=== PATIENT | male | born 1945 | race Caucasian/White ===

== ENCOUNTER 2020-06-25 17:58 | Emergency (ER) | payer MEDICARE, MEDICAID, SELFPAY ==
[2020-06-25 18:41] VITALS: BP 140/80; PULSE 78; RESP 18; TEMP 37.6; O2SAT 95; BMI 27.8
== END 2020-06-25 21:06 | disposition left against medical advice (07) ==
PROVIDERS: Emergency Provider Internal Medicine
DX: R51.9 Headache, unspecified (principal)
CPT/HCPCS: 99281; 99282

== ENCOUNTER → 2020-07-10 08:45 | Outpatient (BNVA) | payer MEDICARE, MEDICAID, SELFPAY | PROVIDERS: Visit Provider Nurse Practitioner | DX: Z76.89 Persons encountering health services in other specified circumstances (principal) | CPT/HCPCS: Q3014 ==

== ENCOUNTER 2020-08-19 13:55 | Emergency (ER) | payer MEDICARE, MEDICAID, SELFPAY ==
[2020-08-19 14:02] VITALS: BP 144/84; PULSE 84; RESP 18; TEMP 36.3; O2SAT 95; BMI 27.8
--- NOTE | 2020-08-19 19:17 | PC.NURSE ---
SECOND CALL. NO RESPONSE.
== END 2020-08-19 19:22 | disposition left against medical advice (07) ==
LOC: HO.ED 19:21
PROVIDERS: Emergency Provider Emergency Medicine
DX: S09.90XA Unspecified injury of head, initial encounter (principal); S80.212A Abrasion, left knee, initial encounter; W00.0XXA Fall on same level due to ice and snow, initial encounter; Y93.9 Activity, unspecified; Y92.480 Sidewalk as the place of occurrence of the external cause; Y99.9 Unspecified external cause status; Z79.82 Long term (current) use of aspirin
CPT/HCPCS: 99281; 99282

== ENCOUNTER 2021-01-01 08:14 | Outpatient (REF) | payer MEDICARE, MEDICAID, SELFPAY ==
--- NOTE | ~2021-01-01 | CT_ITS ---
EXAMINATION: CT SOFT TISSUE NECK WITH CONTRAST CLINICAL INFORMATION: Localized swelling, mass, lump. COMPARISON: None TECHNIQUE: Following the intravenous administration of 100 mL of Omnipaque 350 intravenous contrast, helical imaging was performed in the axial plane with generation of coronal and sagittal reformatted images. This CT examination was performed using dose optimization techniques as appropriate, variously including the following: *Automated exposure control *Adjustment of mA and/or kV according to patient size (this includes techniques or standardized protocols for targeted exams where dose is matched to indication/reason for exam; i.e. extremities or head) *Use of iterative reconstruction technique DLP: 291 mGy-cm FINDINGS: No cervical adenopathy is identified. The parotid glands are homogeneous in attenuation. The submandibular glands are normal. No contour abnormality or pathologic enhancement is seen within the oral cavity or pharyngeal mucosal space. The laryngeal structures are normal. The parapharyngeal fat is preserved. The carotid sheath vasculature opacify normally. No extra mucosal soft tissue mass or fluid collection is seen. No retropharyngeal fluid collection is seen. The thyroid gland is normal. The superior mediastinum is unremarkable. There is bilateral apical parenchymal scarring or atelectasis. There is a small polyp or retention cyst left maxillary sinus. There is mild mucoperiosteal thickening bilateral middle ethmoid sinuses is noted. There is nonspecific punctate calcification along the anterior maxillary skin with mild soft tissue thickening. The temporomandibular joints are normal. No periapical disease is identified. There is anterior plate and screws with intervening bone grafts for fusion from C4 through C6 vertebrae. The imaged portions of the brain parenchyma are unremarkable. There are bilateral optic globe bands likely for retinal detachment surgical changes. CT/CT soft tissue neck w con IMPRESSION: No visible neck mass or abnormal neck lymphadenopathy seen. There is nonspecific skin thickening with punctate calcifications in bilateral anterior maxillary soft tissues. No underlying mass seen. Small polyp or retention cyst left maxillary sinus. There is mild mucoperiosteal thickening seen involving bilateral middle ethmoid sinuses.
[2021-01-01] MEDS: iohexoL 350 MG/ML 100 ML INFUS..BTL IV (09:11)
== END 2021-01-01 08:15 | disposition home or self-care (01) ==
LOC: HO.CT 08:14
PROVIDERS: Visit Provider Family Medicine
DX: M54.2 Cervicalgia (principal); R22.1 Localized swelling, mass and lump, neck
CPT/HCPCS: 70491; Q9967

== ENCOUNTER → 2021-01-06 09:04 | Outpatient (BNVA) | payer MEDICARE, MEDICAID, SELFPAY | PROVIDERS: Visit Provider Nurse Practitioner | CPT/HCPCS: Q3014 ==

== ENCOUNTER 2021-02-04 10:11 | Outpatient (REF) | payer MEDICARE, MEDICAID, SELFPAY ==
--- NOTE | ~2021-02-04 | XR_ITS ---
EXAMINATION: XR CERVICAL SPINE CLINICAL INFORMATION: Neck pain. COMPARISON: 08/31/2018 cervical spine radiographs. TECHNIQUE: 6 views of the cervical spine, inclusive of flexion and extension views, were obtained. FINDINGS: The patient is status post anterior fusion from C5 to C7 showing good anatomic alignment with no evidence for hardware malfunction. There is normal cervical lordosis is malalignment. The vertebral bodies are intact. Mild multilevel neural foraminal narrowing is seen bilaterally. There is no acute fracture. The odontoid process is intact. The spinous processes are intact. The prevertebral soft tissues are unremarkable. XR/XR cervical spine min 6V IMPRESSION: Status post spinal fusion without hardware abnormality. No significant change.
== END 2021-02-04 10:12 | disposition home or self-care (01) ==
LOC: HO.XRAY 10:11
PROVIDERS: PCP Family Medicine; Visit Provider Family Medicine
DX: M54.2 Cervicalgia (principal)
CPT/HCPCS: 72052

== ENCOUNTER 2021-08-05 19:23 | Outpatient (REF) | payer MEDICARE, MEDICAID, SELFPAY ==
--- NOTE | ~2021-08-05 | MR_ITS ---
EXAMINATION: MR SHOULDER WITHOUT CONTRAST, RIGHT CLINICAL INFORMATION: Right shoulder pain. COMPARISON: Radiographs 11/24/2018. MRI 03/05/2018. TECHNIQUE: MRI of the shoulder without contrast was performed on a high-field scanner. FINDINGS: ROTATOR CUFF: The surgically repaired supraspinatus tendon appears intact. No rotator cuff tear. No muscle atrophy or fatty infiltration. BICEPS: Presumed biceps tenodesis, obscured by metal artifact. No definite tear. CORACOACROMIAL ARCH: The undersurface of the acromion is post acromioplasty with no subacromial spur. Mild acromioclavicular osteoarthritis. LABRUM/CAPSULE: No definite labral tear. The superior labrum is blunted. GLENOHUMERAL JOINT/MARROW: Trace joint effusion with mild synovitis. There is cartilage loss and osteophyte formation along the superolateral aspect of the humeral head and greater tuberosity. Osteophytes also along the inferomedial humeral head and neck junction, and the inferior glenoid rim. There is a small cyst and degenerative marrow edema of the posterior-superior glenoid rim which is a new finding. No change in the appearance of the lipoma between the anterior deltoid and coracoid/biceps short head. MR/MR shoulder RT wo con IMPRESSION: 1. Postsurgical changes without evidence of a recurrent rotator cuff tear. 2. Moderate glenohumeral osteoarthritis which has progressed, with a trace joint effusion.
== END 2021-08-05 19:24 | disposition home or self-care (01) ==
LOC: HO.MRI 19:23
PROVIDERS: PCP Family Medicine; Visit Provider Family Medicine
DX: M25.511 Pain in right shoulder (principal); M75.121 Complete rotator cuff tear or rupture of right shoulder, not specified as traumatic; Z98.890 Other specified postprocedural states
CPT/HCPCS: 73221

== ENCOUNTER → 2021-09-04 14:41 | Outpatient (BNVA) | payer MEDICARE, MEDICAID, SELFPAY | PROVIDERS: PCP Family Medicine; Referring Provider Family Medicine; Visit Provider Nurse Practitioner | DX: K21.9 Gastro-esophageal reflux disease without esophagitis (principal); K59.04 Chronic idiopathic constipation; R14.0 Abdominal distension (gaseous); Z79.899 Other long term (current) drug therapy | CPT/HCPCS: 99212 ==

== ENCOUNTER → 2021-11-27 15:31 | Outpatient (BNVA) | payer MEDICARE, MEDICAID, SELFPAY | PROVIDERS: PCP Family Medicine; Visit Provider Internal Medicine | DX: J44.9 Chronic obstructive pulmonary disease, unspecified (principal); G47.33 Obstructive sleep apnea (adult) (pediatric) | CPT/HCPCS: 99202 ==

== ENCOUNTER 2022-01-05 11:52 | Outpatient (REF) | payer MEDICARE, MEDICAID, SELFPAY ==
--- NOTE | ~2022-01-05 | XR_ITS ---
EXAMINATION: XR KNEE, BILATERAL XR KNEE, RIGHT CLINICAL INFORMATION: Pain. COMPARISON: 10/10/2014 and studies dating back to 01/18/2013. TECHNIQUE: AP standing view of both knees as well as patellar sunrise and lateral view of the right knee. FINDINGS: The patient is status post left knee total arthroplasty without evidence of hardware failure. There is an exostosis seen about the proximal fibula. Right knee medial, lateral, and patellofemoral joint spaces appear maintained. No acute fracture or dislocation. There is minor spurring undersurface of the patella. There is a spur site of insertion of the quadriceps tendon. No effusion is appreciated. Prominent vascular calcifications are seen. XR/XR knee RT 2V IMPRESSION: Status post left total knee arthroplasty without evidence of hardware failure. Mild degenerative change of the right patellofemoral joint without acute fracture or effusion.
--- NOTE | ~2022-01-05 | XR_ITS ---
EXAMINATION: XR KNEE, BILATERAL XR KNEE, RIGHT CLINICAL INFORMATION: Pain. COMPARISON: 10/10/2014 and studies dating back to 01/18/2013. TECHNIQUE: AP standing view of both knees as well as patellar sunrise and lateral view of the right knee. FINDINGS: The patient is status post left knee total arthroplasty without evidence of hardware failure. There is an exostosis seen about the proximal fibula. Right knee medial, lateral, and patellofemoral joint spaces appear maintained. No acute fracture or dislocation. There is minor spurring undersurface of the patella. There is a spur site of insertion of the quadriceps tendon. No effusion is appreciated. Prominent vascular calcifications are seen. XR/XR knee standing BI IMPRESSION: Status post left total knee arthroplasty without evidence of hardware failure. Mild degenerative change of the right patellofemoral joint without acute fracture or effusion.
== END 2022-01-05 11:53 | disposition home or self-care (01) ==
LOC: HO.HOSX 11:52
PROVIDERS: Visit Provider Physician Assistant
DX: M17.11 Unilateral primary osteoarthritis, right knee (principal)
CPT/HCPCS: 73560; 73565; 99202

== ENCOUNTER 2022-01-07 14:43 | Outpatient (REF) | payer MEDICARE, MEDICAID, SELFPAY ==
--- NOTE | 2022-01-07 15:50 | PFT_ITS ---
FLOWS: FEV1 92% of predicted at 2.01 L. FVC 91% of predicted at 2.85 L. FEV1 to FVC ratio of 0.71. No bronchodilator response. LUNG VOLUMES: Total lung capacity 86% of predicted at 5.06 L. Residual volume 99% of predicted at 2.30 L. Slow vital capacity 77% of predicted at 2.76 L. Expiratory reserve volume 66% of predicted at 0.53 L. Diffusion capacity is normal. IMPRESSION: No obstructive or restrictive ventilatory defect. No bronchodilator response. Essentially normal pulmonary function test. Ignacio Lee MD AP/MODL / [id number]
== END 2022-01-07 14:44 | disposition home or self-care (01) ==
LOC: HO.RESP 14:43
PROVIDERS: PCP Family Medicine; Visit Provider Internal Medicine
DX: J44.9 Chronic obstructive pulmonary disease, unspecified (principal); Z87.891 Personal history of nicotine dependence; Z79.899 Other long term (current) drug therapy
CPT/HCPCS: 94060; 94727; 94729; 99212

== ENCOUNTER → 2022-01-13 07:53 | Outpatient (BNVA) | payer MEDICARE, MEDICAID, SELFPAY | PROVIDERS: PCP Family Medicine; Visit Provider Nurse Practitioner Family | DX: G47.33 Obstructive sleep apnea (adult) (pediatric) (principal); R06.83 Snoring; G47.00 Insomnia, unspecified; R40.0 Somnolence | CPT/HCPCS: 99202 ==

== ENCOUNTER 2022-01-26 14:38 | Outpatient (REF) | payer MEDICARE, MEDICAID, SELFPAY ==
--- NOTE | ~2022-01-26 | XR_ITS ---
EXAMINATION: XR PELVIS CLINICAL INFORMATION: Pain COMPARISON: Previous right hip x-ray September 2017 TECHNIQUE: AP view of the pelvis. FINDINGS: Bone alignment is normal. No fracture or dislocation is seen. There is joint space narrowing of both hip joints with joint space narrowing and osteophyte formation. There is a sclerotic density in the right femoral intertrochanteric region that is stable from 2018 exam and may represent a bone island. This measures 1.3 cm. Bones of the pelvis are normal. There are degenerative changes of the visualized lower lumbar spine. Soft tissues are normal. XR/XR pelvis 1-2V IMPRESSION: Bilateral hip arthritis.
== END 2022-01-26 14:39 | disposition home or self-care (01) ==
LOC: HO.HOSX 14:38
PROVIDERS: Visit Provider Orthopaedic Surgery
DX: M17.11 Unilateral primary osteoarthritis, right knee (principal); M79.661 Pain in right lower leg; M25.461 Effusion, right knee; M25.551 Pain in right hip; M25.552 Pain in left hip
CPT/HCPCS: 72170; 99212

== ENCOUNTER 2022-02-13 11:52 | Emergency (ER) | payer MEDICARE, MEDICAID, SELFPAY ==
--- NOTE | ~2022-02-13 | XR_ITS ---
EXAMINATION: XR CHEST CLINICAL INFORMATION: Shortness of breath COMPARISON: X-ray 01/26/2017 TECHNIQUE: Frontal view of the chest was obtained. FINDINGS: Stable cardiomediastinal silhouette. Mild left basilar opacity. This is less prominent as compared to the prior study. No effusion or pulmonary edema. No pneumothorax. Cervical spinal fusion hardware. Radiopaque anchors in bilateral humeral head. XR/XR chest 1V IMPRESSION: Left basilar opacity could reflect atelectasis or infiltrate.
[2022-02-13 12:01] VITALS: BP 147/80; PULSE 69; RESP 20; TEMP 36.7; O2SAT 96; BMI 27.8
[2022-02-13 12:20] LABS: Basophils Percent Auto 0.3 % (0-2); Eosinophils Absolute Auto 0.4 X10*3/uL (0.0-0.4); Eosinophils Percent Auto 5.3 % (0-4); Hematocrit 44.3 % (42.0-52.0); Hemoglobin 14.8 g/dl (14.0-18.0); Imm Gran Abs Auto 0.02 X10*3/uL (0.00-0.03); Imm Gran Pct Auto 0.3 % (0.0-0.4); Lymphocytes Percent Auto 29.1 % (20-40); MANUAL DIFF FLAG NO; Mean Corpuscular HGB Conc 33.4 g/dl (31.0-36.0); Mean Corpuscular Volume 95.7 fL (80.0-98.0); Mean Platelet Volume 9.7 fL (9.4-12.4); Monocytes Absolute Auto 0.7 X10*3/uL (0.1-1.2); Monocytes Percent Auto 9.6 % (2-11); Neutrophils Absolute Auto 3.9 x10*3/uL (2.0-8.3); Neutrophils Percent Auto 55.4 % (45-73); Platelet Count 196 X10*3/uL (160-400); Red Blood Count 4.63 X10*6/uL (4.60-5.80); Red Cell Distribution Width 13.7 % (11.0-16.0)
[2022-02-13 12:39] LABS: Alanine Aminotransferase 25 U/L (0-40); Albumin Level 4.1 g/dL (3.5-5.0); Alkaline Phosphatase 124 U/L (39-117); Anion Gap 12 (12-20); Aspartate Amino Transferase 24 U/L (5-37); Bilirubin Total 0.6 mg/dL (0.0-1.0); Blood Urea Nitrogen 13 mg/dL (9-16); Calcium 8.9 mg/dL (8.4-10.2); Carbon Dioxide 26 mmol/L (22-29); Chloride 107 mmol/L (96-108); Creatinine Clr Calc Pharmacy 52.2; Estimated Glomerular Filt Rate > 60; Glucose Random 103 mg/dL (60-115); Sodium 141 mmol/L (135-145); Total Protein 6.7 g/dL (6.5-8.0)
[2022-02-13 12:40] LABS: B Type Natriuretic Peptide 12 pg/mL (<100); Troponin-I High Sensitivity < 3.5 ng/L (<3.5-35.0)
[2022-02-13] MEDS: Acetaminophen 325 MG TABLET 650 MG PO (15:00)
== END 2022-02-13 16:57 | disposition left against medical advice (07) ==
PROVIDERS: Emergency Provider Emergency Medicine; PCP Family Medicine
DX: R06.02 Shortness of breath (principal); R10.9 Unspecified abdominal pain; R07.89 Other chest pain; Z79.899 Other long term (current) drug therapy
CPT/HCPCS: 36415; 71045; 80053; 83880; 84484; 85025; 99282; 99283

== ENCOUNTER 2022-02-17 17:51 | Outpatient (REF) | payer MEDICARE, MEDICAID, SELFPAY ==
--- NOTE | ~2022-02-17 | MR_ITS ---
EXAMINATION: MR KNEE WITHOUT CONTRAST, RIGHT CLINICAL INFORMATION: Right knee effusion. COMPARISON: 01/05/2022 TECHNIQUE: MRI of the knee without contrast was performed using routine sequences on a high-field scanner. FINDINGS: MENISCI: Medial Meniscus: There is subtle blunting of the inner margin at the meniscal body which could be the result of inner margin fraying. This is slightly more pronounced as compared to prior. No discrete medial meniscal tears. Lateral Meniscus: Intact. LIGAMENTS: Cruciate: Intact. Collateral: As seen on the prior study, the MCL is relatively thickened proximally at its origin, possibly the result of a remote injury. No acute tears. LCL complex is normal. EXTENSOR MECHANISM: Mild quadriceps tendinosis with mild edema in the quadriceps fat pad. Patellar tendon is normal. No tears. ARTICULAR CARTILAGE/BONE: Patellofemoral Compartment: A transverse band of chondral fissuring and delamination at the inferior aspect of the medial trochlear facet measures 1 x 0.5 cm in area with subtle cortical irregularity. This is slightly more pronounced as compared to prior. A small longitudinal chondral fissure is also present in the central trochlear groove. Normal trochlear morphology. Patella is unremarkable. Medial Compartment: At the lateral third of the medial femoral condyle posterior weightbearing surface, there is a 4 x 6 mm partial-thickness delaminated chondral flap with near full-thickness chondral fissuring. Lateral Compartment: Normal. JOINT FLUID AND BURSAE: Trace joint effusion. Minimal pes anserine bursitis. MR/MR knee RT wo con IMPRESSION: 1. A 4 x 6 mm partial-thickness delaminated chondral flap at the medial femoral condyle weightbearing surface. 2. Subtle blunting of the medial meniscal body free edge, likely degenerative. No discrete meniscal tears. 3. Small band of chondral fissuring and delamination at the inferior aspect of the medial trochlear facet, slightly more pronounced as compared to prior. 4. Mild quadriceps tendinosis. 5. Minimal pes anserine bursitis.
== END 2022-02-17 17:52 | disposition home or self-care (01) ==
LOC: HO.MRI 17:51
PROVIDERS: Visit Provider Orthopaedic Surgery
DX: M25.461 Effusion, right knee (principal)
CPT/HCPCS: 73721

== ENCOUNTER 2022-02-19 14:07 | Emergency (ER) | payer MEDICARE, MEDICAID, SELFPAY ==
--- NOTE | ~2022-02-19 | CT_ITS ---
EXAMINATION: CT ANGIOGRAM OF THE CHEST WITH AND WITHOUT CONTRAST (CT PULMONARY ANGIOGRAM FOR PE) CLINICAL INFORMATION: Reason for Exam + dimer sob COMPARISON: Chest CT 09/16/2013 TECHNIQUE: Prior to contrast administration, noncontrast localization images were obtained. Subsequently, multidetector volumetric imaging was performed from the thoracic inlet to below the diaphragms following the administration of 63 mL Omnipaque 350 intravenous contrast. No contrast reaction reported Sagittal, coronal, and MIP oblique sagittal reformatted images were obtained on the CT workstation, uploaded to PACS, and reviewed. This CT examination was performed using dose optimization techniques as appropriate, variously including the following: *Automated exposure control *Adjustment of mA and/or kV according to patient size (this includes techniques or standardized protocols for targeted exams where dose is matched to indication/reason for exam; i.e. extremities or head) *Use of iterative reconstruction technique Total exam dose-length product 268 mGy-cm FINDINGS: QUALITY OF STUDY/CONTRAST BOLUS: Satisfactory. PULMONARY ARTERIES: No central or segmental pulmonary emboli. THORACIC AORTA: No aneurysm or dissection. LUNG: Small amount of endobronchial mucous or aspirated debris within bilateral bronchi in the posterior lower lobes with mild bibasilar subsegmental atelectasis. No airspace consolidation. No suspicious pulmonary nodules. Sub-4 mm calcified granuloma in the anterior right upper lobe. Minimal biapical pleural parenchymal thickening/scarring. PLEURA: No pleural effusion or pneumothorax. MEDIASTINUM: Prominent heart size. No mediastinal or hilar lymphadenopathy. No evidence of septal bowing or right heart strain. CHEST WALL/AXILLA: No axillary or internal mammary lymphadenopathy. OSSEOUS STRUCTURES: No acute or suspicious osseous abnormality. Moderate multilevel degenerative disc disease in the mid lower thoracic spine. ACDF hardware noted in the imaged lower cervical spine. UPPER ABDOMEN: Unremarkable. No reflux of contrast into the hepatic veins to suggest elevated right heart pressures. CT/CT angio chest PE protocol IMPRESSION: 1. No evidence of pulmonary embolus. 2. Mild bibasilar subsegmental atelectasis and small amount of endobronchial mucus or possibly small volume aspirated debris in the posterior lower lobe bronchi bilaterally. 3. No other airspace opacity or effusions. VTE: negative
--- NOTE | ~2022-02-19 | XR_ITS ---
EXAMINATION: XR CHEST CLINICAL INFORMATION: Shortness of breath. COMPARISON: 02/13/2022 and 01/26/2017 chest radiographs. TECHNIQUE: Frontal view of the chest was obtained. FINDINGS: Mild left basilar opacities are seen. The left upper lung field and right lung are clear. The heart and mediastinal structures are unremarkable. An anterior cervical fixation plate is noted in place. XR/XR chest 1V IMPRESSION: Mild bibasilar opacities are again seen without significant change likely representing pleural reflection/scarring. No acute abnormality.
[2022-02-19 15:10] VITALS: BP 117/84; PULSE 75; RESP 16; TEMP 36.2; O2SAT 96; BMI 27.8
--- NOTE | 2022-02-19 15:17 | ECG_ITS ---
Test Reason : cx pain Blood Pressure : / mmHG Vent. Rate : 073 BPM Atrial Rate : 073 BPM P-R Int : 202 ms QRS Dur : 092 ms QT Int : 382 ms P-R-T Axes : 044 -42 025 degrees QTc Int : 420 ms Normal sinus rhythm Left axis deviation Minimal voltage criteria for LVH, may be normal variant ( Levi product ) Abnormal ECG When compared with ECG of 24-NOV-2018 07:34, QRS axis Shifted left Referred By: Rut Stephens Electronically Signed By:PHIL UMANA
[2022-02-19 15:33] LABS: MANUAL DIFF FLAG NO
[2022-02-19 15:37] LABS: Basophils Percent Auto 0.4 % (0-2); Eosinophils Absolute Auto 0.4 X10*3/uL (0.0-0.4); Eosinophils Percent Auto 5.5 % (0-4); Hematocrit 42.8 % (42.0-52.0); Hemoglobin 14.3 g/dl (14.0-18.0); Imm Gran Abs Auto 0.03 X10*3/uL (0.00-0.03); Imm Gran Pct Auto 0.4 % (0.0-0.4); Lymphocytes Absolute Auto 1.9 X10*3/uL (1.2-4.9); Lymphocytes Percent Auto 25.2 % (20-40); Mean Corpuscular HGB Conc 33.4 g/dl (31.0-36.0); Mean Corpuscular Hemoglobin 32.2 pg (27.0-33.0); Mean Corpuscular Volume 96.4 fL (80.0-98.0); Mean Platelet Volume 9.7 fL (9.4-12.4); Monocytes Absolute Auto 0.7 X10*3/uL (0.1-1.2); Monocytes Percent Auto 9.2 % (2-11); Neutrophils Absolute Auto 4.4 x10*3/uL (2.0-8.3); Neutrophils Percent Auto 59.3 % (45-73); Platelet Count 223 X10*3/uL (160-400); Red Blood Count 4.44 X10*6/uL (4.60-5.80); Red Cell Distribution Width 13.6 % (11.0-16.0); White Blood Count 7.5 X10*3/uL (4.8-10.8)
[2022-02-19 15:54] LABS: Anion Gap 15 (12-20); Blood Urea Nitrogen 13 mg/dL (9-16); Calcium 8.5 mg/dL (8.4-10.2); Carbon Dioxide 26 mmol/L (22-29); Chloride 107 mmol/L (96-108); Creatinine Clr Calc Pharmacy 46.1; Estimated Glomerular Filt Rate 58; Glucose Random 95 mg/dL (60-115); Potassium 4.6 mmol/L (3.3-5.1); Sodium 143 mmol/L (135-145)
--- NOTE | 2022-02-19 19:16 | ED_ITS ---
HPI - SOB/Dyspnea General Chief Complaint: Dyspnea Stated Complaint: diff breathing pneumonia Time Seen by Provider: 02/19/22 18:59 Source: patient Mode of arrival: ambulatory Limitations: no limitations History of Present Illness HPI Narrative: 76-year-old male history of former smoker, asthma, yolanda, copd, htn, yolanda, gerd, presenting to the emergency department shortness of breath, cough, since Wednesday, 3 days ago. Patient was told that he had pneumonia however was not started on antibiotics. Patient reports increasing shortness of breath particularly over the past day, patient reports using his inhaler continuously today, with little to no relief. SOB worse w/ exertion. Upon patient's arrival patient appears to have labored breathing, speaking in full sentences, intercostal muscles for breathing. Denies chest pain, nausea, vomiting, abdominal pain, headache, vision changes, leg swellig and dizziness. Patient has never required intubation for sx. No hx of DV/PE. Not anticoagulated. Related Data Home Medications Medication Instructions Recorded Confirmed albuterol sulfate 90 mcg/actuation 1 inh inhalation QID 01/10/21 01/13/22 aerosol inhaler (ProAir HFA) aspirin 81 mg tablet,delayed 81 mg PO DAILY 01/10/21 01/13/22 release (Adult Aspirin Regimen) atorvastatin 20 mg tablet 20 mg PO DAILY 01/10/21 01/13/22 doxepin 100 mg capsule 100 mg PO BEDTIME 01/10/21 01/13/22 fluticasone 100 mcg-salmeterol 50 1 inh inhalation BID 01/10/21 01/13/22 mcg/dose blistr powdr for inhalation (Advair Diskus) lisinopril 10 mg tablet 10 mg PO DAILY 01/10/21 01/13/22 metoprolol succinate 25 mg 12.5 mg PO DAILY 01/10/21 01/13/22 tablet,extended release 24 hr omega-3 fatty acids 1,000 mg 1,000 mg PO DAILY 01/10/21 01/13/22 capsule (Fish Oil Concentrate) doxepin 75 mg capsule 75 mg PO BEDTIME 09/04/21 01/13/22 mirtazapine 15 mg tablet 15 mg PO BEDTIME 09/04/21 01/13/22 celecoxib 200 mg capsule 200 mg PO DAILY 01/07/22 01/13/22 fluticasone 250 mcg-salmeterol 50 1 ea inhalation BID 01/07/22 01/13/22 mcg/dose blistr powdr for inhalation (Advair Diskus) simvastatin 40 mg tablet 40 mg PO BEDTIME 01/07/22 01/13/22 Previous Rx's Medication Instructions Recorded omeprazole 20 mg capsule,delayed 20 mg PO BID 30 days #60 caps 09/04/21 release simethicone 180 mg capsule 180 mg PO QID 30 days #120 caps 09/04/21 melatonin 3 mg tablet 3 mg PO BEDTIME PRN sleep 30 days 01/13/22 #30 tabs albuterol sulfate 90 mcg/actuation 2 inh inhalation Q4-6H PRN 02/19/22 breath activated powder inhaler shortness of breath or wheezing #1 ea amoxicillin 875 mg-potassium 1 tab PO BID 7 days #14 tabs 02/19/22 clavulanate 125 mg tablet doxycycline hyclate 100 mg capsule 100 mg PO BID 10 days #20 caps 02/19/22 prednisone 20 mg tablet 40 mg PO DAILY 5 days #10 tabs 02/19/22 Allergies Allergy/AdvReac Type Severity Reaction Status Date / Time codeine AdvReac Mild Abdominal Verified 02/13/22 14:58 Pain Motrin Allergy Unknown Unknown Uncoded 01/05/22 13:24 Review of Systems Review of Systems: Constitutional : No Weight loss, No Fever, No Chills, No Fatigue, No Malaise ENT/Mouth : No sore throat, No Rhinorrhea Eyes: No Eye Pain, No Swelling, No Redness Cardiovascular : No Chest Pain, + SOB, No Dyspnea on Exertion, No Orthopnea, No Edema, No Palpitations Respiratory : No Cough, No Sputum, No Wheezing Gastrointestinal : No Nausea, No Vomiting, No Diarrhea, No Constipation, No abdominal Pain, No Hematochezia, No Melena Genitourinary : No Dysuria, No Urinary Frequency, No Hematuria, Musculoskeletal : No joint pain, No Myalgias, No Joint Swelling Skin : No Skin Lesions, No rash Neuro : No Weakness, No Numbness, No Dizziness, No Headache Psych : No Anxiety/Panic, No Depression All other systems reviewed and are negative Yes all other systems are reviewed and are negative [facility] Past Medical History Attestation statement: The following information was validated with the patient. Source: old records reviewed and nursing notes reviewed Medical History Degenerative disc disease, thoracic No known health problems Surgical History H/O colonoscopy H/O shoulder surgery History of renal stent History of total left knee replacement Previous back surgery S/P arthroscopic surgery of left knee Social History Social History Alcohol intake: never Patient Tobacco Use Status: Never used Tobacco Advance Directives: No Advance Directives Information Provided: No Current occupational status: unemployed Physical Exam Vital Signs: Vital Signs: Last Vital Signs Temp 97.1 F 02/19/22 15:10 Pulse 96 02/19/22 22:06 Resp 22 H 02/19/22 22:06 BP 117/84 02/19/22 15:10 Pulse Ox 96 02/19/22 15:10 O2 Del Method 02/19/22 15:10 BMI result Body Mass Index 27.8 vss Appearance: Alert.? Oriented X3.? No acute distress.? Head: Normocephalic, atraumatic, no step-offs or deformities Eyes: Pupils equal, round and reactive to light.? ENT: Pharynx normal.? Neck: Normal inspection.? Neck supple.? CVS: Normal heart rate and rhythm.? Pulses normal.? Respiratory: + mild respiratory distress.? Breath sounds diminished b/l w/ faint crackles throughout and wheezing throughout .? Abdomen: Soft and nontender.? Skin: Skin warm and dry.? Normal skin color.? Normal skin turgor.? Extremities: No lower extremity edema.? No calf ttp. 5/5 strength to bilateral upper and lower extremities Neuro: Oriented X 3.? No motor deficit.? No sensory deficit. CN 2-12 intact Course Reevaluation(s) Reevaluation #1: CBC appears to be around patient's baseline. Chemistry with no acute electrolyte abnormalities requiring intervention. D-dimer elevated, CTA of the chest will be ordered to rule out PE on this patient. Will also order a BNP to rule out fluid overload although patient does not appear to be overtly overloaded on exam. Some improvement after DuoNeb however 2nd DuoNeb will be ordered as patient continues to have expiratory wheezes, diminished breath sounds, faint crackles. Time: 21:37 Reevaluation #2: Patient appears much better, breath sounds audible bilaterally, faint wheezing however improved significantly from initial examination. Patient is saturating well on room air. Time: 23:00 Reevaluation #3: Patient feeling much better, lungs clear on exam, vss . Chest CTA with no evidence of PE, suggesting possible aspiration pneumonia, patient is saturating well on room air even after ambulation 97% on room air. No need for hospital admission at this time. There is no evidence of ACS, troponin negative, BNP normal, no signs of ischemia on EKG. This time patient will be discharged home with p.o. antibiotics, albuterol inhaler and prednisone. Advised to return with any new or worsening symptoms. At this time I feel comfortable with discharge. Time: 23:04 MDM - SOB/Dyspnea MDM Narrative Medical decision making narrative: 1916 76-year-old male presents with upper respiratory symptoms since Wednesday, 3 days ago progressively worsening. Physical examination with crackles and decreased breath sounds bilaterally, regular rate and rhythm, lungs clear, abdomen soft nontender nondistended. Neuro exam nonfocal. Patient appears uncomfortable, using intercostal muscles for breathing, increased work of breathing, speaking in full sentences. Likley asthma exacerbation based off of exam. Plan at this time is to administer DuoNeb, magnesium, Solu-Medrol. Will obtain a chest x-ray, basic labs. Medical Records Attestation: I reviewed the patient's medical records. Lab Data Attestation: I reviewed the patient's lab results. Result diagrams: 02/19/22 15:28 02/19/22 15:28 Labs: Lab Results 02/19/22 02/19/22 02/19/22 Range/Units 15:28 15:28 20:56 WBC 7.5 (4.8-10.8) X10*3/uL RBC 4.44 L (4.60-5.80) X10*6/uL Hgb 14.3 (14.0-18.0) g/dl Hct 42.8 (42.0-52.0) % MCV 96.4 (80.0-98.0) fL MCH 32.2 (27.0-33.0) pg MCHC 33.4 (31.0-36.0) g/dl RDW 13.6 (11.0-16.0) % Plt Count 223 (160-400) X10*3/uL MPV 9.7 (9.4-12.4) fL Immature Gran % (Auto) 0.4 (0.0-0.4) % Neut % (Auto) 59.3 (45-73) % Lymph % (Auto) 25.2 (20-40) % [place] % (Auto) 9.2 (2-11) % Eos % (Auto) 5.5 H (0-4) % Baso % (Auto) 0.4 (0-2) % Lymph # (Auto) 1.9 (1.2-4.9) X10*3/uL [place] # (Auto) 0.7 (0.1-1.2) X10*3/uL Eos # (Auto) 0.4 (0.0-0.4) X10*3/uL Baso # (Auto) 0.0 (0.0-0.2) X10*3/uL Abs Immat Gran (auto) 0.03 (0.00-0.03) X10*3/uL Absolute Neuts (auto) 4.4 (2.0-8.3) x10*3/uL Absolute Nucleated RBC 0.000 (0.0-0.012) X10*3/uL Nucleated RBC % (auto) 0.0 (0.0-0.2) /100WBC D-Dimer High Sensitivty NG/ML Sodium 143 (135-145) mmol/L Potassium 4.6 (3.3-5.1) mmol/L Chloride 107 (96-108) mmol/L Carbon Dioxide 26 (22-29) mmol/L Anion Gap 15 (12-20) BUN 13 (9-16) mg/dL Creatinine 1.21 (0.5-1.4) mg/dL Estim Creat Clear Calc 46.1 Estimated GFR 58 Random Glucose 95 (60-115) mg/dL Calcium 8.5 (8.4-10.2) mg/dL Troponin I High Sens (<3.5-35.0) ng/L B-Natriuretic Peptide (<100) pg/mL COVID-19 (ALTAF) Negative (Negative) COVID-19 Clin Com See Note Influenza Type A (PCR) (Negative) Influenza Type B (PCR) (Negative) RSV RNA Qual (PCR) (Negative) SARS-CoV-2 RNA (RT-PCR) (Negative) 02/19/22 02/19/22 02/19/22 Range/Units 20:56 20:56 22:34 WBC (4.8-10.8) X10*3/uL RBC (4.60-5.80) X10*6/uL Hgb (14.0-18.0) g/dl Hct (42.0-52.0) % MCV (80.0-98.0) fL MCH (27.0-33.0) pg MCHC (31.0-36.0) g/dl RDW (11.0-16.0) % Plt Count (160-400) X10*3/uL MPV (9.4-12.4) fL Immature Gran % (Auto) (0.0-0.4) % Neut % (Auto) (45-73) % Lymph % (Auto) (20-40) % [place] % (Auto) (2-11) % Eos % (Auto) (0-4) % Baso % (Auto) (0-2) % Lymph # (Auto) (1.2-4.9) X10*3/uL [place] # (Auto) (0.1-1.2) X10*3/uL Eos # (Auto) (0.0-0.4) X10*3/uL Baso # (Auto) (0.0-0.2) X10*3/uL Abs Immat Gran (auto) (0.00-0.03) X10*3/uL Absolute Neuts (auto) (2.0-8.3) x10*3/uL Absolute Nucleated RBC (0.0-0.012) X10*3/uL Nucleated RBC % (auto) (0.0-0.2) /100WBC D-Dimer High Sensitivty 354 NG/ML Sodium (135-145) mmol/L Potassium (3.3-5.1) mmol/L Chloride (96-108) mmol/L Carbon Dioxide (22-29) mmol/L Anion Gap (12-20) BUN (9-16) mg/dL Creatinine (0.5-1.4) mg/dL Estim Creat Clear Calc Estimated GFR Random Glucose (60-115) mg/dL Calcium (8.4-10.2) mg/dL Troponin I High Sens < 3.5 (<3.5-35.0) ng/L B-Natriuretic Peptide 19 (<100) pg/mL COVID-19 (ALTAF) (Negative) COVID-19 Clin Com Influenza Type A (PCR) NEGATIVE (Negative) Influenza Type B (PCR) NEGATIVE (Negative) RSV RNA Qual (PCR) NEGATIVE (Negative) SARS-CoV-2 RNA (RT-PCR) NEGATIVE (Negative) ECG Data Attestation: I personally reviewed and interpreted this ECG as follows: ECG interpretation date: 02/19/22 ECG interpretation time: 23:05 Prior ECG tracings: available for review Interpretation: Ventricular rate of 73, AK normal, QRS normal, QT/QTC normal. EKG with normal sinus rhythm and a left axis deviation no ST elevations or inversions concerning for ischemia, no significant changes when compared to November 2018. Critical Care Time Critical Care Time Critical Care Time: No Discharge Plan Discharge Clinical Impression: Asthma, Aspiration pneumonia Patient Disposition: Home, Self-Care Instructions: Asthma (ED), Viral Pneumonia (ED), Pneumonia (ED) Additional Instructions: Take your medications as prescribed. If you were prescribed antibiotics today, it is important that you take your medication to their entirety, do not skip any doses, do not finish them early. Follow-up with your primary care provider this week. Return to the emergency department with new or worsening symptoms. Such as fevers, chills, chest pain, shortness of breath, nausea, vomiting, dizziness, headache, vision changes, lethargy In case of emergency call 911 CT/CT angio chest PE protocol IMPRESSION: ? 1. No evidence of pulmonary embolus. 2. Mild bibasilar subsegmental atelectasis and small amount of endobronchial mucus or possibly small volume aspirated debris in the posterior lower lobe bronchi bilaterally. 3. No other airspace opacity or effusions. ? VTE: negative XR/XR chest 1V IMPRESSION: Mild bibasilar opacities are again seen without significant change likely representing pleural reflection/scarring. No acute abnormality. ? Prescriptions: New prednisone 20 mg tablet 40 mg PO DAILY 5 Days Qty: 10 0RF albuterol sulfate 90 mcg/actuation aerosol powdr breath activated 2 inh inhalation Q4-6H PRN (Reason: shortness of breath or wheezing) Qty: 1 0RF doxycycline hyclate 100 mg capsule 100 mg PO BID 10 Days Qty: 20 0RF amoxicillin-pot clavulanate 875-125 mg tablet 1 tab PO BID 7 Days Qty: 14 0RF No Action lisinopril 10 mg tablet 10 mg PO DAILY atorvastatin 20 mg tablet 20 mg PO DAILY albuterol sulfate [ProAir HFA] 90 mcg/actuation HFA aerosol inhaler 1 inh inhalation QID fluticasone propion-salmeterol [Advair Diskus] 100-50 mcg/dose blister with device 1 inh inhalation BID doxepin 100 mg capsule 100 mg PO BEDTIME metoprolol succinate 25 mg tablet extended release 24 hr 12.5 mg PO DAILY aspirin [Adult Aspirin Regimen] 81 mg tablet,delayed release (DR/EC) 81 mg PO DAILY omega-3 fatty acids [Fish Oil Concentrate] 1,000 mg capsule 1,000 mg PO DAILY mirtazapine 15 mg tablet 15 mg PO BEDTIME doxepin 75 mg capsule 75 mg PO BEDTIME omeprazole 20 mg capsule,delayed release(DR/EC) 20 mg PO BID 30 Days Qty: 60 6RF simethicone 180 mg capsule 180 mg PO QID 30 Days Qty: 120 6RF simvastatin 40 mg tablet 40 mg PO BEDTIME fluticasone propion-salmeterol [Advair Diskus] 250-50 mcg/dose blister with device 1 ea inhalation BID celecoxib 200 mg capsule 200 mg PO DAILY melatonin 3 mg tablet 3 mg PO BEDTIME PRN (Reason: sleep) 30 Days Qty: 30 3RF Referrals: Tangela Garcia MD [Primary Care Provider] - 2 days
[2022-02-19] MEDS: Magnesium Sulfate/H2O 2 GM/50 ML PIGGYBACK IV (19:29)
[2022-02-19 19:30] VITALS: PULSE 101; RESP 22; O2SAT 96
[2022-02-19] MEDS: methylPREDNISolone Sod Succ 125 MG/2 ML VIAL IVPUSH (19:30)
[2022-02-19] MEDS: Albuterol/Iprat 2.5/0.5MG 3 ML AMPUL.NEB INHALE ×3 (19:30→23:35)
[2022-02-19 21:29] LABS: COVID-19 Test Negative (Negative); IDNOW Serial# 16C4AD1C
[2022-02-19 21:31] LABS: D Dimer High Sensitivity 354 NG/ML
[2022-02-19 21:39] LABS: Influenza A PCR NEGATIVE (Negative); Influenza B PCR NEGATIVE (Negative); Resp Syncy Virus RNA Qual PCR NEGATIVE (Negative); SARS COV2 PCR INHOUSE NEGATIVE (Negative)
[2022-02-19 22:06] VITALS: PULSE 96; RESP 22; O2SAT 96
[2022-02-19] MEDS: iohexoL 350 MG/ML 100 ML INFUS..BTL IV (22:07)
[2022-02-19 23:02] LABS: B Type Natriuretic Peptide 19 pg/mL (<100); Troponin-I High Sensitivity < 3.5 ng/L (<3.5-35.0)
== END 2022-02-19 23:46 | disposition home or self-care (01) ==
PROVIDERS: Emergency Medicine; Physician Assistant; Emergency Provider Internal Medicine; PCP Family Medicine
DX: J69.0 Pneumonitis due to inhalation of food and vomit (principal); R06.02 Shortness of breath; R07.89 Other chest pain; Z20.822 Contact with and (suspected) exposure to COVID-19; Z79.899 Other long term (current) drug therapy
CPT/HCPCS: 0241U; 36415; 71045; 71275; 80048; 83880; 84484; 85025; 85379; 87635; 93005; 94640; 96365; 96375; 99284; 99285; J2930; J3475; Q9967

== ENCOUNTER → 2022-03-12 09:14 | Outpatient (BNVA) | payer MEDICARE, MEDICAID, SELFPAY | PROVIDERS: PCP Family Medicine; Visit Provider Orthopaedic Surgery | DX: M17.11 Unilateral primary osteoarthritis, right knee (principal) | CPT/HCPCS: 99212 ==

== ENCOUNTER → 2022-04-01 11:57 | Outpatient (BNVA) | payer MEDICARE, MEDICAID, SELFPAY | PROVIDERS: PCP Family Medicine; Visit Provider Nurse Practitioner | DX: K59.04 Chronic idiopathic constipation (principal); K21.9 Gastro-esophageal reflux disease without esophagitis; R14.0 Abdominal distension (gaseous) | CPT/HCPCS: 99212 ==

== ENCOUNTER → 2022-04-14 08:49 | Outpatient (BNVA) | payer MEDICARE, MEDICAID, SELFPAY | PROVIDERS: PCP Family Medicine; Visit Provider Nurse Practitioner Family | DX: G47.00 Insomnia, unspecified (principal); R40.0 Somnolence; R06.83 Snoring; G47.33 Obstructive sleep apnea (adult) (pediatric) | CPT/HCPCS: 99212 ==

== ENCOUNTER 2022-04-16 12:26 | Outpatient (REF) | payer MEDICARE, MEDICAID, SELFPAY ==
--- NOTE | 2022-04-16 14:56 | MHC.AU.HAS ---
Hearing Aid Evaluation Date of Visit: 04/16/22 [employer] Used: Lithuanian- In Person Historical Information: Description of Hearing: Mild to severe/profound sensorineural hearing loss bilaterally Summary: Patient received medical clearance for hearing aids from ENT, Dr. Shan Dias. He has not previously worn hearing aids. Patient reports bothersome tinnitus, mostly in his right ear. Hearing aid options were discussed. He would like a rechargeable ITC for ease of use. He does not currently have a phone that would be compatible with any of our manufacturers' Bluetooth. Hearing Aid Prescription: Based on the individual?s shared listening needs, communication environments, dexterity, desire for connectivity, and personal preferences, the following prescription for amplification has been made: Right ear: Public Affairs Specialist: [employer] Model: Evolv AI 1600 ITC-R Battery Size: Rechargeable Left ear: Public Affairs Specialist: Jules Model: Evolv AI 1600 ITC-R Battery Size: Rechargeable Plan of Care: Patient will be contacted when materials have arrived. Primary Diagnosis: H90.3 Bilateral Sensorineural Hearing Loss: Signature: Provider: Eligio Azevedo, [facility]
== END 2022-04-16 12:27 | disposition home or self-care (01) ==
LOC: HO.HAP 12:26
PROVIDERS: Visit Provider Otolaryngology
DX: Z46.1 Encounter for fitting and adjustment of hearing aid (principal); H90.3 Sensorineural hearing loss, bilateral
CPT/HCPCS: 92591; V5275

== ENCOUNTER → 2022-04-30 08:41 | Outpatient (REF) | payer MEDICARE, MEDICAID, SELFPAY | LOC: HO.SL 08:41 | PROVIDERS: PCP Family Medicine; Visit Provider Nurse Practitioner Family | DX: G47.33 Obstructive sleep apnea (adult) (pediatric) (principal); G47.00 Insomnia, unspecified; G47.10 Hypersomnia, unspecified; R06.83 Snoring; R40.0 Somnolence | CPT/HCPCS: 95806 ==

== ENCOUNTER → 2022-05-19 09:36 | Outpatient (BNVA) | payer MEDICARE, MEDICAID, SELFPAY | PROVIDERS: PCP Family Medicine; Visit Provider Internal Medicine | DX: J44.9 Chronic obstructive pulmonary disease, unspecified (principal); G47.33 Obstructive sleep apnea (adult) (pediatric); Z87.891 Personal history of nicotine dependence | CPT/HCPCS: 99212 ==

== ENCOUNTER 2022-05-21 10:23 | Outpatient (REF) | payer MEDICARE, MEDICAID, SELFPAY ==
--- NOTE | 2022-05-21 11:41 | MHC.AU.HA2 ---
Hearing Instrument Fitting- Adult- Binaural Date of Visit: 05/21/22 Hearing Instruments Dispensed: Right Ear: Make, Model, Color, Serial Number: Jules Nielsen AI 1600 ITC Serial # [id number] [employer], [employer] Insurance Collector Repair Warranty: 05/22/2025 Insurance Collector Loss and Damage Warranty: 05/22/2025 [facility] Service Plan: 05/21/2023 Battery Size: Rechargeable Type of Wax Guard: Jules HearClear Left Ear: Make, Model, Color, Serial Number: Jules Nielsen AI 1600 ITC R Serial #[id number] [employer], [employer] Insurance Collector Repair Warranty: 05/22/2025 Insurance Collector Loss and Damage Warranty: 05/22/2025 [facility] Service Plan: 05/21/2023 Battery Size: Rechargeable Type of Wax Guard: Jules HearClear Summary of Fitting: Feedback cage manager run. Verifit performed and levels adjusted to better reach targets. Patient was pleased with the sound and did not feel any additional changes were needed. Hearing aid care and maintenance were discussed and practiced. Patient does not have a phone that is compatible with Bluetooth at this time. Recommendations: A hearing instrument follow-up was scheduled. Diagnosis Code(s): Primary Diagnosis: H90.3 Bilateral Sensorineural Hearing Loss Signature: Provider: Eligio Azevedo, [facility]
== END 2022-05-21 10:24 | disposition home or self-care (01) ==
LOC: HO.HAP 10:23
PROVIDERS: Visit Provider Family Medicine
DX: Z46.1 Encounter for fitting and adjustment of hearing aid (principal); H90.3 Sensorineural hearing loss, bilateral
CPT/HCPCS: V5011; V5020; V5160; V5259

== ENCOUNTER → 2022-05-22 10:10 | Outpatient (BNVA) | payer MEDICARE, MEDICAID, SELFPAY | PROVIDERS: PCP Family Medicine; Visit Provider Physician Assistant | DX: M17.11 Unilateral primary osteoarthritis, right knee (principal) | CPT/HCPCS: 99212 ==

== ENCOUNTER 2022-05-26 07:04 | Day surgery (SDC) | payer MEDICARE, MEDICAID, SELFPAY ==
--- NOTE | 2022-05-21 | ECG_ITS ---
Test Reason : htn Blood Pressure : / mmHG Vent. Rate : 081 BPM Atrial Rate : 081 BPM P-R Int : 192 ms QRS Dur : 092 ms QT Int : 364 ms P-R-T Axes : 067 -46 054 degrees QTc Int : 422 ms Normal sinus rhythm Left axis deviation Abnormal ECG When compared with ECG of 19-FEB-2022 15:21, No significant change was found Referred By: Belem Tyson Electronically Signed By:YARI ARCEO MD
[2022-05-21 12:21] VITALS: BP 133/84; PULSE 88; RESP 20; O2SAT 95; BMI 29.5
--- NOTE | 2022-05-21 12:33 | P.CONAN_ITS ---
Documented by User: Belem Tyson NP 05/25/22 13:31 HPI - Anesthesia Eval Consult details Narrative: 77yo M for Right Knee Replacement Total Pulmo cleared PCP cleared PMFSH Active Problems Active Problems: All Active Problems (Updated 05/21/22 @ 12:32 by Juany Lafleur, RN) GERD (gastroesophageal reflux disease) (Acute) Hemorrhoids (Acute) Chronic idiopathic constipation (Acute) Abdominal bloating (Acute) COPD (chronic obstructive pulmonary disease) (Acute) Hypertension (Acute) High cholesterol (Acute) SELINA (obstructive sleep apnea) (Acute) Osteoarthritis of knees, bilateral (Acute) Former smoker (Acute) Nephrolithiasis (Acute) Osteoarthritis of right knee (Acute) Snoring (Acute) Insomnia (Acute) Daytime sleepiness (Acute) Knee effusion, right (Acute) Osteoarthritis of right knee (Acute) Hypersomnia, unspecified (Acute) H/O colonoscopy (Acute) Degenerative disc disease, thoracic (Acute) Past Medical History Medical History Ambulates with cane Asthma Cough Degenerative disc disease, thoracic Elevated cholesterol HTN (hypertension) Kidney stones SELINA (obstructive sleep apnea) Family History Family history of problems with anesthesia: No Surgical History Surgical History H/O colonoscopy H/O shoulder surgery History of cystoscopy History of renal stent History of total left knee replacement Previous back surgery S/P arthroscopic surgery of left knee History of Problems with Anesthesia: No Social History Social History Are you a primary primary care md to a significant other at home: No Do you presently have visiting nurse or other home services: Yes (none) Alcohol intake: never Patient Tobacco Use Status: Never used Tobacco Use of substances other than those prescribed or required for medical reasons: No Substance Use Type: Marijuana Have you been hit, kicked, punched, or otherwise hurt by someone within the past year? If so, by whom?: No Are you DNR?: No Advance Directives: No Advance Directives Information Provided: Yes (Info provided) Advance Directives on File: No Recently lost weight without trying: No Eating poorly because of decreased appetite: No Nutrition Risks: No Nutritional Risk Current occupational status: unemployed Meds Allergies Allergy/AdvReac Type Severity Reaction Status Date / Time codeine AdvReac Mild Abdominal Verified 05/26/22 08:02 Pain Motrin AdvReac Mild Gastrointestinal Uncoded 05/26/22 08:02 Upset Home Medications Medication Instructions Recorded Confirmed Last Taken Type albuterol sulfate 90 mcg/actuation 1 inh inhalation QID 01/10/21 05/24/22 05/26/22 04:00 History aerosol inhaler (ProAir HFA) aspirin 81 mg tablet,delayed 81 mg PO DAILY 01/10/21 05/24/22 05/25/22 History release (Adult Aspirin Regimen) omega-3 fatty acids 1,000 mg 1,000 mg PO DAILY 01/10/21 05/24/22 Unknown History capsule (Fish Oil Concentrate) doxepin 75 mg capsule 75 mg PO BEDTIME 09/04/21 05/24/22 Unknown History mirtazapine 15 mg tablet 15 mg PO BEDTIME 09/04/21 05/24/22 Unknown History celecoxib 200 mg capsule 200 mg PO DAILY 01/07/22 05/24/22 05/25/22 History simvastatin 40 mg tablet 40 mg PO BEDTIME 01/07/22 05/24/22 Unknown History cyanocobalamin (vitamin B-12) 500 500 mcg PO QAM 04/01/22 05/24/22 Unknown History mcg tablet latanoprost 0.005 % eye drops 0 drp ophthalmic (eye) 04/01/22 05/24/22 Unknown History oxycodone 5 mg tablet 5 mg PO DAILY PRN Pain 04/01/22 05/24/22 Unknown History fluticasone 500 mcg-salmeterol 50 1 inh inhalation BID 05/19/22 05/24/22 Unknown History mcg/dose blistr powdr for inhalation (Advair Diskus) Exam Exam Date and Time: May 21, 2022 1233 Height,Weight and Vital Signs: Height 5 ft 4 in Weight 78.018 kg Last Vital Signs Pulse 88 05/21/22 12:21 Resp 20 05/21/22 12:21 BP 133/84 05/21/22 12:21 Pulse Ox 95 05/21/22 12:21 O2 Del Method 05/21/22 12:21 Airway Mallampati Class: III TM Dist: >3cm Neck ROM: Full Partial: Upper Loose/Missing/Broken Teeth: Yes (No upper teeth, bottom remaining teeth stable) Heart: RRR Lungs: RUL wheeze, otherwise clear Assessment and Plan Assessment Anesthesia Assessment: Anesthesia Plan Discussed and PAT Visit (Ad with patient and assisted with interpretting) Final Anesthetic Review Family History of Problems with Anesthesia: No History of Problems with Anesthesia: No Documented by User: Chase Drake MD 05/26/22 10:27 PMF Past Medical History Medical History Ambulates with cane Asthma Cough Degenerative disc disease, thoracic Elevated cholesterol HTN (hypertension) Kidney stones SELINA (obstructive sleep apnea) Surgical History Surgical History H/O colonoscopy H/O shoulder surgery History of cystoscopy History of renal stent History of total left knee replacement Previous back surgery S/P arthroscopic surgery of left knee Social History Social History Are you a primary primary care md to a significant other at home: No Do you presently have visiting nurse or other home services: Yes (none) Alcohol intake: never Patient Tobacco Use Status: Never used Tobacco Use of substances other than those prescribed or required for medical reasons: No Substance Use Type: Marijuana Have you been hit, kicked, punched, or otherwise hurt by someone within the past year? If so, by whom?: No Are you DNR?: No Advance Directives: No Advance Directives Information Provided: Yes (Info provided) Advance Directives on File: No Recently lost weight without trying: No Eating poorly because of decreased appetite: No Nutrition Risks: No Nutritional Risk Current occupational status: unemployed Meds Allergies Allergy/AdvReac Type Severity Reaction Status Date / Time codeine AdvReac Mild Abdominal Verified 05/26/22 08:02 Pain Motrin AdvReac Mild Gastrointestinal Uncoded 05/26/22 08:02 Upset Home Medications Medication Instructions Recorded Confirmed Last Taken Type albuterol sulfate 90 mcg/actuation 1 inh inhalation QID 01/10/21 05/24/22 05/26/22 04:00 History aerosol inhaler (ProAir HFA) aspirin 81 mg tablet,delayed 81 mg PO DAILY 01/10/21 05/24/22 05/25/22 History release (Adult Aspirin Regimen) omega-3 fatty acids 1,000 mg 1,000 mg PO DAILY 01/10/21 05/24/22 Unknown History capsule (Fish Oil Concentrate) doxepin 75 mg capsule 75 mg PO BEDTIME 09/04/21 05/24/22 Unknown History mirtazapine 15 mg tablet 15 mg PO BEDTIME 09/04/21 05/24/22 Unknown History celecoxib 200 mg capsule 200 mg PO DAILY 01/07/22 05/24/22 05/25/22 History simvastatin 40 mg tablet 40 mg PO BEDTIME 01/07/22 05/24/22 Unknown History cyanocobalamin (vitamin B-12) 500 500 mcg PO QAM 04/01/22 05/24/22 Unknown History mcg tablet latanoprost 0.005 % eye drops 0 drp ophthalmic (eye) 04/01/22 05/24/22 Unknown History oxycodone 5 mg tablet 5 mg PO DAILY PRN Pain 04/01/22 05/24/22 Unknown History fluticasone 500 mcg-salmeterol 50 1 inh inhalation BID 05/19/22 05/24/22 Unknown History mcg/dose blistr powdr for inhalation (Advair Diskus) Assessment and Plan Final Anesthetic Review NPO: Yes ASA Class: III Final Preanesthetic Review: No Changes in Pt Med Stat, Meds/Allgs Chart Reviewed, Consent Obtained/Reviewed and Anes Risks/Benef Reviewed Patient Risk: Intermediate Procedure Risk: Intermediate Anesthetic Plan Anesthetic Plan: MAC:, Spinal and Regional Block Disposition: Standard PACU
[2022-05-21 13:31] LABS: Hematocrit 45.1 % (42.0-52.0); Hemoglobin 14.9 g/dl (14.0-18.0); Mean Corpuscular Hemoglobin 31.6 pg (27.0-33.0); Mean Corpuscular Volume 95.8 fL (80.0-98.0); Mean Platelet Volume 10.3 fL (9.4-12.4); Platelet Count 201 X10*3/uL (160-400); Red Blood Count 4.71 X10*6/uL (4.60-5.80); Red Cell Distribution Width 13.4 % (11.0-16.0); White Blood Count 7.1 X10*3/uL (4.8-10.8)
[2022-05-21 13:53] LABS: Anion Gap 13 (12-20); Blood Urea Nitrogen 13 mg/dL (9-16); Calcium 8.8 mg/dL (8.4-10.2); Carbon Dioxide 25 mmol/L (22-29); Chloride 106 mmol/L (96-108); Creatinine Clr Calc Pharmacy 50.9; Estimated Glomerular Filt Rate > 60; Glucose Random 119 mg/dL (60-115); Potassium 4.3 mmol/L (3.3-5.1); Sodium 140 mmol/L (135-145)
[2022-05-21 14:23] LABS: MRSA Nasal PCR NEGATIVE (Negative); SA Nasal PCR NEGATIVE (Negative)
[2022-05-26] VITALS (25 sets, daily range): BP systolic 103–176; BP diastolic 70–98; PULSE 60–93; RESP 16–18; TEMP 36.5–37.4; O2SAT 92–100
--- NOTE | ~2022-05-26 | XR_ITS ---
EXAMINATION: XR KNEE, RIGHT CLINICAL INFORMATION: Right total knee arthroplasty. COMPARISON: 01/05/2022 TECHNIQUE: AP and lateral views of the right knee. FINDINGS: AP and lateral postoperative films of the right knee demonstrate patient to be status post right total knee arthroplasty with prosthetic components appearing in good position. No acute fracture or dislocation is evident. Postoperative gas is present about the soft tissues and knee joint. Anterior skin staple line is seen. XR/XR knee RT 2V IMPRESSION: Satisfactory appearance status post right total knee arthroplasty.
[2022-05-26 07:35] LABS: COVID-19 Test Negative (Negative); IDNOW Serial# 16C4AD1C
[2022-05-26 07:46] LABS: Hematocrit 45.4 % (42.0-52.0); Hemoglobin 15.2 g/dl (14.0-18.0)
[2022-05-26] MEDS: Lactated Ringers 1,000 ML 100 ML IVCONT ×2 (07:50→12:05)
[2022-05-26] MEDS: Albuterol Sulfate (0.083%) 2.5 MG/3 ML VIAL.NEB INHALE (08:51)
--- NOTE | 2022-05-26 11:14 | PM.OP ---
Brief Operative Note Date of Service: 05/26/22 Pre-op diagnosis: Right knee OA Post-op diagnosis: same Procedure: Right TKA Implants: [employer] cruciate retaining press fit /a Surgeon: Yoel Resendiz MD Anesthesia: regional and spinal Was an Curing Room Supervisor used for this Procedure?: Yes Curing Room Supervisor: Jerri Turner Estimated blood loss (mL): 150 IV fluids (mL): 1,000 Pathology: other Condition: stable Disposition: PACU
--- NOTE | 2022-05-26 11:17 | W.PM.OPN ---
Operative Note Operative Note Date of Service: 05/26/22 Narrative: Date of Service: 05/26/22 Pre-op diagnosis: Right knee OA Post-op diagnosis: same Procedure: Right TKA Implants: [employer] cruciate retaining press fit 09/15/9cr/35a Surgeon: Yoel Resendiz MD Anesthesia: regional and spinal Was an Senior Reactor Operator used for this Procedure?: Yes Senior Reactor Operator: Jerri Turner Estimated blood loss (mL): 150 IV fluids (mL): 1,000 Pathology: other Condition: stable Disposition: PACU Procedure in detail: The patient was brought to the operating room and prepped and draped in standard sterile fashion. A time-out was called to identify proper site proper procedure proper surgeon and IV antibiotics were administered. 1 g of IV tranexamic acid was administered. I began by making a midline incision to the retinaculum and performed a medial parapatellar arthrotomy. The patella was translated laterally and the knee was flexed up. The patella and ,medial compartment were arthritic . I performed a small medial peel and resected the infrapatellar fat pad. Natalie's line was then used to drill my intramedullary femoral guide and my distal femur cut of 10 mm was made in 5 degrees of valgus while protecting the soft tissues. I then measured a # 4 femur and placed my cutting guide and made my anterior posterior and chamfer cuts protecting the soft tissues at all times. Once I was satisfied with my cuts I turned my attention to the tibia. I removed the meniscus medially and laterally and , using an external cutting guide, in line with the tibial crest and the third ray, I made my distal tibial cut in 3 deg slope of while protecting the PCL the posterior soft tissues at all times. An extension block was used to confirm appropriate amount of bony resection. I then sized a #4 tibia and once I was satisfied that there was complete tibial coverage I placed my trial and with the trial femur in place took the knee through range of motion. I was satisfied with the extension and flexion as well as the stability and balance at 0, 30 and 90 degrees. I then turned my attention to the patella where I removed 1 cm from the undersurface of the patella and then trialed a 35a patellar button. Again the knee was taken through range of motion I was satisfied with the tracking. I then returned to the femur and drilled my femoral lug holes and prepared the tibia. A femoral bone plug was placed and the knee was irrigated copiously. I then press fit the patella, tibia and femur in standard fashion. I trialed different inserts until I selected a #9 insert. The final insert was placed and a 3 minutes iodine soak with local TXA was performed. A Werewolf cautery wand was used to maintain hemostasis over the capsule and meniscal beds, the gutters and peripatellar soft tissues. The knee was then closed with a running Quill suture, a 3 0 Vicryl and bry on the skin. Patient was then placed in sterile dressing and brought to recovery room in stable condition there were no known complications.
--- NOTE | 2022-05-26 12:39 | PHA.MEDREC ---
Pharmacy Consult ? Medication Reconciliation Pharmacy has reviewed the medication reconciliation completed by nursing. Patient filles Advair 250mcg/50mcg instead of 500mcg/50mcg, med list updated. Odalis Guerin, TanyaD
[2022-05-26] MEDS: HYDROmorphone HCl 0.5 MG/0.5 ML SYRINGE 0.25 MG IVPUSH ×4 (13:30→13:45)
[2022-05-26] MEDS: oxyCODONE HCl Immed Release 5 MG TABLET PO ×2 (13:31→17:07)
[2022-05-26] MEDS: HYDROmorphone HCl 0.5 MG/0.5 ML SYRINGE IVPUSH ×2 (14:15→15:23)
[2022-05-26] MEDS: ceFAZolin Sodium/Dextrose,Iso 2 GM/50 ML PIGGYBACK IV (15:30)
[2022-05-26] MEDS: Simethicone 80 MG TAB.CHEW 160 MG PO ×2 (17:07→20:39)
--- NOTE | 2022-05-26 20:00 | PC.NURSE ---
Pt's jacket was left in PACU. Jacket given to Espinoza Poole supervisor beehive kiln who brought jacket to patient room.
[2022-05-26] MEDS: Albuterol Sulfate 90 MCG 8 GM INHALER 1 PUFF INHALE (20:21)
[2022-05-26] MEDS: Acetaminophen 325 MG TABLET 650 MG PO (20:36)
[2022-05-26] MEDS: Celecoxib 200 MG CAPSULE PO (20:37)
[2022-05-26] MEDS: Doxepin HCl 25 MG CAPSULE 75 MG PO (20:37)
[2022-05-26] MEDS: Melatonin 3 MG TABLET 6 MG PO (20:38)
[2022-05-26] MEDS: Docusate Sodium 100 MG CAPSULE PO (20:38)
[2022-05-26] MEDS: Mirtazapine 15 MG TABLET PO (20:39)
[2022-05-26] MEDS: oxyCODONE HCl ER 10 MG TAB.ER.12H PO (20:40)
[2022-05-26] MEDS: Omeprazole 20 MG CAPSULE.DR PO (20:40)
[2022-05-27] VITALS (9 sets, daily range): BP systolic 139–170; BP diastolic 87–98; PULSE 64–97; RESP 17–18; TEMP 36.7–37.6; O2SAT 93–96
[2022-05-27] MEDS: Acetaminophen 325 MG TABLET 650 MG PO (03:59)
[2022-05-27] MEDS: oxyCODONE HCl Immed Release 5 MG TABLET PO ×2 (04:00→12:12)
[2022-05-27 06:26] LABS: Basophils Percent Auto 0.2 % (0-2); Eosinophils Percent Auto 0.1 % (0-4); Hematocrit 37.2 % (42.0-52.0); Hemoglobin 12.6 g/dl (14.0-18.0); Imm Gran Abs Auto 0.03 X10*3/uL (0.00-0.03); Imm Gran Pct Auto 0.3 % (0.0-0.4); Lymphocytes Absolute Auto 1.5 X10*3/uL (1.2-4.9); Lymphocytes Percent Auto 15.9 % (20-40); MANUAL DIFF FLAG SCAN; Mean Corpuscular HGB Conc 33.9 g/dl (31.0-36.0); Mean Corpuscular Hemoglobin 32.8 pg (27.0-33.0); Mean Corpuscular Volume 96.9 fL (80.0-98.0); Mean Platelet Volume 10.1 fL (9.4-12.4); Monocytes Absolute Auto 1.8 X10*3/uL (0.1-1.2); Monocytes Percent Auto 19.1 % (2-11); Neutrophils Absolute Auto 6.2 x10*3/uL (2.0-8.3); Neutrophils Percent Auto 64.4 % (45-73); Platelet Count 199 X10*3/uL (160-400); Red Blood Count 3.84 X10*6/uL (4.60-5.80); Red Cell Distribution Width 13.3 % (11.0-16.0); SCAN SMEAR FLAG 1; White Blood Count 9.7 X10*3/uL (4.8-10.8)
[2022-05-27 07:02] LABS: Anion Gap 12 (12-20); Blood Urea Nitrogen 13 mg/dL (9-16); Calcium 8.1 mg/dL (8.4-10.2); Carbon Dioxide 27 mmol/L (22-29); Chloride 101 mmol/L (96-108); Creatinine Clr Calc Pharmacy 47.1; Estimated Glomerular Filt Rate 58; Glucose Fasting 126 mg/dL (60-99); Potassium 4.2 mmol/L (3.3-5.1); Sodium 136 mmol/L (135-145)
[2022-05-27] MEDS: Albuterol Sulfate 90 MCG 8 GM INHALER 1 PUFF INHALE ×3 (07:50→15:59)
[2022-05-27] MEDS: Fluticasone/Vilanterol 200/25 BLST.W.DEV 1 PUFF INHALE (07:50)
--- NOTE | 2022-05-27 07:59 | P.PNOP_ITS ---
Subjective Subjective Date of Service: 05/27/22 Interval history: POD 1 s/p RT TKA No overnight events resting in bed, denies sob, palpitations, cp has some pain in the thigh Physical Exam Vital Signs: Vital Signs: Last Vital Signs Temp 98.1 F 05/27/22 07:51 Pulse 87 05/27/22 07:51 Resp 18 05/27/22 07:51 BP 159/90 H 05/27/22 07:51 Pulse Ox 94 05/27/22 07:51 O2 Del Method 05/27/22 07:51 O2 Flow Rate 2 05/26/22 14:50 BMI result Body Mass Index 29.5 Const: General: cooperative, healthy appearing and no acute distress Resp: Effort & Inspection: normal respiratory effort and able to speak in complete sentences Cardio: Rate: regular rate Peripheral pulses: Peripheral pulses 2+ throughout GI: Palpation (GI): Soft to palpation Skin: General skin exam: no rashes or lesions noted Extrem: Other: bandage clean dry and intact. [place] intact. No erythema or joint effusion. Calf supple nontender. Neurovascularly intact. Procedures Date of Service Date of Service: 05/27/22 Progress Note: A&P Assessment and plan (1) Status post total right knee replacement: Status: Acute Assessment and Plan: * Continue pain mgmnt * Begin Aspirin for dvt ppx * begin PT for RT TKA * Dispo planning-Pending PT eval, pain mgmnt Time Spent With Patient Time: Total time managing care of this patient today ____ minutes. Quality Stroke Does the patient have a stroke diagnosis?: No VTE Prior VTE?: No VTE Risk Level:: Surgical - high VTE Device Contraindication: N/A - Device Ordered VTE Drug Contraindication: N/A - Med Ordered
[2022-05-27 08:13] LABS: SLIDE REVIEW VERIFIED
[2022-05-27] MEDS: oxyCODONE HCl ER 10 MG TAB.ER.12H PO ×2 (09:05→23:36)
[2022-05-27] MEDS: 0.9 % Sodium Chloride Flush 3 ML SYRINGE IVFLUSH ×3 (09:05→23:42)
[2022-05-27] MEDS: Aspirin 325 MG TABLET PO ×2 (09:05→23:38)
[2022-05-27] MEDS: Cyanocobalamin (Vitamin B-12) 500 MCG TABLET PO (09:06)
[2022-05-27] MEDS: HYDROmorphone HCl 0.5 MG/0.5 ML SYRINGE 0.25 MG IVPUSH ×3 (09:06→17:23)
[2022-05-27] MEDS: Simethicone 80 MG TAB.CHEW 160 MG PO ×4 (09:06→23:35)
[2022-05-27] MEDS: Celecoxib 200 MG CAPSULE PO ×2 (09:06→23:36)
[2022-05-27] MEDS: Docusate Sodium 100 MG CAPSULE PO ×2 (09:06→23:35)
[2022-05-27] MEDS: Omeprazole 20 MG CAPSULE.DR PO ×2 (09:06→23:39)
--- NOTE | 2022-05-27 10:26 | HO.PM.IMCN ---
History of Present Illness Data of Consult Service Date: 05/27/22 Requesting physician: Yoel Resendiz Primary Care Provider: Tangela Garcia MD HPI 77 year old male with HTN, HLD, SELINA, and other problem as documented in past medical Hx. He underwent right TKA by Dr. Resendiz on 05/26 and is being evaluated post operatively for medical consult. He has no acute medical at this time and been seem to be reasonably controlled Review of Systems Review of Systems: knee pain, no chest pain no shortness of breath no dizziness. All other system review and negativef [facility] Medical History (Updated 05/27/22 @ 10:32 by Benito Griffith MD) Ambulates with cane Asthma COPD (chronic obstructive pulmonary disease) Cough Degenerative disc disease, thoracic Elevated cholesterol GERD (gastroesophageal reflux disease) Hemorrhoids High cholesterol HTN (hypertension) Hypertension Kidney stones SELINA (obstructive sleep apnea) Surgical History H/O colonoscopy H/O shoulder surgery History of cystoscopy History of renal stent History of total left knee replacement Previous back surgery S/P arthroscopic surgery of left knee Social History Household Members: Family Are you a primary director of managed care to a significant other at home: No Do you presently have visiting nurse or other home services: Yes (none) Alcohol intake: never Patient Tobacco Use Status: Never used Tobacco Substance Use Type: Marijuana Current occupational status: unemployed Meds Allergies Allergy/AdvReac Type Severity Reaction Status Date / Time codeine AdvReac Mild Abdominal Verified 05/26/22 08:02 Pain Motrin AdvReac Mild Gastrointestinal Uncoded 05/26/22 08:02 Upset Active Medications: Current Medications Acetaminophen (Acetaminophen 325 Mg Tablet) 650 mg PO Q6H PRN PRN Reason: Pain, Mild (Pain Scale 1-3) Last Admin: 05/27/22 03:59 Dose: 650 mg Albuterol Sulfate (Albuterol Sulfate 90 Mcg 8 Gm Inhaler) 2 puff INHALE Q4H PRN PRN Reason: shortness of breath or wheezing Albuterol Sulfate (Albuterol Sulfate 90 Mcg 8 Gm Inhaler) 1 puff INHALE RQID CHERIE Last Admin: 05/27/22 07:50 Dose: 1 puff Albuterol Sulfate (Albuterol Sulfate (0.083%) 2.5 Mg/3 Ml Vial.Neb) 2.5 mg INHALE Q2H PRN PRN Reason: Shortness of Breath/Wheezing Aspirin (Aspirin 325 Mg Tablet) 325 mg PO BID [facility] Last Admin: 05/27/22 09:05 Dose: 325 mg Celecoxib (Celecoxib 200 Mg Capsule) 200 mg PO BID [facility] Last Admin: 05/27/22 09:06 Dose: 200 mg Cyanocobalamin (Cyanocobalamin (Vitamin B-12) 500 Mcg Tablet) 500 mcg PO DAILY [facility] Last Admin: 05/27/22 09:06 Dose: 500 mcg Docusate Sodium (Docusate Sodium 100 Mg Capsule) 100 mg PO BID [facility] Last Admin: 05/27/22 09:06 Dose: 100 mg Doxepin HCl (Doxepin Hcl 25 Mg Capsule) 75 mg PO BEDTIME [facility] Last Admin: 05/26/22 20:37 Dose: 75 mg Fluticasone/Vilanterol (Fluticasone/Vilanterol 200/25 Blst.W.Dev) 1 puff INHALE RDAILY [facility] Last Admin: 05/27/22 07:50 Dose: 1 puff Hydromorphone HCl (Hydromorphone Hcl 0.5 Mg/0.5 Ml Syringe) 0.5 mg IVPUSH Q10M PRN; Protocol PRN Reason: Pain, Moderate (Pain Scale 4-6 Last Admin: 05/26/22 15:23 Dose: 0.5 mg Hydromorphone HCl (Hydromorphone Hcl 0.5 Mg/0.5 Ml Syringe) 0.25 mg IVPUSH Q4H PRN; Protocol PRN Reason: Pain, Severe (Pain Scale 7-10) Last Admin: 05/27/22 09:06 Dose: 0.25 mg Melatonin (Melatonin 3 Mg Tablet) 6 mg PO BEDTIME PRN PRN Reason: sleep Last Admin: 05/26/22 20:38 Dose: 6 mg Mirtazapine (Mirtazapine 15 Mg Tablet) 15 mg PO BEDTIME [facility] Last Admin: 05/26/22 20:39 Dose: 15 mg Omeprazole (Omeprazole 20 Mg Capsule.Dr) 20 mg PO BID [facility] Last Admin: 05/27/22 09:06 Dose: 20 mg Ondansetron HCl (Ondansetron Hcl 4 Mg/2 Ml Vial) 4 mg IVPUSH Q8H PRN PRN Reason: Nausea and Vomiting Oxycodone HCl (Oxycodone Hcl Immed Release 5 Mg Tablet) 5 mg PO Q4H PRN PRN Reason: Pain, Moderate (Pain Scale 4-6 Last Admin: 05/27/22 04:00 Dose: 5 mg Oxycodone HCl (Oxycodone Hcl Er 10 Mg Tab.Er.12h) 10 mg PO BID [facility] Last Admin: 05/27/22 09:05 Dose: 10 mg Simethicone (Simethicone 80 Mg Tab.Chew) 160 mg PO QID [facility] Last Admin: 05/27/22 09:06 Dose: 160 mg Sodium Chloride (0.9 % Sodium Chloride Flush 3 Ml Syringe) 3 ml IVFLUSH QSHIFT [facility] Last Admin: 05/27/22 09:05 Dose: 3 ml Home Medications Medication Instructions Recorded Confirmed Last Taken Type albuterol sulfate 90 mcg/actuation 1 inh inhalation QID 01/10/21 05/24/22 05/26/22 04:00 History aerosol inhaler (ProAir HFA) aspirin 81 mg tablet,delayed 81 mg PO DAILY 01/10/21 05/24/22 05/25/22 History release (Adult Aspirin Regimen) omega-3 fatty acids 1,000 mg 1,000 mg PO DAILY 01/10/21 05/24/22 Unknown History capsule (Fish Oil Concentrate) doxepin 75 mg capsule 75 mg PO BEDTIME 09/04/21 05/24/22 Unknown History mirtazapine 15 mg tablet 15 mg PO BEDTIME 09/04/21 05/24/22 Unknown History celecoxib 200 mg capsule 200 mg PO DAILY 01/07/22 05/24/22 05/25/22 History simvastatin 40 mg tablet 40 mg PO BEDTIME 01/07/22 05/24/22 Unknown History cyanocobalamin (vitamin B-12) 500 500 mcg PO QAM 04/01/22 05/24/22 Unknown History mcg tablet latanoprost 0.005 % eye drops 0 drp ophthalmic (eye) 04/01/22 05/24/22 Unknown History oxycodone 5 mg tablet 5 mg PO DAILY PRN Pain 04/01/22 05/24/22 Unknown History cholecalciferol (vitamin D3) 50 1 cap PO QAM 05/26/22 05/26/22 Unknown History mcg (2,000 unit) capsule (Vitamin D3) fluticasone 250 mcg-salmeterol 50 1 puff inhalation BID 05/26/22 05/26/22 Unknown History mcg/dose blistr powdr for inhalation (Advair Diskus) loratadine 10 mg tablet (Allergy 1 tab PO QAM 05/26/22 05/26/22 Unknown History Relief (loratadine)) Physical Exam Vital Signs and Narrative: Vital Signs: Last Vital Signs Temp 98.1 F 05/27/22 07:51 Pulse 64 05/27/22 08:52 Resp 18 05/27/22 07:55 BP 159/90 H 05/27/22 07:51 Pulse Ox 94 05/27/22 08:52 O2 Del Method 05/27/22 07:51 O2 Flow Rate 2 05/26/22 14:50 BMI result Body Mass Index 29.5 Const: Other: Constitutional: Alert, in no distress, overweight. Mental Status: Oriented to person, place and time. Eyes: Pupils are equal, round and reactive to light. Ear, Nose and Throat: Oropharynx clear, mucous membranes moist. Ears and nose without eformities. Respiratory: Clear to auscultation. No wheezing, rales or rhonchi. Cardiovascular: S1 S2 regular. No murmurs, rubs or gallops. Gastrointestinal: Abdomen soft, non-tender, non-distended. Normal bowel sounds.? Neurologic: Cranial nerves II-XII grossly intact. No focal neurological deficits. Moves all extremities spontaneously.? Skin: No rashes or lesions.? knee dressing in place Musculoskeletal: No cyanosis or clubbing. Psychiatric: Normal mood and affect? Results Labs CBC and Chem 7: 05/27/22 05:42 05/27/22 05:42 Labs: Laboratory Results - last 24 hr 05/27/22 05/27/22 05:42 05:42 MCV 96.9 MCH 32.8 MCHC 33.9 RDW 13.3 Plt Count 199 MPV 10.1 Immature Gran % (Auto) 0.3 Neut % (Auto) 64.4 Lymph % (Auto) 15.9 L Perkins % (Auto) 19.1 H Eos % (Auto) 0.1 Baso % (Auto) 0.2 Lymph # (Auto) 1.5 Perkins # (Auto) 1.8 H Eos # (Auto) 0.0 Baso # (Auto) 0.0 Abs Immat Gran (auto) 0.03 Absolute Neuts (auto) 6.2 Absolute Nucleated RBC 0.000 Nucleated RBC % (auto) 0.0 Smear Tech's Comments VERIFIED Anion Gap 12 Estim Creat Clear Calc 47.1 Estimated GFR 58 Fasting Glucose 126 H Calcium 8.1 L D Assessment and Plan (1) Hypertension: Status: Acute (2) High cholesterol: Status: Acute Plan 77/m with HTN, HLD and other s/p elective TKR 05/26 1/HTN--BP is moderately high, med rec has no home BP meds, start Norvasc 2.5 2/HLD-continue Statin 3/history of SELINA, CPAP if uses 4/GERD-PPI 5/s/p R TKR-mangement by ortho, including DVT prophylaxis and pain brad,ent 6/med rec reviewed Time Spent With Patient Time: Total time managing care of this patient today ____ minutes.
[2022-05-27] MEDS: amLODIPine Besylate 2.5 MG TABLET PO (11:08)
[2022-05-27] MEDS: Doxepin HCl 25 MG CAPSULE 75 MG PO (23:39)
[2022-05-27] MEDS: Mirtazapine 15 MG TABLET PO (23:39)
[2022-05-27] MEDS: Albuterol Sulfate 90 MCG 8 GM INHALER 2 PUFF INHALE (23:55)
--- NOTE | 2022-05-28 | ECG_ITS ---
Test Reason : STAT HR ELEVATED Blood Pressure : / mmHG Vent. Rate : 101 BPM Atrial Rate : 101 BPM P-R Int : 176 ms QRS Dur : 094 ms QT Int : 344 ms P-R-T Axes : 021 094 013 degrees QTc Int : 446 ms Sinus tachycardia Rightward axis Borderline ECG When compared with ECG of 21-MAY-2022 13:08, QRS axis Shifted right Referred By: Benito [facility] Electronically Signed By:NOMAN GARNER
[2022-05-28 03:02] VITALS: BP 138/84; PULSE 89; RESP 18; TEMP 36.7; O2SAT 94
[2022-05-28] MEDS: Acetaminophen 325 MG TABLET 650 MG PO (04:21)
[2022-05-28] MEDS: oxyCODONE HCl Immed Release 5 MG TABLET PO ×2 (04:21→12:22)
[2022-05-28 06:46] LABS: Basophils Percent Auto 0.2 % (0-2); Eosinophils Percent Auto 0.1 % (0-4); Hematocrit 33.1 % (42.0-52.0); Hemoglobin 11.4 g/dl (14.0-18.0); Imm Gran Abs Auto 0.04 X10*3/uL (0.00-0.03); Imm Gran Pct Auto 0.3 % (0.0-0.4); Lymphocytes Absolute Auto 1.2 X10*3/uL (1.2-4.9); Lymphocytes Percent Auto 9.9 % (20-40); MANUAL DIFF FLAG SCAN; Mean Corpuscular HGB Conc 34.4 g/dl (31.0-36.0); Mean Platelet Volume 9.8 fL (9.4-12.4); Monocytes Absolute Auto 2.1 X10*3/uL (0.1-1.2); Monocytes Percent Auto 17.7 % (2-11); Neutrophils Absolute Auto 8.4 x10*3/uL (2.0-8.3); Neutrophils Percent Auto 71.8 % (45-73); Platelet Count 185 X10*3/uL (160-400); Red Blood Count 3.56 X10*6/uL (4.60-5.80); Red Cell Distribution Width 13.2 % (11.0-16.0); SCAN SMEAR FLAG 1; White Blood Count 11.7 X10*3/uL (4.8-10.8)
[2022-05-28 07:13] LABS: Anion Gap 11 (12-20); Blood Urea Nitrogen 12 mg/dL (9-16); Calcium 8.3 mg/dL (8.4-10.2); Carbon Dioxide 26 mmol/L (22-29); Chloride 101 mmol/L (96-108); Creatinine Clr Calc Pharmacy 53.3; Estimated Glomerular Filt Rate > 60; Glucose Fasting 131 mg/dL (60-99); Potassium 4.1 mmol/L (3.3-5.1); Sodium 134 mmol/L (135-145)
[2022-05-28 07:17] LABS: SLIDE REVIEW VERIFIED
[2022-05-28 08:00] VITALS: BP 135/94; PULSE 104; RESP 18; TEMP 37.1
[2022-05-28] MEDS: Fluticasone/Vilanterol 200/25 BLST.W.DEV 1 PUFF INHALE (08:30)
[2022-05-28] MEDS: Albuterol Sulfate 90 MCG 8 GM INHALER 1 PUFF INHALE (08:30)
[2022-05-28 08:33] VITALS: PULSE 123; RESP 20; O2SAT 96
[2022-05-28 09:00] VITALS: PULSE 128; O2SAT 96
--- NOTE | 2022-05-28 09:15 | PM.DS ---
DS: Providers Provider Date of Service: 05/28/22 Primary care physician: Tangela Garcia MD Consults: 05/26/22 16:29 Consult to Hospitalist Routine Consulting Provider: Hospitalist Reason For Exam: MEDICAL MANAGEMENT DS: Diagnosis Discharge Diagnosis (1) Hypertension: Status: Acute (2) High cholesterol: Status: Acute DS: Summary Hospital Course Hospital Course: The patient underwent a successful right total knee arthroplasty, they were transferred to PACU and then to the floor to recover. During their stay, their vitals were stable, afebrile at 98.0. Labs were unremarkable, H/H 11.4/33.1. POD 1 they were started on Aspirin 325mg po bid for DVT ppx, they also received Physical Therapy services twice a day. Prior to discharge, their dressing was changed, incision clean dry and intact, new Aquacel dressing applied and the plan was to be discharged home with VNA services. Time Spent with Patient Time attestation: Total time managing care of this patient today ____ minutes. Discharge coordination time: Less than 30 minutes Quality: Safe Use of Opioids Does Pt have an Active Cancer Diagnosis on the Problem List?: No Quality: Stroke Does the patient have a stroke diagnosis?: No Physical Exam Vital Signs: Vital Signs: Last Vital Signs Temp 98.7 F 05/28/22 08:00 Pulse 123 H 05/28/22 08:33 Resp 20 05/28/22 08:33 BP 135/94 H 05/28/22 08:00 Pulse Ox 94 05/28/22 03:02 O2 Del Method 05/28/22 08:00 O2 Flow Rate 2 05/26/22 14:50 BMI result Body Mass Index 29.5 Const: General: cooperative, healthy appearing and no acute distress Resp: Effort & Inspection: normal respiratory effort and able to speak in complete sentences Cardio: Rate: regular rate Peripheral pulses: Peripheral pulses 2+ throughout GI: Palpation (GI): Soft to palpation Skin: General skin exam: no rashes or lesions noted Extrem: Other: bandage clean dry and intact. Naomy intact. No erythema or joint effusion. Calf supple nontender. Neurovascularly intact. DS: Data Data Completed and Pending Pending studies at discharge: Pending at discharge 05/26/22 11:06 Surgical [PTH] Routine Labs on day of discharge: Laboratory Results - last 24 hr 05/28/22 05/28/22 06:14 06:14 WBC 11.7 H RBC 3.56 L Hgb 11.4 L Hct 33.1 L MCV 93.0 MCH 32.0 MCHC 34.4 RDW 13.2 Plt Count 185 MPV 9.8 Immature Gran % (Auto) 0.3 Neut % (Auto) 71.8 Lymph % (Auto) 9.9 L [place] % (Auto) 17.7 H Eos % (Auto) 0.1 Baso % (Auto) 0.2 Lymph # (Auto) 1.2 [place] # (Auto) 2.1 H Eos # (Auto) 0.0 Baso # (Auto) 0.0 Abs Immat Gran (auto) 0.04 H Absolute Neuts (auto) 8.4 H Absolute Nucleated RBC 0.000 Nucleated RBC % (auto) 0.0 Smear Tech's Comments VERIFIED Sodium 134 L Potassium 4.1 Chloride 101 Carbon Dioxide 26 Anion Gap 11 L BUN 12 Creatinine 1.06 Estim Creat Clear Calc 53.3 Estimated GFR > 60 Fasting Glucose 131 H Calcium 8.3 L Discharge Plan Discharge Patient Disposition: Home, Self-Care Referrals: Swetha Frances PA-C [Physician Wood Milling Machine Tender] - 06/11/22 1:15 pm Discharge Medications: New celecoxib 200 mg Capsule 200 mg PO BID 30 Days Qty: 60 0RF acetaminophen 325 mg Tablet 650 mg PO Q6H PRN (Reason: Pain, Mild (Pain Scale 1-3)) 30 Days Qty: 240 0RF aspirin 325 mg Tablet 325 mg PO BID 42 Days Qty: 84 0RF docusate sodium 100 mg Capsule 100 mg PO BID 30 Days Qty: 60 0RF oxycodone 5 mg Tablet 5 mg PO Q4H PRN (Reason: Pain, Moderate (Pain Scale 4-6) 7 Days Qty: 42 0RF Rx Instructions: Partial Fill upon patient request. Continued simethicone 180 mg capsule 180 mg PO QID Qty: 120 6RF (CLAIR) mikey Clayton See Rx Instructions .MEDSUPPLY Qty: 1 0RF Rx Instructions: Clifford jensen albuterol sulfate 90 mcg/actuation aerosol powdr breath activated 2 inh inhalation Q4-6H PRN (Reason: shortness of breath or wheezing) Qty: 1 0RF fluticasone propion-salmeterol [Advair Diskus] 250-50 mcg/dose blister with device 1 puff inhalation BID loratadine [Allergy Relief (loratadine)] 10 mg tablet 1 tab PO QAM cholecalciferol (vitamin D3) [Vitamin D3] 50 mcg (2,000 unit) capsule 1 cap PO QAM albuterol sulfate [ProAir HFA] 90 mcg/actuation HFA aerosol inhaler 1 inh inhalation QID omega-3 fatty acids [Fish Oil Concentrate] 1,000 mg capsule 1,000 mg PO DAILY mirtazapine 15 mg tablet 15 mg PO BEDTIME doxepin 75 mg capsule 75 mg PO BEDTIME simvastatin 40 mg tablet 40 mg PO BEDTIME cyanocobalamin (vitamin B-12) 500 mcg tablet 500 mcg PO QAM latanoprost 0.005 % drops 0 drp ophthalmic (eye) pantoprazole [Protonix] 40 mg tablet,delayed release (DR/EC) 40 mg PO BID 30 Days Qty: 60 6RF melatonin 3 mg tablet 6 mg PO BEDTIME PRN (Reason: sleep) 30 Days Qty: 30 3RF Discontinued aspirin [Adult Aspirin Regimen] 81 mg tablet,delayed release (DR/EC) 81 mg PO DAILY celecoxib 200 mg capsule 200 mg PO DAILY oxycodone 5 mg tablet 5 mg PO DAILY PRN (Reason: Pain) Diet: Regular diet Activity on Discharge: Use cane or walker Activity Restrictions/Additional Instructions: Physical Therapy for ROM 0-120, quad strength, gait training. Use walker for ambulation Limit stair climbing, No shower, No tub bath, No driving Continue anticoagulant Keep Aquacel dressing clean, dry and intact. Follow up with orthopedics in 2 weeks
--- NOTE | 2022-05-28 09:17 | W.MHC.F2F ---
Service Date Service Date: 05/28/22 Encounter Date of encounter: 05/28/22 Reasons for Services Signs and symptoms assessed: Pt. is considered homebound due to recent surgery. Unable to drive, poor balance, poor gait mechanics. S/p RTKA. Reason for physical therapy: home safety and mobility, therapeutic exercises, restore joint function, gait/transfer training, assess need for DME and ADL training Homebound: Leaving the home is medically contraindicated at this time without the asist of a device and/or another person due th the listed conditions above and below. Reason homebound: unsteady gait / fall risk, leg weakness, pain with ambulation, pain with transfers, poor balance / fall risk and unable to drive Certification: Based on the above findings, I certify that this patient is confined to the home and needs intermittent detention care, physical therapy and/or speech therapy, or continues to need occupational therapy. The patient is under my care, and I have initiated the establishment of the plan of care. The patient will be followed by a physician who will periodically review the plan of care. Time Spent With Patient Time: Total time managing care of this patient today ____ minutes.
[2022-05-28] MEDS: 0.9 % Sodium Chloride Flush 3 ML SYRINGE IVFLUSH (09:23)
[2022-05-28] MEDS: oxyCODONE HCl ER 10 MG TAB.ER.12H PO (09:24)
[2022-05-28] MEDS: Celecoxib 200 MG CAPSULE PO (09:24)
[2022-05-28] MEDS: Omeprazole 20 MG CAPSULE.DR PO (09:24)
[2022-05-28] MEDS: Cyanocobalamin (Vitamin B-12) 500 MCG TABLET PO (09:24)
[2022-05-28] MEDS: amLODIPine Besylate 2.5 MG TABLET PO (09:24)
[2022-05-28] MEDS: Simethicone 80 MG TAB.CHEW 160 MG PO (09:24)
[2022-05-28] MEDS: Aspirin 325 MG TABLET PO (09:24)
[2022-05-28] MEDS: Docusate Sodium 100 MG CAPSULE PO (09:25)
--- NOTE | 2022-05-28 09:35 | HO.POSTANES ---
Post Anesthesia Evaluation Post Anesthesia Evaluation Vital Signs: Vital Signs Temp Pulse Resp BP Pulse Ox O2 Del Method 05/28/22 09:00 128 H 96 05/28/22 08:00 98.7 F 104 H 18 135/94 H Room Air 05/28/22 08:33 123 H 20 05/28/22 03:02 98.0 F 89 18 138/84 94 Room Air 05/27/22 23:56 91 18 05/27/22 23:28 98.6 F 91 18 159/96 H 93 Room Air Anesthesia: Spinal and Nerve Block Mental Status: Awake Pain Control: Satisfactory Nausea/Vomiting: None Hydration: Adequate Anesthesia-Related Issues: No Anes. Related Issues
--- NOTE | 2022-05-28 10:16 | HO.PM.IMPN ---
Subjective Subjective Date of Service: 05/28/22 Interval History: Seen in f/u for med consult, doing and looking forward to home, noted tachycardia to 128 on vial Review of Systems no chest pain, no sob, no palpitation Physical Exam Vital Signs: Vital Signs: Last Vital Signs Temp 98.7 F 05/28/22 08:00 Pulse 128 H 05/28/22 09:00 Resp 20 05/28/22 08:33 BP 135/94 H 05/28/22 08:00 Pulse Ox 96 05/28/22 09:00 O2 Del Method 05/28/22 08:00 O2 Flow Rate 2 05/26/22 14:50 BMI result Body Mass Index 29.5 Const: Other: General: AO X 3, no acute distress Resp: CTA bilateral CVS: S1,S2,RRR GI: +BS, NT, no distention Skin: No rash Neuro: motor grossly intact Psych: appropriate affect Objective Data Active Medications Acetaminophen (Acetaminophen 325 Mg Tablet) 650 mg PO Q6H PRN PRN Reason: Pain, Mild (Pain Scale 1-3) Last Admin: 05/28/22 04:21 Dose: 650 mg Documented By: LETTY Albuterol Sulfate (Albuterol Sulfate 90 Mcg 8 Gm Inhaler) 2 puff INHALE Q4H PRN PRN Reason: shortness of breath or wheezing Last Admin: 05/27/22 23:55 Dose: 2 puff Documented By: LEILA Albuterol Sulfate (Albuterol Sulfate 90 Mcg 8 Gm Inhaler) 1 puff INHALE RQID [facility] Last Admin: 05/28/22 08:30 Dose: 1 puff Documented By: BRANDO Albuterol Sulfate (Albuterol Sulfate (0.083%) 2.5 Mg/3 Ml Vial.Neb) 2.5 mg INHALE Q2H PRN PRN Reason: Shortness of Breath/Wheezing Amlodipine Besylate (Amlodipine Besylate 2.5 Mg Tablet) 2.5 mg PO DAILY [facility]; Protocol Last Admin: 05/28/22 09:24 Dose: 2.5 mg Documented By: KARIE Aspirin (Aspirin 325 Mg Tablet) 325 mg PO BID [facility] Last Admin: 05/28/22 09:24 Dose: 325 mg Documented By: KARIE Celecoxib (Celecoxib 200 Mg Capsule) 200 mg PO BID [facility] Last Admin: 05/28/22 09:24 Dose: 200 mg Documented By: KARIE Cyanocobalamin (Cyanocobalamin (Vitamin B-12) 500 Mcg Tablet) 500 mcg PO DAILY [facility] Last Admin: 05/28/22 09:24 Dose: 500 mcg Documented By: KARIE Docusate Sodium (Docusate Sodium 100 Mg Capsule) 100 mg PO BID [facility] Last Admin: 05/28/22 09:25 Dose: 100 mg Documented By: KARIE Doxepin HCl (Doxepin Hcl 25 Mg Capsule) 75 mg PO BEDTIME [facility] Last Admin: 05/27/22 23:39 Dose: 75 mg Documented By: LETTY Fluticasone/Vilanterol (Fluticasone/Vilanterol 200/25 Blst.W.Dev) 1 puff INHALE RDAILY [facility] Last Admin: 05/28/22 08:30 Dose: 1 puff Documented By: BRANDO Hydromorphone HCl (Hydromorphone Hcl 0.5 Mg/0.5 Ml Syringe) 0.5 mg IVPUSH Q10M PRN; Protocol PRN Reason: Pain, Moderate (Pain Scale 4-6 Last Admin: 05/26/22 15:23 Dose: 0.5 mg Documented By: VANDANA Hydromorphone HCl (Hydromorphone Hcl 0.5 Mg/0.5 Ml Syringe) 0.25 mg IVPUSH Q4H PRN; Protocol PRN Reason: Pain, Severe (Pain Scale 7-10) Last Admin: 05/27/22 17:23 Dose: 0.25 mg Documented By: KARIE Melatonin (Melatonin 3 Mg Tablet) 6 mg PO BEDTIME PRN PRN Reason: sleep Last Admin: 05/26/22 20:38 Dose: 6 mg Documented By: KARIME Mirtazapine (Mirtazapine 15 Mg Tablet) 15 mg PO BEDTIME [facility] Last Admin: 05/27/22 23:39 Dose: 15 mg Documented By: LETTY Comments: UNABLE TO SCAN DUE TO TEAR IN PACKAGING Omeprazole (Omeprazole 20 Mg Capsule.Dr) 20 mg PO BID [facility] Last Admin: 05/28/22 09:24 Dose: 20 mg Documented By: KARIE Ondansetron HCl (Ondansetron Hcl 4 Mg/2 Ml Vial) 4 mg IVPUSH Q8H PRN PRN Reason: Nausea and Vomiting Oxycodone HCl (Oxycodone Hcl Immed Release 5 Mg Tablet) 5 mg PO Q4H PRN PRN Reason: Pain, Moderate (Pain Scale 4-6 Last Admin: 05/28/22 04:21 Dose: 5 mg Documented By: LETTY Oxycodone HCl (Oxycodone Hcl Er 10 Mg Tab.Er.12h) 10 mg PO BID [facility] Last Admin: 05/28/22 09:24 Dose: 10 mg Documented By: KARIE Simethicone (Simethicone 80 Mg Tab.Chew) 160 mg PO QID [facility] Last Admin: 05/28/22 09:24 Dose: 160 mg Documented By: KARIE Sodium Chloride (0.9 % Sodium Chloride Flush 3 Ml Syringe) 3 ml IVFLUSH QSHIFT [facility] Last Admin: 05/28/22 09:23 Dose: 3 ml Documented By: KARIE Labs CBC & Chem 7: 05/28/22 06:14 05/28/22 06:14 Labs: Laboratory Results - last 24 hr 05/28/22 05/28/22 06:14 06:14 MCV 93.0 MCH 32.0 MCHC 34.4 RDW 13.2 Plt Count 185 MPV 9.8 Immature Gran % (Auto) 0.3 Neut % (Auto) 71.8 Lymph % (Auto) 9.9 L [place] % (Auto) 17.7 H Eos % (Auto) 0.1 Baso % (Auto) 0.2 Lymph # (Auto) 1.2 [place] # (Auto) 2.1 H Eos # (Auto) 0.0 Baso # (Auto) 0.0 Abs Immat Gran (auto) 0.04 H Absolute Neuts (auto) 8.4 H Absolute Nucleated RBC 0.000 Nucleated RBC % (auto) 0.0 Smear Tech's Comments VERIFIED Anion Gap 11 L Estim Creat Clear Calc 53.3 Estimated GFR > 60 Fasting Glucose 131 H Calcium 8.3 L Assessment and Plan (1) Tachycardia: Status: Acute Plan 77/m with HTN, HLD and other s/p elective TKR 05/26 1/HTN--BP is better, continue present meds Tachycardia--get ECG 2/HLD-continue Statin 3/history of SELINA, CPAP if uses 4/GERD-PPI 5/s/p R TKR-mangement by ortho, including DVT prophylaxis and pain brad,ent 6/med rec reviewed DC if tachycardia not an issue, ECG is requested Time Spent With Patient Time: Total time managing care of this patient today ____ minutes. Quality Stroke Does the patient have a stroke diagnosis?: No VTE Prior VTE?: No VTE Risk Level:: Surgical - high VTE Device Contraindication: N/A - Device Ordered VTE Drug Contraindication: N/A - Med Ordered
[2022-05-28 11:20] VITALS: BP 146/67; PULSE 99; RESP 18; TEMP 37; O2SAT 95
== END 2022-05-28 12:39 | disposition home or self-care (01) ==
LOC: HO.SSS 07:04 → HO.S3 16:22
PROVIDERS: Nurse Practitioner; Physician Assistant; PCP Family Medicine; Visit Provider Orthopaedic Surgery
PROC: (CPT 27447; principal; 2022-05-26 09:30)
DX: M17.11 Unilateral primary osteoarthritis, right knee (principal); R00.0 Tachycardia, unspecified; I10 Essential (primary) hypertension; E78.00 Pure hypercholesterolemia, unspecified; K21.9 Gastro-esophageal reflux disease without esophagitis; J44.9 Chronic obstructive pulmonary disease, unspecified; G47.33 Obstructive sleep apnea (adult) (pediatric); Z79.82 Long term (current) use of aspirin; Z79.891 Long term (current) use of opiate analgesic; Z79.899 Other long term (current) drug therapy; Z96.652 Presence of left artificial knee joint; Z88.5 Allergy status to narcotic agent; Z88.6 Allergy status to analgesic agent; Z20.822 Contact with and (suspected) exposure to COVID-19
CPT/HCPCS: 27447; 36415; 73560; 80048; 85014; 85018; 85025; 85027; 86850; 86900; 86901; 87635; 87640; 87641; 88305; 88311; 93005; 94640; 94664; 97110; 97116; 97161; C1776; J0690; J1170; J2370; J2405; J2795

== ENCOUNTER 2022-06-03 14:30 | Emergency (ER) | payer MEDICARE, MEDICAID, SELFPAY ==
--- NOTE | ~2022-06-03 | CT_ITS ---
EXAMINATION: CT ANGIOGRAM ABDOMEN AND PELVIS CLINICAL INFORMATION: Question portal venous thrombosis. COMPARISON: None TECHNIQUE: Multiple axial images were obtained through the abdomen and pelvis following the administration of 100 mL of Omnipaque 350 intravenous contrast. Images were reviewed on a dedicated 3-D workstation. This CT examination was performed using dose optimization techniques as appropriate, variously including the following: *Automated exposure control *Adjustment of mA and/or kV according to patient size (this includes techniques or standardized protocols for targeted exams where dose is matched to indication/reason for exam; i.e. extremities or head) *Use of iterative reconstruction technique DLP: 516 mGy-cm FINDINGS: CTA ABDOMEN: There is good opacification of the entire abdominal aorta which is normal in its course and caliber without aneurysm or dissection. The origins of celiac, superior mesenteric and inferior mesenteric arteries are widely patent. There is minimal plaque at the origin of SMA. There are solitary renal arteries which are widely patent. There is normal bifurcation of aorta into symmetrical common iliac arteries and they bifurcate into internal and external iliac arteries which are all normal caliber. The IVC is normal caliber. The portal vein is less than optimally opacified with no filling defects seen. It appears normal caliber. The splenic vein and the IMV are not dilated. There are no collateral vessels seen to suspect any portal venous hypertension. NON-CTA ABDOMEN AND PELVIS The lung bases are clear. Mild atelectatic changes seen in the lingula and left lower lobe anterobasal segment. The heart size is normal. The liver is diffusely attenuated but normal size and contour. No focal lesion or intrahepatic ductal dilatation seen. The gallbladder is unremarkable. Visualized spleen, pancreas and bilateral adrenal glands unremarkable. Both kidneys are normal size for patient's age. No radiopaque renal calculi or hydronephrosis seen. There is no perinephric stranding. The bladder is unremarkable. There are no abnormal retroperitoneal or intraperitoneal lymph nodes seen. There is scattered colonic diverticulosis most prominent in the right colon with moderate stool. No evidence of obstruction or diverticulitis. The small bowel loops are normal caliber. Appendix is not visualized. There is no inflammatory process in the abdomen. No free air or free fluid. The abdominal wall appears unremarkable. Imaging through the pelvis reveals unremarkable urinary bladder. The prostate gland is minimally enlarged with central gland calcification. There is no free air or free fluid. Bone windows reveal no aggressive lytic or sclerotic process. There is vacuum disc phenomena and loss of disc height with spondylosis L5-S1 disc level. There is moderate spondylosis lower dorsal spine. CT/CT angio abdomen pelvis IMPRESSION: Unremarkable CTA abdomen and pelvis. Colonic diverticulosis without diverticulitis. Mild constipation. Fleischner guidelines were followed.
--- NOTE | ~2022-06-03 | US_ITS ---
EXAMINATION: US VENOUS ULTRASOUND WITH DOPPLER LOWER EXTREMITY, RIGHT CLINICAL INFORMATION: Swelling, pain, erythema COMPARISON: CTA chest 02/19/2022 TECHNIQUE: Ultrasound of the deep veins is performed from the hip to the calf with compression sonography and color and pulse Doppler assessment. Spectral analysis with color-flow imaging is performed. FINDINGS: There is normal venous compression and respiratory variation and augmented flow. The visualized common femoral vein, superficial femoral vein, profunda femoral vein, popliteal vein, and the trifurcation region shows no evidence of deep venous thrombosis. No popliteal fossa cyst. US/US venous duplex LE RT IMPRESSION: No DVT demonstrated in the right lower extremity.
[2022-06-03 14:50] VITALS: BP 150/90; BP 156/91; PULSE 82; PULSE 90; RESP 18; TEMP 36.4; O2SAT 96; BMI 29.0
--- NOTE | 2022-06-03 15:58 | ECG_ITS ---
Test Reason : SEPSIS Blood Pressure : / mmHG Vent. Rate : 081 BPM Atrial Rate : 081 BPM P-R Int : 182 ms QRS Dur : 090 ms QT Int : 374 ms P-R-T Axes : 041 -29 015 degrees QTc Int : 434 ms Normal sinus rhythm Normal ECG When compared with ECG of 28-MAY-2022 10:27, QRS axis Shifted left Referred By: Lashawn Ryan Electronically Signed By:Rey Yeung
--- NOTE | 2022-06-03 15:58 | ED.GENADULT ---
HPI - General Adult General Chief complaint: General Medical Stated complaint: Pain post surg lower extremity per EMS Time Seen by Provider: 06/03/22 14:52 Source: patient and seismic interpreter Mode of arrival: EMS History of Present Illness HPI narrative: 77-year-old male without history of diabetes is brought in by EMS status post knee replacement on 05/26 and was sent home with rehab but today rehab staff was concerned regarding patient's knee and right lower extremity that had increased erythema, swelling and warmth. Although patient was sent home with 325 mg of aspirin he has not been taking this consistently and has only been taking his 81 mg daily. He denies any fever, chills, shortness of breath but is having considerable pain. Related Data Home Medications Medication Instructions Recorded Confirmed albuterol sulfate 90 mcg/actuation 1 inh inhalation QID 01/10/21 05/24/22 aerosol inhaler (ProAir HFA) omega-3 fatty acids 1,000 mg 1,000 mg PO DAILY 01/10/21 05/24/22 capsule (Fish Oil Concentrate) doxepin 75 mg capsule 75 mg PO BEDTIME 09/04/21 05/24/22 mirtazapine 15 mg tablet 15 mg PO BEDTIME 09/04/21 05/24/22 simvastatin 40 mg tablet 40 mg PO BEDTIME 01/07/22 05/24/22 cyanocobalamin (vitamin B-12) 500 500 mcg PO QAM 04/01/22 05/24/22 mcg tablet latanoprost 0.005 % eye drops 0 drp ophthalmic (eye) 04/01/22 05/24/22 cholecalciferol (vitamin D3) 50 1 cap PO QAM 05/26/22 05/26/22 mcg (2,000 unit) capsule (Vitamin D3) fluticasone 250 mcg-salmeterol 50 1 puff inhalation BID 05/26/22 05/26/22 mcg/dose blistr powdr for inhalation (Advair Diskus) loratadine 10 mg tablet (Allergy 1 tab PO QAM 05/26/22 05/26/22 Relief (loratadine)) Previous Rx's Medication Instructions Recorded albuterol sulfate 90 mcg/actuation 2 inh inhalation Q4-6H PRN 02/19/22 breath activated powder inhaler shortness of breath or wheezing #1 ea simethicone 180 mg capsule 180 mg PO QID #120 caps 03/17/22 pantoprazole 40 mg tablet,delayed 40 mg PO BID 30 days #60 tabs 04/01/22 release (Protonix) melatonin 3 mg tablet 6 mg PO BEDTIME PRN sleep 30 days 04/14/22 #30 tabs walker #1 ea 05/09/22 acetaminophen 325 mg tablet 650 mg PO Q6H PRN Pain, Mild (Pain 05/28/22 Scale 1-3) 30 days #240 tabs aspirin 325 mg tablet 325 mg PO BID 42 days #84 tabs 05/28/22 celecoxib 200 mg capsule 200 mg PO BID 30 days #60 caps 05/28/22 docusate sodium 100 mg capsule 100 mg PO BID 30 days #60 caps 05/28/22 oxycodone 5 mg tablet 5 mg PO Q4H PRN Pain, Moderate 05/28/22 (Pain Scale 4-6 7 days #42 tabs oxycodone 10 mg tablet 10 mg PO Q4-6H PRN pain #42 tabs 06/02/22 Allergies Allergy/AdvReac Type Severity Reaction Status Date / Time codeine AdvReac Mild Abdominal Verified 05/26/22 08:02 Pain Motrin AdvReac Mild Gastrointestinal Uncoded 05/26/22 08:02 Upset Review of Systems Review of Systems: Pertinent positives and negatives as stated in HPI 10 point review of systems is otherwise negative. [facility] Past Medical History Source: nursing notes reviewed Medical History Ambulates with cane Asthma COPD (chronic obstructive pulmonary disease) Cough Degenerative disc disease, thoracic Elevated cholesterol GERD (gastroesophageal reflux disease) Hemorrhoids High cholesterol HTN (hypertension) Hypertension Kidney stones SELINA (obstructive sleep apnea) Tachycardia Surgical History H/O colonoscopy H/O shoulder surgery History of cystoscopy History of renal stent History of total left knee replacement Previous back surgery S/P arthroscopic surgery of left knee Social History Social History Household Members: Family Are you a primary managed care analyst to a significant other at home: No Do you presently have visiting nurse or other home services: Yes (none) Alcohol intake: never Patient Tobacco Use Status: Never used Tobacco Substance Use Type: Marijuana Advance Directives: No Advance Directives Information Provided: Yes Current occupational status: unemployed Physical Exam ED Vital Signs: Vital Signs - 24 hr 06/03/22 14:50 Temperature 97.6 F Pulse Rate 82 Respiratory Rate 18 Blood Pressure 156/91 H Pulse Oximetry 96 Oxygen Delivery Method Room Air BMI result Body Mass Index 29.0 VITAL SIGNS: Reviewed. GENERAL: Well developed, well nourished, in no acute distress. HEAD: Normocephalic/atraumatic EYES: PERRLA, EOMI EARS: Ext canals without abnormality OROPHARYNX: no oral lesions noted, posterior pharynx clear LUNGS: Normal breath sounds. No adventitious sounds or accessory muscle use. SpO2<96> CARDIOVASCULAR: Regular rate and rhythm without noted murmurs, no JVD or lower extremity edema. ABDOMEN: Soft, non-tender, non-distended with bowel sounds. MUSCULOSKELETAL: No tenderness, deformities, or effusions noted on gross inspection. EXTREMITIES: No cyanosis, clubbing or edema; RIGHT LOWER EXTREMITY: The entire leg is swollen, erythematous, indurated, warm there is a dressing to the anterior aspect of the knee that is C/D/I, palpable DP/PT and although the foot is somewhat cooler with palpable pulses, there is ecchymosis noted to the metacarpal area. SKIN: Inspection of the skin reveals no rashes NEUROLOGIC: Alert and oriented x 3. Strength and sensation to light touch were grossly intact x 4. Course Reevaluation(s) Reevaluation #1: Signed out to SADI Malhotra. Time: 16:24 Medical Decision Making Medical Decision Making MDM Narrative: 77-year-old male with red, swollen, painful right lower extremity after TKR. Differential Diagnosis Differential Diagnoses: The differential diagnosis associated with the presentation includes Cellulitis, DVT Independent Interpretation I performed an independent interpretation of an: EKG Interpretation: Normal sinus rhythm, HR-81, no STEMI, AL/QRS/QTC is within normal limits. Critical Care Time Critical Care Time Critical Care Time: Yes Total Critical Care Time: 30 Attestation: I personally attest to this time spent taking care of the patient. Discharge Plan Discharge Clinical Impression: Lower extremity pain, right Patient Disposition: Still a Patient Prescriptions: No Action simethicone 180 mg capsule 180 mg PO QID Qty: 120 6RF (DME) walker Misc See Rx Instructions .MEDSUPPLY Qty: 1 0RF Rx Instructions: Folding Front wheeled walker oxycodone 10 mg tablet 10 mg PO Q4-6H PRN (Reason: pain) Qty: 42 0RF Rx Instructions: Partial Fill upon patient request. albuterol sulfate 90 mcg/actuation aerosol powdr breath activated 2 inh inhalation Q4-6H PRN (Reason: shortness of breath or wheezing) Qty: 1 0RF fluticasone propion-salmeterol [Advair Diskus] 250-50 mcg/dose blister with device 1 puff inhalation BID loratadine [Allergy Relief (loratadine)] 10 mg tablet 1 tab PO QAM cholecalciferol (vitamin D3) [Vitamin D3] 50 mcg (2,000 unit) capsule 1 cap PO QAM celecoxib 200 mg Capsule 200 mg PO BID 30 Days Qty: 60 0RF acetaminophen 325 mg Tablet 650 mg PO Q6H PRN (Reason: Pain, Mild (Pain Scale 1-3)) 30 Days Qty: 240 0RF aspirin 325 mg Tablet 325 mg PO BID 42 Days Qty: 84 0RF docusate sodium 100 mg Capsule 100 mg PO BID 30 Days Qty: 60 0RF oxycodone 5 mg Tablet 5 mg PO Q4H PRN (Reason: Pain, Moderate (Pain Scale 4-6) 7 Days Qty: 42 0RF Rx Instructions: Partial Fill upon patient request. albuterol sulfate [ProAir HFA] 90 mcg/actuation HFA aerosol inhaler 1 inh inhalation QID omega-3 fatty acids [Fish Oil Concentrate] 1,000 mg capsule 1,000 mg PO DAILY mirtazapine 15 mg tablet 15 mg PO BEDTIME doxepin 75 mg capsule 75 mg PO BEDTIME simvastatin 40 mg tablet 40 mg PO BEDTIME cyanocobalamin (vitamin B-12) 500 mcg tablet 500 mcg PO QAM latanoprost 0.005 % drops 0 drp ophthalmic (eye) pantoprazole [Protonix] 40 mg tablet,delayed release (DR/EC) 40 mg PO BID 30 Days Qty: 60 6RF melatonin 3 mg tablet 6 mg PO BEDTIME PRN (Reason: sleep) 30 Days Qty: 30 3RF
[2022-06-03 16:26] LABS: MANUAL DIFF FLAG NO
[2022-06-03 16:29] LABS: Basophils Percent Auto 0.4 % (0-2); Eosinophils Absolute Auto 0.3 X10*3/uL (0.0-0.4); Eosinophils Percent Auto 2.6 % (0-4); Hematocrit 29.6 % (42.0-52.0); Hemoglobin 9.7 g/dl (14.0-18.0); Imm Gran Abs Auto 0.13 X10*3/uL (0.00-0.03); Imm Gran Pct Auto 1.3 % (0.0-0.4); Lymphocytes Absolute Auto 2.1 X10*3/uL (1.2-4.9); Lymphocytes Percent Auto 20.6 % (20-40); Mean Corpuscular HGB Conc 32.8 g/dl (31.0-36.0); Mean Corpuscular Hemoglobin 31.7 pg (27.0-33.0); Mean Corpuscular Volume 96.7 fL (80.0-98.0); Mean Platelet Volume 8.8 fL (9.4-12.4); Monocytes Absolute Auto 1.4 X10*3/uL (0.1-1.2); Monocytes Percent Auto 13.5 % (2-11); Neutrophils Absolute Auto 6.2 x10*3/uL (2.0-8.3); Neutrophils Percent Auto 61.6 % (45-73); Platelet Count 404 X10*3/uL (160-400); Red Blood Count 3.06 X10*6/uL (4.60-5.80); White Blood Count 10.1 X10*3/uL (4.8-10.8)
--- NOTE | 2022-06-03 16:29 | PC.NURSE ---
ultrasound at bedside
[2022-06-03 16:32] LABS: Prothrombin Time 11.9 SEC (10.0-13.1)
[2022-06-03 16:40] LABS: Lactic Acid 0.8 mmol/L (0.5-2.0)
[2022-06-03 16:45] LABS: Alanine Aminotransferase 60 U/L (0-40); Albumin Level 3.1 g/dL (3.5-5.0); Alkaline Phosphatase 296 U/L (39-117); Anion Gap 10 (12-20); Aspartate Amino Transferase 55 U/L (5-37); Bilirubin Total 1.7 mg/dL (0.0-1.0); Blood Urea Nitrogen 14 mg/dL (9-16); Carbon Dioxide 26 mmol/L (22-29); Chloride 106 mmol/L (96-108); Creatinine Clr Calc Pharmacy 66.8; Estimated Glomerular Filt Rate > 60; Glucose Random 119 mg/dL (60-115); Potassium 4.2 mmol/L (3.3-5.1); Sodium 138 mmol/L (135-145); Total Protein 5.5 g/dL (6.5-8.0)
[2022-06-03 16:53] LABS: Troponin-I High Sensitivity < 3.5 ng/L (<3.5-35.0)
[2022-06-03 17:14] LABS: COVID-19 Test Negative (Negative); IDNOW Serial# BCCEAD1C
[2022-06-03] MEDS: Piperacillin Sodium/Tazobactam 3.375 GM in 0.9 % Sodium Chloride 50 ML IV (17:22)
[2022-06-03 17:23] VITALS: BP 115/75; PULSE 88; RESP 16; O2SAT 97
[2022-06-03] MEDS: iohexoL 350 MG/ML 100 ML INFUS..BTL IV (17:25)
[2022-06-03 19:07] VITALS: BP 143/82; PULSE 89; RESP 16; TEMP 37.2; O2SAT 96
== END 2022-06-03 20:13 | disposition home or self-care (01) ==
PROVIDERS: Emergency Provider Student in an Organized Health Care Education/Training Program; PCP Family Medicine
DX: L03.115 Cellulitis of right lower limb (principal); M79.661 Pain in right lower leg; R79.89 Other specified abnormal findings of blood chemistry; Z96.651 Presence of right artificial knee joint; Z20.822 Contact with and (suspected) exposure to COVID-19
CPT/HCPCS: 36415; 74174; 80053; 83605; 84484; 85025; 85610; 87040; 87635; 93005; 93971; 96365; 99284; 99285; J2543; Q9967

== ENCOUNTER → 2022-06-04 10:32 | Outpatient (BNVA) | payer MEDICARE, MEDICAID, SELFPAY | PROVIDERS: PCP Family Medicine; Visit Provider Physician Assistant | DX: Z13.89 Encounter for screening for other disorder (principal) | CPT/HCPCS: 99212 ==

== ENCOUNTER → 2022-06-11 12:47 | Outpatient (BNVA) | payer MEDICARE, MEDICAID, SELFPAY | PROVIDERS: PCP Family Medicine; Visit Provider Physician Assistant | DX: Z13.89 Encounter for screening for other disorder (principal) | CPT/HCPCS: 99212 ==

== ENCOUNTER 2022-07-08 10:00 | Outpatient (RCR) | payer MEDICARE, MEDICAID, SELFPAY ==
--- NOTE | 2022-07-01 11:49 | MHC.PT.EP ---
[facility] [place] Office [place] Office [place] Office [address] Abdoulaye Tse [address] [phone] F: [phone] F: [phone] F: [phone] F: [phone] Physical Therapy Plan of Care Date of Evaluation: Date of Surgery: 05/26/22 Diagnosis: R TKA 05/26/22 (RC) Assessment: pt is a 77 y/o male presenting to physical therapy w/ referring diagnosis of post total right knee replacement. pt does not seem interested in education from this therapist at time of eval. He tends to perseverate on pain. pt refuses to hold cane in the other hand. Impairments include pain, decreased range of motion, decreased strength, impaired functional mobility, impaired postural awareness, and altered ambulation mechanics. pt is a fair candidate for skilled PT due to age, potential remediation of impairments, typyical disease/condition progression and prognosis, comorbidities, and motivation. pt would benefit from skilled PT intervention to provide a tailored strengthening and stretching exercise program, functional training, gait training, postural re-training, neuromuscular re-education, modalities as needed for pain, equipment safety demonstration. Frequency and Duration: The patient will be seen 2x/wk for 4 wks Short Term Goals: pt will be I w/ HEP to promote self-management of condition. pt will improve R knee flexion by 10 degrees to promote ease in stair navigation. Roofing Applicator Goals: pt will ascend/descend 12 stairs w/ railing to evacuate apartment complex in case of emergency. pt will report a statistically significant improvement in self-reported outcome measure, LEFI, to promote return to PLOF. Treatment Plan: Modalities to reduce pain, spasms and effusion. Manual therapy to restore motion and function. Therapeutic exercise to improve strength and flexibility. Neuromuscular re-education for posture and balance. Therapeutic activities to return to functional activities of daily living. Electronically signed by: Dot Palacios PT, DPT Please sign and return to therapist. Thank you for your referral.
--- NOTE | 2022-07-29 11:06 | MHC.PT.DC ---
[facility] [place] Office [place] Office [place] Office [address] Abdoulaye Tse 140 [facility] [phone] F: [phone] F: [phone] F: [phone] F: [phone] Physical Therapy Discharge Report Diagnosis: R TKA 05/26/22 (RC) Date of Surgery: 05/26/22 Date of Evaluation: 07/01/22 Date of Discharge: 07/29/22 Treatments to Date: 3 Cancellations to Date: 1 No Shows to Date: 0 Discharge Status: Visit Non-compliance Discharge Summary: The patient required significant motivation to participate in outpatient physical therapy. He was advised to schedule at least one month of visits; however, only scheduled 3 visits. He only attended 1 of those 3 scheduled visits. He reported pain as the biggest barrier to participating in PT. He was educated on the typical progression of pain symptoms after a TKA but perseverated heavily on his symptoms. He has not scheduled any additional appointments in three weeks. He is being discharged for attendance non-compliance. Electronically signed by: Dot Palacios PT, DPT Please sign and return to therapist. Thank you for your referral.
== END 2022-07-29 11:06 | disposition home or self-care (01) ==
LOC: HO.PT 10:00
PROVIDERS: Visit Provider Physician Assistant
DX: Z96.651 Presence of right artificial knee joint (principal)
CPT/HCPCS: 97110; 97162

== ENCOUNTER → 2022-07-10 12:48 | Outpatient (BNVA) | payer MEDICARE, MEDICAID, SELFPAY | PROVIDERS: PCP Family Medicine; Visit Provider Physician Assistant | DX: Z13.89 Encounter for screening for other disorder (principal) | CPT/HCPCS: 99212 ==

== ENCOUNTER → 2022-07-15 09:53 | Outpatient (BNVA) | payer MEDICARE, MEDICAID, SELFPAY | PROVIDERS: PCP Family Medicine; Visit Provider Internal Medicine | DX: K21.9 Gastro-esophageal reflux disease without esophagitis (principal); K59.04 Chronic idiopathic constipation; R14.0 Abdominal distension (gaseous); Z96.651 Presence of right artificial knee joint | CPT/HCPCS: 99212 ==

== ENCOUNTER 2022-07-29 10:59 | Outpatient (REF) | payer MEDICARE, MEDICAID, SELFPAY | END 2022-07-29 11:00 | disposition home or self-care (01) | LOC: HO.HAP 10:59 | PROVIDERS: Visit Provider Family Medicine | DX: Z13.89 Encounter for screening for other disorder (principal) | CPT/HCPCS: 92700 ==

== ENCOUNTER 2022-08-24 12:13 | Outpatient (REF) | payer MEDICARE, MEDICAID, SELFPAY ==
--- NOTE | ~2022-08-24 | XR_ITS ---
EXAMINATION: XR KNEE, AP STANDING, BILATERAL XR KNEE, RIGHT CLINICAL INDICATION: Right knee pain. TECHNIQUE: AP knee standing and right knee 2 views. COMPARISON: AP bilateral knees standing 01/05/2022. FINDINGS: AP Bilateral Knee: There is total knee prosthesis with the prosthetic components in satisfactory alignment. There is no loosening. No fracture. There is mild increase right lateral knee soft tissue swelling. Right Knee: There is total right knee prosthesis with prosthetic components in satisfactory alignment. There is a small bone fragment superior to the right femoral prosthesis on the lateral view likely small avulsion injury of indeterminate age. Mild superior patellar spurring is seen. No periprosthetic fracture. XR/XR knee RT 2V IMPRESSION: Total bilateral knee prosthesis in satisfactory alignment on AP standing view. There is mild lateral knee soft tissue swelling right knee. There is a small bone fragment superior to the right femoral prosthesis on the lateral view likely small avulsion injury of indeterminate age. There is mild superior patellar spurring.
--- NOTE | ~2022-08-24 | XR_ITS ---
EXAMINATION: XR KNEE, AP STANDING, BILATERAL XR KNEE, RIGHT CLINICAL INDICATION: Right knee pain. TECHNIQUE: AP knee standing and right knee 2 views. COMPARISON: AP bilateral knees standing 01/05/2022. FINDINGS: AP Bilateral Knee: There is total knee prosthesis with the prosthetic components in satisfactory alignment. There is no loosening. No fracture. There is mild increase right lateral knee soft tissue swelling. Right Knee: There is total right knee prosthesis with prosthetic components in satisfactory alignment. There is a small bone fragment superior to the right femoral prosthesis on the lateral view likely small avulsion injury of indeterminate age. Mild superior patellar spurring is seen. No periprosthetic fracture. XR/XR knee standing BI IMPRESSION: Total bilateral knee prosthesis in satisfactory alignment on AP standing view. There is mild lateral knee soft tissue swelling right knee. There is a small bone fragment superior to the right femoral prosthesis on the lateral view likely small avulsion injury of indeterminate age. There is mild superior patellar spurring.
== END 2022-08-24 12:14 | disposition home or self-care (01) ==
LOC: HO.HOSX 12:13
PROVIDERS: Visit Provider Orthopaedic Surgery
DX: M25.461 Effusion, right knee (principal); Z96.651 Presence of right artificial knee joint
CPT/HCPCS: 20610; 73560; 73565; 99212

== ENCOUNTER → 2022-08-26 10:38 | Outpatient (BNVA) | payer MEDICARE, MEDICAID, SELFPAY | PROVIDERS: PCP Family Medicine; Visit Provider Nurse Practitioner | DX: K21.9 Gastro-esophageal reflux disease without esophagitis (principal); K59.04 Chronic idiopathic constipation; R14.0 Abdominal distension (gaseous); Z96.651 Presence of right artificial knee joint | CPT/HCPCS: 99212 ==

== ENCOUNTER 2022-11-23 09:57 | Outpatient (REF) | payer MEDICARE, MEDICAID, SELFPAY ==
--- NOTE | ~2022-11-23 | XR_ITS ---
EXAMINATION: Knee x-ray CLINICAL INFORMATION: Pain COMPARISON: Previous x-ray August 2022 TECHNIQUE: Standing AP view of both knees and lateral and sunrise view of the left knee FINDINGS: Right There is a left 3 component knee replacement in satisfactory position. No fracture or dislocation. Large joint effusion. Soft tissue swelling anterior to the knee. Standing AP view of the left knee demonstrate a right knee replacement in satisfactory position. XR/XR knee RT 2V IMPRESSION: Bilateral knee replacements. Large right knee joint effusion and anterior soft tissue swelling.
--- NOTE | ~2022-11-23 | XR_ITS ---
EXAMINATION: Knee x-ray CLINICAL INFORMATION: Pain COMPARISON: Previous x-ray August 2022 TECHNIQUE: Standing AP view of both knees and lateral and sunrise view of the left knee FINDINGS: Right There is a left 3 component knee replacement in satisfactory position. No fracture or dislocation. Large joint effusion. Soft tissue swelling anterior to the knee. Standing AP view of the left knee demonstrate a right knee replacement in satisfactory position. XR/XR knee standing BI IMPRESSION: Bilateral knee replacements. Large right knee joint effusion and anterior soft tissue swelling.
== END 2022-11-23 09:58 | disposition home or self-care (01) ==
LOC: HO.HOSX 09:57
PROVIDERS: Visit Provider Orthopaedic Surgery
DX: M25.561 Pain in right knee (principal); M25.461 Effusion, right knee; Z96.651 Presence of right artificial knee joint
CPT/HCPCS: 73560; 73565; 99212

== ENCOUNTER → 2022-12-14 09:46 | Outpatient (BNVA) | payer MEDICARE, MEDICAID, SELFPAY | PROVIDERS: PCP Family Medicine; Visit Provider Internal Medicine | DX: M25.461 Effusion, right knee (principal); M25.561 Pain in right knee; G89.29 Other chronic pain; Z96.651 Presence of right artificial knee joint | CPT/HCPCS: 99202 ==

== ENCOUNTER 2023-02-23 10:36 | Outpatient (AMB) | payer MEDICARE, MEDICAID, SELFPAY ==
[2023-02-23 10:58] VITALS: BP 132/72; PULSE 80; O2SAT 94; BMI 28.3
--- NOTE | 2023-02-23 10:58 | MHC.OFFVIS ---
Intake Vital Signs 02/23/23 10:58 Height 5 ft 4 in Weight 165 lb BMI 28.3 BP 132/72 Blood Pressure Location Lt brachial Position Sitting Pulse 80 Pulse Source Pulse Oximeter Pulse Oximetry (%) 94 Oxygen Delivery Method Room Air Intake Visit Reasons: COPD Intake Note: pt is here for follow up and states he is coughing all the time, with phelgm. Rare/Endangered Species Specialist Required: Yes Rare/Endangered Species Specialist Name: [id number] Allergies codeine Adverse Reaction (Mild, Verified 02/23/23 11:11) Abdominal Pain Motrin Adverse Reaction (Mild, Uncoded 02/23/23 11:11) Gastrointestinal Upset Medication List - Last Reconciled 02/23/23 by Jeanne Mayorga MD acetaminophen 650 mg (2 x 325 mg) PO Q6H PRN 30 days albuterol sulfate 90 mcg/actuation 2 inhalations inhalation Q4-6H PRN aspirin 81 mg PO QAM cholecalciferol (vitamin D3) (Vitamin D3) 1 cap PO QAM cyanocobalamin (vitamin B-12) 500 mcg PO QAM doxepin 75 mg PO BEDTIME famotidine (Pepcid) 40 mg PO BEDTIME fluticasone propion-salmeterol 250-50 mcg/dose (Advair Diskus) 1 puff inhalation BID gabapentin 100 mg PO BEDTIME latanoprost 0.005% 0 drps ophthalmic (eye) loratadine (Allergy Relief (loratadine)) 1 tab PO QAM melatonin 6 mg (2 x 3 mg) PO BEDTIME PRN 30 days mirtazapine 15 mg PO BEDTIME omega-3 fatty acids (Fish Oil Concentrate) 1,000 mg PO DAILY oxycodone 5 mg PO Q12H PRN 7 days pantoprazole (Protonix) 40 mg PO BID 30 days simethicone 180 mg PO QID simvastatin 40 mg PO BEDTIME walker Folding Front wheeled walker Do you need a note to return to daycare/school/sports/work: No HPI COPD HPI Details JIMMY IS 77 YEARS OLD, NORWEGIAN-SPEAKING GENTLEMAN WHO IS VERY PLEASANT. HE ACTUALLY SPEAKS COULD AMOUNT OF ANGULATION AND UNDERSTANDS THE CONVERSATION. 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 CLAIMS THAT HIS BREATHING HAS BEEN OKAY EXCEPT HE HAS FREQUENT BOUTS OF COUGH. AND HE GETS SHORT OF BREATH ON WALKING FAST OR CLIMBING STAIRS. HE HAS HAD. NO ACUTE EXACERBATION CONTINUES TO USE ADVAIR. 500-51 INHALATION B.I.D. AND CARRIES VENTOLIN WITH HIM WHEN HE GOES OUTDOORS BUT USES IT ONLY ONCE IN A WHILE WHEN HE GETS SHORT OF BREATH. [facility] Medical History Tachycardia Cough SELINA (obstructive sleep apnea) Kidney stones Asthma Elevated cholesterol HTN (hypertension) Ambulates with cane Degenerative disc disease, thoracic High cholesterol Hypertension COPD (chronic obstructive pulmonary disease) Hemorrhoids GERD (gastroesophageal reflux disease) Surgical History History of cystoscopy History of renal stent H/O shoulder surgery S/P arthroscopic surgery of left knee History of total left knee replacement H/O colonoscopy Previous back surgery Social History Household Members: Family Are you a primary primary care nurse practitioner to a significant other at home: No Do you presently have visiting nurse or other home services: Yes (none) Alcohol intake: never Patient Tobacco Use Status: Never used Tobacco Substance Use Type: Marijuana Current occupational status: unemployed Review of Systems Const All systems reviewed & are unremarkable except as noted in HPI and below Eyes Reports no additional complaints ENT Reports no additional complaints Card Denies chest pain, Denies irregular heart rhythm and Denies leg edema Resp Reports as per HPI GI Reports constipation and Reports heartburn (BEING TREATED WITH OMEPRAZOLE) Reports no additional complaints Musc Reports no additional complaints, Reports arthralgias and Reports joint swelling (knees) Skin/Breast Reports system reviewed and no additional complaints, except as documented Neuro Reports no additional complaints Psych Reports no additional complaints and Reports depression Endo Reports no additional complaints Physical Exam Vital Signs: Last Vital Signs Pulse 80 02/23/23 10:58 BP 132/72 02/23/23 10:58 Pulse Ox 94 02/23/23 10:58 Oxygen Delivery Method Room Air 02/23/23 10:58 BMI result Body Mass Index 28.3 Const General: comfortable, no acute distress, alert and awake Orientation/consciousness: patient oriented x3 HEENT Head: Yes normal to inspection General nose exam: No nasal polyps present and No nasal discharge present Face and sinus: Yes sinuses nontender Mouth: oropharynx normal Teeth and gingiva: dentures (LOWER JAW) Throat: Yes posterior oropharynx normal Eyes General: appearance normal, both eyes and all related structures Neck Neck: Yes normal visual inspection, Yes no lymphadenopathy, Yes trachea midline and Yes no JVD Thyroid: Thyroid normal Chest Chest palpation & inspection: normal inspection of the chest, normal palpation of entire chest wall and no tenderness Resp Other: PERCUSSION NOTE RESONANT, BREATH SOUNDS ARE SLIGHTLY DISTANT WITH PROLONGED EXPIRATORY PHASE. DOES HAVE A FEW EXPIRATORY WHEEZES ON BOTH SIDES. Cardio Palpation: normal PMI Rate: regular rate Rhythm: regular rhythm Heart sounds: no gallops and no murmurs GI Palpation (GI): Soft to palpation, nontender, No hepatosplenomegaly present and no masses Auscultation: normal bowel sounds Back/Spine/Pelvis Thoracic/Lumbar Spine: thoracic and lumbar spine normal to inspection Skin General skin exam: no rashes or lesions noted Neuro General: patient oriented x3 and no focal motor deficits Cranial nerves: Yes CN's II-XII intact bilaterally Extrem General: Yes normal to inspection, Yes no clubbing, cyanosis or edema and Yes no calf tenderness Psych Appearance: grossly normal and well kempt Speech and movement: Normal speech and movement present Assessment & Plan Assessment & Plan (1) COPD (chronic obstructive pulmonary disease): Comment: HE DOES HAVE CHRONIC OBSTRUCTIVE PULMONARY DISEASE BUT IT IS MILD AND WELL CONTROLLED. HE HAS BEEN DOING VERY WELL AND REMAINED STABLE ON HIS MEDICAL REGIMEN. PLAN: CONT . ADVAIR 500-50 1 INHALATION B.I.D. CONT. VENTOLIN HFA 2 PUFFS Q 6 HRS ONLY PRN . Code(s): J44.9 - Chronic obstructive pulmonary disease, unspecified (2) SELINA (obstructive sleep apnea): Comment: HE WAS EVALUATED FOR SLEEP APNEA IN 2010 AND WAS FOUND TO HAVE ONLY MILD DEGREE OF SELINA, AT THAT TIME PATIENT HAD OPTED , NOT TO BE TREATED WITH CPAP. HE CONTINUES TO HAVE, SYMPTOMS OF INSOMNIA.MOST RECENT HST SHOWED ONLY MILD SELINA, AND DID NOT NEED CPAP . Code(s): G47.33 - Obstructive sleep apnea (adult) (pediatric) (3) Former smoker: Comment: HAS PAST HISTORY OF SMOKING BUT QUIT MORE THAN 10 YEARS AGO. Code(s): Z87.891 - Personal history of nicotine dependence Coding Level of Care Code Est Pt Level 3 (12594) Diagnoses COPD (chronic obstructive pulmonary disease) J44.9 SELINA (obstructive sleep apnea) G47.33 Former smoker Z87.891
== END 2023-02-23 11:12 | disposition home or self-care (01) ==
PROVIDERS: PCP Family Medicine; Visit Provider Internal Medicine
DX: J44.9 Chronic obstructive pulmonary disease, unspecified (principal); G47.33 Obstructive sleep apnea (adult) (pediatric); Z87.891 Personal history of nicotine dependence
CPT/HCPCS: 99213

== ENCOUNTER → 2023-02-23 10:36 | Outpatient (BNVA) | payer MEDICARE, MEDICAID, SELFPAY | PROVIDERS: PCP Family Medicine; Visit Provider Internal Medicine | DX: J44.9 Chronic obstructive pulmonary disease, unspecified (principal); G47.33 Obstructive sleep apnea (adult) (pediatric); Z87.891 Personal history of nicotine dependence | CPT/HCPCS: 99212 ==

== ENCOUNTER 2023-03-17 10:46 | Outpatient (AMB) | payer MEDICARE, MEDICAID, SELFPAY ==
[2023-03-17 10:49] VITALS: BP 115/71; PULSE 72; BMI 28.1
--- NOTE | 2023-03-17 10:49 | A.OFFVIS_ITS ---
Intake Vital Signs 03/17/23 10:49 Height 5 ft 4 in Weight 163 lb 9.328 oz BMI 28.1 BP 115/71 Blood Pressure Location Lt brachial Position Sitting Pulse 72 Intake Visit Reasons: 6 month follow up Intake Note: Patient presents to in office visit today in 6 weeks follow up for GERD and Constipation. CC: Patient states he is doing well and denies having any GI concerns today. Transmission And Coordination Engineer Required: Yes Transmission And Coordination Engineer Language: Kazakh Accompanied by: Self / Same As Patient Allergies codeine Adverse Reaction (Mild, Verified 03/17/23 10:50) Abdominal Pain Motrin Adverse Reaction (Mild, Uncoded 02/23/23 11:11) Gastrointestinal Upset HPI 6 month follow up HPI Details Assessment & Plan (1) GERD (gastroesophageal reflux diseas e): Code(s): K21.9 - Gastro-esophageal reflux disease without esophagitis Plan: Kazakh #Bertha Live He is now recovered well after his knee surgery any feels that taking the pantoprazole twice a day and the famotidine as needed for breakthrough was controlling his GERD quite well. He also has simethicone for bloating any feels quite satisfied with his GI regimen at this time. There have been concerns about repeating a colonoscopy related to his respiratory status, he is on Medicare I wonder if they would cover Cologuard and I need to check into this. Return office visit in 6 months. (2) Abdominal bloating: Code(s): R14.0 - Abdominal distension (gaseous) (3) Chronic idiopathic constipation: Code(s): K59.04 - Chronic idiopathic constipation Medications: Refilled famotidine (Pepcid ) 40 mg PO BEDTIME 30 tabs 6RF K21.9 - Gastro-eso phageal reflux dis ease without esoph agitis, Z96.651 - Presence of right artificial knee baldomero int pantoprazole (Prot ashlyn) 40 mg PO BID 30 d ays 60 tabs 6RF K21.9 - Gastro-eso phageal reflux dis ease without esoph agitis simethicone 180 mg PO QID 120 caps 6RF R14.0 - Abdominal distension (gaseou s) Discontinued celecoxib Disco ntinued Reason: P atient Completed C ourse 200 mg PO BID 30 days 60 caps 0RF docusate sodium Discontinued Reas on: Patient Compl eted Course 100 mg PO BID 30 days 60 caps 0RF TODAY'S VISIT Kazakh #Bethany Live He continues to do very well on his pantoprazole in the morning famotidine in the evening and simethicone. He remains satisfied with his GI regimen. He also has Colace available for occasional constipation. Return office visit in 6 months [facility] Medical History Tachycardia Cough SELINA (obstructive sleep apnea) Kidney stones Asthma Elevated cholesterol HTN (hypertension) Ambulates with cane Degenerative disc disease, thoracic High cholesterol Hypertension COPD (chronic obstructive pulmonary disease) Hemorrhoids GERD (gastroesophageal reflux disease) Surgical History History of cystoscopy History of renal stent H/O shoulder surgery S/P arthroscopic surgery of left knee History of total left knee replacement H/O colonoscopy Previous back surgery Social History Household Members: Family Are you a primary health care analyst to a significant other at home: No Do you presently have visiting nurse or other home services: Yes (none) Alcohol intake: never Patient Tobacco Use Status: Never used Tobacco Substance Use Type: Marijuana Current occupational status: unemployed Review of Systems Const Denies fatigue, Denies fever(s), Denies night sweats, Denies poor appetite and Denies weight loss ENT Reports Normal hearing present, Denies dental pain, Denies dysphagia, Denies hearing loss, Denies mouth pain, Denies odynophagia, Denies throat swelling, Denies tongue swelling and Reports other (Dentition adequate) Card Reports no additional complaints Resp Reports no additional complaints GI Denies abdominal pain, Denies melena, Reports bloating, Denies hematochezia, Reports constipation, Denies GI cramping, Denies dysphagia, Denies excessive flatus, Denies early satiety, Reports heartburn, Denies diarrhea, Denies nausea, Denies odynophagia, Denies vomiting and Denies hematemesis Skin/Breast Denies pruritus, Denies lesions, Denies rash and Denies jaundice Neuro Reports Normal hearing present and Denies Abnormal speech present Endo Denies fatigue Aller/Immun Denies throat swelling and Denies tongue swelling Physical Exam Vital Signs: Last Vital Signs Pulse 72 03/17/23 10:49 BP 115/71 03/17/23 10:49 BMI result Body Mass Index 28.1 Const General: cooperative, no acute distress, well developed and well groomed Nutritional Appearance: average body habitus and well nourished Orientation/consciousness: oriented to person, oriented to place and oriented to time Limitations: language barrier HEENT Head: Yes normocephalic and Yes atraumatic Eyes General: appearance normal, both eyes and all related structures Pupils: Equal, round and reactive pupils present Neck Neck: Yes normal visual inspection and Yes no lymphadenopathy Thyroid: Thyroid normal Resp Effort & Inspection: normal respiratory effort and able to speak in complete sentences Auscultation: clear to auscultation bilaterally Cardio Rate: regular rate Rhythm: regular rhythm Heart sounds: Normal, physiologic split S2 sound present Peripheral pulses: radial pulses present and posterior tibial pulses present GI Inspection: No distended and No Abdominal panniculus present Palpation (GI): Soft to palpation, nontender, no guarding, not rigid and No hepatosplenomegaly present Percussion: Yes normal to percussion Auscultation: normal bowel sounds Rectal Exam - Male: Yes deferred Skin General skin exam: no rashes or lesions noted, turgor normal, skin not dry, no jaundice, No spider nevi and no striae Rashes: no rashes Nails: normal Neuro General: oriented to person, oriented to place and oriented to time Cranial nerves: Yes Equal, round and reactive pupils present and Yes Normal hearing present Speech: No Abnormal speech present Extrem General: Yes normal to inspection, No clubbing, No cyanosis and No edema Psych Appearance: grossly normal and well kempt Mental Status: mental status grossly normal Speech and movement: Normal speech and movement present Affect: normal affect Attitude: cooperative Thought process: Normal thought process present and not confabulating Thought content: Normal thought content present Insight: Limited insight present (Psych) Judgement: Limited judgement present (Psych) Assessment & Plan Assessment & Plan (1) GERD (gastroesophageal reflux disease): Code(s): K21.9 - Gastro-esophageal reflux disease without esophagitis Plan: Kazakh #Bethany Live He continues to do very well on his pantoprazole in the morning famotidine in the evening and simethicone. He remains satisfied with his GI regimen. He also has Colace available for occasional constipation. Return office visit in 6 months (2) Chronic idiopathic constipation: Code(s): K59.04 - Chronic idiopathic constipation Medications: Refilled pantoprazole (Protonix) 40 mg PO BID 30 days 60 tabs 6RF K21.9 - Gastro- esophageal reflux disease without esophagitis simethicone 180 mg PO QID 120 caps 6RF R14.0 - Abdominal distension (gaseous) Discontinued famotidine (Pepcid) Discontinued Reason: Doctor's Order 40 mg PO BEDTIME 30 tabs 6RF K21.9 - Gastro-esophageal reflux disease without esophagitis, Z96.651 - Presence of right artificial knee joint Coding Level of Care Code Est Pt Level 3 (93205) Diagnoses GERD (gastroesophageal reflux disease) K21.9 Chronic idiopathic constipation K59.04
== END 2023-03-17 11:08 | disposition home or self-care (01) ==
PROVIDERS: PCP Family Medicine; Visit Provider Nurse Practitioner
DX: K21.9 Gastro-esophageal reflux disease without esophagitis (principal); K59.04 Chronic idiopathic constipation
CPT/HCPCS: 99213

== ENCOUNTER → 2023-03-17 10:46 | Outpatient (BNVA) | payer MEDICARE, MEDICAID, SELFPAY | PROVIDERS: PCP Family Medicine; Visit Provider Nurse Practitioner | DX: K21.9 Gastro-esophageal reflux disease without esophagitis (principal); K59.04 Chronic idiopathic constipation; Z79.899 Other long term (current) drug therapy | CPT/HCPCS: 99212 ==

== ENCOUNTER 2023-04-08 09:32 | Outpatient (AMB) | payer MEDICARE, MEDICAID, SELFPAY ==
--- NOTE | 2023-04-08 09:35 | A.OFFVIS_ITS ---
Intake Vital Signs 04/08/23 09:36 Height 5 ft 4 in Weight 164 lb 7.437 oz BMI 28.2 BP 140/81 H Blood Pressure Location Lt brachial Position Sitting Pulse 76 Intake Visit Reasons: stomach burning Intake Note: Patient presents to in office visit today for stomach burning sensation. CC: Patient reports burning sensation from stomach every morning for about a week. He states he believes symptoms started after drinking tap water. Patient states he is unable to eat while having burning sensation but he gets better throughout the day. Denies other GI symptoms. 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 He remains satisfied with his GI regimen. He also has Colace available for occasional constipation. Return office visit in 6 months (2) Chronic idiopathic constipation: Code(s): K59.04 - Chronic idiopathic constipation Medications: Refilled pantoprazole (Prot ashlyn) 40 mg PO BID 30 d ays 60 tabs 6RF K21.9 - Gastro-eso phageal reflux dis ease without esoph agitis simethicone 180 mg PO QID 120 caps 6RF R14.0 - Abdominal distension (gaseou s) Discontinued famotidine (Pepcid ) Discontinued Reason: Doctor's Order 40 mg PO BEDTIME 30 tabs 6RF K21.9 - Gastro-eso phageal reflux dis ease without esoph agitis, Z96.651 - Presence of right artificial knee baldomero int CORRESPONDENCE On 04/07/23 @ 08:55 Mame Morse Wrote To Patient added to your schedule for tomorrow at 9:45. On 04/07/23 @ 07:42 Cheli Neal Wrote To Mame Morse V - can you schedule for an appointment and advise of below? On 04/06/23 @ 16:57 Shauna Esparza Wrote To Cheli Neal He should supplement with [id number] Tums as is insurance will pay for anything else. If he needs to be seen by me to be evaluated please get him in for an appointment On 04/06/23 @ 13:35 Cheli Neal Wrote To IsaiasSeptember patient still taking Pantoprazole 40mg and Famotidine. patient has not had any significant dietary changes, nor does he eat spicy foods. It has been on-going for the last couple days or so but no report of any other s/s. On 04/06/23 @ 13:28 Shauna Esparza Wrote To Gastro Nurses Is he still on his pantoprazole and famotidine? Please have a RN scope this out. On 04/06/23 @ 11:52 Chiara Gotti Wrote To IsaiasSeptember (3) Daughter Thea called and states that patient is having burning in his stomach - no specific area - all over. He would like to know if there is something that you can send him in the meantime. TODAY'S VISIT Hungarian #Bertha Live I had just seen him March 17 and he said he was doing well. Onset of a week of burning in the stomach in the morning with a lot belching and he can't eat. It will fade somewhat little by little and he will eat little by little. No N/V/D it just hurts too much to eat. He denies any medication changes since I last saw him, but he does say that his daughter had a similar problem that center ?to the hospital at [facility]? and she was told she had a bacteria in her stomach and was given antibiotics. He fears that this is from the tap water. However, ordinarily something of this nature would manifest as diarrhea as well. It is possible that she has H pylori and he has a poor understanding of what was diagnosed. He continues on his pantoprazole the morning and famotidine at night. I think I will give him a very small dose of Carafate to take at bedtime to see if this helps soothe his discomfort temporarily. I think this is either a gastroenteritis of viral nature or it could be H pylori and will get a stool antigen to tie to tease this out. He does suffer from constipation so I am leery about giving too much Carafate. He does have doctor sit and MiraLax at home to help with this. Return office visit in 2 weeks to evaluate his response. [facility] Medical History Tachycardia Cough SELINA (obstructive sleep apnea) Kidney stones Asthma Elevated cholesterol HTN (hypertension) Ambulates with cane Degenerative disc disease, thoracic High cholesterol Hypertension COPD (chronic obstructive pulmonary disease) Hemorrhoids GERD (gastroesophageal reflux disease) Surgical History History of cystoscopy History of renal stent H/O shoulder surgery S/P arthroscopic surgery of left knee History of total left knee replacement H/O colonoscopy Previous back surgery Social History Household Members: Family Are you a primary intensive care specialist to a significant other at home: No Do you presently have visiting nurse or other home services: Yes (none) Alcohol intake: never Patient Tobacco Use Status: Never used Tobacco Substance Use Type: Marijuana Current occupational status: unemployed Review of Systems Const Denies fatigue, Denies fever(s), Denies night sweats, Reports poor appetite and Denies weight loss ENT Reports Normal hearing present, Denies dental pain, Denies dysphagia, Denies hearing loss, Denies mouth pain, Denies odynophagia, Denies throat swelling, Denies tongue swelling and Reports other (Dentition adequate) Card Reports no additional complaints Resp Reports no additional complaints GI Reports abdominal pain, Denies melena, Denies bloating, Denies hematochezia, Reports constipation, Denies GI cramping, Denies dysphagia, Denies excessive flatus, Denies early satiety, Reports heartburn, Denies diarrhea, Denies nausea, Denies odynophagia, Denies vomiting and Denies hematemesis Skin/Breast Denies pruritus, Denies lesions, Denies rash and Denies jaundice Neuro Reports Normal hearing present and Denies Abnormal speech present Endo Denies fatigue Aller/Immun Denies throat swelling and Denies tongue swelling Physical Exam Vital Signs: Last Vital Signs Pulse 76 04/08/23 09:36 BP 140/81 H 04/08/23 09:36 BMI result Body Mass Index 28.2 Const General: cooperative, no acute distress, well developed and well groomed Nutritional Appearance: average body habitus and well nourished Orientation/consciousness: oriented to person, oriented to place and oriented to time Limitations: language barrier HEENT Head: Yes normocephalic and Yes atraumatic Eyes General: appearance normal, both eyes and all related structures Pupils: Equal, round and reactive pupils present Neck Neck: Yes normal visual inspection and Yes no lymphadenopathy Thyroid: Thyroid normal Resp Effort & Inspection: normal respiratory effort and able to speak in complete sentences Auscultation: clear to auscultation bilaterally Cardio Rate: regular rate Rhythm: regular rhythm Heart sounds: Normal, physiologic split S2 sound present Peripheral pulses: radial pulses present and posterior tibial pulses present GI Inspection: No distended and No Abdominal panniculus present Palpation (GI): Soft to palpation, nontender, no guarding, not rigid and No hepatosplenomegaly present Percussion: Yes normal to percussion Auscultation: normal bowel sounds Rectal Exam - Male: Yes deferred Skin General skin exam: no rashes or lesions noted, turgor normal, skin not dry, no jaundice, No spider nevi and no striae Rashes: no rashes Nails: normal Neuro General: oriented to person, oriented to place and oriented to time Cranial nerves: Yes Equal, round and reactive pupils present and Yes Normal hearing present Speech: No Abnormal speech present Extrem General: Yes normal to inspection, No clubbing, No cyanosis and No edema Psych Appearance: grossly normal and well kempt Mental Status: mental status grossly normal Speech and movement: Normal speech and movement present Affect: normal affect Attitude: cooperative Thought process: Normal thought process present and not confabulating Thought content: Normal thought content present Insight: Limited insight present (Psych) Judgement: Limited judgement present (Psych) Assessment & Plan Assessment & Plan (1) Gastric pain: Code(s): R10.9 - Unspecified abdominal pain Plan: Hungarian #Bertha Live I had just seen him March 17 and he said he was doing well. Onset of a week of burning in the stomach in the morning with a lot belching and he can't eat. It will fade somewhat little by little and he will eat little by little. No N/V/D it just hurts too much to eat. He denies any medication changes since I last saw him, but he does say that his daughter had a similar problem that center ?to the hospital at [facility]? and she was told she had a bacteria in her stomach and was given antibiotics. He fears that this is from the tap water. However, ordinarily something of this nature would manifest as diarrhea as well. It is possible that she has H pylori and he has a poor understanding of what was diagnosed. He continues on his pantoprazole the morning and famotidine at night. I think I will give him a very small dose of Carafate to take at bedtime to see if this helps soothe his discomfort temporarily. I think this is either a gastroenteritis of viral nature or it could be H pylori and will get a stool antigen to tie to tease this out. He does suffer from constipation so I am leery about giving too much Carafate. He does have doctor sit and MiraLax at home to help with this. Return office visit in 2 weeks to evaluate his response. (2) GERD (gastroesophageal reflux disease): Code(s): K21.9 - Gastro-esophageal reflux disease without esophagitis (3) Chronic idiopathic constipation: Code(s): K59.04 - Chronic idiopathic constipation Orders: Orders H pylori Ag Stool 04/08/23 R10.9 - Unspecified abdominal pain Medications: New sucralfate (Carafate) 10 mL PO .qhs 200 mL 0RF R10.9 - Unspecified abdominal pain Coding Level of Care Code Est Pt Level 3 (54103) Diagnoses Gastric pain R10.9 GERD (gastroesophageal reflux disease) K21.9 Chronic idiopathic constipation K59.04
[2023-04-08 09:36] VITALS: BP 140/81; PULSE 76; BMI 28.2
== END 2023-04-08 10:02 | disposition home or self-care (01) ==
PROVIDERS: PCP Family Medicine; Visit Provider Nurse Practitioner
DX: R10.9 Unspecified abdominal pain (principal); K21.9 Gastro-esophageal reflux disease without esophagitis; K59.04 Chronic idiopathic constipation
CPT/HCPCS: 99213

== ENCOUNTER → 2023-04-08 09:32 | Outpatient (BNVA) | payer MEDICARE, MEDICAID, SELFPAY | PROVIDERS: PCP Family Medicine; Visit Provider Nurse Practitioner | DX: R10.9 Unspecified abdominal pain (principal); K21.9 Gastro-esophageal reflux disease without esophagitis; K59.04 Chronic idiopathic constipation | CPT/HCPCS: 99212 ==

== ENCOUNTER 2023-04-20 10:04 | Outpatient (REF) | payer SELFPAY | END 2023-04-20 10:05 | disposition home or self-care (01) | LOC: HO.HAP 10:04 | PROVIDERS: Visit Provider Family Medicine | DX: Z46.1 Encounter for fitting and adjustment of hearing aid (principal); H90.3 Sensorineural hearing loss, bilateral | CPT/HCPCS: V5267 ==

== ENCOUNTER 2023-04-28 10:09 | Outpatient (REF) | payer MEDICARE, MEDICAID, SELFPAY | END 2023-04-28 10:10 | disposition home or self-care (01) | LOC: HO.LNP 10:09 | PROVIDERS: Visit Provider Nurse Practitioner | DX: R10.9 Unspecified abdominal pain (principal) | CPT/HCPCS: 87338 ==

== ENCOUNTER 2023-04-29 09:52 | Outpatient (AMB) | payer MEDICARE, MEDICAID, SELFPAY ==
--- NOTE | 2023-04-29 10:07 | MHC.OFFVIS ---
Intake Vital Signs 04/29/23 10:24 Height 5 ft 4 in Weight 166 lb 3.657 oz BMI 28.5 BP 130/77 Blood Pressure Location Lt brachial Position Sitting Pulse 77 Intake Visit Reasons: 2 weeks f/u stomach burning Intake Note: Patient presents to in office visit today for stomach burning sensation. CC: Patient reports he continues to have burning sensation from stomach every morning. Denies other GI symptoms today. [employer] Required: Yes [employer] Language: Panamanian Accompanied by: Self / Same As Patient Allergies codeine Adverse Reaction (Mild, Verified 04/29/23 10:26) Abdominal Pain Motrin Adverse Reaction (Mild, Uncoded 02/23/23 11:11) Gastrointestinal Upset HPI 2 weeks f/u stomach burning HPI Details Assessment & Plan (1) GERD (gastroesophageal reflux disease): Code(s): K21.9 - Gastro-esophageal reflux disease without esophagitis Plan: Panamanian #Bethany Live He continues to do very well on his pantoprazole in the morning famotidine in the evening and simethicone. He remains satisfied with his GI regimen. He also has Colace available for occasional constipation. Return office visit in 6 months (2) Chronic idiopathic constipation: Code(s): K59.04 - Chronic idiopathic constipation Medications: Refilled pantoprazole (Prot ashlyn) 40 mg PO BID 30 d ays 60 tabs 6RF K21.9 - Gastro-eso phageal reflux dis ease without esoph agitis simethicone 180 mg PO QID 120 caps 6RF R14.0 - Abdominal distension (gaseou s) Discontinued famotidine (Pepcid ) Discontinued Reason: Doctor's Order 40 mg PO BEDTIME 30 tabs 6RF K21.9 - Gastro-eso phageal reflux dis ease without esoph agitis, Z96.651 - Presence of right artificial knee baldomero int CORRESPONDENCE On 04/07/23 @ 08:55 Mame Morse Wrote To Patient added to your schedule for tomorrow at 9:45. On 04/07/23 @ 07:42 Cheli Neal Wrote To Mame Morse V - can you schedule for an appointment and advise of below? On 04/06/23 @ 16:57 Shauna Esparza Wrote To Cheli Neal He should supplement with [id number] Tums as is insurance will pay for anything else. If he needs to be seen by me to be evaluated please get him in for an appointment On 04/06/23 @ 13:35 Cheli Neal Wrote To Shauna Esparza patient still taking Pantoprazole 40mg and Famotidine. patient has not had any significant dietary changes, nor does he eat spicy foods. It has been on-going for the last couple days or so but no report of any other s/s. On 04/06/23 @ 13:28 Shauna Esparza Wrote To Gastro Nurses Is he still on his pantoprazole and famotidine? Please have a RN scope this out. On 04/06/23 @ 11:52 Chiara Gotti Wrote To Shauna Esparza (3) Daughter Thea called and states that patient is having burning in his stomach - no specific area - all over. He would like to know if there is something that you can send him in the meantime. TODAY'S VISIT Panamanian #Dennise Parks I had just seen him March 17 and he said he was doing well. He says having burning in the gastric area again despite being adherent to his pantoprazole in the morning and famotidine at night. He also takes sucralfate once a day. This is suddenly changed in the only other change has been that he was started on simvastatin. While this would be atypical it is possible this is causing a problem so will get CK to try to make this decision. Also on review of how he takes his medication he is not taking the pantoprazole 1st thing in the morning which is when his symptoms manifest. He is waiting until he can eat which he delays because he is feeling nauseated. I advised him to try to get the pantoprazole in 1st thing when he gets up does it the sooner he gets into his stomach the sooner all help. It is entirely possible that what were seeing is at the medication affect is fading and he is having rebound stomach acid. He says he is moving his bowels without any diarrhea constipation etc.. Return office visit in 3 weeks, HP test pending, CK. [facility] Medical History Tachycardia Cough SELINA (obstructive sleep apnea) Kidney stones Asthma Elevated cholesterol HTN (hypertension) Ambulates with cane Degenerative disc disease, thoracic High cholesterol Hypertension COPD (chronic obstructive pulmonary disease) Hemorrhoids GERD (gastroesophageal reflux disease) Surgical History History of cystoscopy History of renal stent H/O shoulder surgery S/P arthroscopic surgery of left knee History of total left knee replacement H/O colonoscopy Previous back surgery Social History Household Members: Family Are you a primary rn critical care to a significant other at home: No Do you presently have visiting nurse or other home services: Yes (none) Alcohol intake: never Patient Tobacco Use Status: Never used Tobacco Substance Use Type: Marijuana Current occupational status: unemployed Review of Systems Const Denies fatigue, Denies fever(s), Denies night sweats, Denies poor appetite and Denies weight loss ENT Reports Normal hearing present, Denies dental pain, Denies dysphagia, Denies hearing loss, Denies mouth pain, Denies odynophagia, Denies throat swelling, Denies tongue swelling and Reports other (Dentition adequate) Card Reports no additional complaints Resp Reports no additional complaints GI Reports abdominal pain, Denies melena, Denies bloating, Denies hematochezia, Denies constipation, Denies GI cramping, Denies dysphagia, Denies excessive flatus, Denies early satiety, Reports heartburn, Denies diarrhea, Reports nausea, Denies odynophagia, Denies vomiting and Denies hematemesis Skin/Breast Denies pruritus, Denies lesions, Denies rash and Denies jaundice Neuro Reports Normal hearing present and Denies Abnormal speech present Endo Denies fatigue Aller/Immun Denies throat swelling and Denies tongue swelling Physical Exam Vital Signs: Last Vital Signs Pulse 77 04/29/23 10:24 BP 130/77 04/29/23 10:24 BMI result Body Mass Index 28.5 Const General: cooperative, no acute distress, well developed and well groomed Nutritional Appearance: average body habitus and well nourished Orientation/consciousness: oriented to person, oriented to place and oriented to time Limitations: language barrier HEENT Head: Yes normocephalic and Yes atraumatic Teeth and gingiva: poor dentition Eyes General: appearance normal, both eyes and all related structures Pupils: Equal, round and reactive pupils present Neck Neck: Yes normal visual inspection and Yes no lymphadenopathy Thyroid: Thyroid normal Resp Effort & Inspection: normal respiratory effort and able to speak in complete sentences Auscultation: clear to auscultation bilaterally Cardio Rate: regular rate Rhythm: regular rhythm Heart sounds: Normal, physiologic split S2 sound present Peripheral pulses: radial pulses present and posterior tibial pulses present GI Inspection: No distended and No Abdominal panniculus present Palpation (GI): Soft to palpation, nontender, no guarding, not rigid and No hepatosplenomegaly present Percussion: Yes normal to percussion Auscultation: normal bowel sounds Rectal Exam - Male: Yes deferred Skin General skin exam: no rashes or lesions noted, turgor normal, skin not dry, no jaundice, No spider nevi and no striae Rashes: no rashes Nails: normal Neuro General: oriented to person, oriented to place and oriented to time Cranial nerves: Yes Equal, round and reactive pupils present and Yes Normal hearing present Speech: No Abnormal speech present Extrem General: Yes normal to inspection, No clubbing, No cyanosis and No edema Psych Appearance: grossly normal and disheveled Mental Status: mental status grossly normal Speech and movement: Normal speech and movement present Affect: normal affect Attitude: cooperative Thought process: not confabulating and Impoverished thought process present Thought content: Normal thought content present Insight: Limited insight present (Psych) Judgement: Limited judgement present (Psych) Assessment & Plan Assessment & Plan (1) Gastric pain: Code(s): R10.9 - Unspecified abdominal pain Plan: Panamanian #Dennise Live I had just seen him March 17 and he said he was doing well. He says having burning in the gastric area again despite being adherent to his pantoprazole in the morning and famotidine at night. He also takes sucralfate once a day. This is suddenly changed in the only other change has been that he was started on simvastatin. While this would be atypical it is possible this is causing a problem so will get CK to try to make this decision. Also on review of how he takes his medication he is not taking the pantoprazole 1st thing in the morning which is when his symptoms manifest. He is waiting until he can eat which he delays because he is feeling nauseated. I advised him to try to get the pantoprazole in 1st thing when he gets up does it the sooner he gets into his stomach the sooner all help. It is entirely possible that what were seeing is at the medication affect is fading and he is having rebound stomach acid. He says he is moving his bowels without any diarrhea constipation etc.. Return office visit in 3 weeks, HP test pending, MCKENZIE. (2) GERD (gastroesophageal reflux disease): Code(s): K21.9 - Gastro-esophageal reflux disease without esophagitis (3) Chronic idiopathic constipation: Code(s): K59.04 - Chronic idiopathic constipation Orders: Orders CK, Total+Isoenzymes, Serum Today R10.9 - Unspecified abdominal pain Coding Level of Care Code Est Pt Level 3 (36250) Diagnoses Gastric pain R10.9 GERD (gastroesophageal reflux disease) K21.9 Chronic idiopathic constipation K59.04
[2023-04-29 10:24] VITALS: BP 130/77; PULSE 77; BMI 28.5
== END 2023-04-29 11:23 | disposition home or self-care (01) ==
PROVIDERS: PCP Family Medicine; Visit Provider Nurse Practitioner
DX: R10.9 Unspecified abdominal pain (principal); K21.9 Gastro-esophageal reflux disease without esophagitis; K59.04 Chronic idiopathic constipation
CPT/HCPCS: 99213

== ENCOUNTER → 2023-04-29 09:52 | Outpatient (BNVA) | payer MEDICARE, MEDICAID, SELFPAY | PROVIDERS: PCP Family Medicine; Visit Provider Nurse Practitioner | DX: K21.9 Gastro-esophageal reflux disease without esophagitis (principal); K59.04 Chronic idiopathic constipation; R10.9 Unspecified abdominal pain | CPT/HCPCS: 99212 ==

== ENCOUNTER 2023-05-25 04:53 | Emergency (ER) | payer MEDICARE, MEDICAID, SELFPAY ==
--- NOTE | 2023-05-25 | ECG_ITS ---
Test Reason : SOB Blood Pressure : / mmHG Vent. Rate : 079 BPM Atrial Rate : 079 BPM P-R Int : 198 ms QRS Dur : 098 ms QT Int : 374 ms P-R-T Axes : 053 -47 040 degrees QTc Int : 428 ms Normal sinus rhythm Left axis deviation Abnormal ECG When compared with ECG of 03-JUN-2022 16:12, No significant change was found Referred By: Sven Calderon Electronically Signed By:Rey Yeung
--- NOTE | ~2023-05-25 | XR_ITS ---
EXAMINATION: XR CHEST CLINICAL INFORMATION: Shortness of breath COMPARISON: 02/19/2022 TECHNIQUE: Frontal view of the chest was obtained. FINDINGS: Normal symmetric lung volumes. No parenchymal consolidation. No pleural effusion. No pneumothorax. Cardiomediastinal silhouette and pulmonary vascularity are within normal limits. Aorta is atherosclerotic. No acute osseous abnormalities. XR/XR chest 1V IMPRESSION: No acute findings.
[2023-05-25 05:03] VITALS: BP 139/71; PULSE 76; RESP 20; TEMP 37.2; O2SAT 96; BMI 29.5
--- NOTE | 2023-05-25 05:18 | ED.SOB ---
HPI - SOB/Dyspnea General Chief Complaint: Upper Respiratory Symptoms Stated Complaint: Headache/Shoulder pain/Earache Time Seen by Provider: 05/25/23 05:18 Source: patient Mode of arrival: ambulatory Limitations: no limitations History of Present Illness HPI Narrative: Patient ex-smoker with history of COPD on inhalers and history of SELINA not requiring CPAP comes here for not feeling well for last 1 week with shortness of breath cough body aches no fever no nausea no vomiting patient coughing with mucopurulent phlegm no fever no chills feels congested Related Data Home Medications Medication Instructions Recorded Confirmed omega-3 fatty acids 1,000 mg 1,000 mg PO DAILY 01/10/21 12/14/22 capsule (Fish Oil Concentrate) doxepin 75 mg capsule 75 mg PO BEDTIME 09/04/21 12/14/22 mirtazapine 15 mg tablet 15 mg PO BEDTIME 09/04/21 12/14/22 simvastatin 40 mg tablet 40 mg PO BEDTIME 01/07/22 12/14/22 cyanocobalamin (vitamin B-12) 500 500 mcg PO QAM 04/01/22 12/14/22 mcg tablet latanoprost 0.005 % eye drops 0 drp ophthalmic (eye) 04/01/22 12/14/22 cholecalciferol (vitamin D3) 50 1 cap PO QAM 05/26/22 12/14/22 mcg (2,000 unit) capsule (Vitamin D3) fluticasone 250 mcg-salmeterol 50 1 puff inhalation BID 05/26/22 12/14/22 mcg/dose blistr powdr for inhalation (Advair Diskus) loratadine 10 mg tablet (Allergy 1 tab PO QAM 05/26/22 12/14/22 Relief (loratadine)) aspirin 81 mg tablet,delayed 81 mg PO QAM 07/15/22 12/14/22 release Previous Rx's Medication Instructions Recorded albuterol sulfate 90 mcg/actuation 2 inh inhalation Q4-6H PRN 02/19/22 breath activated powder inhaler shortness of breath or wheezing #1 ea walker #1 ea 05/09/22 acetaminophen 325 mg tablet 650 mg (2 x 325 mg) PO Q6H PRN 05/28/22 Pain, Mild (Pain Scale 1-3) 30 days #240 tabs oxycodone 5 mg tablet 5 mg PO Q12H PRN Pain, Moderate 08/06/22 (Pain Scale 4-6 7 days #14 tabs melatonin 3 mg tablet 6 mg (2 x 3 mg) PO BEDTIME PRN for 11/11/22 insomnia 30 days #60 tabs gabapentin 100 mg capsule 100 mg PO BEDTIME #90 caps 12/14/22 pantoprazole 40 mg tablet,delayed 40 mg PO BID 30 days #60 tabs 03/17/23 release (Protonix) simethicone 180 mg capsule 180 mg PO QID #120 caps 03/17/23 sucralfate 100 mg/mL oral 10 ml PO .qhs #200 mL 04/16/23 suspension (Carafate) cefuroxime axetil 500 mg tablet 500 mg PO BID 7 days #14 tabs 05/25/23 prednisone 20 mg tablet 40 mg (2 x 20 mg) PO DAILY #10 tabs 05/25/23 Allergies Allergy/AdvReac Type Severity Reaction Status Date / Time codeine AdvReac Mild Abdominal Verified 04/29/23 10:26 Pain Motrin AdvReac Mild Gastrointestinal Uncoded 02/23/23 11:11 Upset Review of Systems Review of Systems: Yes all other systems are reviewed and are negative PMFSH Past Medical History Medical History Tachycardia Cough SELINA (obstructive sleep apnea) Kidney stones Asthma Elevated cholesterol HTN (hypertension) Ambulates with cane Degenerative disc disease, thoracic High cholesterol Hypertension COPD (chronic obstructive pulmonary disease) Hemorrhoids GERD (gastroesophageal reflux disease) Surgical History History of cystoscopy History of renal stent H/O shoulder surgery S/P arthroscopic surgery of left knee History of total left knee replacement H/O colonoscopy Previous back surgery Social History Social History Household Members: Family Are you a primary social worker palliative care to a significant other at home: No Do you presently have visiting nurse or other home services: Yes (none) Alcohol intake: never Patient Tobacco Use Status: Never used Tobacco Smoked in Last 30 Days: No Use of substances other than those prescribed or required for medical reasons: No Substance Use Type: Marijuana Advance Directives: No Advance Directives Information Provided: Yes Current occupational status: unemployed Physical Exam Vital Signs: Vital Signs: Last Vital Signs Temp 98.9 F 05/25/23 05:03 Pulse 76 05/25/23 05:03 Resp 20 05/25/23 05:03 BP 139/71 05/25/23 05:03 Pulse Ox 94 05/25/23 05:29 O2 Del Method Room Air 05/25/23 05:29 BMI result Body Mass Index 29.5 Appearance: Alert. Oriented X3. No acute distress. Eyes: PERRLA, No Nystagmus ENT: Pharynx normal. Oral Mucosa moist Neck: Normal inspection. Neck supple. CVS: Normal heart rate and rhythm. Pulses normal. Respiratory: No respiratory distress. Equal air entry bilateral, prolonged expiration Abdomen: Soft and nontender. Bowel sounds are present, no mass palpable, no CVA tenderness Skin: Skin warm and dry. Normal skin color. Normal skin turgor. Extremities: No lower extremity edema. No calf tenderness Neuro: Oriented X 3. No motor deficit. Medications Administered Discontinued Medications Generic Name Dose Route Start Last Admin Trade Name Freq PRN Reason Stop Dose Admin Albuterol Sulfate 5 mg/ 0 mg 05/25/23 05:37 05/25/23 05:40 Albuterol/Ipratropium 3 ml INHALE 05/25/23 05:38 2.5 each ONCE ONE Administration Medical Decision Making Medical Decision Making [facility] Narrative: Patient with acute bronchitis labs, x-ray negative discharge patient home on prednisone and Ceftin saturating 94% on room Differential Diagnosis Differential Diagnoses: The differential diagnosis associated with the presentation includes Bronchitis/pneumonia/viral infection Lab Data [facility] Lab Attestation statement: I reviewed the patient's lab results. 05/25/23 05:22 05/25/23 05:22 Labs: Lab Results 05/25/23 Range/Units 05:22 WBC 9.2 (4.8-10.8) X10*3/uL RBC 4.48 L D (4.60-5.80) X10*6/uL Hgb 14.1 D (14.0-18.0) g/dl Hct 42.8 D (42.0-52.0) % MCV 95.5 (80.0-98.0) fL MCH 31.5 (27.0-33.0) pg MCHC 32.9 (31.0-36.0) g/dl RDW 13.6 (11.0-16.0) % Plt Count 244 D (160-400) X10*3/uL MPV 9.7 (9.4-12.4) fL Absolute Nucleated RBC 0.000 (0.0-0.012) X10*3/uL Nucleated RBC % (auto) 0.0 (0.0-0.2) /100WBC Sodium 141 (135-145) mmol/L Potassium 3.9 (3.3-5.1) mmol/L Chloride 108 (96-108) mmol/L Carbon Dioxide 25 (22-29) mmol/L Anion Gap 12 (12-20) BUN 12 (9-16) mg/dL Creatinine 1.13 (0.5-1.4) mg/dL Estim Creat Clear Calc 49.2 Estimated GFR > 60 Random Glucose 152 H (60-115) mg/dL Calcium 9.1 D (8.4-10.2) mg/dL Total Bilirubin 0.5 (0.0-1.0) mg/dL AST 40 H (5-37) U/L ALT 48 H (0-40) U/L Alkaline Phosphatase 205 H (39-117) U/L Total Protein 6.8 (6.5-8.0) g/dL Albumin 3.7 (3.5-5.0) g/dL Influenza Type A (PCR) NEGATIVE (Negative) Influenza Type B (PCR) NEGATIVE (Negative) RSV RNA Qual (PCR) NEGATIVE (Negative) SARS-CoV-2 RNA (RT-PCR) NEGATIVE (Negative) Independent Interpretation I performed an independent interpretation of an: Plain X-Ray Radiology Impression Discussion of test interpretation with radiology: I have reviewed the radiologist's reading. Discharge Plan Discharge Clinical Impression: Acute bronchitis Patient Disposition: Home, Self-Care Instructions: Acute Bronchitis (ED) Additional Instructions: Continue to use her inhaler and nebulizing treat Prednisone and antibiotic as prescribed Follow-up with your PCP if not better Prescriptions: New prednisone 20 mg tablet 40 mg PO DAILY Qty: 10 0RF cefuroxime axetil 500 mg tablet 500 mg PO BID 7 Days Qty: 14 0RF No Action (DME) mikey Misc See Rx Instructions .MEDSUPPLY Qty: 1 0RF Rx Instructions: Folding Front wheeled walker oxycodone 5 mg tablet 5 mg PO Q12H PRN (Reason: Pain, Moderate (Pain Scale 4-6) 7 Days Qty: 14 0RF Rx Instructions: Partial Fill upon patient request. melatonin 3 mg tablet 6 mg PO BEDTIME PRN (Reason: for insomnia) 30 Days Qty: 60 3RF sucralfate [Carafate] 100 mg/mL suspension 10 ml PO .qhs Qty: 200 0RF albuterol sulfate 90 mcg/actuation aerosol powdr breath activated 2 inh inhalation Q4-6H PRN (Reason: shortness of breath or wheezing) Qty: 1 0RF fluticasone propion-salmeterol [Advair Diskus] 250-50 mcg/dose blister with device 1 puff inhalation BID loratadine [Allergy Relief (loratadine)] 10 mg tablet 1 tab PO QAM cholecalciferol (vitamin D3) [Vitamin D3] 50 mcg (2,000 unit) capsule 1 cap PO QAM acetaminophen 325 mg Tablet 650 mg PO Q6H PRN (Reason: Pain, Mild (Pain Scale 1-3)) 30 Days Qty: 240 0RF omega-3 fatty acids [Fish Oil Concentrate] 1,000 mg capsule 1,000 mg PO DAILY mirtazapine 15 mg tablet 15 mg PO BEDTIME doxepin 75 mg capsule 75 mg PO BEDTIME simvastatin 40 mg tablet 40 mg PO BEDTIME aspirin 81 mg tablet,delayed release (DR/EC) 81 mg PO QAM cyanocobalamin (vitamin B-12) 500 mcg tablet 500 mcg PO QAM latanoprost 0.005 % drops 0 drp ophthalmic (eye) gabapentin 100 mg capsule 100 mg PO BEDTIME Qty: 90 0RF Rx Instructions: Take 1 capsule at night for 1 week, if well tolerated increase it to 2 pills at night for a week, if well tolerated increase it to 3 pills at night pantoprazole [Protonix] 40 mg tablet,delayed release (DR/EC) 40 mg PO BID 30 Days Qty: 60 6RF simethicone 180 mg capsule 180 mg PO QID Qty: 120 6RF
[2023-05-25 05:25] VITALS: PULSE 83
[2023-05-25 05:29] VITALS: O2SAT 94
--- NOTE | 2023-05-25 05:30 | PC.NURSE ---
Patient presenting to ED for evaluation of generalized malaise, sob, productive cough, body ache, for 4-5 days. Patient denies fever, n/v. Patient endorses ringing in his ears. Pt has hx of Asthma using nebulizer machine with no relief. threat monitoring analyst applied, labs drawn, rep panel collected-specimens sent to lab for processing. threat monitoring analyst applied NSR P 78-80. O2 Sat 94% RA. Patient reports chronic pain in b/l shoulders. X-Ray completed. Patient is not in acute distress, awaiting eval by ED provider, call blum within patient's reach.
[2023-05-25 05:32] LABS: Hematocrit 42.8 % (42.0-52.0); Hemoglobin 14.1 g/dl (14.0-18.0); Mean Corpuscular HGB Conc 32.9 g/dl (31.0-36.0); Mean Corpuscular Hemoglobin 31.5 pg (27.0-33.0); Mean Corpuscular Volume 95.5 fL (80.0-98.0); Mean Platelet Volume 9.7 fL (9.4-12.4); Platelet Count 244 X10*3/uL (160-400); Red Blood Count 4.48 X10*6/uL (4.60-5.80); Red Cell Distribution Width 13.6 % (11.0-16.0); White Blood Count 9.2 X10*3/uL (4.8-10.8)
[2023-05-25] MEDS: Albuterol Sulfate 5 MG, Albuterol/Iprat 2.5/0.5MG 3 ML 3 ML INHALE (05:40)
[2023-05-25 05:45] LABS: Alanine Aminotransferase 48 U/L (0-40); Albumin Level 3.7 g/dL (3.5-5.0); Alkaline Phosphatase 205 U/L (39-117); Anion Gap 12 (12-20); Aspartate Amino Transferase 40 U/L (5-37); Bilirubin Total 0.5 mg/dL (0.0-1.0); Blood Urea Nitrogen 12 mg/dL (9-16); Calcium 9.1 mg/dL (8.4-10.2); Carbon Dioxide 25 mmol/L (22-29); Chloride 108 mmol/L (96-108); Creatinine Clr Calc Pharmacy 49.2; Estimated Glomerular Filt Rate > 60; Glucose Random 152 mg/dL (60-115); Potassium 3.9 mmol/L (3.3-5.1); Sodium 141 mmol/L (135-145); Total Protein 6.8 g/dL (6.5-8.0)
[2023-05-25 06:05] LABS: Influenza A PCR NEGATIVE (Negative); Influenza B PCR NEGATIVE (Negative); Resp Syncy Virus RNA Qual PCR NEGATIVE (Negative); SARS COV2 PCR INHOUSE NEGATIVE (Negative)
--- NOTE | 2023-05-25 06:47 | PC.NURSE ---
Per Dr. Coulter blood draw for blood cultures and lactic acid not needed at this time.
[2023-05-25] MEDS: cefuroxime axetiL 500 MG TABLET PO (06:54)
[2023-05-25] MEDS: dexAMETHasone 2 MG TABLET 10 MG PO (06:54)
[2023-05-25 06:55] VITALS: BP 130/81; PULSE 84; RESP 20; TEMP 36.9; O2SAT 96
== END 2023-05-25 07:00 | disposition home or self-care (01) ==
PROVIDERS: Emergency Provider Internal Medicine; PCP Family Medicine
DX: J20.9 Acute bronchitis, unspecified (principal); R06.02 Shortness of breath; R51.9 Headache, unspecified; H92.03 Otalgia, bilateral; R94.31 Abnormal electrocardiogram [ECG] [EKG]; G47.33 Obstructive sleep apnea (adult) (pediatric); Z20.822 Contact with and (suspected) exposure to COVID-19; Z20.828 Contact with and (suspected) exposure to other viral communicable diseases; Z79.899 Other long term (current) drug therapy
CPT/HCPCS: 0241U; 36415; 71045; 80053; 85027; 93005; 99284; 99285; J8540

== ENCOUNTER → 2023-05-25 05:24 | Outpatient (BNV) | payer MEDICARE, MEDICAID, SELFPAY | PROVIDERS: Emergency Provider Internal Medicine; PCP Family Medicine; Visit Provider Internal Medicine Cardiovascular Disease | DX: R94.31 Abnormal electrocardiogram [ECG] [EKG] (principal); R06.02 Shortness of breath | CPT/HCPCS: 93010 ==

== ENCOUNTER 2023-07-01 10:31 | Outpatient (REF) | payer MEDICARE, MEDICAID, SELFPAY ==
[2023-07-01 13:02] LABS: Alanine Aminotransferase 26 U/L (0-40); Alkaline Phosphatase 131 U/L (39-117); Anion Gap 11 (12-20); Aspartate Amino Transferase 26 U/L (5-37); Bilirubin Total 0.5 mg/dL (0.0-1.0); Blood Urea Nitrogen 10 mg/dL (9-16); Calcium 9.3 mg/dL (8.4-10.2); Carbon Dioxide 25 mmol/L (22-29); Chloride 109 mmol/L (96-108); Cholesterol 180 mg/dL (<200); Estimated Glomerular Filt Rate > 60; Glucose Random 96 mg/dL (60-115); HDL Cholesterol 46 mg/dL (>40); LDL Cholesterol Calculated 99 mg/dL (<100); Potassium 4.4 mmol/L (3.3-5.1); Sodium 141 mmol/L (135-145); Total Protein 7.2 g/dL (6.5-8.0); Triglycerides 179 mg/dL (<150)
[2023-07-01 14:28] LABS: Reflex LDLD? No
[2023-07-06 01:43] LABS: VITAMIN D (1,25 OH) D3 59 pg/mL; Vit D (1,25-Dihydroxy) Total 59 pg/mL (18-72); Vitamin D (1,25 OH) D2 <8 pg/mL
== END 2023-07-01 10:32 | disposition home or self-care (01) ==
LOC: HO.HHCL 10:31
PROVIDERS: Visit Provider Family Medicine
DX: E78.5 Hyperlipidemia, unspecified (principal); E55.9 Vitamin D deficiency, unspecified
CPT/HCPCS: 36415; 80053; 80061; 82652

== ENCOUNTER 2023-08-05 09:52 | Outpatient (AMB) | payer MEDICARE, MEDICAID, SELFPAY ==
--- NOTE | 2023-08-05 10:00 | MHC.OFFVIS ---
Intake Vital Signs 08/05/23 10:01 Height 5 ft 4 in Weight 165 lb BMI 28.3 BP 122/64 Blood Pressure Location Lt brachial Position Sitting Pulse 74 Pulse Source Pulse Oximeter Pulse Oximetry (%) 95 Oxygen Delivery Method Room Air Intake Visit Reasons: COPD Intake Note: pt is here for follow up and states he feels good only little cough Allergies codeine Adverse Reaction (Mild, Verified 08/05/23 10:10) Abdominal Pain Motrin Adverse Reaction (Mild, Uncoded 08/05/23 10:10) Gastrointestinal Upset Medication List - Last Reconciled 08/05/23 by Jeanne Mayorga MD acetaminophen 650 mg (2 x 325 mg) PO Q6H PRN 30 days albuterol sulfate 90 mcg/actuation 2 inhalations inhalation Q4-6H PRN aspirin 81 mg PO QAM cholecalciferol (vitamin D3) (Vitamin D3) 1 cap PO QAM cyanocobalamin (vitamin B-12) 500 mcg PO QAM doxepin 75 mg PO BEDTIME fluticasone propion-salmeterol 250-50 mcg/dose (Advair Diskus) 1 puff inhalation BID gabapentin 100 mg PO BEDTIME latanoprost 0.005% 0 drps ophthalmic (eye) loratadine (Allergy Relief (loratadine)) 1 tab PO QAM melatonin 6 mg (2 x 3 mg) PO BEDTIME PRN 30 days mirtazapine 15 mg PO BEDTIME omega-3 fatty acids (Fish Oil Concentrate) 1,000 mg PO DAILY oxycodone 5 mg PO Q12H PRN 7 days pantoprazole (Protonix) 40 mg PO BID 30 days simethicone 180 mg PO QID simvastatin 40 mg PO BEDTIME sucralfate (Carafate) 10 mL PO .qhs walker Folding Front wheeled walker Do you need a note to return to daycare/school/sports/work: No HPI COPD HPI Details 78 YEARS 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 HE JUST USES ADVAIR 250-51 INHALATION B.I.D. AND ONCE IN A WHILE HAS TO USE ALBUTEROL. HE DOES HAVE SOME HOARSENESS, AND MORNING COUGH , WITH AN URGE. TO CLEAR MUCUS PFSH Medical History Tachycardia Cough SELINA (obstructive sleep apnea) Kidney stones Asthma Elevated cholesterol HTN (hypertension) Ambulates with cane Degenerative disc disease, thoracic High cholesterol Hypertension COPD (chronic obstructive pulmonary disease) Hemorrhoids GERD (gastroesophageal reflux disease) Surgical History History of cystoscopy History of renal stent H/O shoulder surgery S/P arthroscopic surgery of left knee History of total left knee replacement H/O colonoscopy Previous back surgery Social History Household Members: Family Are you a primary progressive care unit registered nurse to a significant other at home: No Do you presently have visiting nurse or other home services: Yes (none) Alcohol intake: never Patient Tobacco Use Status: Never used Tobacco Substance Use Type: Marijuana Current occupational status: unemployed Review of Systems Const All systems reviewed & are unremarkable except as noted in HPI and below Eyes Reports no additional complaints ENT Reports no additional complaints Card Denies chest pain, Denies irregular heart rhythm and Denies leg edema Resp Reports as per HPI GI Reports constipation and Reports heartburn (BEING TREATED WITH OMEPRAZOLE) Reports no additional complaints Musc Reports no additional complaints, Reports arthralgias and Reports joint swelling (knees) Skin/Breast Reports system reviewed and no additional complaints, except as documented Neuro Reports no additional complaints Psych Reports no additional complaints and Reports depression Endo Reports no additional complaints Physical Exam Vital Signs: Last Vital Signs Pulse 74 08/05/23 10:01 BP 122/64 08/05/23 10:01 Pulse Ox 95 08/05/23 10:01 Oxygen Delivery Method Room Air 08/05/23 10:01 BMI result Body Mass Index 28.3 Const General: comfortable, no acute distress, alert and awake Orientation/consciousness: patient oriented x3 HEENT Head: Yes normal to inspection General nose exam: No nasal polyps present and No nasal discharge present Face and sinus: Yes sinuses nontender Mouth: oropharynx normal Teeth and gingiva: dentures (LOWER JAW) Throat: Yes posterior oropharynx normal Eyes General: appearance normal, both eyes and all related structures Neck Neck: Yes normal visual inspection, Yes no lymphadenopathy, Yes trachea midline and Yes no JVD Thyroid: Thyroid normal Chest Chest palpation & inspection: normal inspection of the chest, normal palpation of entire chest wall and no tenderness Resp Other: PERCUSSION NOTE RESONANT, BREATH SOUNDS ARE SLIGHTLY DISTANT WITH PROLONGED EXPIRATORY PHASE. NO WHEEZES OR CREPS. HEARD TODAY . Cardio Palpation: normal PMI Rate: regular rate Rhythm: regular rhythm Heart sounds: no gallops and no murmurs GI Palpation (GI): Soft to palpation, nontender, No hepatosplenomegaly present and no masses Auscultation: normal bowel sounds Back/Spine/Pelvis Thoracic/Lumbar Spine: thoracic and lumbar spine normal to inspection Skin General skin exam: no rashes or lesions noted Neuro General: patient oriented x3 and no focal motor deficits Cranial nerves: Yes CN's II-XII intact bilaterally Extrem General: Yes normal to inspection, Yes no clubbing, cyanosis or edema and Yes no calf tenderness Psych Appearance: grossly normal and well kempt Speech and movement: Normal speech and movement present Assessment & Plan Assessment & Plan (1) COPD (chronic obstructive pulmonary disease): Comment: HE DOES HAVE CHRONIC OBSTRUCTIVE PULMONARY DISEASE BUT IT IS MILD AND WELL CONTROLLED. HE HAS BEEN DOING VERY WELL AND REMAINED STABLE ON HIS MEDICAL REGIMEN. Code(s): J44.9 - Chronic obstructive pulmonary disease, unspecified Plan: PLAN: CONT . ADVAIR 250-50 1 INHALATION B.I.D. CONT. VENTOLIN HFA 2 PUFFS Q 6 HRS ONLY PRN . (2) SELINA (obstructive sleep apnea): Comment: HE WAS EVALUATED FOR SLEEP APNEA IN 2010 AND WAS FOUND TO HAVE ONLY MILD DEGREE OF SELINA, AT THAT TIME PATIENT HAD OPTED , NOT TO BE TREATED WITH CPAP. HE CONTINUES TO HAVE, SYMPTOMS OF INSOMNIA.MOST RECENT HST SHOWED ONLY MILD SELINA, AND DID NOT NEED CPAP . Code(s): G47.33 - Obstructive sleep apnea (adult) (pediatric) Plan: HIS MAIN PROBLEM IS THE INTERMITTENT INSOMNIA. SLEEP HYGIENE EXPLAINED. (3) Former smoker: Comment: HAS PAST HISTORY OF SMOKING BUT QUIT MORE THAN 10 YEARS AGO. Code(s): Z87.891 - Personal history of nicotine dependence Plan: COMMENDED FOR NOT GOING BACK TO SMOKING Coding Level of Care Code Est Pt Level 3 (93542) Diagnoses COPD (chronic obstructive pulmonary disease) J44.9 SELINA (obstructive sleep apnea) G47.33 Former smoker Z87.891
[2023-08-05 10:01] VITALS: BP 122/64; PULSE 74; O2SAT 95; BMI 28.3
== END 2023-08-05 10:16 | disposition home or self-care (01) ==
PROVIDERS: PCP Family Medicine; Visit Provider Internal Medicine
DX: J44.9 Chronic obstructive pulmonary disease, unspecified (principal); G47.33 Obstructive sleep apnea (adult) (pediatric); Z87.891 Personal history of nicotine dependence
CPT/HCPCS: 99213

== ENCOUNTER → 2023-08-05 09:52 | Outpatient (BNVA) | payer MEDICARE, MEDICAID, SELFPAY | PROVIDERS: PCP Family Medicine; Visit Provider Internal Medicine | DX: J44.9 Chronic obstructive pulmonary disease, unspecified (principal); G47.33 Obstructive sleep apnea (adult) (pediatric); Z87.891 Personal history of nicotine dependence | CPT/HCPCS: 99212 ==

== ENCOUNTER 2023-09-16 10:20 | Outpatient (AMB) | payer MEDICARE, MEDICAID, SELFPAY ==
--- NOTE | 2023-09-16 10:27 | A.OFFVIS_ITS ---
Intake Vital Signs 09/16/23 10:30 Height 5 ft 4 in Weight 169 lb 5.04 oz BMI 29.1 BP 133/87 Blood Pressure Location Rt brachial Position Sitting Pulse 69 Intake Visit Reasons: 6 month follow up Intake Note: Patient presents to in office visit today for 6 months follow up. CC: Patient reports doing well today and denies having any GI symptoms today. Clinical Specialist Required: Yes Clinical Specialist Name: daughter Accompanied by: Daughter Allergies ibuprofen [From Motrin] Allergy (Severe, Verified 09/16/23 10:34) Gastrointestinal Upset codeine Adverse Reaction (Mild, Verified 09/16/23 10:34) Abdominal Pain HPI 6 month follow up HPI0 Details Assessment & Plan (1) Gastric pain: Code(s): R10.9 - Unspecified abdominal pain Plan: [place]ian #[facility] I had just seen him March 17 and he said he was doing well. He says having burning in the gastric area again despite being adherent to his pantoprazole in the morning and famotidine at night. He also takes sucralfate once a day. This is suddenly changed in the only other change has been that he was started on simvastatin. While this would be atypical it is possible this is causing a problem so will get CK to try to make this decision. Also on review of how he takes his medication he is not taking the pantoprazole 1st thing in the morning which is when his symptoms manifest. He is waiting until he can eat which he delays because he is feeling nauseated. I advised him to try to get the pantoprazole in 1st thing when he gets up does it the sooner he gets into his stomach the sooner all help. It is entirely possible that what were seeing is at the medication affect is fading and he is having rebound stomach acid. He says he is moving his bowels without any diarrhea constipation etc.. Return office visit in 3 weeks, HP test pending, CK. (2) GERD (gastroesophageal reflux diseas e): Code(s): K21.9 - Gastro-esophageal reflux disease without esophagitis (3) Chronic idiopathic constipation: Code(s): K59.04 - Chronic idiopathic constipation Orders: Orders CK, Total+Isoenzym es, Serum Today R10.9 - Unspecifie d abdominal pain Laboratory Tests 04/28/23 Unknown Stool H. pylori Ag negative TODAY'S VISIT Mongolian #Dtr translates per pt request. He is here today with his daughter. They say that he now is doing well on his medications and he continues on his pantoprazole 40 mg twice a day, his simethicone 4 times a day and his sucralfate 10 cc at bedtime. This is controlling his GERD and his diarrhea quite well. Return office visit in 6 months [facility] Medical History Tachycardia Cough SELINA (obstructive sleep apnea) Kidney stones Asthma Elevated cholesterol HTN (hypertension) Ambulates with cane Degenerative disc disease, thoracic High cholesterol Hypertension COPD (chronic obstructive pulmonary disease) Hemorrhoids GERD (gastroesophageal reflux disease) Surgical History History of cystoscopy History of renal stent H/O shoulder surgery S/P arthroscopic surgery of left knee History of total left knee replacement H/O colonoscopy Previous back surgery Social History Household Members: Family Are you a primary direct care supervisor to a significant other at home: No Do you presently have visiting nurse or other home services: Yes (none) Alcohol intake: never Patient Tobacco Use Status: Never used Tobacco Substance Use Type: Marijuana Current occupational status: unemployed Review of Systems Const Denies fatigue, Denies fever(s), Denies night sweats, Denies poor appetite and Denies weight loss ENT Reports Normal hearing present, Denies dental pain, Denies dysphagia, Denies hearing loss, Denies mouth pain, Denies odynophagia, Denies throat swelling, Denies tongue swelling and Reports other (Dentition adequate) Card Reports no additional complaints Resp Reports no additional complaints GI Details: Denies abdominal pain, Denies melena, Reports bloating, Denies hematochezia, Denies constipation, Denies GI cramping, Denies dysphagia, Denies excessive flatus, Denies early satiety, Reports heartburn, Reports diarrhea, Denies nausea, Denies odynophagia, Denies vomiting and Denies hematemesis Skin/Breast Denies pruritus, Denies lesions, Denies rash and Denies jaundice Neuro Reports Normal hearing present and Denies Abnormal speech present Endo Denies fatigue Aller/Immun Denies throat swelling and Denies tongue swelling Physical Exam Vital Signs: Last Vital Signs Pulse 69 09/16/23 10:30 BP 133/87 09/16/23 10:30 BMI result Body Mass Index 29.1 Const General: cooperative, no acute distress, well developed and well groomed Nutritional Appearance: well nourished and overweight Orientation/consciousness: oriented to person, oriented to place and oriented to time Limitations: language barrier HEENT Head: Yes normocephalic and Yes atraumatic Eyes General: appearance normal, both eyes and all related structures Pupils: Equal, round and reactive pupils present Neck Neck: Yes normal visual inspection and Yes no lymphadenopathy Thyroid: Thyroid normal Resp Effort & Inspection: normal respiratory effort and able to speak in complete sentences Auscultation: clear to auscultation bilaterally Cardio Rate: regular rate Rhythm: regular rhythm Heart sounds: Normal, physiologic split S2 sound present Peripheral pulses: radial pulses present and posterior tibial pulses present GI Inspection: No distended, No Abdominal panniculus present and Yes obesity Palpation (GI): Soft to palpation, nontender, no guarding, not rigid and No hepatosplenomegaly present Percussion: Yes normal to percussion Auscultation: normal bowel sounds Rectal Exam - Male: Yes deferred Skin General skin exam: no rashes or lesions noted, turgor normal, skin not dry, no jaundice, No spider nevi and no striae Rashes: no rashes Nails: normal Neuro General: oriented to person, oriented to place and oriented to time Cranial nerves: Yes Equal, round and reactive pupils present and Yes Normal hearing present Speech: No Abnormal speech present Extrem General: Yes normal to inspection, No clubbing, No cyanosis and No edema Psych Appearance: grossly normal and well kempt Mental Status: mental status grossly normal Speech and movement: Normal speech and movement present Affect: normal affect Attitude: cooperative Thought process: Normal thought process present and not confabulating Thought content: Normal thought content present Insight: Limited insight present (Psych) Judgement: Limited judgement present (Psych) Results Reviewed Results Reviewed: Laboratory Tests 04/28/23 Unknown Stool H. pylori Ag negative Assessment & Plan Assessment & Plan (1) GERD (gastroesophageal reflux disease): Code(s): K21.9 - Gastro-esophageal reflux disease without esophagitis (2) Chronic idiopathic constipation: Code(s): K59.04 - Chronic idiopathic constipation Plan Mongolian #Dtr translates per pt request. He is here today with his daughter. They say that he now is doing well on his medications and he continues on his pantoprazole 40 mg twice a day, his simethicone 4 times a day and his sucralfate 10 cc at bedtime. This is controlling his GERD and his diarrhea quite well. Return office visit in 6 months Medications: Refilled sucralfate (Carafate) 10 mL PO .qhs 200 mL 6RF R10.9 - Unspecified abdominal pain pantoprazole (Protonix) 40 mg PO BID 60 tabs 6RF 30 days K21.9 - Gastro- esophageal reflux disease without esophagitis simethicone 180 mg PO QID 120 caps 6RF R14.0 - Abdominal distension (gaseous) Coding Level of Care Code Est Pt Level 3 (87532) Diagnoses GERD (gastroesophageal reflux disease) K21.9 Chronic idiopathic constipation K59.04
[2023-09-16 10:30] VITALS: BP 133/87; PULSE 69; BMI 29.1
== END 2023-09-16 10:44 | disposition home or self-care (01) ==
PROVIDERS: PCP Family Medicine; Visit Provider Nurse Practitioner
DX: K21.9 Gastro-esophageal reflux disease without esophagitis (principal); K59.04 Chronic idiopathic constipation
CPT/HCPCS: 99213

== ENCOUNTER → 2023-09-16 10:20 | Outpatient (BNVA) | payer MEDICARE, MEDICAID, SELFPAY | PROVIDERS: PCP Family Medicine; Visit Provider Nurse Practitioner | DX: K21.9 Gastro-esophageal reflux disease without esophagitis (principal); K59.04 Chronic idiopathic constipation | CPT/HCPCS: 99212 ==

== ENCOUNTER 2024-02-09 09:52 | Outpatient (AMB) | payer MEDICARE, MEDICAID, SELFPAY ==
[2024-02-09 10:16] VITALS: BP 140/70; PULSE 77; O2SAT 96; BMI 29.1
--- NOTE | 2024-02-09 10:16 | A.OFFVIS_ITS ---
Vital Signs 02/09/24 10:16 Height 5 ft 4 in Weight 169 lb 12.095 oz BMI 29.1 BP 140/70 H Blood Pressure Location Lt brachial Position Sitting Pulse 77 Pulse Source Pulse Oximeter Pulse Oximetry (%) 96 Oxygen Delivery Method Room Air Intake Visit Reasons: copd Intake Note: pt is here for follow up and states he feels okay today Allergies ibuprofen [From Motrin] Allergy (Severe, Verified 02/09/24 10:18) Gastrointestinal Upset codeine Adverse Reaction (Mild, Verified 02/09/24 10:18) Abdominal Pain Medication List - Last Reconciled 02/09/24 by Jeanne Mayorga MD acetaminophen 650 mg (2 x 325 mg) PO Q6H PRN 30 days albuterol sulfate 90 mcg/actuation 2 inhalations inhalation Q4-6H PRN aspirin 81 mg PO QAM cholecalciferol (vitamin D3) (Vitamin D3) 1 cap PO QAM cyanocobalamin (vitamin B-12) 500 mcg PO QAM doxepin 75 mg PO BEDTIME fluticasone propion-salmeterol 250-50 mcg/dose (Advair Diskus) 1 puff inhalation BID gabapentin 100 mg PO BEDTIME latanoprost 0.005% 0 drps ophthalmic (eye) loratadine (Allergy Relief (loratadine)) 1 tab PO QAM melatonin 6 mg (2 x 3 mg) PO BEDTIME PRN 30 days mirtazapine 15 mg PO BEDTIME omega-3 fatty acids (Fish Oil Concentrate) 1,000 mg PO DAILY oxycodone 5 mg PO Q12H PRN 7 days pantoprazole (Protonix) 40 mg PO BID 30 days simethicone 180 mg PO QID simvastatin 40 mg PO BEDTIME sucralfate (Carafate) 10 mL PO .qhs walker Folding Front wheeled walker Do you need a note to return to daycare/school/sports/work: No HPI HPI copd: Details: This 78 years old gentleman is here for follow-up after 6 months for his COPD. He claims that he feels fine as long as he continues to use Advair Diskus twice a day. He does have albuterol HFA on hand but hardly needs to use it. He has had no acute respiratory infection or exacerbation in the last 6 months. He does not smoke cigarettes but does smoke marijuana about twice a day. [facility] Medical History Tachycardia Cough SELINA (obstructive sleep apnea) Kidney stones Asthma Elevated cholesterol HTN (hypertension) Ambulates with cane Degenerative disc disease, thoracic High cholesterol Hypertension COPD (chronic obstructive pulmonary disease) Hemorrhoids GERD (gastroesophageal reflux disease) Surgical History History of cystoscopy History of renal stent H/O shoulder surgery S/P arthroscopic surgery of left knee History of total left knee replacement H/O colonoscopy Previous back surgery Social History Household Members: Family Are you a primary patient care manager to a significant other at home: No Do you presently have visiting nurse or other home services: Yes (none) Alcohol intake: never Patient Tobacco Use Status: Never used Tobacco Substance Use Type: Marijuana Current occupational status: unemployed Review of Systems Const All systems reviewed & are unremarkable except as noted in HPI and below Eyes Reports no additional complaints ENT Reports no additional complaints Card Denies chest pain, Denies irregular heart rhythm and Denies leg edema Resp Reports as per HPI GI Reports constipation and Reports heartburn (BEING TREATED WITH OMEPRAZOLE) Reports no additional complaints Musc Reports no additional complaints, Reports arthralgias and Reports joint swelling (knees) Skin/Breast Reports system reviewed and no additional complaints, except as documented Neuro Reports no additional complaints Psych Reports no additional complaints and Reports depression Endo Reports no additional complaints Physical Exam Vital Signs: Last Vital Signs Pulse 77 02/09/24 10:16 BP 140/70 H 02/09/24 10:16 Pulse Ox 96 02/09/24 10:16 Oxygen Delivery Method Room Air 02/09/24 10:16 BMI result Body Mass Index 29.1 Const General: comfortable, no acute distress, alert and awake Orientation/consciousness: patient oriented x3 HEENT Head: Yes normal to inspection General nose exam: No nasal polyps present and No nasal discharge present Face and sinus: Yes sinuses nontender Mouth: oropharynx normal Teeth and gingiva: dentures (LOWER JAW) Throat: Yes posterior oropharynx normal Eyes General: appearance normal, both eyes and all related structures Neck Neck: Yes normal visual inspection, Yes no lymphadenopathy, Yes trachea midline and Yes no JVD Thyroid: Thyroid normal Chest Chest palpation & inspection: normal inspection of the chest, normal palpation of entire chest wall and no tenderness Resp Other: PERCUSSION NOTE RESONANT, BREATH SOUNDS ARE SLIGHTLY DISTANT WITH PROLONGED EXPIRATORY PHASE. NO WHEEZES OR CREPS. HEARD TODAY . Cardio Palpation: normal PMI Rate: regular rate Rhythm: regular rhythm Heart sounds: no gallops and no murmurs GI Palpation (GI): Soft to palpation, nontender, No hepatosplenomegaly present and no masses Auscultation: normal bowel sounds Back/Spine/Pelvis Thoracic/Lumbar Spine: thoracic and lumbar spine normal to inspection Skin General skin exam: no rashes or lesions noted Neuro General: patient oriented x3 and no focal motor deficits Cranial nerves: Yes CN's II-XII intact bilaterally Extrem General: Yes normal to inspection, Yes no clubbing, cyanosis or edema and Yes no calf tenderness Psych Appearance: grossly normal and well kempt Speech and movement: Normal speech and movement present Assessment & Plan Assessment & Plan (1) COPD (chronic obstructive pulmonary disease): Comment: HE DOES HAVE CHRONIC OBSTRUCTIVE PULMONARY DISEASE BUT IT IS MILD AND WELL CONTROLLED. HE HAS BEEN DOING VERY WELL AND REMAINED STABLE ON HIS MEDICAL REGIMEN. Code(s): J44.9 - Chronic obstructive pulmonary disease, unspecified Category: Medical Plan: CONTINUE USING ADVAIR DISKUS 250-51 INHALATION B.I.D., AND VENTOLIN 2 PUFFS Q 6 HOURS P.R.N.. (2) SELINA (obstructive sleep apnea): Comment: HE WAS EVALUATED FOR SLEEP APNEA IN 2010 AND WAS FOUND TO HAVE ONLY MILD DEGREE OF SELINA, AT THAT TIME PATIENT HAD OPTED , NOT TO BE TREATED WITH CPAP. HE CONTINUES TO HAVE, SYMPTOMS OF INSOMNIA. MOST RECENT HST SHOWED ONLY MILD SELINA, AND DID NOT NEED CPAP . Code(s): G47.33 - Obstructive sleep apnea (adult) (pediatric) Category: Medical Plan: SLEEP HYGIENE EXPLAINED, HE CLAIMS THAT TO SMOKING MARIJUANA BEFORE HE GOES TO SLEEP DOES HELP HIS S.LEEPING Coding Level of Care Code Est Pt Level 3 (32488) Diagnoses COPD (chronic obstructive pulmonary disease) J44.9 SELINA (obstructive sleep apnea) G47.33
== END 2024-02-09 10:41 | disposition home or self-care (01) ==
PROVIDERS: PCP Family Medicine; Visit Provider Internal Medicine
DX: J44.9 Chronic obstructive pulmonary disease, unspecified (principal); G47.33 Obstructive sleep apnea (adult) (pediatric)
CPT/HCPCS: 99213

== ENCOUNTER → 2024-02-09 09:52 | Outpatient (BNVA) | payer MEDICARE, MEDICAID, SELFPAY | PROVIDERS: PCP Family Medicine; Visit Provider Internal Medicine | DX: J44.9 Chronic obstructive pulmonary disease, unspecified (principal); G47.33 Obstructive sleep apnea (adult) (pediatric); F12.90 Cannabis use, unspecified, uncomplicated; Z79.899 Other long term (current) drug therapy | CPT/HCPCS: 99212 ==

== ENCOUNTER 2024-03-06 12:48 | Outpatient (REF) | payer MEDICARE, MEDICAID, SELFPAY ==
--- NOTE | ~2024-03-06 | XR_ITS ---
EXAMINATION: CERVICAL SPINE, LEFT SHOULDER CLINICAL INFORMATION: Chronic neck pain and chronic left shoulder pain. Chronic intractable headache. COMPARISON: Cervical spine 02/04/2021 CT neck 01/01/2021 TECHNIQUE: 4 views cervical spine, 4 views left shoulder FINDINGS: C-spine: There is been ACDF at 4 through C6 with effusion. The C4, C5 and C6 vertebral bodies appear demineralized. No soft tissue swelling, acute fractures or subluxations are seen. Left shoulder: Degenerative changes are present at the glenohumeral joint with no significant degenerative change seen at the AC joint . 2 suture anchors are seen overlying the left femoral head. No fractures or dislocations are seen. No rotator cuff calcification. XR/XR cervical spine 3V IMPRESSION: 1. C-spine ACDF with demineralization of the C4, C5 and C6 vertebral bodies. 2. Left shoulder degenerative changes with no acute finding. Electronically signed by: Aric Auguste MD 03/06/2024 03:17 PM EDT RP
--- NOTE | ~2024-03-06 | XR_ITS ---
EXAMINATION: CERVICAL SPINE, LEFT SHOULDER CLINICAL INFORMATION: Chronic neck pain and chronic left shoulder pain. Chronic intractable headache. COMPARISON: Cervical spine 02/04/2021 CT neck 01/01/2021 TECHNIQUE: 4 views cervical spine, 4 views left shoulder FINDINGS: C-spine: There is been ACDF at 4 through C6 with effusion. The C4, C5 and C6 vertebral bodies appear demineralized. No soft tissue swelling, acute fractures or subluxations are seen. Left shoulder: Degenerative changes are present at the glenohumeral joint with no significant degenerative change seen at the AC joint . 2 suture anchors are seen overlying the left femoral head. No fractures or dislocations are seen. No rotator cuff calcification. XR/XR shoulder LT min 2V IMPRESSION: 1. C-spine ACDF with demineralization of the C4, C5 and C6 vertebral bodies. 2. Left shoulder degenerative changes with no acute finding. Electronically signed by: Aric Auguste MD 03/06/2024 03:17 PM EDT RP
== END 2024-03-06 12:49 | disposition home or self-care (01) ==
LOC: HO.HHCX 12:48
PROVIDERS: Visit Provider Student in an Organized Health Care Education/Training Program
DX: R51.9 Headache, unspecified (principal); M25.512 Pain in left shoulder; G89.29 Other chronic pain
CPT/HCPCS: 72040; 73030

== ENCOUNTER 2024-03-17 08:46 | Outpatient (AMB) | payer MEDICARE, MEDICAID, SELFPAY ==
[2024-03-17 08:47] VITALS: BP 148/77; PULSE 78; BMI 28.1
--- NOTE | 2024-03-17 08:47 | A.OFFVIS_ITS ---
Vital Signs 03/17/24 08:47 Height 5 ft 4 in Weight 163 lb 9.328 oz BMI 28.1 BP 148/77 H Blood Pressure Location Lt brachial Position Sitting Pulse 78 Intake Visit Reasons: 6 month follow up Intake Note: Jose Alfredo presents to in office 6 months follow up of GERD. CC: Patient reports doing well and denies having any new GI concerns today. Certified Dialysis Technician Required: Yes Certified Dialysis Technician Name: Mitesh meyer forging die sinker Accompanied by: Self / Same As Patient Allergies ibuprofen [From Motrin] Allergy (Severe, Verified 03/17/24 08:50) Gastrointestinal Upset codeine Adverse Reaction (Mild, Verified 03/17/24 08:50) Abdominal Pain HPI HPI 6 month follow up: Details: Assessment & Plan (1) GERD (gastroesophageal reflux disease): Code(s): K21.9 - Gastro-esophageal reflux disease without esophagitis (2) Chronic idiopathic constipation: Code(s): K59.04 - Chronic idiopathic constipation Plan [place]er #Dtr translates per pt request. He is here today with his daughter. They say that he now is doing well on his medications and he continues on his pantoprazole 40 mg twice a day, his simethicone 4 times a day and his sucralfate 10 cc at bedtime. This is controlling his GERD and his diarrhea quite well. Return office visit in 6 months Medications: Refilled sucralfate (Carafate) 10 mL PO .qhs 200 mL 6RF R10.9 - Unspecified abdominal pain pantoprazole (Protonix) 40 mg PO BID 60 tabs 6RF 30 days K21.9 - Gastro- esophageal reflux disease without esophagitis simethicone 180 mg PO QID 120 caps 6RF R14.0 - Abdominal distension (gaseous) TODAY'S VISIT [place]er #Mitesh Charly He continues to do well on his medications. He continues on his sucralfate, pantoprazole, and simethicone and is satisfied with his GI regimen. The only new health concern as he was seen for a headache at [facility] recently but apparently was ruled out for any severe disease. Return office visit in 6 months [facility] Medical History Tachycardia Cough SELINA (obstructive sleep apnea) Kidney stones Asthma Elevated cholesterol HTN (hypertension) Ambulates with cane Degenerative disc disease, thoracic High cholesterol Hypertension COPD (chronic obstructive pulmonary disease) Hemorrhoids GERD (gastroesophageal reflux disease) Surgical History History of cystoscopy History of renal stent H/O shoulder surgery S/P arthroscopic surgery of left knee History of total left knee replacement H/O colonoscopy Previous back surgery Social History Household Members: Family Are you a primary director of home care hospice to a significant other at home: No Do you presently have visiting nurse or other home services: Yes (none) Alcohol intake: never Patient Tobacco Use Status: Never used Tobacco Substance Use Type: Marijuana Current occupational status: unemployed Review of Systems Const Denies fatigue, Denies fever(s), Denies night sweats, Denies poor appetite and Denies weight loss ENT Reports Normal hearing present, Denies dental pain, Denies dysphagia, Denies hearing loss, Denies mouth pain, Denies odynophagia, Denies throat swelling, Denies tongue swelling and Reports other (Dentition adequate) Card Reports no additional complaints Resp Reports no additional complaints GI Details: Denies abdominal pain, Denies melena, Reports bloating, Denies hematochezia, Denies constipation, Denies GI cramping, Denies dysphagia, Denies excessive flatus, Denies early satiety, Reports heartburn, Reports diarrhea, Denies nausea, Denies odynophagia, Denies vomiting and Denies hematemesis Skin/Breast Denies pruritus, Denies lesions, Denies rash and Denies jaundice Neuro Reports Normal hearing present and Denies Abnormal speech present Endo Denies fatigue Aller/Immun Denies throat swelling and Denies tongue swelling Physical Exam Const General: cooperative, no acute distress, well developed and well groomed Nutritional Appearance: well nourished and overweight Orientation/consciousness: oriented to person, oriented to place and oriented to time Limitations: language barrier HEENT Head: Yes normocephalic and Yes atraumatic Eyes General: appearance normal, both eyes and all related structures Pupils: Equal, round and reactive pupils present Neck Neck: Yes normal visual inspection and Yes no lymphadenopathy Thyroid: Thyroid normal Resp Effort & Inspection: normal respiratory effort and able to speak in complete sentences Auscultation: clear to auscultation bilaterally Cardio Rate: regular rate Rhythm: regular rhythm Heart sounds: Normal, physiologic split S2 sound present Peripheral pulses: radial pulses present and posterior tibial pulses present GI Inspection: No distended, No Abdominal panniculus present and Yes obesity Palpation (GI): Soft to palpation, nontender, no guarding, not rigid and No hepatosplenomegaly present Percussion: Yes normal to percussion Auscultation: normal bowel sounds Rectal Exam - Male: Yes deferred Skin General skin exam: no rashes or lesions noted, turgor normal, skin not dry, no jaundice, No spider nevi and no striae Rashes: no rashes Nails: normal Neuro General: oriented to person, oriented to place and oriented to time Cranial nerves: Yes Equal, round and reactive pupils present and Yes Normal hearing present Speech: No Abnormal speech present Extrem General: Yes normal to inspection, No clubbing, No cyanosis and No edema Psych Appearance: grossly normal and well kempt Mental Status: mental status grossly normal Speech and movement: Normal speech and movement present Affect: normal affect Attitude: cooperative Thought process: Normal thought process present and not confabulating Thought content: Normal thought content present Insight: Fair insight present (Psych) Judgement: Fair judgement present (Psych) Assessment & Plan Assessment & Plan (1) GERD (gastroesophageal reflux disease): Code(s): K21.9 - Gastro-esophageal reflux disease without esophagitis Category: Medical (2) Chronic idiopathic constipation: Code(s): K59.04 - Chronic idiopathic constipation Category: Medical Plan [place]er #Mitesh Live He continues to do well on his medications. He continues on his sucralfate, pantoprazole, and simethicone and is satisfied with his GI regimen. The only new health concern as he was seen for a headache at [facility] recently but apparently was ruled out for any severe disease. Return office visit in 6 months Medications: Refilled simethicone 180 mg PO QID 120 caps 6RF R14.0 - Abdominal distension (gaseous) sucralfate (Carafate) 10 mL PO .qhs 200 mL 6RF R10.9 - Unspecified abdominal pain pantoprazole (Protonix) 40 mg PO BID 30 days 60 tabs 6RF K21.9 - Gastro- esophageal reflux disease without esophagitis Coding Level of Care Code Est Pt Level 3 (96975) Diagnoses GERD (gastroesophageal reflux disease) K21.9 Chronic idiopathic constipation K59.04
== END 2024-03-17 12:46 | disposition home or self-care (01) ==
PROVIDERS: PCP Family Medicine; Visit Provider Nurse Practitioner
DX: K21.9 Gastro-esophageal reflux disease without esophagitis (principal); K59.04 Chronic idiopathic constipation
CPT/HCPCS: 99213

== ENCOUNTER → 2024-03-17 08:46 | Outpatient (BNVA) | payer MEDICARE, MEDICAID, SELFPAY | PROVIDERS: PCP Family Medicine; Visit Provider Nurse Practitioner | DX: K21.9 Gastro-esophageal reflux disease without esophagitis (principal); K59.04 Chronic idiopathic constipation; R14.0 Abdominal distension (gaseous); R10.9 Unspecified abdominal pain | CPT/HCPCS: 99212 ==

== ENCOUNTER → 2024-03-19 08:34 | Outpatient (BNV) | payer MEDICARE, MEDICAID, SELFPAY | PROVIDERS: PCP Family Medicine; Visit Provider Radiology Diagnostic Radiology | DX: R51.9 Headache, unspecified (principal) | CPT/HCPCS: 70551 ==

== ENCOUNTER 2024-03-19 09:28 | Outpatient (REF) | payer MEDICARE, MEDICAID, SELFPAY ==
--- NOTE | ~2024-03-19 | MR_ITS ---
EXAMINATION: MR BRAIN WITHOUT CONTRAST CLINICAL INFORMATION: 79-year-old male, Worsening headaches, with alarming symptoms - patient states numbness of bilateral arms; x6 months intermittent. COMPARISON: 03/06/[address] head 11/24/2018. TECHNIQUE: MRI of the brain was obtained using routine sequences without contrast. Examination performed on a 1.5 Adry high-field Siemens magnet. FINDINGS: There is no diffusion restriction. There is no intracranial hemorrhage, acute infarction, mass effect, or edema. Ventricles, sulci, and cisterns are normal in size and configuration for patient age. No shift of midline. No abnormal hemosiderin deposition is identified. There are tiny bilateral hippocampal remnant cysts. There is mild to moderate scattered punctate and minimally confluent foci of white matter T2 hyperintensity in the periventricular, subcortical, and hemispheric deep white matter, nonspecific, but statistically most likely representing small vessel ischemic changes. Midline structures appear normally formed. The pituitary gland appears normal. Posterior fossa structures appear normal. Cerebellar tonsils are appropriately located. Major flow voids are preserved within the skull base. The globes and orbital contents demonstrate no abnormalities. Paranasal sinuses are clear bilaterally. Nasal septum is midline without spur. Trace right mastoid fluid. Otherwise the mastoids and tympanic cavities are normally aerated. Extracranial soft tissues demonstrate no abnormalities. No suspicious bone marrow changes are evident. There are bilateral TM joint degenerative changes. Atlantoaxial joint is demonstrates degenerative changes but is normally aligned. MR/MR head/brain wo con IMPRESSION: 1. No evidence of acute infarction, intracranial hemorrhage, mass effect, or edema. 2. Age-related involutional changes, and mild to moderate changes of small vessel ischemia. 3. Trace right mastoid fluid. Electronically signed by: Harsh Parnell MD 05/17/2024 01:38 PM [facility]
== END 2024-03-19 09:29 | disposition home or self-care (01) ==
LOC: HO.MRI 09:28
PROVIDERS: PCP Family Medicine; Visit Provider Student in an Organized Health Care Education/Training Program
DX: R51.9 Headache, unspecified (principal); G89.29 Other chronic pain
CPT/HCPCS: 70551

== ENCOUNTER 2024-04-13 09:37 | Outpatient (AMB) | payer MEDICARE, MEDICAID, SELFPAY ==
--- NOTE | 2024-04-13 09:48 | MHC.OFFVIS ---
Intake Visit Reasons: OV- Right TKA, 05/26/22 NE Intake Note: Jose Alfredo is a 77 year old male who presents today for a follow up appointment of his Right Knee s/p Right TKA 05/26/2022. Patient has ongoing effusion, with aspiration negative for infection. Declined repeat aspiration and we referred to Pain Management. He was seen with their office in December where a Psych eval was ordered with plans for a DRG Stimulator at right L3-L4, he was also given an Rx for Gabapentin. Patient decided not to proceed with procedure. Allergies ibuprofen [From Motrin] Allergy (Severe, Verified 04/13/24 09:59) Gastrointestinal Upset codeine Adverse Reaction (Mild, Verified 04/13/24 09:59) Abdominal Pain HPI HPI OV- Right TKA, 05/26/22 NE: Details: Jose Alfredo is a 77 year old male who presents today for a follow up appointment of his Right Knee s/p Right TKA 05/26/2022. Patient has ongoing effusion, with aspiration negative for infection. Declined repeat aspiration and we referred to Pain Management. He was seen with their office in December where a Psych eval was ordered with plans for a DRG Stimulator at right L3-L4, he was also given an Rx for Gabapentin. Patient decided not to proceed with procedure. [facility] Medical History Tachycardia Cough SELINA (obstructive sleep apnea) Kidney stones Asthma Elevated cholesterol HTN (hypertension) Ambulates with cane Degenerative disc disease, thoracic High cholesterol Hypertension COPD (chronic obstructive pulmonary disease) Hemorrhoids GERD (gastroesophageal reflux disease) Surgical History History of cystoscopy History of renal stent H/O shoulder surgery S/P arthroscopic surgery of left knee History of total left knee replacement H/O colonoscopy Previous back surgery Social History Household Members: Family Are you a primary team primary care physician to a significant other at home: No Do you presently have visiting nurse or other home services: Yes (none) Alcohol intake: never Patient Tobacco Use Status: Never used Tobacco Substance Use Type: Marijuana Current occupational status: unemployed Physical Exam Extrem Other: Right knee with well-healed incision. No effusion. Stable to varus and valgus stress. 0-125 degrees of motion. Left shoulder with painful Hodges and Neer. 4/5 empty can. Office Procedures Joint Inj/Aspir; Non-Pain Clin Joint Injection/Drain Details: Injected 1 mL of Decadron and 3 mL 1% lidocaine and 3 mL of 0.25% Marcaine. Site was prepped using aseptic technique. Patient tolerated the procedure well. Approach Used: posterolateral Shoulders, Hips, Knees, Shoulder Injection Large joint : Left Shoulder Coding Procedure code (CPT) selection complete Assessment & Plan Assessment & Plan (1) History of repair of left rotator cuff: Code(s): Z98.890 - Other specified postprocedural states Category: Surgical Plan: This is an 79-year-old with left shoulder pain. He had a rotator cuff repair on the left about 8 years ago. His pain is now present at night and with lifting. I injected his left shoulder. I recommend physical therapy but he does not want to do that at this time. (2) Status post total right knee replacement: Code(s): Z96.651 - Presence of right artificial knee joint Category: Surgical Plan: Patient is about 2 years status post right knee replacement. He is doing okay. His function is good but his pain is intermittent. He sits better than it was before the surgery. There is no additional treatment warranted for his right knee at this time. Coding Level of Care Code Est Pt Level 4 (01871) Diagnoses History of repair of left rotator cuff Z98.890 Status post total right knee replacement Z96.651 CPT Codes Shoulders, Hips, Knees, - Shoulder Injection Large joint : Left Shoulder ([id number])
== END 2024-04-13 10:29 | disposition home or self-care (01) ==
LOC: HO.HOS 09:38
PROVIDERS: PCP Family Medicine; Visit Provider Orthopaedic Surgery
DX: M25.512 Pain in left shoulder (principal); Z96.651 Presence of right artificial knee joint
CPT/HCPCS: 20610; 99214

== ENCOUNTER → 2024-04-13 09:37 | Outpatient (BNVA) | payer MEDICARE, MEDICAID, SELFPAY | PROVIDERS: PCP Family Medicine; Visit Provider Orthopaedic Surgery | DX: M25.512 Pain in left shoulder (principal); Z98.890 Other specified postprocedural states; Z96.651 Presence of right artificial knee joint | CPT/HCPCS: 20610; 99212; J0665; J1100; J2003 ==

== ENCOUNTER 2024-06-16 13:53 | Emergency (ER) | payer MEDICARE, MEDICAID, SELFPAY ==
--- NOTE | ~2024-06-16 | CT_ITS ---
EXAMINATION: CT HEAD WITHOUT CONTRAST CLINICAL INFORMATION: Headache, off balance. COMPARISON: None available. TECHNIQUE: Contiguous axial imaging was performed from the skull base to vertex without intravenous administration of contrast. This CT examination was performed using dose optimization techniques as appropriate, variously including the following: *Automated exposure control *Adjustment of mA and/or kV according to patient size (this includes techniques or standardized protocols for targeted exams where dose is matched to indication/reason for exam; i.e. extremities or head) *Use of iterative reconstruction technique DLP: 699. FINDINGS: There is no acute intra-axial, extra-axial bleed, masses or midline shift. There is no acute infarction in evolution. There is no edema. The xie to white matter differentiation is maintained normal. The lateral ventricles are symmetrical in size and configuration without enlargement. Bone windows reveal no calvarial abnormality. There is no scalp soft tissue abnormality. There is focal dural calcification midline falx. Similarly a focal hyperdensity seen along the left anterior temporal lobe likely a small meningioma or dural calcification. Bone windows reveal no calvarial abnormality. There is punctate calcification in left scalp. The paranasal sinuses and mastoid air cells are well-aerated. CT/CT head/brain wo IV con IMPRESSION: No acute intracranial process. No major change from previous exam 11/24/2018 are Electronically signed by: Irving Ochoa MD 06/19/2024 08:37 AM IGLESIA
--- NOTE | ~2024-06-16 | XR_ITS ---
CLINICAL HISTORY: cough 2 view chest x-ray Comparison: None Findings: The lungs are clear. Heart size is normal. No acute fracture. IMPRESSION: 1. No acute findings. This document has been electronically signed by: Yo Gutiérrez MD on 06/16/2024 17:41:46
--- NOTE | 2024-06-16 14:19 | ECG_ITS ---
Test Reason : sob Blood Pressure : / mmHG Vent. Rate : 081 BPM Atrial Rate : 081 BPM P-R Int : 192 ms QRS Dur : 112 ms QT Int : 380 ms P-R-T Axes : 042 -53 029 degrees QTc Int : 441 ms Normal sinus rhythm Left axis deviation Minimal voltage criteria for LVH, may be normal variant ( Kelly product ) Abnormal ECG When compared with ECG of 25-MAY-2023 05:24, No significant change was found Referred By: Dg Faye Electronically Signed By:YARI ARCEO MD
[2024-06-16 14:57] VITALS: BP 142/88; PULSE 77; O2SAT 96
--- NOTE | 2024-06-16 15:13 | ED.GENADULT ---
HPI - General Adult General Chief complaint: Dyspnea Stated complaint: SOB PER EMS Time Seen by Provider: 06/16/24 15:13 Source: patient and commission specialist (Leonides) Limitations: language barrier History of Present Illness HPI narrative: 79-year-old male who has a history of COPD, GERD, SELINA, insomnia, presents for evaluation of low oxygen level. Patient stated that he had not been feeling well, complaining of headache and feeling off balance. In addition he had been complaining of cough and therefore presented to [facility]. He was noted to be 91% on room air and was therefore presents in the emergency department. Patient states he gets frequent headaches and has been evaluated for this multiple times in the past and reports he had ?x-rays and ?without any known etiology. Patient also reports that he has been feeling off balance which causes him difficulty walking. He denies any room spinning. He denies any vision changes. No trauma. He has not had any falls. He denies any neck or back pain. Patient states he has a chronic cough which has increased recently. He denies any fevers or chills. No dyspnea on exertion or orthopnea. He has been eating and drinking normally. No urinary symptoms. Patient is otherwise feeling well. Currently he denies any headache. He is overall feeling well and denies any shortness of breath at this time. Related Data Home Medications ?Medication ?Instructions ?Recorded ?Confirmed omega-3 fatty acids 1,000 mg 1,000 mg PO DAILY 01/10/21 02/09/24 capsule (Fish Oil Concentrate) doxepin 75 mg capsule 75 mg PO BEDTIME 09/04/21 02/09/24 simvastatin 40 mg tablet 40 mg PO BEDTIME 01/07/22 02/09/24 cyanocobalamin (vitamin B-12) 500 500 mcg PO QAM 04/01/22 02/09/24 mcg tablet latanoprost 0.005 % eye drops 0 drp ophthalmic (eye) 04/01/22 02/09/24 cholecalciferol (vitamin D3) 50 1 cap PO QAM 05/26/22 02/09/24 mcg (2,000 unit) capsule (Vitamin D3) fluticasone 250 mcg-salmeterol 50 1 puff inhalation BID 05/26/22 02/09/24 mcg/dose blistr powdr for inhalation (Advair Diskus) loratadine 10 mg tablet (Allergy 1 tab PO QAM 05/26/22 02/09/24 Relief (loratadine)) aspirin 81 mg tablet,delayed 81 mg PO QAM 07/15/22 02/09/24 release famotidine 20 mg tablet 20 mg PO DAILY 03/17/24 mirtazapine 30 mg tablet 30 mg PO BEDTIME 03/17/24 Previous Rx's ?Medication ?Instructions ?Recorded albuterol sulfate 90 mcg/actuation 2 inh inhalation Q4-6H PRN 02/19/22 breath activated powder inhaler shortness of breath or wheezing #1 ea walker #1 ea 05/09/22 acetaminophen 325 mg tablet 650 mg (2 x 325 mg) PO Q6H PRN 05/28/22 Pain, Mild (Pain Scale 1-3) 30 days #240 tabs oxycodone 5 mg tablet 5 mg PO Q12H PRN Pain, Moderate 08/06/22 (Pain Scale 4-6 7 days #14 tabs melatonin 3 mg tablet 6 mg (2 x 3 mg) PO BEDTIME PRN for 11/11/22 insomnia 30 days #60 tabs gabapentin 100 mg capsule 100 mg PO BEDTIME #90 caps 12/14/22 pantoprazole 40 mg tablet,delayed 40 mg PO BID 30 days #60 tabs 03/17/24 release (Protonix) simethicone 180 mg capsule 180 mg PO QID #120 caps 03/17/24 sucralfate 100 mg/mL oral 10 ml PO .qhs #200 mL 03/17/24 suspension (Carafate) Allergies Allergy/AdvReac Type Severity Reaction Status Date / Time ibuprofen [From Motrin] Allergy Severe Gastrointestinal Verified 06/16/24 15:18 Upset codeine AdvReac Mild Abdominal Verified 04/13/24 09:59 Pain Review of Systems Constitutional: Constitutional: Denies chills, Denies fever(s) and Reports headache(s) Eyes: Eyes: Denies change in vision and Denies other (No redness.) ENT: Reports headache(s), Denies nasal congestion, Denies nasal discharge, Denies neck pain and Denies sore throat Cardiovascular: Cardiovascular: Denies chest pain, Denies palpitations, Denies dyspnea, Denies dyspnea on exertion and Denies orthopnea Respiratory: Respiratory: Reports cough, Denies dyspnea and Denies dyspnea on exertion Gastrointestinal: Gastrointestinal: Denies abdominal pain, Denies melena, Denies hematochezia, Denies diarrhea, Denies nausea and Denies vomiting Genitourinary: Genitourinary: Denies difficulty urinating, Denies dysuria and Denies urinary urgency Musculoskeletal: Musculoskeletal: Denies back pain, Denies muscle weakness, Denies neck pain and Denies numbness Integumentary/Breasts: Skin/Breast: Denies rash Neurologic: Reports headache(s), Denies focal weakness and Denies numbness Psychiatric: Psychiatric: Denies depression Endocrine: Endocrine: Denies palpitations [facility] Past Medical History Medical History Tachycardia Cough SELINA (obstructive sleep apnea) Kidney stones Asthma Elevated cholesterol HTN (hypertension) Ambulates with cane Degenerative disc disease, thoracic High cholesterol Hypertension COPD (chronic obstructive pulmonary disease) Hemorrhoids GERD (gastroesophageal reflux disease) Surgical History History of cystoscopy History of renal stent H/O shoulder surgery S/P arthroscopic surgery of left knee History of total left knee replacement H/O colonoscopy Previous back surgery Social History Social History Household Members: Family Are you a primary animal caretaker supervisor to a significant other at home: No Do you presently have visiting nurse or other home services: Yes (none) Alcohol intake: never Patient Tobacco Use Status: Never used Tobacco Smoked in Last 30 Days: No Use of substances other than those prescribed or required for medical reasons: No Substance Use Type: Marijuana Advance Directives: No Advance Directives Information Provided: No Current occupational status: unemployed Physical Exam ED Vital Signs: Vital Signs - 24 hr 06/16/24 15:16 06/16/24 15:52 06/16/24 18:28 Temperature 99.1 F 98.6 F Pulse Rate 78 86 76 Respiratory Rate 18 24 H 22 H Blood Pressure 128/87 138/85 Pulse Oximetry 96 96 Oxygen Delivery Method Room Air Room Air BMI result Body Mass Index 22.9 Const General: cooperative, alert, awake and Physically active HENMT Other: Auditory canals are patent. Pupils are equal round and reactive to light. There is no nystagmus. Oropharynx is moist. No exudate. Tolerate secretions Resp Other: Crackles in the left base that do not clear with coughing. Otherwise lungs are clear throughout. Cardio Rate: regular rate Rhythm: regular rhythm Extrem Other: No calf tenderness or pedal edema Course Course Course Narrative: 7:00 p.m. patient has been resting comfortably. Patient has been given a dose of Decadron. Oxygen saturation has maintained at 96-98% on room air. Ambulatory oxygen saturation is 96% without any dyspnea or tachypnea or tachycardia. Patient is requesting discharge home. The patient's daughter is at the bedside. She would also like to take him home. Currently the patient has no physical complaints and he is not coughing. He confirms that he has an albuterol inhaler at home as well as nebulizer machine with appropriate medication. Patient feels comfortable with discharge plan home. No further questions at this time. Medications Administered Discontinued Medications Generic Name Dose Route Start Last Admin Trade Name Freq PRN Reason Stop Dose Admin Albuterol Sulfate 2.5 mg/ 0 mg 06/16/24 15:29 06/16/24 15:51 Albuterol/Ipratropium 3 ml INHALE 06/16/24 15:30 5 dose ONCE ONE Administration Medical Decision Making Medical Decision Making [facility] Narrative: 79-year-old male who has a history of COPD, SELINA, insomnia, GERD, noted to have oxygen saturation of 91% on room air at [facility]. Currently the patient is resting comfortably. Oxygen saturations 96% on room air. He has not had any coughing he currently denies any headache or having any dizziness. Check labs, EKG, UA, head CT as well as viral panel. No sepsis criteria at this time. DuoNeb treatment. Reassessment at this time. Concern for possible pneumonia or bronchitis. Also could be COPD exacerbation. No evidence of heart failure or ACS. Differential Diagnosis Differential Diagnoses: The differential diagnosis associated with the presentation includes Pneumonia Bronchitis Viral syndrome Anemia Dehydration Metabolic abnormality Lab Data [facility] Lab Attestation statement: I reviewed the patient's lab results. 06/16/24 15:50 06/16/24 15:50 Labs: Lab Results 06/16/24 06/16/24 06/16/24 Range/Units 15:50 15:51 16:37 WBC 9.0 (4.8-10.8) X10*3/uL RBC 4.79 (4.60-5.80) X10*6/uL Hgb 15.5 (14.0-18.0) g/dl Hct 45.5 (42.0-52.0) % MCV 95.0 (80.0-98.0) fL MCH 32.4 (27.0-33.0) pg MCHC 34.1 (31.0-36.0) g/dl RDW 13.3 (11.0-16.0) % Plt Count 215 (160-400) X10*3/uL MPV 9.7 (9.4-12.4) fL Immature Gran % (Auto) 0.3 (0.0-0.4) % Neut % (Auto) 68.7 (45-73) % Lymph % (Auto) 20.6 (20-40) % Moffat % (Auto) 8.6 (2-11) % Eos % (Auto) 1.5 (0-4) % Baso % (Auto) 0.3 (0-2) % Lymph # (Auto) 1.9 (1.2-4.9) X10*3/uL M[place]at # (Auto) 0.8 (0.1-1.2) X10*3/uL Eos # (Auto) 0.1 (0.0-0.4) X10*3/uL Baso # (Auto) 0.0 (0.0-0.2) X10*3/uL Abs Immat Gran (auto) 0.03 (0.00-0.03) X10*3/uL Absolute Neuts (auto) 6.2 (2.0-8.3) x10*3/uL Absolute Nucleated RBC 0.000 (0.0-0.012) X10*3/uL Nucleated RBC % (auto) 0.0 (0.0-0.2) /100WBC PT 11.5 (10.9-12.4) SEC INR 1.0 (0.9-1.1) Sodium 141 (135-145) mmol/L Potassium 4.0 (3.3-5.1) mmol/L Chloride 110 H (96-108) mmol/L Carbon Dioxide 25 (22-29) mmol/L Anion Gap 10 L (12-20) BUN 12 (9-16) mg/dL Creatinine 1.25 (0.5-1.4) mg/dL Estim Creat Clear Calc 46.2 Estimated GFR 55 Random Glucose 101 (60-115) mg/dL Calcium 8.8 (8.4-10.2) mg/dL Magnesium 2.1 (1.6-2.6) mg/dL Total Bilirubin 0.5 (0.0-1.0) mg/dL AST 31 (5-37) U/L ALT 38 (0-40) U/L Alkaline Phosphatase 134 H (39-117) U/L Troponin I High Sens < 2.7 (<3.5-35.0) ng/L B-Natriuretic Peptide < 10 (<100) pg/mL Total Protein 6.8 (6.5-8.0) g/dL Albumin 3.9 (3.5-5.0) g/dL Urine Color Yellow Urine Appearance Clear Urine pH 5.5 (5.0-9.0) Ur Specific [place] >= 1.030 H (1.005-1.025) Urine Protein Negative (Neg-Trace) mg/dL Urine Glucose (UA) Negative (Negative) mg/dL Urine Ketones Trace (Negative) mg/dL Urine Blood Negative (Negative) Urine Nitrite Negative (Negative) Ur Leukocyte Esterase Trace H (Negative) Urine RBC 0-2 (0-2) /HPF Urine WBC 0-5 (0-5) /HPF Ur Squamous Epith Cells 0-2 (0-2) /HPF Calcium Oxalate Crystal Present Urine Bacteria None Seen (None Seen) Hyaline Casts 0-2 (0-2) /LPF Influenza Type A (PCR) NEGATIVE (Negative) Influenza Type B (PCR) NEGATIVE (Negative) RSV RNA Qual (PCR) NEGATIVE (Negative) SARS-CoV-2 RNA (RT-PCR) NEGATIVE (Negative) Radiology Impression Radiologist Impression: 4:[address] brain reading is negative. Discharge Plan Discharge Clinical Impression: Asthma Qualifiers: Asthma severity: mild Asthma persistence: intermittent Asthma complication type: with acute exacerbation Qualified Code(s): J45.21 - Mild intermittent asthma with (acute) exacerbation Patient Disposition: Home, Self-Care Instructions: Asthma (ED) Additional Instructions: Continue albuterol inhaler every 4 hours as needed. You were given a dose of Decadron, which is a steroid help with any inflammation in your lungs. Follow-up with your primary care provider. Call this week to schedule a follow-up appointment. Return to the emergency department if you have any worsening of symptoms, or any concerns. Get well soon! Prescriptions: No Action (DME) mikey Clayton See Rx Instructions .MEDSUPPLY Qty: 1 0RF Rx Instructions: Folding Front wheeled walker oxycodone 5 mg tablet 5 mg PO Q12H PRN (Reason: Pain, Moderate (Pain Scale 4-6) 7 Days Qty: 14 0RF Rx Instructions: Partial Fill upon patient request. melatonin 3 mg tablet 6 mg PO BEDTIME PRN (Reason: for insomnia) 30 Days Qty: 60 3RF albuterol sulfate 90 mcg/actuation aerosol powdr breath activated 2 inh inhalation Q4-6H PRN (Reason: shortness of breath or wheezing) Qty: 1 0RF fluticasone propion-salmeterol [Advair Diskus] 250-50 mcg/dose blister with device 1 puff inhalation BID loratadine [Allergy Relief (loratadine)] 10 mg tablet 1 tab PO QAM cholecalciferol (vitamin D3) [Vitamin D3] 50 mcg (2,000 unit) capsule 1 cap PO QAM acetaminophen 325 mg Tablet 650 mg PO Q6H PRN (Reason: Pain, Mild (Pain Scale 1-3)) 30 Days Qty: 240 0RF omega-3 fatty acids [Fish Oil Concentrate] 1,000 mg capsule 1,000 mg PO DAILY doxepin 75 mg capsule 75 mg PO BEDTIME simvastatin 40 mg tablet 40 mg PO BEDTIME aspirin 81 mg tablet,delayed release (DR/EC) 81 mg PO QAM cyanocobalamin (vitamin B-12) 500 mcg tablet 500 mcg PO QAM latanoprost 0.005 % drops 0 drp ophthalmic (eye) gabapentin 100 mg capsule 100 mg PO BEDTIME Qty: 90 0RF Rx Instructions: Take 1 capsule at night for 1 week, if well tolerated increase it to 2 pills at night for a week, if well tolerated increase it to 3 pills at night mirtazapine 30 mg tablet 30 mg PO BEDTIME famotidine 20 mg tablet 20 mg PO DAILY pantoprazole [Protonix] 40 mg tablet,delayed release (DR/EC) 40 mg PO BID 30 Days Qty: 60 6RF simethicone 180 mg capsule 180 mg PO QID Qty: 120 6RF sucralfate [Carafate] 100 mg/mL suspension 10 ml PO .qhs Qty: 200 6RF Print Language: Niuean
[2024-06-16 15:16] VITALS: BP 128/87; PULSE 78; RESP 18; TEMP 37.3; O2SAT 96; BMI 22.9
[2024-06-16] MEDS: Albuterol Sulfate 2.5 MG, Albuterol/Iprat 2.5/0.5MG 3 ML 3 ML INHALE (15:51)
[2024-06-16 15:52] VITALS: PULSE 86; RESP 24; O2SAT 96
[2024-06-16 15:57] LABS: MANUAL DIFF FLAG NO
[2024-06-16 16:15] LABS: Basophils Percent Auto 0.3 % (0-2); Eosinophils Absolute Auto 0.1 X10*3/uL (0.0-0.4); Eosinophils Percent Auto 1.5 % (0-4); Hematocrit 45.5 % (42.0-52.0); Hemoglobin 15.5 g/dl (14.0-18.0); Imm Gran Abs Auto 0.03 X10*3/uL (0.00-0.03); Imm Gran Pct Auto 0.3 % (0.0-0.4); Lymphocytes Absolute Auto 1.9 X10*3/uL (1.2-4.9); Lymphocytes Percent Auto 20.6 % (20-40); Mean Corpuscular HGB Conc 34.1 g/dl (31.0-36.0); Mean Corpuscular Hemoglobin 32.4 pg (27.0-33.0); Mean Platelet Volume 9.7 fL (9.4-12.4); Monocytes Absolute Auto 0.8 X10*3/uL (0.1-1.2); Monocytes Percent Auto 8.6 % (2-11); Neutrophils Absolute Auto 6.2 x10*3/uL (2.0-8.3); Neutrophils Percent Auto 68.7 % (45-73); Platelet Count 215 X10*3/uL (160-400); Red Blood Count 4.79 X10*6/uL (4.60-5.80); Red Cell Distribution Width 13.3 % (11.0-16.0)
[2024-06-16 16:21] LABS: Prothrombin Time 11.5 SEC (10.9-12.4)
[2024-06-16 16:26] LABS: Alanine Aminotransferase 38 U/L (0-40); Albumin Level 3.9 g/dL (3.5-5.0); Anion Gap 10 (12-20); Aspartate Amino Transferase 31 U/L (5-37); B Type Natriuretic Peptide < 10 pg/mL (<100); Bilirubin Total 0.5 mg/dL (0.0-1.0); Blood Urea Nitrogen 12 mg/dL (9-16); Calcium 8.8 mg/dL (8.4-10.2); Carbon Dioxide 25 mmol/L (22-29); Chloride 110 mmol/L (96-108); Creatinine Clr Calc Pharmacy 46.2; Estimated Glomerular Filt Rate 55; Glucose Random 101 mg/dL (60-115); Magnesium 2.1 mg/dL (1.6-2.6); Sodium 141 mmol/L (135-145); Total Protein 6.8 g/dL (6.5-8.0)
[2024-06-16 16:28] LABS: Troponin-I High Sensitivity < 2.7 ng/L (<3.5-35.0)
[2024-06-16 16:42] LABS: Influenza A PCR NEGATIVE (Negative); Influenza B PCR NEGATIVE (Negative); Resp Syncy Virus RNA Qual PCR NEGATIVE (Negative); SARS COV2 PCR INHOUSE NEGATIVE (Negative)
[2024-06-16 16:56] LABS: Appearance Urine Clear; Color Urine Yellow; Glucose Urine UA Negative (Negative); Leukocyte Esterase Urine Trace (Negative); Nitrite Urine Negative (Negative); PH 5.5 (5.0-9.0); Specific Gravity - Urine >= 1.030 (1.005-1.025); UMIC TRIGGER UA YES; Urine Blood Negative (Negative); Urine Ketones Trace mg/dL (Negative); Urine Protein Negative (Neg-Trace)
[2024-06-16 17:10] LABS: Bacteria Urine None Seen (None Seen); Calcium Oxalate Crystals Urine Present; Hyaline Casts Urine 0-2 /LPF (0-2); RBC Urine 0-2 /HPF (0-2); Squamous Epithelial Cell Urine 0-2 /HPF (0-2); WBC Urine 0-5 /HPF (0-5)
[2024-06-16 17:39] LABS: Alkaline Phosphatase 134 U/L (39-117)
[2024-06-16 18:28] VITALS: BP 138/85; PULSE 76; RESP 22; TEMP 37; O2SAT 96
[2024-06-16] MEDS: dexAMETHasone 4 MG TABLET 8 MG PO (19:11)
[2024-06-16 19:21] VITALS: BP 138/85; PULSE 76; RESP 22; TEMP 37; O2SAT 96
== END 2024-06-16 19:21 | disposition home or self-care (01) ==
PROVIDERS: Physician Assistant; Emergency Provider Emergency Medicine; PCP Family Medicine
DX: J45.21 Mild intermittent asthma with (acute) exacerbation (principal); R51.9 Headache, unspecified; Z03.818 Encounter for observation for suspected exposure to other biological agents ruled out; I10 Essential (primary) hypertension; E78.5 Hyperlipidemia, unspecified; J44.9 Chronic obstructive pulmonary disease, unspecified; R06.02 Shortness of breath; Z79.02 Long term (current) use of antithrombotics/antiplatelets; Z79.82 Long term (current) use of aspirin; Z79.899 Other long term (current) drug therapy
CPT/HCPCS: 0241U; 70450; 71046; 80053; 81001; 81003; 83735; 83880; 84484; 85025; 85610; 93005; 94640; 99284; 99285; J8540

== ENCOUNTER → 2024-06-16 14:19 | Outpatient (BNV) | payer MEDICARE, MEDICAID, SELFPAY | PROVIDERS: Emergency Provider Emergency Medicine; PCP Family Medicine; Visit Provider Internal Medicine Cardiovascular Disease | DX: R06.02 Shortness of breath (principal); R94.31 Abnormal electrocardiogram [ECG] [EKG] | CPT/HCPCS: 93010 ==

== ENCOUNTER → 2024-06-16 16:29 | Outpatient (BNV) | payer MEDICARE, MEDICAID, SELFPAY | PROVIDERS: Emergency Provider Emergency Medicine; PCP Family Medicine; Visit Provider Specialist | DX: R51.9 Headache, unspecified (principal); R42 Dizziness and giddiness | CPT/HCPCS: 70450 ==

== ENCOUNTER 2024-08-10 08:02 | Outpatient (REF) | payer MEDICARE, MEDICAID, SELFPAY ==
--- OUTSIDE RECORDS SUMMARY | 2024-08-10 08:11 | XMS_ITS | Encounter Summary ---
Author Organization [employer] Address [address] [place] [address] Care Team Providers Care Dextrine Mixer Name Role Phone Tangela Garcia MD Primary Care Provider [phone] Reason for Visit * Reason Comments Med Refill Encounter Details Date Type Department Care Team ([facility] st Contact Info) Description 12/13/2023 Refill [facility] MEDICINE [address] [place] [address] Tangela Garcia MD [address] [place], [place] [phone] Wheezing Social History Tobacco Use Types Packs/Day Years Used Date Smoking Tobacco: Never Passive Smoke Exposure: Never Smokeless Tobacco: Never Alcohol Use Standard Drinks/Week Comments Never 0 (1 standard drink = 0.6 oz pur e alcohol) Depression Answer Date Recorded Patient Health Questionnaire-9 Score 0 03/01/2023 Housing Stability Answer Date Recorded What is your housing situation today? I have sunitha galdamez 10/26/[address] you li ve. Do you have problems with any of the following? None of the above 10/26/2023 Food Insecurity Answer Date Recorded Within the past 12 months, y ou worried that your food would run out before you got money to buy more: Never True 10/26/2023 Within the past 12 months,th e food you bought just didn't last and you didn't have enough money to get more: Never True Transportation Answer Date Recorded In the past 12 months, has l ack of transportation kept you from medical appts, meetings, work or from getting things needed for daily living? No 10/26/2023 Utilities Answer Date Recorded In the past 12 months, has t he electric, gas, oil or water company threatened to shut off services in your home? No 10/26/2023 Depression Answer Date Recorded Patient Health Questionnaire-2 Score 0 03/01/2023 Sex and Gender Information Value Date Recorded Sex Assigned at Male 04/13/2022 10:15 AM EDT Legal Sex Male 10:15 AM EDT Gender Identity Choose not to disclose 10:15 AM EDT Sexual Orientation Don't know 04/13/2022 10 :15 AM EDT documented as of this encounter Plan of Treatment Upcoming Encounters Date Type Department Care Team (Late st Contact Info) Description 08/11/2024 2:00 PM EST Medication Management [facility] MEDICINE [address] [place] [address] 10/16/2024 10:30 AM EDT Telemedicine [facility] MED & PEDS [address] [place] [address] Barbie Voss, NAYELY [address] [place] [address] documented as of this encounter Visit Diagnoses Diagnosis Wheezing documented in this encounter Additional Health Concerns Assessment Noted Time PHQ-9 Depression Total Score: 0 03/01/20 23 10:01 AM EDT documented as of this encounter Care Teams Dextrine Mixer Relationship Specialty Start Date End Date Tangela Garcia MD [address] [place] [id number] PCP - General Family Medicine 06/14/18 documented as of this encounter
--- OUTSIDE RECORDS SUMMARY | 2024-08-10 08:11 | XMS_ITS | Encounter Summary ---
Author Organization [employer] Address [address] [place] [address] Care Team Providers Care Tape Folding Machine Operator Name Role Phone Tangela Garcia MD Primary Care Provider [phone] Encounter Details Date Type Department Care Team ([facility] Contact Info) Description 06/04/2022 Orders Only [facility] MEDICINE [address] [place] [address] Tangela Garcia MD [address] [place], [place] [phone] Anemia, unspecified type (Primary Dx); Transaminitis; Liver disease Social History Tobacco Use Types Packs/Day Years Used Date Smoking Tobacco: Never Passive Smoke Exposure: Never Smokeless Tobacco: Never Alcohol Use Standard Drinks/Week Comments Never 0 (1 standard drink = 0.6 oz pur e alcohol) Sex and Gender Information Value Date Recorded Sex Assigned at Male 04/13/2022 10:15 AM EDT Legal Sex Male 10:15 AM EDT Gender Identity Choose not to disclose 10:15 AM EDT Sexual Orientation Don't know 04/13/2022 10 :15 AM EDT COVID-19 Exposure Response Date Recorded In the last 10 days, have yo u been in contact with someone who was confirmed or suspected to have Coronavirus/COVID-19? No / Unsure 05/21/2022 9:18 AM EST documented as of this encounter Plan of Treatment Upcoming Encounters Date Type Department Care Team ([facility] Contact Info) Description 08/11/2024 2:00 PM EST Medication Management [facility] MEDICINE [address] [place] [address] 10/16/2024 10:30 AM EDT Telemedicine [facility] MED [facility] PEDS [address] [place] [address] Barbie Voss, RN [address] [place] [address] Scheduled Orders Name Type Priority Associated Diagnoses Orde r Schedule CBC auto differential Lab STAT Anemia, unspecified type Expected: 06/04/2022 (Approximate), Expires: 06/04/2023 Comprehensive Metabolic Panel Lab STAT Transaminitis Expected: 06/04/2022 (Approximate), Expires: 06/04/2023 C-reactive Protein Lab STAT Anemia, unspecified type Expected: 06/04/2022 (Approximate), Expires: 06/04/2023 Sed Rate by Modified [place] Lab STAT Anemia, unspecified type Expected: 06/04/2022 (Approximate), Expires: 06/04/2023 Prothrombin Time-INR Lab STAT Liver disease Expected: 06/04/2022, Expires: 06/04/2023 APTT Lab STAT Liver disease Expected: 06/04/2022 (Approximate), Expires: 06/04/2023 Reticulocyte Count Lab STAT Anemia, unspecified type Expected: 06/04/2022 (Approximate), Expires: 06/04/2023 Iron, TIBC And Ferritin Panel Lab STAT Anemia, unspecified type Expected: 06/04/2022 (Approximate), Expires: 06/04/2023 Vitamin B12/Folate, Serum Panel Lab STAT Anemia, unspecified type Expected: 06/04/2022 (Approximate), Expires: 06/04/2023 TSH W/Reflex to FT4 Lab STAT Anemia, unspecified type Expected: 06/04/2022 (Approximate), Expires: 06/04/2023 Gamma Glutamyl Transferase (GGT) Lab STAT Transaminitis Expected: 06/04/2022 (Approximate), Expires: 06/04/2023 documented as of this encounter Visit Diagnoses Diagnosis Anemia, unspecified type- Primary Transaminitis Nonspecific elevation of levels of transaminase or lactic acid dehydrogenase (LDH) Liver disease Unspecified disorder of liver documented in this encounter Care Teams Tape Folding Machine Operator Relationship Specialty Start Date End Date Tangela Garcia MD [address] [place] [address] PCP - General Family Medicine 06/14/18 documented as of this encounter
--- OUTSIDE RECORDS SUMMARY | 2024-08-10 08:12 | XMS_ITS | Encounter Summary ---
Author Organization [employer] Address [address] [place] [address] Care Team Providers Care Manager Hematology Name Role Phone Tangela Garcia MD Primary Care Provider [phone] Reason for Visit * Reason Comments Med Refill Encounter Details Date Type Department Care Team ([facility] st Contact Info) Description 09/06/2023 Refill [facility] MEDICINE [address] [place] [address] Tangela Garcia MD [address] [place], [place] [phone] Wheezing Social History Tobacco Use Types Packs/Day Years Used Date Smoking Tobacco: Never Passive Smoke Exposure: Never Smokeless Tobacco: Never Alcohol Use Standard Drinks/Week Comments Never 0 (1 standard drink = 0.6 oz pur e alcohol) Depression Answer Date Recorded Patient Health Questionnaire-9 Score 0 03/01/2023 Housing Stability Answer Date Recorded What is your housing situation today? I have sunitha galdamez 03/31/[address] you li ve. Do you have problems with any of the following? None of the above 03/31/2023 Food Insecurity Answer Date Recorded Within the past 12 months, y ou worried that your food would run out before you got money to buy more: Never True 03/31/2023 Within the past 12 months,th e food you bought just didn't last and you didn't have enough money to get more: Never True Transportation Answer Date Recorded In the past 12 months, has l ack of transportation kept you from medical appts, meetings, work or from getting things needed for daily living? No 03/31/2023 Utilities Answer Date Recorded In the past 12 months, has t he electric, gas, oil or water company threatened to shut off services in your home? No 03/31/2023 Depression Answer Date Recorded Patient Health Questionnaire-2 [...] Description 08/11/2024 2:00 PM EST Medication Management [facility] MEDICINE [address] [place] [address] 10/16/2024 10:30 AM EDT Telemedicine [facility] PEDS [address] [place] [address] Barbie Voss, NAYELY [address] [place] [address] documented as of this encounter Visit Diagnoses Diagnosis Wheezing documented in this encounter Additional Health Concerns Assessment Noted Time PHQ-9 Depression Total Score: 0 03/01/20 23 10:01 AM EDT documented as of this encounter Care Teams Manager Hematology Relationship Specialty Start Date End Date Tangela Garcia MD [address] [place] [id number] PCP - General Family Medicine 06/14/18 documented as of this encounter
--- OUTSIDE RECORDS SUMMARY | 2024-08-10 08:12 | XMS_ITS | Encounter Summary ---
Author Organization [employer] Address [address] [facility] 7t [place] [address] Care Team Providers Care Auto Transmission Technician Name Role Phone Tangela Garcia MD Primary Care Provider [phone] Reason for Visit * Reason Onset Date Comments Prior Authorization 08/01/2024 PA: Lidocain e 5% Patch Encounter Details Date Type Department Care Team ([facility] Contact Info) Description 08/01/2024 Telephone [facility] MEDICINE [address] [place], [place] [phone] Tangela Garcia MD [address] [place], [place] [phone] Prior Authorization (PA: Lidocaine 5% Patch) Social History Tobacco Use Types Packs/Day Years Used Date Smoking Tobacco: Never Passive Smoke Exposure: Never Smokeless Tobacco: Never Alcohol Use Standard Drinks/Week Comments Never 0 (1 standard drink = 0.6 oz pur e alcohol) Depression Answer Date Recorded Patient Health Questionnaire-9 Score 0 07/26/2024 Patient Health Questionnaire-9 Score 0 07/26/2024 Last PHQ-9: Questionnaire Data Not on file 0 07/26/2024 Housing Stability Answer Date Recorded What is [...] Date Recorded Patient Health Questionnaire-2 Score 0 07/26/2024 Sex and Gender Information Value Date Recorded Sex Assigned at Male 04/13/2022 10:15 AM EDT Legal Sex Male 10:15 AM EDT Gender Identity Choose not to disclose 10:15 AM EDT Sexual Orientation Don't know 04/13/2022 10 :15 AM EDT documented as of this encounter Miscellaneous Notes * Telephone Encounter - Kiersten Neal - 08/01/2024 9:36 AM EST PA initiated on Covermymeds for Lidocaine 5% . Approval/denial pending. documented in this encounter Plan of Treatment Upcoming Encounters Date Type Department Care Team (Late st Contact Info) Description 08/11/2024 2:00 PM EST Medication Management [facility] MEDICINE [address] [place] [address] 10/16/2024 10:30 AM EDT Telemedicine [facility] MED & PEDS 505 [place] [address] aBrbie Voss RN 505 [place] [address] documented as of this encounter Visit Diagnoses Not on filedocumented in this encounter Additional Health Concerns Assessment Noted Time PHQ-9 Depression Total Score: 0 07/26/19 25 9:16 AM EST documented as of this encounter Care Teams Auto Transmission Technician Relationship Specialty Start Date End Date Tangela Garcia MD [address] [place] [address] PCP - General Family Medicine 06/14/18 documented as of this encounter
--- OUTSIDE RECORDS SUMMARY | 2024-08-10 08:12 | XMS_ITS | Encounter Summary ---
Author Organization [employer] Address [address] [place] [address] [address] [address] Care Team Providers Care Manager Small Business Name Role Phone Tangela Garcia MD Primary Care Provider [phone] Reason for Visit * Reason Comments Med Refill Encounter Details Date Type Department Care Team (Late Contact Info) Description 02/16/2023 Refill [facility] MEDICINE 230 [place] [address] Savannah Martini, ANP 230 [place] [address] Social History Tobacco Use Types Packs/Day Years [...] Encounters Date Type Department Care Team (Late Contact Info) Description 08/11/2024 2:00 PM EST Medication Management [facility] MEDICINE [address] [place], [place] [phone] 10/16/2024 10:30 AM EDT Telemedicine [facility] CH[facility] MED & PEDS 505 [place] [address] Barbie Voss RN 505 [place] [address] documented as of this encounter Visit Diagnoses Not on filedocumented in this encounter Care Teams Manager Small Business Relationship Specialty Start Date End Date Tangela Garcia MD [address] [place] [address] PCP - General Family Medicine 06/14/18 documented as of this encounter
--- OUTSIDE RECORDS SUMMARY | 2024-08-10 08:12 | XMS_ITS | Encounter Summary ---
Author Organization [employer] Address [address] [facility] 7t [place] [address] Care Team Providers Care Padding Gluer Name Role Phone Tangela Garcia MD Primary Care Provider [phone] Reason for Visit * Reason Comments Med Refill Encounter Details Date Type Department Care Team ([facility] st Contact Info) Description 07/30/2024 Refill [facility] MEDICINE 230 [place] [address] Tangela Garcia MD 230 [place], [place] [phone] Dyslipidemia Social History Tobacco Use Types Packs/Day Years [...] Upcoming Encounters Date Type Department Care Team ([facility] st Contact Info) Description 08/11/2024 2:00 PM EST Medication Management [facility] MEDICINE [address] [place] [address] 10/16/2024 10:30 AM EDT Telemedicine [facility] MED & PEDS 505 [place] [address] Barbie Voss, RN 505 [place] [address] documented as of this encounter Visit Diagnoses Diagnosis Dyslipidemia Other and unspecified hyperlipidemia documented in this encounter Additional Health Concerns Assessment Noted Time PHQ-9 Depression Total Score: 0 07/26/19 25 9:16 AM EST documented as of this encounter Care Teams Padding Gluer Relationship Specialty Start Date End Date Tangela Garcia MD 230 [place] [address] PCP - General Family Medicine 06/14/18 documented as of this encounter
--- OUTSIDE RECORDS SUMMARY | 2024-08-10 08:12 | XMS_ITS | Encounter Summary ---
Author Organization [employer] Address [address] [facility] [address] 7[address] [place] [address] Care Team Providers Care Textile Slitting Machine Operator Name Role Phone Tangela Garcia MD Primary Care Provider [phone] Encounter Details Date Type Department Care Team (Latest Contact Info) Description 07/24/2024 Travel Social History Tobacco Use Types Packs/Day Years [...] Description 08/11/2024 2:00 PM EST Medication Management [facility] MEDICINE 230 [place] [address] 10/16/2024 10:30 AM EDT Telemedicine [facility] CH[facility] MED & PEDS 505 [place] [address] Barbie Voss, RN 505 [place] [address] documented as of this encounter Visit Diagnoses Not on filedocumented in this encounter Additional Health Concerns Assessment Noted Time PHQ-9 Depression Total Score: 0 03/01/20 23 10:01 AM EDT documented as of this encounter Care Teams Textile Slitting Machine Operator Relationship Specialty Start Date End Date Tangela Garcia MD 230 [place] [address] PCP - General Family Medicine 06/14/18 documented as of this encounter
--- OUTSIDE RECORDS SUMMARY | 2024-08-10 08:12 | XMS_ITS ---
Author Organization [employer] Address Unknown Encounters Encounter Performer Performer Role Encounter Diagnoses Location Date Discharge - Discharged to home or self care - [facility] [employer] 09/16/2013 12:12 am EDT - 09/29/2013 11:00 am EDT Immunizations Vaccine Date Influenza 03/18/2013 12:00 am EDT Pneumovax Dose 1 03/28/2010 12:00 am EDT Social History
--- OUTSIDE RECORDS SUMMARY | 2024-08-10 08:12 | XMS_ITS | Encounter Summary ---
Author Organization [employer] Address [address] [facility] 7t [place] [address] Care Team Providers Care Divorce Mediator Name Role Phone Tangela Garcia MD Primary Care Provider [phone] Reason for Visit * Reason Comments controlled substance treatment Encounter Details Date Type Department Care Team ([facility] Contact Info) Description 07/24/2024 10:30 AM EST Telemedicine [facility] CHC MED & PEDS 505 [place] [address] Barbie Voss, RN 505 [place] [address] Chronic pain of right knee Social History Tobacco Use Types Packs/Day Years [...] AM EDT documented as of this encounter Progress Notes * Barbie Voss RN - 07/24/2024 10:30 AM EST S: PHYSICAL THERAPY NURSE Televisit. Translation provided by [facility] ID# [id number]. Pt prescribed oxycodone 5mg Po q12h PRN. States has been taking as prescribed. Pt denies ETOH/nicotine/street drug/marijuana use. Currently rates pain a 6/10 located in L shoulder and R knee. Patient states medication is usually 60% effective at alleviating pain. Pt reports walking impaired from pain. No other questions/ concerns atthis time. O. SLOT KEY PERSON verified today. Rx last filled on 07/21/24. Pill count performed over the phone, patient states he has 48 pills at this time, 48 expected. Medication is not overused by patient. Last PCP visit was on 04/18/24. 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 P: Patient to continue taking medication only as prescribed; Next PHYSICAL THERAPY NURSE RV appointment scheduled for 10/16/24 @ 10:30am. F/u with PCP 07/26/24. F/U sooner PRN. Patient verbalized understanding and agreed to plan. documented in this encounter Plan of Treatment Upcoming Encounters Date Type Department Care Team (Late st Contact Info) Description 08/11/2024 2:00 PM EST Medication Management [address] [address] 10/16/2024 10:30 AM EDT Telemedicine [facility] CHC MED & PEDS 505 [place] [address] Barbie Voss, RN [address] [place] [address] documented as of this encounter Visit Diagnoses Diagnosis Chronic pain of right knee documented in this encounter Additional Health Concerns Assessment Noted Time PHQ-9 Depression Total Score: 0 03/01/20 10:01 AM EDT documented as of this encounter Care Teams Divorce Mediator Relationship Specialty Start Date End Date Tangela Garcia MD [address] [place] [address] PCP - General Family Medicine 06/14/18 documented as of this encounter
--- OUTSIDE RECORDS SUMMARY | 2024-08-10 08:12 | XMS_ITS | Encounter Summary ---
Author Organization [employer] Address [address] [facility] [address] 7[address] [place] [address] Care Team Providers Care Flamer After Lasting Name Role Phone Tangela Garcia MD Primary Care Provider [phone] Reason for Visit * Reason Onset Date Comments chart prep 07/20/2024 Encounter Details Date Type Department Care Team ([facility] st Contact Info) Description 07/20/2024 Telephone [facility] MEDICINE 230 [place] [address] Chelsey Felder MA chart prep Social History Tobacco Use Types Packs/Day Years [...] encounter Miscellaneous Notes * Telephone Encounter - Chelsey Felder MA - 07/20/2024 2:34 PM EST ..Chart Prep Labs: not applicable Images: not applicable Vaccines due: Updated Referrals: Completed Screenings: Not Applicable Overdue care gaps: Sbirt, PHQ-9, and eliezer-7 documented in this encounter Plan of Treatment Upcoming Encounters Date Type Department Care Team (Late st Contact Info) Description 08/11/2024 2:00 PM EST Medication Management [facility] MEDICINE [address] [place] [address] 10/16/2024 10:30 AM EDT Telemedicine [facility] CHC MED & PEDS [address] [place] [address] Barbie Voss, RN 505 [place] [address] documented as of this encounter Visit Diagnoses Not on filedocumented in this encounter Additional Health Concerns Assessment Noted Time PHQ-9 Depression Total Score: 0 03/01/20 23 10:01 AM EDT documented as of this encounter Care Teams Flamer After Lasting Relationship Specialty Start Date End Date Tangela Garcia MD [address] [place] [address] PCP - General Family Medicine 06/14/18 documented as of this encounter
--- OUTSIDE RECORDS SUMMARY | 2024-08-10 08:12 | XMS_ITS | Encounter Summary ---
Author Organization [employer] Address [address] [place] [address] 7[address] [place] [address] Care Team Providers Care Supervisor Billposting Name Role Phone Tangela Garcia MD Primary Care Provider [phone] Reason for Visit * Reason Comments Med Refill Encounter Details Date Type Department Care Team (Late Contact Info) Description 02/13/2023 Refill [facility] MEDICINE 230 [place] [address] Savannah Martini, ANP 230 [place] [address] Social History Tobacco Use Types Packs/Day Years [...] Description 08/11/2024 2:00 PM EST Medication Management [facility] MEDICINE 230 [place], [place] [phone] 10/16/2024 10:30 AM EDT Telemedicine [facility] CHC MED & PEDS [address] [place] [address] Barbie Voss RN 505 [place] [address] documented as of this encounter Visit Diagnoses Not on filedocumented in this encounter Care Teams Supervisor Billposting Relationship Specialty Start Date End Date Tangela Garcia MD [address] [place] [address] PCP - General Family Medicine 06/14/18 documented as of this encounter
--- OUTSIDE RECORDS SUMMARY | 2024-08-10 08:12 | XMS_ITS | Encounter Summary ---
Author Organization [employer] Address [address] [facility] [address] 7t [place] [address] Care Team Providers Care Psychologist Educational Name Role Phone Tangela Garcia MD Primary Care Provider [phone] Encounter Details Date Type Department Care Team ([facility] st Contact Info) Description 07/24/2024 Telephone [facility] CHC MED & PEDS 505 [place], [place] [phone] Barbie Voss, NAYELY 505 [place] [address] Social History Tobacco Use Types Packs/Day Years [...] encounter Miscellaneous Notes * Telephone Encounter - Barbie Voss RN - 07/24/2024 9:08 AM EST .What SOD STRIPPER Tier would you like this patient to be? Tier 1 = HIGH RISK, Monthly SOD STRIPPER visits Tier 2 = MODerate RISK, Q3 Month visits Tier 3 = LOW RISK = Q4-6 month visits documented in this encounter Plan of Treatment Upcoming Encounters Date Type Department Care Team (Late st Contact Info) Description 08/11/2024 2:00 PM EST Medication Management [facility] MEDICINE 230 [place] [address] 10/16/2024 10:30 AM EDT Telemedicine [facility] MED & PEDS 505 [place] [address] Barbie Voss, RN [address] [place] [address] documented as of this encounter Visit Diagnoses Not on filedocumented in this encounter Additional Health Concerns Assessment Noted Time PHQ-9 Depression Total Score: 0 03/01/20 23 10:01 AM EDT documented as of this encounter Care Teams Psychologist Educational Relationship Specialty Start Date End Date Tangela Garcia MD [address] [place] [address] PCP - General Family Medicine 06/14/18 documented as of this encounter
--- OUTSIDE RECORDS SUMMARY | 2024-08-10 08:12 | XMS_ITS | Encounter Summary ---
Author Organization [employer] Address [address] [facility] 7t [place] [address] Care Team Providers Care Bow Repairer Custom Name Role Phone Tangela Garcia MD Primary Care Provider Reason for Visit * Reason Comments Med Refill Encounter Details Date Type Department Care Team ([facility] st Contact Info) Description 08/16/2023 Refill [facility] MEDICINE 230 [place] [address] Tangela Garcia MD 230 [place], [place] [phone] Vitamin deficiency Social History Tobacco Use Types Packs/Day Years [...] Description 08/11/2024 2:00 PM EST Medication Management [facility] MEDICINE 230 [place] [address] 10/16/2024 10:30 AM EDT Telemedicine [facility] CHC MED & PEDS 505 [place] [address] Barbie Voss, RN 505 [place] [address] documented as of this encounter Visit Diagnoses Diagnosis Vitamin deficiency Unspecified vitamin deficiency documented in this encounter Additional Health Concerns Assessment Noted Time PHQ-9 Depression Total Score: 0 03/01/20 23 10:01 AM EDT documented as of this encounter Care Teams Bow Repairer Custom Relationship Specialty Start Date End Date Tangela Garcia MD [address] [place] [address] PCP - General Family Medicine 06/14/18 documented as of this encounter
--- OUTSIDE RECORDS SUMMARY | 2024-08-10 08:12 | XMS_ITS | Encounter Summary ---
Author Organization [employer] Address [address] [facility] [address] 7t [place] [address] Care Team Providers Care Human Resources Supervisor Name Role Phone Tangela Garcia MD Primary Care Provider [phone] Encounter Details Date Type Department Care Team (Latest Contact Info) Description 07/26/2024 Travel Social History Tobacco Use Types Packs/Day [...] t he electric, gas, oil or water [employer] threatened to shut off services in your [...] Description 08/11/2024 2:00 PM EST Medication Management [facility] MEDICINE 230 [place] [address] 10/16/2024 10:30 AM EDT Telemedicine [facility] CHC MED & PEDS 505 [place] [address] Barbie Voss, RN 505 [place] [address] documented as of this encounter Visit Diagnoses Not on filedocumented in this encounter Additional Health Concerns Assessment Noted Time PHQ-9 Depression Total Score: 0 07/26/19 25 9:16 AM EST documented as of this encounter Care Teams Human Resources Supervisor Relationship Specialty Start Date End Date Tangela Garcia MD 230 [place] [address] PCP - General Family Medicine 06/14/18 documented as of this encounter
--- OUTSIDE RECORDS SUMMARY | 2024-08-10 08:12 | XMS_ITS | Encounter Summary ---
Author Organization [employer] Address [address] [facility] 7t [place] [address] Care Team Providers Care Gate Keeper Name Role Phone Tangela Garcia MD Primary Care Provider [phone] Encounter Details Date Type Department Care Team (Late st Contact Info) Description 07/20/2024 Refill [facility] MEDICINE 230 [place], [place] [phone] Tangela Garcia MD 230 [place], [place] [phone] Status post right knee replacement; Primary osteoarthritis involving multiple joints Social History Tobacco Use Types Packs/Day Years [...] encounter Miscellaneous Notes * Telephone Encounter - Blossom Ascencio - 07/20/2024 8:22 AM EST TC from pt requesting medication refill. Medications needing refill : oxyCODONE (Roxicodone) 5 MG immediate release tablet To be sent to: [facility] documented in this encounter Plan of Treatment Upcoming Encounters Date Type Department Care Team (Late st Contact Info) Description 08/11/2024 2:00 PM EST Medication Management [facility] MEDICINE [address] [place] [address] 10/16/2024 10:30 AM EDT Telemedicine [facility] CHC MED & PEDS 505 [place] [address] Barbie Voss RN 505 [place] [address] documented as of this encounter Visit Diagnoses Diagnosis Status post right knee replacement Primary osteoarthritis involving multiple joints documented in this encounter Additional Health Concerns Assessment Noted Time PHQ-9 Depression Total Score: 0 03/01/20 23 10:01 AM EDT documented as of this encounter Care Teams Gate Keeper Relationship Specialty Start Date End Date aTngela Garcia MD 230 [place] [address] PCP - General Family Medicine 06/14/18 documented as of this encounter
--- OUTSIDE RECORDS SUMMARY | 2024-08-10 08:12 | XMS_ITS | Encounter Summary ---
Author Organization [employer] Address [address] [place] [address] [address] [address] Care Team Providers Care Supervisor Border Department Name Role Phone Tangela Garcia MD Primary Care Provider Reason for Referral * Medications - Closed Specialty Diagnoses / Procedures Referred By Contac t Referred To Contact Diagnoses Chronic left shoulder pain Tangela Garcia MD [address] [place] [id number] Phone: tel: fax: Referral ID Status Reason Start Date Expiration Date Visits Re quested Visits Authorized [id number] Closed 07/26/2024 07/26/2025 1 1 Encounter Details Date Type Department Care Team (Latest Contact Info) Description 07/26/2024 9:15 AM EST Office Visit [facility] [address] [place] [address] [phone] Tangela Garcia MD [address] [place] [id number] SELINA (obstructive sleep apnea) (Primary Dx); Asthma-COPD overlap syndrome (CMS/HCC); Primary osteoarthritis of right knee; Chronic left shoulder pain; Dyslipidemia; Nonintractable headache, unspecified chronicity pattern, unspecified headache type; Dietary counseling; Exercise counseling; Class 1 obesity due to excess calories with serious comorbidity and body mass index (BMI) of 30.0 to 30.9 in adult; Status post right knee replacement; Primary osteoarthritis involving multiple joints; Hypertension, unspecified type; Cannabis dependence (CMS/HCC); Chronic pain of right knee; History of repair of rotator cuff; Chronic, continuous use of opioids Social History Tobacco Use Types Packs/Day Years [...] is your housing situation today? I have sunithajos galdamez 10/26/[address] you [...] AM EDT documented as of this encounter Last Filed Vital Signs Vital Sign Reading Time Taken Comments Blood Pressure 146/94 07/26/2024 9:45 AM EST Pulse 79 07/26/2024 9:15 AM EST Temperature 36.4 ??C (97.5 ??F) 07/26/2024 9:15 AM ES T Respiratory Rate 26 07/26/2024 9:15 AM EST Oxygen Saturation 98% 07/26/2024 9:15 AM EST Inhaled Oxygen Concentration - - Weight 79.5 kg (175 lb 3.2 oz) 07/26/2024 9:15 A M EST Height - - Body Mass Index 30.07 04/18/2024 1:10 PM EST documented in this encounter Progress Notes * Tangela Garcia MD - 07/26/2024 9:15 AM EST Subjective Jose Alfredo Garsia is a 79 y.o. adult who has COPD, osteoarthritis in multiple joints, and dyslipidemia, and patient presents for follow up of chronic conditions. Background: Our last encounter was 04/18/2024. Discussed about headache, shoulder pain, and hearing problem. MRIhead result was still pending. BP was unusually elevated. Interval history: Brain MRI on 03/19/24 1. No evidence of acute infarction, intracranial hemorrhage, mass effect, or edema. 2. Age-related involutional changes, and mild to moderate changes of small vessel ischemia. 3. Trace right mastoid fluid. Seen in the walk-in clinic on 06/16/24 for headache and orthopnea. Patient was hypoxic in the walk-inclinic and sent to ED by EMS. Dx asthma exacerbation. Given decadron, nebulizer treatment, in ED. CXR and head CT were normal. Today: Pt reports his breathing is doing well and his at home BP has been 150/85, 148/83, and 146/89. Pt reports his headaches have improved and he is eating less salt. Pt needs to use his nebulizer twice aday. Pt declined Flu shot. Pt has not made an appointment with his urologist, but will call if they don???t schedule an appointment with him by his annual date. Pt reports he is still experiencing pain on his left shoulder and knee. Pt is waking up in the night because of the pain. Pt is having regular bowel movements. Review of Systems Constitutional: Negative for activity change, appetite change and fever. Respiratory: Negative for shortness of breath. Cardiovascular: Negative for chest pain. Objective Vitals: 07/26/24 0915 07/26/24 0945 BP: (!) 161/85 (!) 146/94 Pulse: 79 Resp: 26 Temp: 97.5 ??F (36.4 ??C) TempSrc: Temporal SpO2: 98% Weight: 175 lb 3.2 oz (79.5 kg) Physical Exam Constitutional: General: Jose Alfredo is not in acute distress. Appearance: Normal appearance. Jose Alfredo is not ill-appearing. HENT: Head: Normocephalic and atraumatic. Mouth/Throat: Mouth: Mucous membranes are moist. Eyes: Extraocular Movements: Extraocular movements intact. Pupils: Pupils are equal, round, and reactive to light. Cardiovascular: Rate and Rhythm: Normal rate and regular rhythm. Heart sounds: No murmur heard. Pulmonary: Effort: Pulmonary effort is normal. No respiratory distress. Breath sounds: Wheezing present. No rhonchi. Skin: General: Skin is warm. Neurological: Mental Status: Jose Alfredo is alert. Mental status is at baseline. Psychiatric: Mood and Affect: Mood normal. Results: Lab Results Component Value Date NA 141 06/16/2024 K 4.0 06/16/2024 CL 110 (H) 06/16/2024 CO2 25 06/16/2024 BUN 12 06/16/2024 CREATININE 1.25 06/16/2024 CRCLCALCPH 46.2 06/16/2024 EGFR 55 06/16/2024 GLUCOSE 101 06/16/2024 TOTALBILIRUB 0.5 06/16/2024 AST 31 06/16/2024 ALT 38 06/16/2024 TOTPROTEIN 6.8 06/16/2024 ALB 3.9 06/16/2024 ALP 134 (H) 06/16/2024 Lab Results Component Value Date TRIG 179 (H) 07/01/2023 CHOL 180 07/01/2023 LDLCHOLCAL 99 07/01/2023 HDL 46 07/01/2023 Lab Results Component Value Date HGBA1C 5.6 05/11/2022 Lab Results Component Value Date WBC 9.0 06/16/2024 HGB 15.5 06/16/2024 HCT 45.5 06/16/2024 PLT 215 06/16/2024 MCV 95.0 06/16/2024 The ASCVD Risk score (Anna Marie INFANTE, et al., 2019) failed to calculate for the following reasons: The 2019 ASCVD risk score is only valid for ages 40 to 79 Screening and Health Care Maintenance: PHQ-2/9 Score: Patient Health Questionnaire-9 Score: 0 (07/26/2024 9:16 AM) Patient Health Questionnaire-2 Score: 0 (07/26/2024 9:16 AM) Thoughts that you would be better off or hurting yourself in some way: Not at all (07/26/2024 9:16 AM) NADIYA-7 Score: NADIYA-7 Total Score: 0 (07/26/2024 9:16 AM) Health Maintenance Due Topic Date Due RSV Patients and Patients Aged 60 years or older (1 - 1-dose 75+ series) Never done Influenza Vaccine (1) 02/13/2024 COVID-19 Vaccine (3 - 2023- season) 2024 SDOH Screening 10/25/2024 Assessment/Plan Problem List Items Addressed This Visit Cannabis dependence (CMS/HCC) Asthma-COPD overlap syndrome (CMS/HCC) - followed by [facility] [place], Dr. Mayorga, last seen on 01/2024, Pt is being treated for Asthma not COPD. - most recent exacerbation in Jul 2024. Rx prednisone - Will start SMART therapy. Start budesonide / formoterol (Symbicort) or mometasone / formoterol (Dulera) - Discontinue albuterol HFA and fluticasone/ salmeterol Dyslipidemia - current medication simvastatin 40 mg at bedtime - last lipid profile: 07/01/23 - continue working on lifestyle modifications - annual lipid profile Osteoarthritis of knee - s/p left chondroplasty, partial meniscectomy in 2012 - s/p left TKA on 09/12/13 - s/p right chondroplasty in 2014 for meniscus tear - s/p right TKA on 05/26/22 Relevant Medications oxyCODONE (Roxicodone) 10 MG immediate release tablet Primary osteoarthritis involving multiple joints - followed by [facility] [place] - s/p knee replacement - s/p shoulder surgery - continue judicious use of oxycodone, increasing its dose Hypertension - Goal blood pressed. Less than 130/80 - BP elevated at home. - Continue working on lifestyle modification - Start Olmesartan 5 mg daily - Continue checking BP at home - Optimize pain management Chronic pain of right knee - s/p right TKR on 05/26/22 - followed by [facility] - Continue judicious use of celecoxib and oxycodone - Followed by [facility], Last seen in Feb 2023. Planned for DRG Stimulation - Discussed about the possibility of 2nd opinion referral to another orthopedist Status post right knee replacement - Prescribed oxyCODONE 7.5 MG tablet SELINA (obstructive sleep apnea) - Primary - Mild - Patient declined CPAP - consider ordering repeat sleep study due to elevated BP and headache History of repair of rotator cuff Headache - chronic, multifactorial - continue tylenol PRN - improve sleep hygiene - MRI done on 03/21/24, benign Chronic left shoulder pain - seen by orthopedist 04/13/24, received steroid injection to the left shoulder - continue judicious use of oxycodone, will increase oxycodone from 5 mg to 10 mg bid - Prescribed lidocaine (Lidoderm) 5 % patch Relevant Medications lidocaine (Lidoderm) 5 % patch oxyCODONE (Roxicodone) 10 MG immediate release tablet Chronic, continuous use of opioids - pain in shoulders and knees - history of shoulder surgeries and knee replacement - continue lidocaine - continue judicious use of celecoxib - currently on oxycodone 5 mg bid, increase its dose 10 mg bid - continue judicious use of THC/CBD Other Visit Diagnoses Dietary counseling Exercise counseling Class 1 obesity due to excess calories with serious comorbidity and body mass index (BMI) of 30.0 to 30.9 in adult Allergies Allergen Reactions Nsaids Other reaction(s): GI upset Current Outpatient Medications Medication Instructions albuterol (2.5 MG/3ML) 0.083% nebulizer solution INHALE 1 AMPULE USING A NEBULIZER EVERY 4 HOURS ASNEEDED FOR SHORTNESS OF BREATH, AND FOR WHEEZING. NO MORE THAN 4 TIMES PER DAY. budesonide-formoterol (Symbicort) 80-4.5 MCG/ACT inhaler Take 2 puffs bid and may take 1-2 puffs every 4 hours as needed for wheezing. Rinse mouth with water after use to reduce aftertaste and incidence of candidiasis. celecoxib (CeleBREX) 200 MG capsule TAKE 1 CAPSULE BY MOUTH EVERY MORNING cyanocobalamin (Vitamin B-12) 500 MCG tablet TAKE 1 TABLET BY MOUTH EVERY MORNING D3 Super Strength 50 MCG (2000 UT) capsule TAKE 1 CAPSULE BY MOUTH EVERY MORNING doxepin (SINEquan) 75 MG capsule TAKE 1 CAPSULE BY MOUTH AT BEDTIME famotidine (PEPCID) 20 mg, Oral, Nightly lidocaine (Lidoderm) 5 % patch 1 patch, Apply externally, Daily, Remove & discard patch within 12 hours or as directed by MD. loratadine (CLARITIN) 10 mg, Oral, Every morning melatonin 3 MG tablet TAKE 1 TABLET BY MOUTH AT BEDTIME NEEDED mirtazapine (REMERON) 30 mg, Oral, Nightly naloxone (NARCAN) 4 mg, Nasal, As needed olmesartan (BENICAR) 5 mg, Oral, Daily oxyCODONE (ROXICODONE) 10 mg, Oral, Every 12 hours PRN pantoprazole (PROTONIX) 40 mg, Oral, 2 times daily, Do not crush, chew, or split. predniSONE (DELTASONE) 20 mg, Oral, Daily Simethicone Ultra Strength 180 mg, Oral, 4 times daily simvastatin (ZOCOR) 40 mg, Oral, Nightly sucralfate (CARAFATE) 1 g, Oral, Nightly Follow-up: 3 months or sooner if any problem arises. Scribe Attestation: IVeronika, am serving as a scribe to document services personally performed by Tangela Garcia MD, based on the patient's response to questions by provider and provides statements to me. documented in this encounter Miscellaneous Notes * Assessment & Plan Note - Tangela Garcia MD - 07/30/2024 12:57 PM ESTAssociated Problem(s): Chronic, continuous use of opioids - pain in shoulders and knees - history of shoulder surgeries and knee replacement - continue lidocaine - continue judicious use of celecoxib - currently on oxycodone 5 mg bid, increase its dose 10 mg bid - continue judicious use of THC/CBD * Assessment & Plan Note - Tangela Garcia MD - 07/30/2024 12:55 PM ESTAssociated Problem(s): Dyslipidemia - current medication simvastatin 40 mg at bedtime - last lipid profile: 07/01/23 - continue working on lifestyle modifications - annual lipid profile * Assessment & Plan Note - Tangela Garcia MD - 07/30/2024 12:54 PM ESTAssociated Problem(s): Chronic pain of right knee - s/p right TKR on 05/26/22 - followed by [facility] [place] - Continue judicious use of celecoxib and oxycodone - Followed by [facility], Last seen in Feb 2023. Planned for DRG Stimulation - Discussed about the possibility of 2nd opinion referral to another orthopedist * Assessment & Plan Note - Tangela Garcia MD - 07/30/2024 12:50 PM ESTAssociated Problem(s): Headache - chronic, multifactorial - continue tylenol PRN - improve sleep hygiene - MRI done on 03/21/24, benign * Assessment & Plan Note - Tangela Garcia MD - 07/30/2024 12:49 PM ESTAssociated Problem(s): SELINA (obstructive sleep apnea) - Mild - Patient declined CPAP - consider ordering repeat sleep study due to elevated BP and headache * Assessment & Plan Note - Veronika Cosme MA - 07/26/2024 1:55 PM ESTAssociated Problem(s): Primary osteoarthritis involving multiple joints - followed by [facility] [place] - s/p knee replacement - s/p shoulder surgery - continue judicious use of oxycodone, increasing its dose * Assessment & Plan Note - Veronika Cosme MA - 07/26/2024 1:55 PM ESTAssociated Problem(s): Status post right knee replacement - Prescribed oxyCODONE 7.5 MG tablet * Assessment & Plan Note - Veronika Cosme MA - 07/26/2024 1:29 PM ESTAssociated Problem(s): Osteoarthritis of knee - s/p left chondroplasty, partial meniscectomy in 2012 - s/p left TKA on 09/12/13 - s/p right chondroplasty in 2014 for meniscus tear - s/p right TKA on 05/26/22 * Assessment & Plan Note - Veronika Cosme MA - 07/26/2024 1:28 PM ESTAssociated Problem(s): Chronic left shoulder pain - seen by orthopedist 04/13/24, received steroid injection to the left shoulder - continue judicious use of oxycodone, will increase oxycodone from 5 mg to 10 mg bid - Prescribed lidocaine (Lidoderm) 5 % patch * Assessment & Plan Note - Veronika Cosme MA - 07/26/2024 1:23 PM ESTAssociated Problem(s): Hypertension - Goal blood pressed. Less than 130/80 - BP elevated at home. - Continue working on lifestyle modification - Start Olmesartan 5 mg daily - Continue checking BP at home - Optimize pain management * Assessment & Plan Note - Veronika Cosme MA - 07/26/2024 1:20 PM ESTAssociated Problem(s): Asthma-COPD overlap syndrome (CMS/HCC) - followed by [facility] [place], Dr. Mayorga, last seen on 01/2024, Pt is being treated for Asthma not COPD. - most recent exacerbation in Jul 2024. Rx prednisone - Will start SMART therapy. Start budesonide / formoterol (Symbicort) or mometasone / formoterol (Dulera) - Discontinue albuterol HFA and fluticasone/ salmeterol documented in this encounter Plan of Treatment Upcoming Encounters Date Type Department Care Team (Late st Contact Info) Description 08/11/2024 2:00 PM EST Medication Management [facility] [address] [place] [address] 10/16/2024 10:30 AM EDT Telemedicine [facility] [address] [place] [address] Barbie Voss, RN [address] [place] [address] documented as of this encounter Visit Diagnoses Diagnosis SELINA (obstructive sleep apnea)- Primary Obstructive sleep apnea (adult) (pediatric) Asthma-COPD overlap syndrome (CMS/HCC) Primary osteoarthritis of right knee Chronic left shoulder pain Pain in joint, shoulder region Dyslipidemia Other and unspecified hyperlipidemia Nonintractable headache, unspecified chronicity pattern, unspecified headache type Dietary counseling Dietary surveillance and counseling Exercise counseling Class 1 obesity due to excess calories with serious comorbidity and body mass index (BMI) of 30.0 to 30.9 in adult Status post right knee replacement Primary osteoarthritis involving multiple joints Hypertension, unspecified type Cannabis dependence (CMS/HCC) Chronic pain of right knee History of repair of rotator cuff Chronic, continuous use of opioids documented in this encounter Additional Health Concerns Assessment Noted Time PHQ-9 Depression Total Score: 0 07/26/19 25 9:16 AM EST documented as of this encounter Care Teams Supervisor Border Department Relationship Specialty Start Date End Date Tangela Garcia MD [address] [place] [address] PCP - General Family Medicine 06/14/18 documented as of this encounter
--- OUTSIDE RECORDS SUMMARY | 2024-08-10 08:12 | XMS_ITS | Encounter Summary ---
Author Organization [employer] Address [address] [facility] [address] [place] [address] Care Team Providers Care Hood Maker Name Role Phone Tangela Garcia MD Primary Care Provider [phone] Reason for Visit * Reason Onset Date Comments Reschedule 07/30/2023 Encounter Details Date Type Department Care Team ([facility] st Contact Info) Description 07/30/2023 Telephone [facility] [address] [place] [address] Tangela Garcia MD [address] [place], [place] [phone] Reschedule Social History Tobacco Use Types Packs/Day Years [...] encounter Miscellaneous Notes * Telephone Encounter - Brianna Alfonso - 07/30/2023 8:44 AM EST Tc from pt daughter requesting r/s [employer]CR[employer] BUILD[employer]SEM[employer] televisit appt. documented in this encounter Plan of Treatment Upcoming Encounters Date Type Department Care Team (Late st Contact Info) Description 08/11/2024 2:00 PM EST Medication Management [facility] [address] [place] [address] 10/16/2024 10:30 AM EDT Telemedicine [facility] [address] [place] [address] Barbie Voss, RN [address] [place] [address] documented as of this encounter Visit Diagnoses Not on filedocumented in this encounter Additional Health Concerns Assessment Noted Time PHQ-9 Depression Total Score: 0 03/01/20 23 10:01 AM EDT documented as of this encounter Care Teams Hood Maker Relationship Specialty Start Date End Date Tangela Garcia MD [address] [place] [address] PCP - General Family Medicine 06/14/18 documented as of this encounter
--- OUTSIDE RECORDS SUMMARY | 2024-08-10 08:13 | XMS_ITS | Encounter Summary ---
Author Organization [employer] Address [address] [place] [address] 7t [place] [address] Care Team Providers Care Major League Baseball Umpire Name Role Phone Tangela Garcia MD Primary Care Provider [phone] Reason for Visit * Reason Comments Med Refill Encounter Details Date Type Department Care Team ([facility] Contact Info) Description 09/30/2022 Refill [facility] MED[facility] [address] [place] [address] Tangela Garcia MD [address] [place] [address] Primary osteoarthritis involving multiple joints Social History [...] suspected to have Coronavirus/COVID-19? No / Unsure 09/30/2022 9:05 AM EDT documented as of this encounter Plan of Treatment Upcoming Encounters Date Type Department Care Team ([facility] Contact Info) Description 08/11/2024 2:00 PM EST Medication Management [facility] MED[facility]INE [address] [place] [address] 10/16/2024 10:30 AM EDT Telemedicine [facility] [address] [place] [address] Barbie Voss, RN [address] [place] [address] documented as of this encounter Visit Diagnoses Diagnosis Primary osteoarthritis involving multiple joints documented in this encounter Care Teams [employer] Umpire Relationship Specialty Start Date End Date Tangela Garcia MD [address] [place] [address] PCP - General Family Medicine 06/14/18 documented as of this encounter
--- OUTSIDE RECORDS SUMMARY | 2024-08-10 08:13 | XMS_ITS | Encounter Summary ---
Author Organization [employer] Address [address] [facility] [address]t [place] [address] Care Team Providers Care Furniture Inspector Name Role Phone Tangela Garcia MD Primary Care Provider [phone] Reason for Visit * Reason Onset Date Comments Med Refill 03/30/2024 Encounter Details Date Type Department Care Team ([facility] st Contact Info) Description 03/30/2024 Telephone [facility] [address] [place] [address] Tangela Garcia MD [address] [place], [place] [phone] Med Refill Social History Tobacco Use Types Packs/Day Years [...] encounter Miscellaneous Notes * Telephone Encounter - Cheli Falk - 03/30/2024 11:12 AM EDT TC from pt requesting medication refill. Medications needing refill : oxyCODONE (Roxicodone) 5 MG immediate release tablet To be sent to: [facility] - [place], [place] - [address] [place] [address] documented in this encounter Plan of Treatment Upcoming Encounters Date Type Department Care Team ([facility] st Contact Info) Description 08/11/2024 2:00 PM EST Medication Management [facility] [address] [place] [address] 10/16/2024 10:30 AM EDT Telemedicine [facility] MED [facility]EDS [address] [place] [address] Barbie Voss, NAYELY [address] [place] [address] documented as of this encounter Visit Diagnoses Not on filedocumented in this encounter Additional Health Concerns Assessment Noted Time PHQ-9 Depression Total Score: 0 03/01/20 23 10:01 AM EDT documented as of this encounter Care Teams Furniture Inspector Relationship Specialty Start Date End Date Tangela Garcia MD [address] [place] [address] PCP - General Family Medicine 06/14/18 documented as of this encounter
--- OUTSIDE RECORDS SUMMARY | 2024-08-10 08:13 | XMS_ITS | Encounter Summary ---
Author Organization [employer] Address [address] [facility] 7t [place] [address] Care Team Providers Care Sign Manufacturer Name Role Phone Tangela Garcia MD Primary Care Provider [phone] Reason for Visit * Reason Onset Date Comments Med Refill 09/02/2022 Encounter Details Date Type Department Care Team ([facility] st Contact Info) Description 09/02/2022 Telephone [facility] [address] [place] [address] Tangela Garcia MD [address] [place], [place] [phone] Med Refill Social History Tobacco Use Types [...] encounter Miscellaneous Notes * Telephone Encounter - Chet Kern - 09/02/2022 11:04 AM EDT Tc from daughter requesting an early fill on medication for Oxycodone, daughter called pharmacy andpharmacy advise this pcp needs to contact pharmacy to give the okay. Please contact daughter at [phone] documented in this encounter Plan of Treatment Upcoming Encounters Date Type Department Care Team ([facility] st Contact Info) Description 08/11/2024 2:00 PM EST Medication Management [facility] [address] [place] [address] 10/16/2024 10:30 AM EDT Telemedicine [facility] [address] [place] [address] Barbie Voss, RN [address] [place] [address] documented as of this encounter Visit Diagnoses Not on filedocumented in this encounter Care Teams Sign Manufacturer Relationship Specialty Start Date End Date Tangela Garcia MD [address] [place] [address] PCP - General Family Medicine 06/14/18 documented as of this encounter
--- OUTSIDE RECORDS SUMMARY | 2024-08-10 08:13 | XMS_ITS | Clinical Summary ---
Author Organization [facility] Address [address] [place] [address] Care Team Providers Care Tours Captain Name Role Phone Unavailable Primary Care Provider Unavailabl e Social History Tobacco Use Types Packs/Day Years Used Date Smoking Tobacco: Never Assessed Sex and Gender Information Value Date Recorded Sex Assigned at Male 09/02/2018 6:00 PM EDT Gender Identity Not on file Sexual Orientation Not on file Plan of Treatment Health Maintenance Due Date Last Done Comments COVID-19 Vaccine (#1) 1943 Depression Screening 1955 Preventative Health Evaluation 1961 DTap / Tdap / Td (1 - Tdap) 1962 Shingrix-Zoster Vaccine (1 of 2) 1993 Fall Risk Assessment 2008 Pneumococcal Vaccine (1 of 1 - PCV) 2008 RSV Adult > 60+ Yrs or Pregn ant (1 - 1-dose 75+ series) 2018 Influenza Vaccine (#1) 2024 Hepatitis B Vaccines Aged Out No long er eligible based on patient's age to complete this topic RSV Ped < 20 months Aged Out No longe r eligible based on patient's age to complete this topic
--- OUTSIDE RECORDS SUMMARY | 2024-08-10 08:13 | XMS_ITS | Encounter Summary ---
Author Organization [employer] Address [address] [place] [address] [address] [place] [address] Care Team Providers Care Slimer Name Role Phone Tangela Garcia MD Primary Care Provider [phone] Reason for Visit * Reason Onset Date Comments Med Refill 10/13/2022 Encounter Details Date Type Department Care Team ([facility] st Contact Info) Description 10/13/2022 Telephone [facility] [address] [place] [address] Tangela Garcia MD [address] [place], [place] [id number] Med Refill Social History Tobacco Use Types [...] encounter Miscellaneous Notes * Telephone Encounter - Angie Aguero - 10/13/2022 10:50 AM EDT Tc from patient requesting a med refill on medication oxycodone 5 mg. Please send to [facility] on chart. PCP Dr. Garcia documented in this encounter Plan of Treatment Upcoming Encounters Date Type Department Care Team (Late st Contact Info) Description 08/11/2024 2:00 PM EST Medication Management [facility] [address] [place] [address] 10/16/2024 10:30 AM EDT Telemedicine [facility] [address] [place] [address] Barbie Voss, NAYELY [address] [place] [address] documented as of this encounter Visit Diagnoses Not on filedocumented in this encounter Care Teams Slimer Relationship Specialty Start Date End Date Tangela Garcia MD [address] [place] [address] PCP - General Family Medicine 06/14/18 documented as of this encounter
--- OUTSIDE RECORDS SUMMARY | 2024-08-10 08:13 | XMS_ITS | Encounter Summary ---
Author Organization [employer] Address [address] [facility] [address] [place] [address] Care Team Providers Care Acid Operator Name Role Phone Tangela Garcia MD Primary Care Provider [phone] Reason for Visit * Reason Onset Date Comments Triage 10/13/2022 Encounter Details Date Type Department Care Team ([facility] st Contact Info) Description 10/13/2022 Telephone [facility] [address] [place] [address] Tangela Garcia MD [address] [place] [address] Triage Social History Tobacco Use Types Packs/Day Years [...] encounter Miscellaneous Notes * Telephone Encounter - Mar Rouse RN - 10/13/2022 11:13 AM EDT Triage call Pt daughter , VERONICA Malloy calls to report Pt having right knee pain. 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 Daughter reports no change in color of foot or leg, Pt is walking without difficulty. Pt is taking oxycodone for pain. Pt is advised to come to [facility] today, Pt daughter declines and requests to see PCP. No apts available with Dr. Garcia offered apt with [facility] Martini 10/22 @ 1130am and Pt /daughter agreed. Home care reviewed. Pt is advised to seek evaluation at nearest Ed if pain increases and symptoms worsen. Pt daughter agreeswith this advise. Protocol Used: Knee Pain (Adult) Protocol-Based Disposition: See in Office or Video Visit within 2 Weeks Video visit not offered Positive Triage Question: * Knee pain is a chronic symptom (recurrent or ongoing AND lasting > 4 weeks) * All higher-acuity triage questions were negative Care Advice Discussed: * Reassurance and Education - Knee Pain * Pain Medicines * Pain Medicines - Extra Notes and Warnings * Reasons To Call Back - Moderate pain (e.g., limping) lasts more than 3 days - Mild pain lasts more than 7 days - Signs of infection occur (e.g., spreading redness, warmth, fever) - You become worse * Use a Cold Pack for Pain * Use Heat on Area After 48 Hours * Local Heat (Bathtub Option) * Rest * Telephone Encounter - Angie Aguero - 10/13/2022 10:47 AM EDT Symptom: Knee Pain - Not From Injury Outcome: Schedule an urgent appointment (within 1 hour) or talk to a nurse or provider soon Reason: Severe pain now The caller accepted this outcome Patient daughter states right knee pain where patient got a knee replacement. Please call [phone] documented in this encounter Plan of Treatment Upcoming Encounters Date Type Department Care Team ([facility] st Contact Info) Description 08/11/2024 2:00 PM EST Medication Management [facility] MED[facility]INE [address] [place] [address] 10/16/2024 10:30 AM EDT Telemedicine [facility] [address] [place] [address] Barbie Voss, RN [address] [place] [address] documented as of this encounter Visit Diagnoses Not on filedocumented in this encounter Care Teams Acid Operator Relationship Specialty Start Date End Date Tangela Garcia MD [address] [place] [address] PCP - General Family Medicine 06/14/18 documented as of this encounter
--- OUTSIDE RECORDS SUMMARY | 2024-08-10 08:13 | XMS_ITS | Clinical Summary ---
Author Organization [employer] Address [address] [facility] [address] [place] [address] Care Team Providers Care Bath Mixer Name Role Phone Tangela Garcia MD Primary Care Provider [phone] Allergies Active Allergy Reactions Criticality Noted Date Comments Nsaids 09/12/2010 Other reaction(s): GI upset Medications naloxone (Narcan) 4 mg/0.1 mL nasal spray Administer 1 spray (4 mg) into affected nostril(s) if needed for opioid reversal. 2 each 1 023 Active celecoxib (CeleBREX) 200 MG capsuleIndication s:Chronic pain of right knee TAKE 1 CAPSULE BY MOUTH EVERY MORNING 30 capsule 3 023 Active pantoprazole (ProtoNix) 40 MG EC tablet Take 1 tablet (40 mg) by mouth 2 times daily. Do not crush, chew, or split. 30 tablet 3 023 Active albuterol (2.5 MG/3ML) 0.083% nebulizer solutionIndicatio ns:Chronic obstructive pulmonary disease, unspecified (CMS/HCC) INHALE 1 AMPULE USING A NEBULIZER EVERY 4 HOURS NEEDED FOR SHORTNESS OF BREATH, AND FOR WHEEZING. NO MORE THAN 4 TIMES PER DAY. 90 mL 11 023 Active Simethicone Ultra Strength 180 MG capsule Take 180 mg by mouth 4 times daily. 024 Active famotidine (Pepcid) 20 MG tablet Take 20 mg by mouth at bedtime. 024 Active sucralfate (Carafate) 1 g tablet Take 1 g by mouth at bedtime. Active loratadine (Claritin) 10 MG tablet Take 1 tablet (10 mg) by mouth in the morning. 90 tablet 3 Active doxepin (SINEquan) 75 MG capsuleIndication s:Insomnia, unspecified type TAKE 1 CAPSULE BY MOUTH AT BEDTIME 30 capsule 3 Active melatonin 3 MG tablet TAKE 1 TABLET BY MOUTH AT BEDTIME NEEDED 30 tablet 3 Active mirtazapine (Remeron) 30 MG tablet TAKE 1 TABLET BY MOUTH AT BEDTIME 30 tablet 3 Active cyanocobalamin (Vitamin B-12) 500 MCG tabletIndications :Vitamin deficiency TAKE 1 TABLET BY MOUTH EVERY MORNING 90 tablet Active D3 Super Strength 50 MCG (2000 UT) capsuleIndication s:Vitamin deficiency TAKE 1 CAPSULE BY MOUTH EVERY MORNING 90 capsule 1 Active budesonide-formot brodie (Symbicort) 80-4.5 MCG/ACT inhaler Take 2 puffs bid and may take 1-2 puffs every 4 hours as needed for wheezing. Rinse mouth with water after use to reduce aftertaste and incidence of candidiasis. 1 each Active lidocaine (Lidoderm) 5 % patchIndications: Chronic left shoulder pain Apply 1 patch topically Once per day. Remove & discard patch within 12 hours or as directed by MD. 30 patch 2 Active olmesartan (Benicar) 5 MG tablet Take 1 tablet (5 mg) by mouth Once per day. 30 tablet 025 2025 Active oxyCODONE (Roxicodone) 10 MG immediate release tabletIndications :Primary osteoarthritis of right knee,Chronic left shoulder pain Take 1 tablet (10 mg) by mouth every 12 (twelve) hours if needed for severe pain for up to 28 days. 56 tablet 025 2024 Active simvastatin (Zocor) 40 MG tabletIndications :Dyslipidemia TAKE 1 TABLET BY MOUTH EVERY EVENING 30 tablet 3 Active fluticasone-salme terol (AirDuo RespiClick) 113-14 MCG/ACT inhaler Inhale 1 puff 2 times daily. Rinse mouth with water after use to reduce aftertaste and incidence of candidiasis. Do not swallow. 1 each 11 024 2024 Discontinued(A lternate therapy) albuterol (Ventolin HFA) 108 (90 Base) MCG/ACT inhalerIndication s:Wheezing INHALE 2 PUFFS EVERY 4 TO 6 HOURS NEEDED FOR WHEEZING OR SHORTNESS OF BREATH 18 g 1 024 2024 Discontinued(A lternate therapy) lidocaine (Lidoderm) 5 % patchIndications: Chronic left shoulder pain Apply 1 patch topically Once per day. Remove & discard patch within 12 hours or as directed by MD. 30 patch 2 024 2024 Discontinued(R eorder (will not trigger notification to Pharmacy)) simvastatin (Zocor) 40 MG tabletIndications :Dyslipidemia TAKE 1 TABLET BY MOUTH EVERY EVENING 30 tablet 3 024 2024 Discontinued oxyCODONE (Roxicodone) 5 MG immediate release tabletIndications :Status post right knee replacement,Prima ry osteoarthritis involving multiple joints Take 1 tablet (5 mg) by mouth every 12 (twelve) hours if needed for severe pain. 56 tablet 025 2024 Discontinued(R eorder (will not trigger notification to Pharmacy)) oxyCODONE (Roxicodone) 5 MG immediate release tabletIndications :Status post right knee replacement,Prima ry osteoarthritis involving multiple joints Take 1 tablet (5 mg) by mouth every 12 (twelve) hours if needed for severe pain. 56 tablet 025 2024 Discontinued(R eorder (will not trigger notification to Pharmacy)) oxyCODONE 7.5 MG tabletIndications :Status post right knee replacement,Prima ry osteoarthritis involving multiple joints Take 1 tablet (7.5 mg) by mouth every 12 (twelve) hours if needed for severe pain. 56 tablet 025 2024 Discontinued predniSONE (Deltasone) 20 MG tablet Take 1 tablet (20 mg) by mouth Once per day for 5 days. 5 tablet 025 2024 Active Problems Problem Noted Date Diagnosed Date Chronic, continuous use of opioids 07/30/2024 Assessment & Plan (07/30/2024 12:57 PM EST): - pain in shoulders and knees - history of shoulder surgeries and knee replacement - continue lidocaine - continue judicious use of celecoxib - currently on oxycodone 5 mg bid, increase its dose 10 mg bid - continue judicious use of THC/CBD Chronic left shoulder pain 02/29/2024 Assessment & Plan (07/30/2024 12:54 PM EST): - seen by orthopedist 04/13/24, received steroid injection to the left shoulder - continue judicious use of oxycodone, will increase oxycodone from 5 mg to 10 mg bid - Prescribed lidocaine (Lidoderm) 5 % patch Assessment & Plan (04/18/2024 1:35 PM EST): - seen by orthopedist 04/13/24, received steroid injection to the left shoulder - continue judicious use of oxycodone Assessment & Plan (02/29/2024 8:15 PM EDT): -Reports chronic Left shoudler pain for last > 6 mo is worsening , no trauma , hx of surgery in shoulder Dr Resendiz,states was advised for inj in the past but refused ,denieserythema,swelling nor increase skin temp -MR shoulder 2018 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 -refuse inj w orthopedic --advised to reconsider to see his sp again if having worsening of pain -already on prn celebrex, tyleno PRN , oxycodone -prescribed today Lidoderm patch -Refuse PT offered today -referred today for shoulder XR Headache 11/02/2023 Assessment & Plan (07/30/2024 12:50 PM EST): - chronic, multifactorial - continue tylenol PRN - improve sleep hygiene - MRI done on 03/21/24, benign Assessment & Plan (04/18/2024 1:32 PM EST): - chronic, multifactorial - continue tylenol PRN - improve sleep hygiene - MRI done on 03/21/24, results still pending Assessment & Plan (02/29/2024 8:16 PM EDT): -reports chronic LINDSEY for 1 y but worsening ,can wake up sometimes , sometimes cause N/V, sometimes positonal , no neuo focalizing symptoms , pressure type , 01/21 , takes Tylenol thinsk asociated w shoulder and neck pain Normal neuro exam here but concern w reported alarming symptoms and worsening pain -SELINA not using CPAP -not for last 5 months,explained pt in part LINDSEY can be associated to not tx SELINA but refusing to use CPAP -brain MRI w/o contrast referred today -Neck XR ordered today -acupuncture advised -advised warm compresses in neck , lidoderm patch , pain management as in shoulder pain -alarm signs and symptoms discussed Assessment & Plan (11/02/2023 9:49 AM EDT): - chronic, multifactorial - continue tylenol PRN - improve sleep hygeine History of repair of rotator cuff 03/07/2023 Overview (03/07/2023): bilateral SELINA (obstructive sleep apnea) 03/01/2023 Assessment & Plan (07/30/2024 12:49 PM EST): - Mild - Patient declined CPAP - consider ordering repeat sleep study due to elevated BP and headache Assessment & Plan (04/18/2024 1:32 PM EST): - Mild - Patient declined CPAP - consider ordering repeat sleep study due to elevated BP and headache Assessment & Plan (03/01/2023 11:13 AM EDT): Mild Patient declined CPAP Effusion of right knee 11/23/2022 Assessment & Plan (03/07/2023 10:03 AM EDT): - pt declined Dx and Tx arthrocentesis which was offered by his orthopedist - Seen by pain management on 02/23/23, planning to try DRG stimulation - discussed about getting a 2nd opinion. Assessment & Plan (12/01/2022 10:27 AM EDT): - pt declined Dx and Tx arthrocentesis which was offered by his orthopedist - upcoming appt with pain management Hypertension 09/30/2022 Assessment & Plan (07/30/2024 12:52 PM EST): - Goal blood pressed. Less than 130/80 - BP elevated at home. - Continue working on lifestyle modification - Start Olmesartan 5 mg daily - Continue checking BP at home - Optimize pain management Assessment & Plan (04/18/2024 1:33 PM EST): -Goal BP < 150/90 per JNC-8 and < 130 per ACC/AHA guideline -BP is elevated, patient recently received steroid injection. BP at home is within normal limits per daughter. -Continue working on lifestyle modifications -Continue self-monitoring BP. -Follow up in 2 weeks for BP check with our nurse. Assessment & Plan (02/29/2024 8:16 PM EDT): BP mild elevated here , per daughter normal < 140/90 at home - possible reactive -to bring home BP readings to PCP at next apt Assessment & Plan (11/02/2023 9:26 AM EDT): -Goal BP < 150/90 per JNC-8 and < 130 per ACC/AHA guideline -BP is slightly elevated, most likely due to pain. BP at home is within normal limits per daughter. -Continue working on lifestyle modifications -Continue self-monitoring BP. -Follow up in 3-6 mo, or sooner if any problem arises Assessment & Plan (07/02/2023 5:28 PM EST): -Goal BP < 150/90 per JNC-8 and < 130 per ACC/AHA guideline -BP is slightly elevated, most likely due to pain. BP at home is within normal limits per daughter. -Continue working on lifestyle modifications -Continue self-monitoring BP. -Follow up in 3-6 mo, or sooner if any problem arises Assessment & Plan (11/24/2022 9:22 AM EDT): -Goal BP < 150/90 per JNC-8 and < 130 per ACC/AHA guideline -BP is slightly-elevated, most likely due to pain. BP at home is within normal limits. -Continue working on lifestyle modifications -Recommended self-monitoring BP. -Recheck BP when he recovers from asthma exacerbation and his pain is better managed. -Follow up in 3-6 mo, sooner if any problem arises Assessment & Plan (09/30/2022 4:54 PM EDT): -Goal BP < 150/90 per JNC-8 and < 130 per ACC/AHA guideline -BP is elevated, most likely due to pain and asthma exacerbation. Pt is going to take prednisone, and BP will most likely be elvated. -Continue working on lifestyle modifications -Recommended self-monitoring BP. -Recheck BP when he recovers from asthma exacerbation and his pain is better managed. -Follow up in 3-6 mo, sooner if any problem arises Chronic pain of right knee 09/30/2022 Assessment & Plan (07/30/2024 12:54 PM EST): - s/p right TKR on 05/26/22 - followed by [facility] - Continue judicious use of celecoxib and oxycodone - Followed by [facility], Last seen in Feb 2023. Planned for DRG Stimulation - Discussed about the possibility of 2nd opinion referral to another orthopedist Assessment & Plan (04/18/2024 1:37 PM EST): - s/p right TKR on 05/26/22 - followed by [facility]ist, last seen on 12/14/22 - Continue judicious use of celecoxib and oxycodone - Followed by [facility], Last seen in Feb 2023. Planned for DRG Stimulation - Discussed about the possibility of 2nd opinion referral to another orthopedist Assessment & Plan (07/02/2023 5:29 PM EST): - s/p right TKR on 05/26/22 - followed by [facility]ist, last seen on 12/14/22 - Continue judicious use of celecoxib and oxycodone - Followed by [facility], Last seen in Feb 2023. Planned for DRG Stimulation - Discussed about the possibility of 2nd opinion referral to another orthopedist Assessment & Plan (03/07/2023 10:02 AM EDT): - s/p right TKR on 05/26/22 - followed by [facility]ist, last seen on 12/14/22 - Continue judicious use of celecoxib and oxycodone - Followed by [facility], Last seen in Feb 2023 - Planned for DRG Stimulation - Discussed about the possibility of 2nd opinion referral to another orthopedist Assessment & Plan (11/24/2022 9:18 AM EDT): - s/p right TKR on 05/26/22 - followed by [facility]ist, last seen on 09/03/22 and the plan was to continue Celebrex and oxycodone - pt has not been taking Celebrex. Will restart Celebrex with caution. Discussed its side effect. - agreed to continue oxycodone 5 mg bid for next 4 weeks. Encouraged to self- taper if possible. Assessment & Plan (09/30/2022 4:58 PM EDT): - s/p right TKR on 05/26/22 - followed by [facility]ist, last seen on 09/03/22 and the plan was to continue Celebrex and oxycodone - pt has not been taking Celebrex. Will restart Celebrex with caution. Discussed its side effect. - agreed to continue oxycodone 5 mg bid for next 4 weeks. Encouraged to self- taper if possible. Status post right knee replacement 09/30/2022 Assessment & Plan (07/26/2024 1:55 PM EST): - Prescribed oxyCODONE 7.5 MG tablet GERD (gastroesophageal reflux disease) Assessment & Plan (07/02/2023 5:29 PM EST): - evaluated by [facility] GI, last seen in Mar 2023 - continue pantoprazole 40 mg bid - continue sucralfate 10 mg at bedtime - famotidine was discontinued by GI - judicious use of BRAUN-2 Assessment & Plan (03/07/2023 10:49 AM EDT): - evaluated by [facility] - continue pantoprazole 40 mg bid - continue famotidine 40 mg prn for breakthrough - judicious use of BRAUN-2 Assessment & Plan (09/30/2022 5:06 PM EDT): - evaluated by [facility] - continue pantoprazole 40 mg bid - continue famotidine 40 mg prn for breakthrough - judicious use of BRAUN-2 Overweight 09/30/2022 Assessment & Plan (11/02/2023 9:26 AM EDT): - lifestyle modifications Assessment & Plan (09/30/2022 5:08 PM EDT): - lifestyle modifications History of left knee replacement 06/11/2016 Assessment & Plan (04/18/2024 1:38 PM EST): - 09/12/[address] Resendiz - left knee pain is better than right knee pain Assessment & Plan (03/07/2023 10:36 AM EDT): - 09/12/[address] Resendiz - left knee pain is better than right knee pain Asthma-COPD overlap syndrome 06/25/2015 Assessment & Plan (07/30/2024 12:52 PM EST): - followed by [facility] pulmonology, Dr. Mayorga, last seen on 01/2024, Pt is being treated for Asthma not COPD. - most recent exacerbation in Jul 2024. Rx prednisone - Will start SMART therapy. Start budesonide / formoterol (Symbicort) or mometasone / formoterol (Dulera) - Discontinue albuterol HFA and fluticasone/ salmeterol Assessment & Plan (04/18/2024 1:31 PM EST): - followed by [facility] pulmonology, Dr. Mayorga, last seen on 01/2024 - most recent exacerbation in May 2023, seen in [facility] ED. Rx prednisone and cefuroxime for Dx bronchitis. - continue current medications - maintenance medications: Airduo - rescue medications: Albuterol HFA and neb prn - follow up in 3-6 mo Assessment & Plan (11/02/2023 9:46 AM EDT): - followed by [facility] pulmonology, Dr. Mayorga, last seen on 07/2023 - most recent exacerbation in May 2023, seen in [facility] ED. Rx prednisone and cefuroxime for Dx bronchitis. - continue current medications - maintenance medications: Airduo - rescue medications: Albuterol HFA and neb prn - follow up in 3-6 mo Assessment & Plan (07/02/2023 5:26 PM EST): - followed by [facility] pulmonology, Dr. Mayorga, last seen on 02/23/23 - most recent exacerbation in May 2023, seen in [facility] ED. Rx prednisone and cefuroxime for Dx bronchitis. - continue current medications - maintenance medications: Fluticasone propionate and salmeterol 250/50 - rescue medications: Albuterol HFA and neb prn - follow up in 3-6 mo Assessment & Plan (03/01/2023 11:17 AM EDT): - followed by [facility] pul[facility]ologyDr. Mayorga, last seen on 02/23/23 - exacerbation on 09/30/22, wheezing throughout. No crackles or decreased BS. - prednisone 40 mg daily x 5 days - maintenance medications: Advair 250/50 - rescue medications: Albuterol HFA and neb prn - follow up in 3-6 mo Assessment & Plan (11/24/2022 9:13 AM EDT): - followed by [facility] pul[facility]ologyDr. Mayorga, last seen on 07/15/22 - exacerbation today 09/30/22, wheezing throughout. No crackles or decreased BS. - prednisone 40 mg daily x 5 days - use albuterol HFA / neb ATC for next 3 days, then wean off to as needed - consider CXR if no improvement or he develops fever - reviewed ED precaution - maintenance medications: Advair 250/50 - rescue medications: Albuterol HFA and neb prn - follow up in 3-6 mo Assessment & Plan (09/30/2022 5:05 PM EDT): - followed by [facility] pulmonology, Dr. Mayorga, last seen on 07/15/22 - exacerbation today 09/30/22, wheezing throughout. No crackles or decreased BS. - prednisone 40 mg daily x 5 days - use albuterol HFA / neb ATC for next 3 days, then wean off to as needed - consider CXR if no improvement or he develops fever - reviewed ED precaution - maintenance medications: Advair 250/50 - rescue medications: Albuterol HFA and neb prn - follow up in 3-6 mo Primary osteoarthritis involving multiple joints 06/25/2015 Assessment & Plan (07/30/2024 12:53 PM EST): - followed by [facility] orthopedist - s/p knee replacement - s/p shoulder surgery - continue judicious use of oxycodone, increasing its dose Cannabis dependence 11/24/2012 Dyslipidemia 02/08/2012 Assessment & Plan (07/30/2024 12:55 PM EST): - current medication simvastatin 40 mg at bedtime - last lipid profile: 07/01/23 - continue working on lifestyle modifications - annual lipid profile Assessment & Plan (04/18/2024 1:37 PM EST): - current medication simvastatin 40 mg at bedtime - last lipid profile: 07/01/23 - continue working on lifestyle modifications - annual lipid profile Assessment & Plan (11/02/2023 9:27 AM EDT): - current medication simvastatin 40 mg at bedtime - last lipid profile: Apr 2022 TC 195; HDL 50; LDL 100; TG 334 - continue working on lifestyle modifications - annual lipid profile Assessment & Plan (07/01/2023 5:38 AM EST): - current medication simvastatin 40 mg at bedtime - last lipid profile: Apr 2022 TC 195; HDL 50; LDL 100; TG 334 - continue working on lifestyle modifications - annual lipid profile Assessment & Plan (03/01/2023 11:06 AM EDT): - current medication simvastatin 40 mg at bedtime - last lipid profile: Apr 2022 TC 195; HDL 50; LDL 100; TG 334 - continue working on lifestyle modifications - annual lipid profile Assessment & Plan (12/01/2022 10:32 AM EDT): - current medication simvastatin 40 mg at bedtime - last lipid profile: Apr 2022 TC 195; HDL 50; LDL 100; TG 334 - continue working on lifestyle modifications - annual lipid profile Elevated alkaline phosphatase level 02/08/2012 Assessment & Plan (07/02/2023 5:36 PM EST): - 06/17/22 Alkaline phosphatase 211 U/L, GGT 173 U/L - 06/03/22 Abd/pelvis CT showed diverticulosis, no other abnormality, including liver and gallbladder - Recent ED visit showed mild transaminitis and AlkPhos 205, likely due to acute illness at the time. 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 Insomnia 02/08/2012 Assessment & Plan (11/02/2023 5:05 AM EDT): - continue judicious use of doxepin, mirtazapine, and melatonin - we have tried to taper off doxepin or mirtazapine, but patient was hesitant to discontinue either one of these medications - continue improving sleep hygiene Assessment & Plan (07/02/2023 5:23 PM EST): - continue judicious use of doxepin, mirtazapine, and melatonin - we have tried to taper off doxepin or mirtazapine, but patient was hesitant to discontinue either one of these medications - continue improving sleep hygiene Osteoarthritis of knee 02/08/2012 Assessment & Plan (07/26/2024 1:29 PM EST): - s/p left chondroplasty, partial meniscectomy in 2012 - s/p left TKA on 09/12/13 - s/p right chondroplasty in 2014 for meniscus tear - s/p right TKA on 05/26/22 Assessment & Plan (04/18/2024 1:37 PM EST): - s/p left chondroplasty, partial meniscectomy in 2012 - s/p left TKA on 09/12/13 - s/p right chondroplasty in 2014 for meniscus tear - s/p right TKA on 05/26/22 Assessment & Plan (11/02/2023 9:26 AM EDT): - s/p left chondroplasty, partial meniscectomy in 2012 - s/p left TKA on 09/12/13 - s/p right chondroplasty in 2014 for meniscus tear - s/p right TKA on 05/26/22 Assessment & Plan (07/01/2023 5:37 AM EST): - s/p left chondroplasty, partial meniscectomy in 2012 - s/p left TKA on 09/12/13 - s/p right chondroplasty in 2014 for meniscus tear - s/p right TKA on 05/26/22 Assessment & Plan (03/07/2023 10:38 AM EDT): - s/p left chondroplasty, partial meniscectomy in 2012 - s/p left TKA on 09/12/13 - s/p right chondroplasty in 2014 for meniscus tear - s/p right TKA on 05/26/22 Vitamin D deficiency 02/08/2012 Restless legs 12/02/2011 Resolved Problems Problem Noted Date Diagnosed Date Resolved Date Primary hypertension 09/30/2022 023 Encounters Date Type Department Care Team Description 08/01/2024 Telephone [facility] [address] [place] [address] Tangela Garcia MD Prior Authorization (PA: Lidocaine 5% Patch) 07/30/2024 Refill [facility] [address] [place] [address] Tangela Garcia MD Dyslipidemia 07/26/2024 9:15 AM EST Office Visit [facility] [address] [place] [address] Tangela Garcia MD SELINA (obstructive sleep apnea) (Primary Dx); Asthma-COPD [...] rotator cuff; Chronic, continuous use of opioids 07/26/2024 Travel 07/24/2024 10:30 AM EST Telemedicine [facility] [address] [place] [address] Barbie Voss property site manager pain of right knee 07/24/2024 Telephone [facility] [address] [place] [address] Barbie Voss, NAYELY 07/24/2024 Travel 07/20/2024 Telephone [facility] [address] [place] [address] Chelsey Felder MA chart prep 07/20/2024 Refill [facility] [address] [place] [address] Tangela Garcia MD Status post right knee replacement; Primary osteoarthritis involving multiple joints 07/03/2024 Refill [facility] [address] [place] [address] Tangela Garcia MD Vitamin deficiency 07/01/2024 Refill [facility] [address] [place] [address] Tangela Garcia MD 06/23/2024 Refill [facility] [address] [place] [address] Tangela Garcia MD Status post right knee replacement; Primary osteoarthritis involving multiple joints 06/16/2024 2:00 PM EST Office Visit [facility] [address] [place] [address] Lisa Islas MD Dyspnea, unspecified type (Primary Dx) 06/16/2024 Orders Only GENERIC EXTERNAL DATA DEPARTMENT Provider, Generic External Data 06/16/2024 Telephone [facility] [address] [place] [address] Pallavi Skinner RN 06/16/2024 Telephone [facility] [address] [place] [id number] Tangela Garcia MD Nurse Triage 06/08/2024 Refill [facility] [address] [place] [id number] Tangela Garcia MD 06/08/2024 Refill [facility] [address] [place] [id number] Dennise Drake MD Insomnia, unspecified type 05/26/2024 Refill [facility] [address] [place] [address] Tangela Garcia MD Status post right knee replacement; Primary osteoarthritis involving multiple joints 05/17/2024 Telephone [facility] [address] [place] [id number] Milly Troncoso RN Results from Last 3 Months Immunizations Name Administration Dates Next Due Hep B, adult 01/30/2014,09/13/2007,02/21/2007 Influenza injectable quadriv alent IIV4 with preservative 05/20/2017,06/25/2015 Influenza, IIV3, injectable 06/12/2014, 0 Influenza, Split (incl. javier fied surface antigen) 05/24/2012 Pneumococcal Conjugate PCV 13 11/08/2014 Pneumococcal Polysaccharide PPSV23 01/30/2014, TD (adult), 2 Lf tetanus tox oid, preservative free, adsorbed 10/29/2020,12/13/2010 Tdap 09/07/2007 Zoster, Recombinant 04/13/2019,02/08/2019 Zoster, live 11/08/2014 Family History Medical History Relation Name Comments Liver cancer Father Asthma Mother Relation Name Status Comments Father Mother Social History Tobacco Use Types Packs/Day Years Used Date Smoking Tobacco: Never Passive Smoke Exposure: Never Smokeless Tobacco: Never Tobacco Cessation:Counseling Given: Not Answered Alcohol Use Standard Drinks/Week Comments Never 0 [...] Don't know 04/13/2022 10 :15 AM EDT Last Filed Vital Signs Vital Sign Reading [...] oz) 07/26/2024 9:15 A M EST Height 162.6 cm (5' 4 ) 04/18/2024 1:10 PM EST Body Mass Index 30.07 04/18/2024 1:10 PM EST Plan of Treatment Upcoming Encounters Date Type Department Care Team (Late st Contact Info) Description 08/11/2024 2:00 PM EST Medication Management [facility] [address] [place], [place] [phone] 10/16/2024 10:30 AM EDT Telemedicine [facility] [address] [place] [address] Barbie Voss, RN [address] [place] [address] Health Maintenance Due Date Last Done Comments RSV Patients and Patients Aged 60 years or older (1 - 1-dose 75+ series) 2018 COVID-19 Vaccine ( season) 2024 07/15/2021, 06/24/2021 Influenza Vaccine (#1) 2024 7, 06/25/2015, 06/12/2014, Additional history exists SDOH Screening 10/25/2024 10/26/2023 Alcohol/Substance Use Screening 07/26/2025 07/26/2024 Depression Screening 07/26/2025 07/26/2024, 07/26/19 25 Tobacco Screening 07/26/2025 07/26/2024 Lipid Panel 07/01/2028 07/01/2023, 04/15, 02/20/2020 DTaP/Tdap/Td Vaccines (4 - Td or Tdap) 10/29/2030 10/29/2020, 12/13/2010, 09/07/2007 Hepatitis B Vaccines Completed 01/30/2014, 09/13/2007, 02/21/2007 Pneumococcal Vaccine: 50+ Years Completed 11/08/2014, 01/30/2014, 09/07/2007 Zoster Vaccines Completed 04/13/2019, 01/13, 11/08/2014 HIB Vaccines Aged Out No longer eligi ble based on patient's age to complete this topic HPV Vaccines Aged Out No longer eligi ble based on patient's age to complete this topic Hepatitis A Vaccines Aged Out No long er eligible based on patient's age to complete this topic IPV Vaccines Aged Out No longer eligi ble based on patient's age to complete this topic Meningococcal Vaccine Aged Out No daysi justin eligible based on patient's age to complete this topic RSV under 20 months Aged Out No longe r eligible based on patient's age to complete this topic Rotavirus Vaccines Aged Out No longer eligible based on patient's age to complete this topic Procedures Procedure Name Priority Date/Time Associated Diagnosis Comments XR CHEST 2 VIEWS Routine 06/16/2024 5:41 PM EST URINALYSIS, COMPLETE Routine 06/16/2024 4:37 PM EST SARS COV2/INFLUENZA A/B AND RSV RNA QL NAAT Routine 06/16/2024 3:51 PM EST HIGH SENSITIVITY TROPONIN I Routine 06/16/2024 3:50 PM EST B TYPE NATRIURETIC PEPTIDE (BNP) Routine 06/16/2024 3:50 PM EST MAGNESIUM Routine 06/16/2024 3:50 PM EST COMPREHENSIVE METABOLIC PANEL Routine 06/16/2024 3:50 PM EST PROTHROMBIN TIME-INR Routine 06/16/2024 3:50 PM EST CBC WITH AUTO DIFFERENTIAL Routine 06/16/2024 3:[address] HEAD WO CONTRAST Routine 06/16/2024 3 :36 PM EST LIPID PANEL WITH REFLEX TO DIRECT LDL Routine 07/01/2023 10:35 AM EST Dyslipidemia from Last 3 Months or Most Recently Relevant to Health Maintenance Results * XR Chest 2 Views (06/16/2024 5:41 PM EST) Anatomical Region Laterality Modality Chest Radiographic Gayla ging 06/16/2024 5:41 PM EST Narrative 06/16/2024 5:43 PM EST ? [facility] ?[address] ?[place] [address] ?XRay Report ? Signed ? Patient: Garsia,Jose Alfredo L ?MR#: [id number] ? : 1945 ?Acct:[id number] ? Age/Sex: 79 / M ?ADM Date: 06/16/24 ? Loc: HO.ED ? Attending Dr: ? Ordering Physician: Elfego Sorensen ?? Date of Service: 06/16/24 ?? Procedure(s): XR chest 2V ?? Accession Number(s): [id number] ? cc: Tangela aGrcia MD; Elfego Sorensen ? CLINICAL HISTORY: cough ? 2 view chest x-ray ? Comparison: None ? Findings: ?? The lungs are clear. ?? Heart size is normal. ?? No acute fracture. ? IMPRESSION: ?? 1. No acute findings. ? This document has been electronically signed by: Yo Gutiérrez MD on ?? 06/16/2024 17:41:46 ? Dictated By: ?Yo Gutiérrez MD ? Signed By: ?<Electronically signed by Yo Gutiérrez MD in OV> ?06/16/24 1743 ? DD/ 174 ? TD/TT: 06/16/24 174 ? Solutions Engineer: ? Procedure Note Sorin Gillespie - 06/16/[address] [address] XRay Report Signed Patient: Jose Alfredo Garsia LMR#: [id number] : 3Acct:[id number] Age/Sex: 79 / MADM Date: 06/16/24 Loc: HO.ED Attending Dr: Ordering Physician: Elfego Sorensen Date of Service: 06/16/24 Procedure(s): XR chest 2V Accession Number(s): [id number] cc: Tangela Garcia MD; Elfego Sorensen CLINICAL HISTORY: cough 2 view chest x-ray Comparison: None Findings: The lungs are clear. Heart size is normal. No acute fracture. IMPRESSION: 1. No acute findings. This document has been electronically signed by: Yo Gutiérrez MD on 06/16/2024 17:41:46 Dictated By: Yo Gutiérrez MD Signed By: <Electronically signed by Yo Gutiérrez MD in OV> 06/16/241742 DD/ 40 TD/TT: 06/16/241740 Solutions Engineer: us [facility] External Provider IMG XR PROCEDURES Edited Result - Final * (ABNORMAL) Urinalysis Complete (06/16/2024 4:37 PM EST) Color Urine Yellow [facility] Appearance Urine Clear [facility] PH 5.5 5.0 - 9.0 [facility] Glucose Urine UA Negative Negative mg/dL [facility] Urine Blood Negative Negative [facility] Specific [place] - Urine >=1.030(H) 1.005 - 1.025 [facility] Urine Protein Negative Neg-Trace mg/dL [facility] Urine Ketones Trace Negative mg/dL [facility] Nitrite Urine Negative Negative [facility] Leukocyte Esterase Urine Trace(A) Negative [facility] RBC Urine 0-2 0 - 2 /HPF [facility] Urine WBC 0-5 0 - 5 /HPF [facility] Urine Squamous Epithelial Cell 0-2 0 - 2 /HPF [facility] CALCIUM OXALATE CRYSTAL, UR Present [facility] Urine Bacteria None Seen None Seen [facility] Hyaline Casts, Urine 0-2 0 - 2 /LPF [facility] 06/16/2024 4:37 PM EST 06/16/2024 4:43 PM EST Generic External Data Provider LAB URINE ORDERAB LES Final Result [facility] [address] [place] [phone] * SARS-CoV-2 RNA, Influenza A/B, and RSV RNA, Ql NAAT (06/16/2024 3:51 PM EST) Pathologist [facility] Influenza A PCR NEGATIVE Negative [facility] Influenza B PCR NEGATIVE Negative [facility] Resp Syncy Virus RNA Qual PCR NEGATIVE Negative [facility] SARS COV2 PCR NEGATIVE Negative [facility] Comment:All test results mus t be correlated with clinical findings.Negative results do not preclude SARS-CoV2, influenza Avirus, influenza B virus and/or RSV infectionand should not be used as the sole basis for treatment orother patient management decisions. Negative results must becombined with clinical observations, patient history, andepidemiological information.This test has not been evaluated for monitoring treatment ofinfection.This test has been authorized by the FDA under an EmergencyUse Authorization (EUA) for use by authorized laboratories.Testing performed on the [employer] GeneXpert utilizingreal-time RT-PCR.All SARS CoV2 and positive influenza A/B results arereported to [facility]. 06/16/2024 3:51 PM EST 06/16/2024 3:56 PM EST [employer] External Data Provider LAB MICROBIOLOGY - GENERAL ORDERABLES Final Result [facility] [address] [place] [phone] * High Sensitivity Troponin I (06/16/2024 3:50 PM EST) [facility] TROPONIN I HIGH SENSITIVITY <2.7 <3.5 - 35.0 ng/L [facility] Comment:The [place] high sens itivity Troponin-I results should beused in conjunction with other diagnostic information suchas ECG, clinical observations and information, and patientsymptoms to aid in the diagnosis of OR. 06/16/2024 3:50 PM EST 06/16/2024 3:56 PM EST us Generic External Data Provider LAB BLOOD ORDERAB LES Final Result [facility] [address] [place], [place] [phone] * CBC auto differential (06/16/2024 3:50 PM EST) White Blood Count 9.0 4.8 - 10.8 X10*3/uL [facility] Red Blood Count 4.79 4.60 - 5.80 X10*6/uL [facility] Hemoglobin 15.5 14.0 - 18.0 g/dl [facility] Hematocrit 45.5 42.0 - 52.0 % [facility] Mean Corpuscular Volume 95.0 80.0 - 98.0 fL [facility] Mean Corpuscular Hemoglobin 32.4 27.0 - 33.0 pg [facility] Mean Corpuscular HGB Conc 34.1 31.0 - 36.0 g/dl [facility] Red Cell Distribution Width 13.3 11.0 - 16.0 % [facility] Platelet Count 215 160 - 400 X10*3/uL [facility] Mean Platelet Volume 9.7 9.4 - 12.4 fL [facility] Neutrophils Percent Auto 68.7 45 - 73 % [facility] Imm Gran Pct Auto 0.3 0.0 - 0.4 % [facility] Lymphocytes Percent Auto 20.6 20 - 40 % [facility] Monocytes Percent Auto 8.6 2 - 11 % [facility] Eosinophils Percent Auto 1.5 0 - 4 % [facility] Basophils Percent Auto 0.3 0 - 2 % [facility] NRBC Pct Auto 0.0 0.0 - 0.2 /100WBC [facility] Neutrophils Absolute Auto 6.2 2.0 - 8.3 x10*3/uL [facility] Imm Gran Abs Auto 0.03 0.00 - 0.03 X10*3/uL [facility] Lymphocytes Absolute Auto 1.9 1.2 - 4.9 X10*3/uL [facility] Monocytes Absolute Auto 0.8 0.1 - 1.2 X10*3/uL [facility] Eosinophils Absolute Auto 0.1 0.0 - 0.4 X10*3/uL [facility] Basophils Absolute Auto 0.0 0.0 - 0.2 X10*3/uL [facility] NRBC Abs Auto 0.000 0.0 - 0.012 X10*3/uL [facility] 06/16/2024 3:50 PM EST 06/16/2024 3:56 PM EST Generic External Data Provider LAB BLOOD ORDERAB LES Final Result Performing Organization Address [facility] Co de Phone Number [facility] [address] [place] [phone] * Prothrombin Time-INR (06/16/2024 3:50 PM EST) [facility] Prothrombin Time 11.5 10.9 - 12.4 SEC [facility] INTERNATIONAL NORM RATIO 1.0 0.9 - 1.1 [facility] Comment:INTERNATIONAL NORMAL IZED RATIO (INR) REFERENCE RANGES Reference RangeFor patients not on anticoagulant therapy: 0.9 - 1.1INR ranges for oral anticoagulanttherapy:For prevention and treatment of venous thrombosis and pulmonary embolism: 2.0 - 3.0For acute myocardial infarction with aspirin therapy: 2.0 - 3.0For acute myocardial infarction without aspirin therapy: 3.0 - 4.0For patients with mechanical prosthetic heart valves: 2.5 - 3.5 06/16/2024 3:50 PM EST 06/16/2024 3:56 PM EST Generic External Data Provider LAB BLOOD ORDERAB LES Final Result Performing Organization Address [facility] de Phone Number [facility] [address] [place] [phone] * B Type Natriuretic Peptide (BNP) (06/16/2024 3:50 PM EST) B Type Natriuretic Peptide <10 <100 pg/mL [facility] Comment:For those patients w ho are being treated with Natrecor(nesiritide, recombinant BNP), BNP testing should beperformed at least two hours post treatment in order toensure that only endogenous levels of BNP are detected. 06/16/2024 3:50 PM EST 06/16/2024 3:56 PM EST Generic External Data Provider LAB BLOOD ORDERAB LES Final Result Performing Organization Address [facility]/ZIP Co de Phone Number [facility] [address] [place] [phone] * Magnesium (06/16/2024 3:50 PM EST) Pathologist [facility] Magnesium 2.1 1.6 - 2.6 mg/dL [facility] 06/16/2024 3:50 PM EST 06/16/2024 3:56 PM EST [employer] External Data Provider LAB BLOOD ORDERAB LES Final Result Performing Organization Address [facility] Co de Phone Number [facility] [address] [place] [phone] * (ABNORMAL) Comprehensive Metabolic Panel (06/16/2024 3:50 PM EST) Pathologist [facility] Sodium 141 135 - 145 mmol/L [facility] Potassium 4.0 3.3 - 5.1 mmol/L [facility] Chloride 110(H) 96 - 108 mmol/L [facility] Carbon Dioxide 25 22 - 29 mmol/L [facility] Anion Gap 10(L) 12 - 20 [facility] Urea Nitrogen (BUN) 12 9 - 16 mg/dL [facility] Creatinine, Serum 1.25 0.5 - 1.4 mg/dL [facility] Creatinine Clr Calc Pharmacy 46.2 [facility] Comment:eGFR (calculated fro m the MDRD study equation) and eCrCl(calculated from the Cockcroft-Gault equation) are based ondifferent parameters and may not yield comparable results.If eCrCl result is absurd, please check patient'sheight/weight. Estimated Glomerular Filt Rate 55 [facility] Comment:Chronic Kidney Disea se: Estimated GFR < 60 mL/min/1.38f3Bylnht Kidney Disease: Estimated GFR < 15 mL/min/1.73m2 Glucose 101 60 - 115 mg/dL [facility] Calcium 8.8 8.4 - 10.2 mg/dL [facility] Bilirubin, Total 0.5 0.0 - 1.0 mg/dL [facility] Aspartate Amino Transferase 31 5 - 37 U/L [facility] Alanine Aminotransferase 38 0 - 40 U/L [facility] Total Protein 6.8 6.5 - 8.0 g/dL [facility] Albumin Level 3.9 3.5 - 5.0 g/dL [facility] Alkaline Phosphatase 134(H) 39 - 117 U/L [facility] 06/16/2024 3:50 PM EST 06/16/2024 3:56 PM EST us Generic External Data Provider LAB BLOOD ORDERAB LES Final Result Performing Organization Address City/State/[facility] Co de Phone Number [facility] [address] [place] [phone] * CT Head w/o Contrast (06/16/2024 3:36 PM EST) Anatomical Region Laterality Modality Head, Neck Computed Tomogra phy 06/16/2024 3:36 PM EST Narrative 06/19/2024 8:40 AM EST ? [facility] ?[address] [place] [address] ?[place] [address] ? CT Scan Report ? Signed ? Patient: Garsia,Jose Alfredo L ?MR#: [id number] ? : 1945 ?Acct:[id number] ? Age/Sex: 79 / M ?ADM Date: 01/03/25 ? Loc: HO.ED ? Attending Dr: ? Ordering Physician: Elfego Sorensen ?? Date of Service: 06/16/24 ?? Procedure(s): CT head/brain wo IV con ?? Accession Number(s): [id number] ? cc: Tangela Garcia MD; Elfego Sorensen ? Report Number: ?? [id number]: Total DLP = ??699.00 mGy-cm ?? EXAMINATION: ?? CT HEAD WITHOUT CONTRAST ? CLINICAL INFORMATION: ?? Headache, off balance. ? COMPARISON: ?? None available. ? TECHNIQUE: ?? Contiguous axial imaging was performed from the skull base to vertex ?? without intravenous administration of contrast. ? This CT examination was performed using dose optimization techniques as ?? appropriate, variously including the following: ?? *Automated exposure control ?? *Adjustment of mA and/or kV according to patient size (this includes ?? techniques or standardized protocols for targeted exams where dose is ?? matched to indication/reason for exam; i.e. extremities or head) ?? *Use of iterative reconstruction technique ?? DLP: 699. ? FINDINGS: ?? There is no acute intra-axial, extra-axial bleed, masses or midline ?? shift. There is no acute infarction in evolution. There is no edema. ?? The xie to white matter differentiation is maintained normal. ?? The lateral ventricles are symmetrical in size and configuration ?? without enlargement. Bone windows reveal no calvarial abnormality. ?? There is no scalp soft tissue abnormality. There is focal dural ?? calcification midline falx. Similarly a focal hyperdensity seen along ?? the left anterior temporal lobe likely a small meningioma or dural ?? calcification. Bone windows reveal no calvarial abnormality. There is ?? punctate calcification in left scalp. The paranasal sinuses and mastoid ?? air cells are well-aerated. ? CT/CT head/brain wo IV con ?? IMPRESSION: ?? No acute intracranial process. No major change from previous exam ?? 11/24/2018 are ? Electronically signed by: ??Irving Ochoa MD ??06/19/2024 08:37 AM EST RP ? Dictated By: ?Gabriela,Irving S MD ? Signed By: ?<Electronically signed by Irving S MD Gabriela in OV> ?06/19/24 0837 ? DD/ 1536 ? TD/TT: 06/16/24 1554 ? Solutions Engineer: MSM ? Procedure Note Donotuseinterpreter, Image - 06/19/[address] [address] [address] Scan Report Signed Patient: Jose Alfredo Garsia LMR#: [id number] : 3Acct:[id number] Age/Sex: 79 / MADM Date: 06/16/24 Loc: HO.ED Attending Dr: Ordering Physician: Elfego Sorensen Date of Service: 06/16/24 Procedure(s): CT head/brain wo IV con Accession Number(s): [id number] cc: Tangela Garcia MD; Elfego Sorensen Report Number: [id number]: Total DLP = 699.00 mGy-cm EXAMINATION: CT HEAD WITHOUT CONTRAST CLINICAL INFORMATION: Headache, off balance. COMPARISON: None available. TECHNIQUE: Contiguous axial imaging was performed from the skull base to vertex without intravenous administration of contrast. This CT examination was performed using dose optimization techniques as appropriate, variously including the following: *Automated exposure control *Adjustment of mA and/or kV according to patient size (this includes techniques or standardized protocols for targeted exams where dose is matched to indication/reason for exam; i.e. extremities or head) *Use of iterative reconstruction technique DLP: 699. FINDINGS: There is no acute intra-axial, extra-axial bleed, masses or midline shift. There is no acute infarction in evolution. There is no edema. The xie to white matter differentiation is maintained normal. The lateral ventricles are symmetrical in size and configuration without enlargement. Bone windows reveal no calvarial abnormality. There is no scalp soft tissue abnormality. There is focal dural calcification midline falx. Similarly a focal hyperdensity seen along the left anterior temporal lobe likely a small meningioma or dural calcification. Bone windows reveal no calvarial abnormality. There is punctate calcification in left scalp. The paranasal sinuses and mastoid air cells are well-aerated. CT/CT head/brain wo IV con IMPRESSION: No acute intracranial process. No major change from previous exam 11/24/2018 are Electronically signed by: Irving Ochoa MD 06/19/2024 08:37 AM [facility] Dictated By: Irving Ochoa MD Signed By: <Electronically signed by Irving Ochoa MD in OV> 06/19/24 0837 DD/ 1536 TD/TT: 06/16/24 1554 Solutions Engineer: [facility] External Provider IMG CT PROCEDURES Edited Result - Final * (ABNORMAL) Lipid Panel with Reflex to Direct LDL (07/01/2023 10:35 AM EST) Triglycerides 179(H) <150 mg/dL [facility] Comment:Desirable Triglyceri de: less than 150 mg/dLBorderline High Triglyceride 150-199 mg/dLHigh Triglyceride: 200-499 mg/dLVery High Triglyceride: greater than or equal to 5OO mg/dL Cholesterol 180 <200 mg/dL [facility] Comment:Desirable Cholestero l: less than 200 mg/dLBorderline High Cholesterol: 200-239 mg/dLHigh Cholesterol: greater than 239 mg/dL LDL Cholesterol Calculated 99 <100 mg/dL [facility] Comment:Desirable LDL: less than 100 mg/dLNear Optimal/Above Optimal LDL: 110- 129 mg/dLBorderline High LDL: 130-159 mg/dLHigh LDL: 160-189 mg/dLVery High LDL: greater than or equal to 190 mg/dL HDL Cholesterol 46 >40 mg/dL [facility] Comment:Desirable HDL: great er than 40 mg/dL Note: This HDL assay may give artificially low results in patients with liver disease. Blood 07/01/2023 10:3 5 AM EST 07/01/2023 11:36 AM EST Tangela Garcia MD LAB BLOOD ORDERABLES Final Resul t [facility] [address] [place] [phone] from Last 3 Months or Most Recently Relevant to Health Maintenance Insurance MEDICARE [facility] STANDARD Care Teams Bath Mixer Relationship Specialty Start Date End Date Tangela Garcia MD [address] [place] [phone] PCP - General Family Medicine 06/14/18
--- OUTSIDE RECORDS SUMMARY | 2024-08-10 08:13 | XMS_ITS | Encounter Summary ---
Author Organization [employer] Address [address] [place] [address] Care Team Providers Care Charge Coordinator Name Role Phone Tangela Garcia MD Primary Care Provider [phone] Encounter Details Date Type Department Care Team (Late st Contact Info) Description 04/27/2024 Telephone [facility] [address] [place], [place] [phone] Tangela Garcia MD [address] [place], [place] [phone] Social History Tobacco Use Types Packs/Day Years [...] Telephone Encounter - Barbie Voss RN - 04/28/2024 10:38 AM EST Fyi. BP at today's visit was 146/82, L arm. BP check scheduled for 05/09/24. documented in this encounter Plan of Treatment Upcoming Encounters Date Type Department Care Team (Late st Contact Info) Description 08/11/2024 2:00 PM EST Medication Management [facility] [address] [place] [address] 10/16/2024 10:30 AM EDT Telemedicine [facility] [address] [place] [address] Barbie Voss, NAYELY [address] [place] [address] documented as of this encounter Visit Diagnoses Not on filedocumented in this encounter Additional Health Concerns Assessment Noted Time PHQ-9 Depression Total Score: 0 03/01/20 23 10:01 AM EDT documented as of this encounter Care Teams Charge Coordinator Relationship Specialty Start Date End Date Tangela Garcia MD [address] [place] [address] PCP - General Family Medicine 06/14/18 documented as of this encounter
--- OUTSIDE RECORDS SUMMARY | 2024-08-10 08:13 | XMS_ITS | Encounter Summary ---
Author Organization [employer] Address [address] [place] [phone] Care Team Providers Care Dye Expert Name Role Phone Tangela Garcia MD Primary Care Provider [phone] Reason for Visit * Reason Onset Date Comments Med Refill 01/18/2023 Encounter Details Date Type Department Care Team ([facility] st Contact Info) Description 01/18/2023 Telephone [facility] MED[facility]INE [address] [place] [address] Tangela Garcia MD [address] [place], [place] [phone] Med Refill Social History Tobacco Use Types [...] encounter Miscellaneous Notes * Telephone Encounter - nAgie Aguero - 01/18/2023 8:45 AM EDT Tc from patient requesting a med refill for medication oxycodone 5 mg. Please send to [facility]/pharmacy #[id number] - [facility] - [address] [place] [address] Garcia documented in this encounter Plan of Treatment Upcoming Encounters Date Type Department Care Team (Late st Contact Info) Description 08/11/2024 2:00 PM EST Medication Management [facility] MEDICINE [address] [place] [address] 10/16/2024 10:30 AM EDT Telemedicine [facility] [address] [place], [place] [phone] Barbie Voss, NAYELY [address] [place] [address] documented as of this encounter Visit Diagnoses Not on filedocumented in this encounter Care Teams Dye Expert Relationship Specialty Start Date End Date Tangela Garcia MD [address] [place] [address] PCP - General Family Medicine 06/14/18 documented as of this encounter
--- OUTSIDE RECORDS SUMMARY | 2024-08-10 08:13 | XMS_ITS | Encounter Summary ---
Author Organization [employer] Address [address] [facility] 7[address] [place] [address] Care Team Providers Care Grader Tender Name Role Phone Tangela Garcia MD Primary Care Provider [phone] Reason for Visit * Reason Onset Date Comments Med Refill 04/27/2024 Encounter Details Date Type Department Care Team ([facility] st Contact Info) Description 04/27/2024 Telephone [facility] [address] [place] [address] Tangela Garcia MD [address] [place], [place] [phone] Med Refill Social History Tobacco Use Types [...] encounter Miscellaneous Notes * Telephone Encounter - Jordan Rico - 04/27/2024 9:20 AM EST TC from pt requesting medication refill. Medications needing refill : oxyCODONE (Roxicodone) 5 MG immediate release tablet To be sent to: [facility] - [place], [place] - [address] [place] [address] documented in this encounter Plan of Treatment Upcoming Encounters Date Type Department Care Team (Late st Contact Info) Description 08/11/2024 2:00 PM EST Medication Management [facility] [address] [place] [address] 10/16/2024 10:30 AM EDT Telemedicine [facility] [address] [place] [address] Barbie Voss, NAYELY [address] [place] [address] documented as of this encounter Visit Diagnoses Not on filedocumented in this encounter Additional Health Concerns Assessment Noted Time PHQ-9 Depression Total Score: 0 03/01/20 23 10:01 AM EDT documented as of this encounter Care Teams Grader Tender Relationship Specialty Start Date End Date Tangela Garcia MD [address] [place] [address] PCP - General Family Medicine 06/14/18 documented as of this encounter
[2024-08-10 12:13] LABS: Estimated Average Glucose 117 mg/dL; Hemoglobin A1c % 5.7 % (<6.0)
[2024-08-10 12:14] LABS: Alanine Aminotransferase 58 U/L (0-40); Albumin Level 3.9 g/dL (3.5-5.0); Alkaline Phosphatase 142 U/L (39-117); Anion Gap 9 (12-20); Aspartate Amino Transferase 45 U/L (5-37); Bilirubin Total 0.6 mg/dL (0.0-1.0); Blood Urea Nitrogen 11 mg/dL (9-16); Calcium 8.8 mg/dL (8.4-10.2); Carbon Dioxide 28 mmol/L (22-29); Chloride 108 mmol/L (96-108); Cholesterol 202 mg/dL (<200); Estimated Glomerular Filt Rate > 60; Glucose Random 108 mg/dL (60-115); HDL Cholesterol 43 mg/dL (>40); LDL Cholesterol Calculated 125 mg/dL (<100); Potassium 4.3 mmol/L (3.3-5.1); Sodium 141 mmol/L (135-145); Total Protein 6.9 g/dL (6.5-8.0); Triglycerides 173 mg/dL (<150)
[2024-08-10 12:20] LABS: Reflex LDLD? No
== END 2024-08-10 08:03 | disposition home or self-care (01) ==
LOC: HO.HHCL 08:02
PROVIDERS: Visit Provider Family Medicine
DX: E78.5 Hyperlipidemia, unspecified (principal); R03.0 Elevated blood-pressure reading, without diagnosis of hypertension; E66.3 Overweight; Z13.1 Encounter for screening for diabetes mellitus; J44.9 Chronic obstructive pulmonary disease, unspecified; G47.33 Obstructive sleep apnea (adult) (pediatric); Z87.891 Personal history of nicotine dependence; Z79.899 Other long term (current) drug therapy
CPT/HCPCS: 36415; 80053; 80061; 83036; 99212

== ENCOUNTER 2024-08-10 10:10 | Outpatient (AMB) | payer MEDICARE, MEDICAID, SELFPAY ==
[2024-08-10 10:33] VITALS: BP 120/68; PULSE 83; O2SAT 94; BMI 24.4
--- NOTE | 2024-08-10 10:33 | A.OFFVIS_ITS ---
Vital Signs 08/10/24 10:33 Height 5 ft 9 in Weight 165 lb 5.547 oz BMI 24.4 BP 120/68 Blood Pressure Location Lt brachial Position Sitting Pulse 83 Pulse Source Pulse Oximeter Pulse Oximetry (%) 94 Oxygen Delivery Method Room Air Intake Visit Reasons: COPD Intake Note: pt is here for follow up and states some coughing and some short of breath at night. Ore Washer Required: No Allergies ibuprofen [From Motrin] Allergy (Severe, Verified 08/10/24 10:50) Gastrointestinal Upset codeine Adverse Reaction (Mild, Verified 08/10/24 10:50) Abdominal Pain Medication List - Last Reconciled 08/10/24 by Jeanne Mayorga MD acetaminophen 650 mg (2 x 325 mg) PO Q6H PRN 30 days albuterol sulfate 90 mcg/actuation 2 inhalations inhalation Q4-6H PRN aspirin 81 mg PO QAM cholecalciferol (vitamin D3) (Vitamin D3) 1 cap PO QAM cyanocobalamin (vitamin B-12) 500 mcg PO QAM doxepin 75 mg PO BEDTIME famotidine 20 mg PO DAILY fluticasone propion-salmeterol 113-14 mcg/actuation 1 inh inhalation BID gabapentin 100 mg PO BEDTIME latanoprost 0.005% 0 drps ophthalmic (eye) loratadine (Allergy Relief (loratadine)) 1 tab PO QAM melatonin 6 mg (2 x 3 mg) PO BEDTIME PRN 30 days mirtazapine 30 mg PO BEDTIME omega-3 fatty acids (Fish Oil Concentrate) 1,000 mg PO DAILY oxycodone 5 mg PO Q12H PRN 7 days pantoprazole (Protonix) 40 mg PO BID 30 days simethicone 180 mg PO QID simvastatin 40 mg PO BEDTIME sucralfate (Carafate) 10 mL PO .qhs walker Folding Front wheeled walker Do you need a note to return to daycare/school/sports/work: No HPI HPI COPD: Details: THIS 79 YEARS OLD GENTLEMAN IS A CASE OF MILD OBSTRUCTIVE AIRWAY DISORDER. HE USES FLUTICASONE-SALMETEROL 113-14 2 PUFFS B.I.D. REGULARLY. HE NEEDS TO USE ALBUTEROL ONLY ONCE IN A WHILE. CLAIMS THAT HE IS DOING WELL AND HAS MILD COUGH AT NIGHT. DENIES ANY SHORTNESS OF BREATH DURING THE DAYTIME HE IS QUITE ACTIVE AND WALKS AROUND DURING THE DAYTIME WITHOUT MUCH SHORTNESS OF BREATH HE IS NONSMOKER. [facility] Medical History Tachycardia Cough SELINA (obstructive sleep apnea) Kidney stones Asthma Elevated cholesterol HTN (hypertension) Ambulates with cane Degenerative disc disease, thoracic High cholesterol Hypertension COPD (chronic obstructive pulmonary disease) Hemorrhoids GERD (gastroesophageal reflux disease) Surgical History History of cystoscopy History of renal stent H/O shoulder surgery S/P arthroscopic surgery of left knee History of total left knee replacement H/O colonoscopy Previous back surgery Social History Household Members: Family Are you a primary reproductive healthcare assistant to a significant other at home: No Do you presently have visiting nurse or other home services: Yes (none) Alcohol intake: never Patient Tobacco Use Status: Never used Tobacco Substance Use Type: Marijuana Current occupational status: unemployed Review of Systems Const All systems reviewed & are unremarkable except as noted in HPI and below Eyes Reports no additional complaints ENT Reports no additional complaints Card Denies chest pain, Denies irregular heart rhythm and Denies leg edema Resp Reports as per HPI GI Reports constipation and Reports heartburn (BEING TREATED WITH OMEPRAZOLE) Reports no additional complaints Musc Reports no additional complaints, Reports arthralgias and Reports joint swelling (knees) Skin/Breast Reports system reviewed and no additional complaints, except as documented Neuro Reports no additional complaints Psych Reports no additional complaints and Reports depression Endo Reports no additional complaints Physical Exam Vital Signs: Last Vital Signs Pulse 83 08/10/24 10:33 BP 120/68 08/10/24 10:33 Pulse Ox 94 08/10/24 10:33 Oxygen Delivery Method Room Air 08/10/24 10:33 BMI result Body Mass Index 24.4 Const General: comfortable, no acute distress, alert and awake Orientation/consciousness: patient oriented x3 HEENT Head: Yes normal to inspection General nose exam: No nasal polyps present and No nasal discharge present Face and sinus: Yes sinuses nontender Mouth: oropharynx normal Teeth and gingiva: dentures (LOWER JAW) Throat: Yes posterior oropharynx normal Eyes General: appearance normal, both eyes and all related structures Neck Neck: Yes normal visual inspection, Yes no lymphadenopathy, Yes trachea midline and Yes no JVD Thyroid: Thyroid normal Chest Chest palpation & inspection: normal inspection of the chest, normal palpation of entire chest wall and no tenderness Resp Other: PERCUSSION NOTE RESONANT, BREATH SOUNDS ARE SLIGHTLY DISTANT WITH PROLONGED EXPIRATORY PHASE. NO WHEEZES OR CREPS. HEARD TODAY . Cardio Palpation: normal PMI Rate: regular rate Rhythm: regular rhythm Heart sounds: no gallops and no murmurs GI Palpation (GI): Soft to palpation, nontender, No hepatosplenomegaly present and no masses Auscultation: normal bowel sounds Back/Spine/Pelvis Thoracic/Lumbar Spine: thoracic and lumbar spine normal to inspection Skin General skin exam: no rashes or lesions noted Neuro General: patient oriented x3 and no focal motor deficits Cranial nerves: Yes CN's II-XII intact bilaterally Extrem General: Yes normal to inspection, Yes no clubbing, cyanosis or edema and Yes no calf tenderness Psych Appearance: grossly normal and well kempt Speech and movement: Normal speech and movement present Assessment & Plan Assessment & Plan (1) COPD (chronic obstructive pulmonary disease): Comment: HE DOES HAVE CHRONIC OBSTRUCTIVE PULMONARY DISEASE BUT IT IS MILD AND WELL CONTROLLED. HE HAS BEEN DOING VERY WELL AND REMAINED STABLE ON HIS MEDICAL REGIMEN. Code(s): J44.9 - Chronic obstructive pulmonary disease, unspecified Category: Medical Plan: CONTINUE USING FLUTICASONE-SALMETEROL 113-14 2 PUFFS B.I.D. AND ALBUTEROL HFA 2 PUFFS Q 6 HOURS P.R.N. (2) SELINA (obstructive sleep apnea): Comment: HE WAS EVALUATED FOR SLEEP APNEA IN 2010 AND WAS FOUND TO HAVE ONLY MILD DEGREE OF SELINA, AT THAT TIME PATIENT HAD OPTED , NOT TO BE TREATED WITH CPAP. HE CONTINUES TO HAVE, SYMPTOMS OF INSOMNIA. AGAIN A REPEAT HST WAS DONE AND SHOWED ONLY MILD SELINA, AND DID NOT NEED CPAP . Code(s): G47.33 - Obstructive sleep apnea (adult) (pediatric) Category: Medical Plan: STRESSED THAT HE SHOULD NOT GAIN ANY MORE WEIGHT (3) Former smoker: Comment: HAS PAST HISTORY OF SMOKING BUT QUIT MORE THAN 12 YEARS AGO. Code(s): Z87.891 - Personal history of nicotine dependence Category: Social Hx Plan: AGAIN DISCUSSED AND HE HAS NO URGE TO GO BACK TO SMOKING Coding Level of Care Code Est Pt Level 3 (12089) Diagnoses COPD (chronic obstructive pulmonary disease) J44.9 SELINA (obstructive sleep apnea) G47.33 Former smoker Z87.899
--- OUTSIDE RECORDS SUMMARY | 2024-08-10 11:46 | XMS_ITS | Clinical Summary ---
Author Organization [facility] Address [address] [place] [address] Care Team Providers Care Senior Software Quality Engineer Name Role Phone Unavailable Primary Care Provider [...]
== END 2024-08-10 10:54 | disposition home or self-care (01) ==
PROVIDERS: PCP Family Medicine; Visit Provider Internal Medicine
DX: J44.9 Chronic obstructive pulmonary disease, unspecified (principal); G47.33 Obstructive sleep apnea (adult) (pediatric); Z87.891 Personal history of nicotine dependence
CPT/HCPCS: 99213

== ENCOUNTER 2024-09-15 08:43 | Outpatient (AMB) | payer MEDICARE, MEDICAID, SELFPAY ==
--- NOTE | 2024-09-15 08:48 | MHC.OFFVIS ---
Vital Signs 09/15/24 08:51 Height 5 ft 9 in Weight 171 lb 1.259 oz BMI 25.3 BP 157/84 H Blood Pressure Location Lt brachial Position Sitting Pulse 68 Intake Visit Reasons: 6 months f/u GERD Intake Note: Jose Alfredo presents in follow up of GERD. CC: Directional Driller Required: Yes Allergies ibuprofen [From Motrin] Allergy (Severe, Verified 09/15/24 08:57) Gastrointestinal Upset codeine Adverse Reaction (Mild, Verified 09/15/24 08:57) Abdominal Pain HPI HPI 6 months f/u GERD: Details: Assessment & Plan (1) GERD (gastroesophageal reflux disease): Code(s): K21.9 - Gastro-esophageal reflux disease without esophagitis Category: Medical (2) Chronic idiopathic constipation: Code(s): K59.04 - Chronic idiopathic constipation Category: Medical Plan [facility] [employer] He continues to do well on his medications. He continues on his sucralfate, pantoprazole, and simethicone and is satisfied with his GI regimen. The only new health concern as he was seen for a headache at [facility] recently but apparently was ruled out for any severe disease. Return office visit in 6 months Medications: Refilled simethicone 180 mg PO QID 120 caps 6RF R14.0 - Abdominal distension (gaseous) sucralfate (Carafate) 10 mL PO .qhs 200 mL 6RF R10.9 - Unspecified abdominal pain pantoprazole (Protonix) 40 mg PO BID 30 days 60 tabs 6RF K21.9 - Gastro-esophageal reflux disease without esophagitis TODAY'S VISIT Georgian #Dennise Live he continues on his sucralfate, pantoprazole, and simethicone. HIs only complaint now is I'm overweight now, I eat so m uch more!! His blood pressure was running higher recently but they have added medications to stabilize this. This likely is also related to his weight gain and this age. ROV 6 mos. [facility] Medical History (Updated 09/15/24 @ 08:50 by ROSANNE Tolliver) Knee effusion, right Tachycardia Cough SELINA (obstructive sleep apnea) Kidney stones Asthma Elevated cholesterol HTN (hypertension) Ambulates with cane Degenerative disc disease, thoracic High cholesterol Hypertension COPD (chronic obstructive pulmonary disease) Hemorrhoids GERD (gastroesophageal reflux disease) Surgical History (Updated 09/15/24 @ 08:50 by ROSANNE Tolliver) Status post total right knee replacement History of repair of left rotator cuff History of cystoscopy History of renal stent H/O shoulder surgery S/P arthroscopic surgery of left knee History of total left knee replacement H/O colonoscopy Previous back surgery Social History Household Members: Family Are you a primary customer care associate to a significant other at home: No Do you presently have visiting nurse or other home services: Yes (none) Alcohol intake: never Patient Tobacco Use Status: Never used Tobacco Substance Use Type: Marijuana Current occupational status: unemployed Review of Systems Const Denies fatigue, Denies fever(s), Denies night sweats, Denies poor appetite and Denies weight loss ENT Reports Normal hearing present, Denies dental pain, Denies dysphagia, Denies hearing loss, Denies mouth pain, Denies odynophagia, Denies throat swelling, Denies tongue swelling and Reports other (Dentition adequate) Card Reports no additional complaints Resp Reports no additional complaints GI Details: Denies abdominal pain, Denies melena, Reports bloating, Denies hematochezia, Denies constipation, Denies GI cramping, Denies dysphagia, Denies excessive flatus, Denies early satiety, Reports heartburn, Denies diarrhea, Denies nausea, Denies odynophagia, Denies vomiting and Denies hematemesis Skin/Breast Denies pruritus, Denies lesions, Denies rash and Denies jaundice Neuro Reports Normal hearing present and Denies Abnormal speech present Endo Denies fatigue Aller/Immun Denies throat swelling and Denies tongue swelling Physical Exam Const General: cooperative, no acute distress, well developed and well groomed Nutritional Appearance: well nourished and obese centrally obese Orientation/consciousness: oriented to person, oriented to place and oriented to time Limitations: language barrier HEENT Head: Yes normocephalic and Yes atraumatic Eyes General: appearance normal, both eyes and all related structures Pupils: Equal, round and reactive pupils present Neck Neck: Yes normal visual inspection and Yes no lymphadenopathy Thyroid: Thyroid normal Resp Effort & Inspection: normal respiratory effort and able to speak in complete sentences Auscultation: clear to auscultation bilaterally Cardio Rate: regular rate Rhythm: regular rhythm Heart sounds: Normal, physiologic split S2 sound present Peripheral pulses: radial pulses present and posterior tibial pulses present GI Inspection: No distended, No Abdominal panniculus present and Yes obesity Palpation (GI): Soft to palpation, nontender, no guarding, not rigid and No hepatosplenomegaly present Percussion: Yes normal to percussion Auscultation: normal bowel sounds Rectal Exam - Male: Yes deferred Skin General skin exam: no rashes or lesions noted, turgor normal, skin not dry, no jaundice, No spider nevi and no striae Rashes: no rashes Nails: normal Neuro General: oriented to person, oriented to place and oriented to time Cranial nerves: Yes Equal, round and reactive pupils present and Yes Normal hearing present Speech: No Abnormal speech present Extrem General: Yes normal to inspection, No clubbing, No cyanosis and No edema Psych Appearance: grossly normal and well kempt Mental Status: mental status grossly normal Speech and movement: Normal speech and movement present Affect: normal affect Attitude: cooperative Thought process: Normal thought process present and not confabulating Thought content: Normal thought content present Insight: Limited insight present (Psych) Judgement: Limited judgement present (Psych) Assessment & Plan Assessment & Plan (1) GERD (gastroesophageal reflux disease): Code(s): K21.9 - Gastro-esophageal reflux disease without esophagitis Category: Medical (2) Chronic idiopathic constipation: Code(s): K59.04 - Chronic idiopathic constipation Category: Medical Plan Georgian #Dennise Live he continues on his sucralfate, pantoprazole, and simethicone. HIs only complaint now is I'm overweight now, I eat so m uch more!! His blood pressure was running higher recently but they have added medications to stabilize this. This likely is also related to his weight gain and this age. ROV 6 mos. Medications: Refilled simethicone 180 mg PO QID 120 caps 6RF R14.0 - Abdominal distension (gaseous) sucralfate (Carafate) 10 mL PO .qhs 200 mL 6RF R10.9 - Unspecified abdominal pain Coding Level of Care Code Est Pt Level 3 (03342) Diagnoses GERD (gastroesophageal reflux disease) K21.9 Chronic idiopathic constipation K59.04
[2024-09-15 08:51] VITALS: BP 157/84; PULSE 68; BMI 25.3
--- OUTSIDE RECORDS SUMMARY | 2024-09-15 09:13 | XMS_ITS ---
Author Organization [facility] Care Team Providers Care Systems Test Engineer Name Role Phone Angel Kraft Unavailable Unavailable Care Team Name Role Address Phone Organization Dates Angel Kraft Attending Physician [address] [facility] [address], [place], [address], [place] (Office): : [facility] 09/16/2013 - 09/29/2013 Immunizations Immunization Status Vaccine Details Vaccine Code CodeSystem Date Notes Influenza completed Influenza, high-dose, split virus, trivalent, injectable, preservative free 135 CVX created date: 09/18/2013 administer ed date: 03/18/2013 Educated by Wilma ADLER on 09/18/2013 Pneumovax Dose 1 completed pneumococcal polysaccharide vaccine, 23 valent 33 CVX created date: 09/18/2013 administer ed date: 03/28/2010 Educated by Wilma ADLER on 09/18/2013 Reason for Referral No Reasons for Referral Entered Social History Social History Observation Description Start Date End Date Code Code System Current Smoking Status Tobacco smoking consumption unknown 226527406 SNOMED CT Sex Assigned At Male 1945 25804-6 [facility] Vital Signs Code Code System Vitals Name Values and Units Timing Information 62620-2 [facility] Weight Creit=120.2 Units=Lbs 9279-1 [facility] Respiratory Rate Value=18.0 Units=/m in 09/20/2013 8462-4 [facility] Blood Pressure-Diastolic Value=88 Un its=mmHg 09/20/2013 8480-6 [facility] Blood Pressure-Systolic Odmbw=976 Un its=mmHg 09/20/2013 8310-5 [facility] Body Temperature Value=98.7 Units=?? F 09/20/2013 8867-4 [facility] Heart rate Value=88.0 Units=/min 02/2014 99179-8 [facility] O2 % dC Oximetry Value=95.0 Units= % 09/20/2013 8302-2 [facility] Height Value=64.0 Units=Inches 09/17/2013
== END 2024-09-15 09:12 | disposition home or self-care (01) ==
LOC: HO.HGI 08:44
PROVIDERS: PCP Family Medicine; Visit Provider Nurse Practitioner
DX: K21.9 Gastro-esophageal reflux disease without esophagitis (principal); K59.04 Chronic idiopathic constipation
CPT/HCPCS: 99213

== ENCOUNTER → 2024-09-15 08:43 | Outpatient (BNVA) | payer MEDICARE, MEDICAID, SELFPAY | PROVIDERS: PCP Family Medicine; Visit Provider Nurse Practitioner | DX: K21.9 Gastro-esophageal reflux disease without esophagitis (principal); K59.04 Chronic idiopathic constipation | CPT/HCPCS: 99212 ==

== ENCOUNTER 2025-02-01 13:16 | Outpatient (AMB) | payer MEDICARE, MEDICAID, SELFPAY ==
--- OUTSIDE RECORDS SUMMARY | 2025-02-01 13:27 | XMS_ITS | Encounter Summary ---
Author Organization [employer] Address [address] [facility] [address] [place] [address] Care Team Providers Care Chart Calculator Name Role Phone Tangela Garcia MD Primary Care Provider [phone] Reason for Visit * Reason Comments Med Refill Encounter Details Date Type Department Care Team ([facility] Contact Info) Description 12/13/2023 Refill [facility] [address] [place] [address] Tangela Garcia MD [address] [place] [address] Wheezing Social History Tobacco Use Types Packs/Day [...] Care Team (Late st Contact Info) Description 04/20/2025 9:30 AM EST Clinical Support [facility] [address] [place] [address] Barbie Voss RN [address] [place] [address] documented as of this encounter Visit Diagnoses Diagnosis Wheezing documented in this encounter Additional Health Concerns Assessment Noted Time PHQ-9 Depression Total Score: 0 03/01/20 23 10:01 AM EDT documented as of this encounter Care Teams Chart Calculator Relationship Specialty Start Date End Date Tangela Garcia MD [address] [place] [address] PCP - General Family Medicine 06/14/18 documented as of this encounter
--- OUTSIDE RECORDS SUMMARY | 2025-02-01 13:27 | XMS_ITS | Clinical Summary ---
Author Organization [facility] Address [address] [place] [address] Care Team Providers Care Respiratory Services Manager Name Role Phone Unavailable Primary Care Provider [...] 1-dose 75+ series) 2018 Influenza Vaccine (#1) 2025 Hepatitis B Vaccines Aged Out No long er eligible based on patient's age to complete this topic RSV Ped < 20 months Aged Out No longe r eligible based on patient's age to complete this topic
[2025-02-01 13:31] VITALS: BP 140/70; PULSE 74; O2SAT 96; BMI 25.4
--- NOTE | 2025-02-01 13:31 | MHC.OFFVIS ---
Vital Signs 02/01/25 13:31 Height 5 ft 9 in Weight 171 lb 15.369 oz BMI 25.4 BP 140/70 H Blood Pressure Location Lt brachial Position Sitting Pulse 74 Pulse Source Pulse Oximeter Pulse Oximetry (%) 96 Oxygen Delivery Method Room Air Intake Visit Reasons: COPD Intake Note: pt is here for follow up and states he is well, and received his new inhaler Allergies ibuprofen (From Motrin) Allergy (Severe, Verified 02/01/25 13:39) Gastrointestinal Upset codeine Adverse Reaction (Mild, Verified 02/01/25 13:39) Abdominal Pain Medication List - Last Reconciled 02/01/25 by Jeanne Mayorga MD acetaminophen 650 mg (2 x 325 mg) PO Q6H PRN 30 days albuterol sulfate 90 mcg/actuation 2 inhalations inhalation Q4-6H PRN aspirin 81 mg PO QAM cholecalciferol (vitamin D3) (Vitamin D3) 1 cap PO QAM cyanocobalamin (vitamin B-12) 500 mcg PO QAM doxepin 75 mg PO BEDTIME fluticasone propion-salmeterol 250-50 mcg/dose (Wixela Inhub) 1 inh inhalation BID 30 days gabapentin 100 mg PO BEDTIME latanoprost 0.005% 0 drps ophthalmic (eye) loratadine (Allergy Relief (loratadine)) 1 tab PO QAM melatonin 6 mg (2 x 3 mg) PO BEDTIME PRN 30 days mirtazapine 30 mg PO BEDTIME olmesartan 5 mg PO DAILY omega-3 fatty acids (Fish Oil Concentrate) 1,000 mg PO DAILY oxycodone 10 mg PO BID PRN pantoprazole 40 mg PO BID simethicone 180 mg PO QID simvastatin 40 mg PO BEDTIME sucralfate (Carafate) 10 mL PO .qhs walker Folding Front wheeled walker Do you need a note to return to daycare/school/sports/work: No HPI HPI COPD: Details: Jose Alfredo is 79 years old very pleasant gentleman with COPD and only mild degree of obstructive sleep apnea. He is here for six-month follow-up He had been doing very well. His previous long acting maintenance inhaler has been changed to Wixela 250-50 1 inhalation b.i.d.. And he claims that this is actually working much better. He feels less short of breath and has less cough. He sleeping okay at night . [facility] Medical History Knee effusion, right Tachycardia Cough SELINA (obstructive sleep apnea) Kidney stones Asthma Elevated cholesterol HTN (hypertension) Ambulates with cane Degenerative disc disease, thoracic High cholesterol Hypertension COPD (chronic obstructive pulmonary disease) Hemorrhoids GERD (gastroesophageal reflux disease) Surgical History Status post total right knee replacement History of repair of left rotator cuff History of cystoscopy History of renal stent H/O shoulder surgery S/P arthroscopic surgery of left knee History of total left knee replacement H/O colonoscopy Previous back surgery Social History Household Members: Family Are you a primary home health care case manager to a significant other at home: No Do you presently have visiting nurse or other home services: Yes (none) Alcohol intake: never Patient Tobacco Use Status: Never used Tobacco Substance Use Type: Marijuana Current occupational status: unemployed Review of Systems Const All systems reviewed & are unremarkable except as noted in HPI and below Eyes Reports no additional complaints ENT Reports no additional complaints Card Denies chest pain, Denies irregular heart rhythm and Denies leg edema Resp Reports as per HPI GI Reports constipation and Reports heartburn (BEING TREATED WITH OMEPRAZOLE) Reports no additional complaints Musc Reports no additional complaints, Reports arthralgias and Reports joint swelling (knees) Skin/Breast Reports system reviewed and no additional complaints, except as documented Neuro Reports no additional complaints Psych Reports no additional complaints and Reports depression Endo Reports no additional complaints Physical Exam Vital Signs: Last Vital Signs Pulse 74 02/01/25 13:31 BP 140/70 H 02/01/25 13:31 Pulse Ox 96 02/01/25 13:31 Oxygen Delivery Method Room Air 02/01/25 13:31 BMI result Body Mass Index 25.4 Const General: comfortable, no acute distress, alert and awake Orientation/consciousness: patient oriented x3 HEENT Head: Yes normal to inspection General nose exam: No nasal polyps present and No nasal discharge present Face and sinus: Yes sinuses nontender Mouth: oropharynx normal Teeth and gingiva: dentures (LOWER JAW) Throat: Yes posterior oropharynx normal Eyes General: appearance normal, both eyes and all related structures Neck Neck: Yes normal visual inspection, Yes no lymphadenopathy, Yes trachea midline and Yes no JVD Thyroid: Thyroid normal Chest Chest palpation & inspection: normal inspection of the chest, normal palpation of entire chest wall and no tenderness Resp Other: PERCUSSION NOTE RESONANT, BREATH SOUNDS ARE SLIGHTLY DISTANT WITH PROLONGED EXPIRATORY PHASE. NO WHEEZES OR CREPS. HEARD TODAY . Cardio Palpation: normal PMI Rate: regular rate Rhythm: regular rhythm Heart sounds: no gallops and no murmurs GI Palpation (GI): Soft to palpation, nontender, No hepatosplenomegaly present and no masses Auscultation: normal bowel sounds Back/Spine/Pelvis Thoracic/Lumbar Spine: thoracic and lumbar spine normal to inspection Skin General skin exam: no rashes or lesions noted Neuro General: patient oriented x3 and no focal motor deficits Cranial nerves: Yes CN's II-XII intact bilaterally Extrem General: Yes normal to inspection, Yes no clubbing, cyanosis or edema and Yes no calf tenderness Psych Appearance: grossly normal and well kempt Speech and movement: Normal speech and movement present Assessment & Plan Assessment & Plan (1) COPD (chronic obstructive pulmonary disease): Comment: HE DOES HAVE CHRONIC OBSTRUCTIVE PULMONARY DISEASE BUT IT IS MILD AND WELL CONTROLLED. HE HAS BEEN DOING VERY WELL AND REMAINED STABLE ON HIS MEDICAL REGIMEN. Code(s): J44.9 - Chronic obstructive pulmonary disease, unspecified Category: Medical Plan: Continue Wixela 250-51 inhalation b.i.d. And Ventolin HFA 2 puffs Q 6 hours p.r.n. (2) SELINA (obstructive sleep apnea): Comment: HE WAS EVALUATED FOR SLEEP APNEA IN 2010 AND WAS FOUND TO HAVE ONLY MILD DEGREE OF SELINA, AT THAT TIME PATIENT HAD OPTED , NOT TO BE TREATED WITH CPAP. HE CONTINUES TO HAVE, SYMPTOMS OF INSOMNIA. AGAIN A REPEAT HST WAS DONE AND SHOWED ONLY MILD SELINA, AND DID NOT NEED CPAP . Code(s): G47.33 - Obstructive sleep apnea (adult) (pediatric) Category: Medical Plan: He is advised to maintain his weight at the current level. And try to sleep in the lateral position. (3) Former smoker: Comment: HAS PAST HISTORY OF SMOKING BUT QUIT MORE THAN 13YEARS AGO. Code(s): Z87.891 - Personal history of nicotine dependence Category: Social Hx Plan: Commended for not smoking Coding Level of Care Code Est Pt Level 3 (00628) Diagnoses COPD (chronic obstructive pulmonary disease) J44.9 SELINA (obstructive sleep apnea) G47.33 Former smoker Z87.899
== END 2025-02-01 13:40 | disposition home or self-care (01) ==
LOC: HO.HPS 13:17
PROVIDERS: PCP Family Medicine; Visit Provider Internal Medicine
DX: J44.9 Chronic obstructive pulmonary disease, unspecified (principal); G47.33 Obstructive sleep apnea (adult) (pediatric); Z87.891 Personal history of nicotine dependence
CPT/HCPCS: 99213

== ENCOUNTER → 2025-02-01 13:16 | Outpatient (BNVA) | payer MEDICARE, MEDICAID, SELFPAY | PROVIDERS: PCP Family Medicine; Visit Provider Internal Medicine | DX: G47.33 Obstructive sleep apnea (adult) (pediatric) (principal); J44.9 Chronic obstructive pulmonary disease, unspecified; Z87.891 Personal history of nicotine dependence | CPT/HCPCS: 99212 ==

== ENCOUNTER 2025-03-08 15:12 | Outpatient (REF) | payer SELFPAY ==
--- OUTSIDE RECORDS SUMMARY | 2025-03-08 19:25 | XMS_ITS | Encounter Summary ---
Author Organization [employer] Address [address] [place] [address] Care Team Providers Care Harvesting Contractor Name Role Phone Tangela Garcia MD Primary Care Provider [phone] Reason for Visit * Reason Onset Date Comments Med Refill 04/27/2024 Encounter Details Date Type Department Care Team ([facility] st Contact Info) Description 04/27/2024 Telephone [facility] MEDICINE [address] [place] [address] Tangela Garcia MD [address] [place] [address] Med Refill Social History Tobacco Use Types Packs/Day Years Used Date Smoking Tobacco: Never Passive Smoke Exposure: Never Smokeless Tobacco: Never Alcohol Use Standard Drinks/Week Comments Never 0 (1 standard drink = 0.6 oz pur e alcohol) Depression Answer Date Recorded Patient Health Questionnaire-9 Score 0 03/01/2023 Housing Stability Answer Date Recorded What is your housing situation today? I have sunitha sing 10/26/[address] you li [...] immediate release tablet To be sent to: [facility] - [place], [place] - [address] [place] [address] documented in this encounter Plan of Treatment Upcoming Encounters Date Type Department Care Team ([facility] st Contact Info) Description 03/12/2025 10:00 AM EDT Medication Management [address] [address] Peter Mcdaniel, PharmD [address] [place] [address] 04/20/2025 9:30 AM EST Clinical Support [address] [address] Barbie Voss RN [address] [place] [address] 05/03/2025 11:00 AM EST Office Visit [address] [address] Tangela Garcia MD [address] [place] [address] documented as of this encounter Visit Diagnoses Not on filedocumented in this encounter Additional Health Concerns Assessment Noted Time PHQ-9 Depression Total Score: 0 03/01/20 23 10:01 AM EDT documented as of this encounter Care Teams Harvesting Contractor Relationship Specialty Start Date End Date Tangela Garcia MD [address] [place] [address] PCP - General Family Medicine 06/14/18 documented as of this encounter
--- OUTSIDE RECORDS SUMMARY | 2025-03-08 19:25 | XMS_ITS | Encounter Summary ---
Author Organization [employer] Address [address] 7[address] [place] [address] Care Team Providers Care Dynamometer Tuner Name Role Phone Tangela Garcia MD Primary Care Provider [phone] Encounter Details Date Type Department Care Team (Late st Contact Info) Description 04/27/2024 Telephone [facility] MED & PEDS [address] [place] [address] Tangela Garcia MD [address] [place] [address] Social History Tobacco Use Types Packs/Day Years [...] Care Team (Late st Contact Info) Description 03/12/2025 10:00 AM EDT Medication Management [address] [address] Peter Mcdaniel, PharmD [address] [place] [address] 04/20/2025 9:30 AM EST Clinical Support [address] [address] Barbie Voss RN [address] [place] [address] 05/03/2025 11:00 AM EST Office Visit [address] [address] Tangela Garcia MD [address] [place] [address] documented as of this encounter Visit Diagnoses Not on filedocumented in this encounter Additional Health Concerns Assessment Noted Time PHQ-9 Depression Total Score: 0 03/01/20 23 10:01 AM EDT documented as of this encounter Care Teams Dynamometer Tuner Relationship Specialty Start Date End Date Tangela Garcia MD [address] [place] [address] PCP - General Family Medicine 06/14/18 documented as of this encounter
--- OUTSIDE RECORDS SUMMARY | 2025-03-08 19:25 | XMS_ITS | Encounter Summary ---
Author Organization [employer] Address [address] 7[address] [place] [address] Care Team Providers Care Rn Clinical Documentation Name Role Phone Tangela Garcia MD Primary Care Provider [phone] Reason for Visit * Reason Onset Date Comments Reschedule 07/30/2023 Encounter Details Date Type Department Care Team ([facility] st Contact Info) Description 07/30/2023 Telephone [facility] MEDICINE [address] [place] [address] Tangela Garcia MD 230 [place] [address] Reschedule Social History Tobacco Use Types Packs/Day Years Used Date Smoking Tobacco: Never Passive Smoke Exposure: Never Smokeless Tobacco: Never Alcohol Use Standard Drinks/Week Comments Never 0 (1 standard drink = 0.6 oz pur e alcohol) Depression Answer Date Recorded Patient Health Questionnaire-9 Score 0 03/01/2023 Housing Stability Answer Date Recorded What is your housing situation today? I have sunithajos galdamez 03/31/[address] you [...] EST Tc from pt daughter requesting r/s SPANISHER televisit appt. documented in this encounter Plan of Treatment Upcoming Encounters Date Type Department Care Team (Late st Contact Info) Description 03/12/2025 10:00 AM EDT Medication Management [address] [address] Peter Mcdaniel, PharmD [address] [place] [address] 04/20/2025 9:30 AM EST Clinical Support [address] [address] Barbie Voss RN [address] [place] [address] 05/03/2025 11:00 AM EST Office Visit [address] [address] Tangela Garcia MD [address] [place] [address] documented as of this encounter Visit Diagnoses Not on filedocumented in this encounter Additional Health Concerns Assessment Noted Time PHQ-9 Depression Total Score: 0 03/01/20 23 10:01 AM EDT documented as of this encounter Care Teams Rn Clinical Documentation Relationship Specialty Start Date End Date Tangela Garcia MD 230 [place] [address] PCP - General Family Medicine 06/14/18 documented as of this encounter
--- OUTSIDE RECORDS SUMMARY | 2025-03-08 19:25 | XMS_ITS | Encounter Summary ---
Author Organization [employer] Address [address] 7[address] [place] [address] Care Team Providers Care Pension Agent Name Role Phone Tangela Garcia MD Primary Care Provider [phone] Reason for Visit * Reason Comments Med Refill Encounter Details Date Type Department Care Team ([facility] st Contact Info) Description 12/13/2023 Refill [facility] MEDICINE [address] [place] [address] Tangela Garcia MD [address] [place] [address] Wheezing Social History Tobacco Use Types Packs/Day [...] Description 03/12/2025 10:00 AM EDT Medication Management [address] [address] Peter Mcdaniel, PharmD [address] [place] [address] 04/20/2025 9:30 AM EST Clinical Support [address] [address] Barbie Voss, NAYELY [address] [place] [address] 05/03/2025 11:00 AM EST Office Visit [address] [address] Tangela Garcia MD [address] [place] [address] documented as of this encounter Visit Diagnoses Diagnosis Wheezing documented in this encounter Additional Health Concerns Assessment Noted Time PHQ-9 Depression Total Score: 0 03/01/20 23 10:01 AM EDT documented as of this encounter Care Teams Pension Agent Relationship Specialty Start Date End Date Tangela Garcia MD [address] [place] [address] PCP - General Family Medicine 06/14/18 documented as of this encounter
--- OUTSIDE RECORDS SUMMARY | 2025-03-08 19:25 | XMS_ITS | Encounter Summary ---
Author Organization [employer] Address [address] [facility] 7t [place] [address] Care Team Providers Care Lunchroom Aide Name Role Phone Tangela Garcia MD Primary Care Provider [phone] Reason for Visit * Reason Onset Date Comments Appointment Request 03/01/2025 Encounter Details Date Type Department Care Team ([facility] st Contact Info) Description 03/01/[address] [facility] MEDICINE [address] [place] [address] Tangela Garcia MD [address] [place] [address] Appointment Request Social History Tobacco Use Types Packs/Day Years [...] Recorded Patient Health Questionnaire-2 Score 0 07/26/2024 Internet Access Answer Date Recorded Internet Access Q1 No 10/25/2024 Internet Access Q2 I do not want or need it 10/12 Sex and Gender Information Value Date Recorded Sex Assigned at Male 04/13/2022 10:15 AM EDT Legal Sex Male 10:15 AM EDT Gender Identity Choose not to disclose 10:15 AM EDT Sexual Orientation Don't know 04/13/2022 10 :15 AM EDT documented as of this encounter Miscellaneous Notes * Telephone Encounter - Nancy Rosales - 03/01/2025 8:10 AM EDT Tc from pt Daughter requesting a to reschedule appt from 03/01 due to pt not felling well and wont be able to attend. Contact pt Daughter at [phone] documented in this encounter Plan of Treatment Upcoming Encounters Date Type Department Care Team (Late st Contact Info) Description 03/12/2025 10:00 AM EDT Medication Management [facility] MEDICINE [address] [place] [address] Peter Mcdaniel, PharmD [address] [place] [address] 04/20/2025 9:30 AM EST Clinical Support [facility] MEDICINE [address] [place] [address] Barbie Voss, RN [address] [place] [address] 05/03/2025 11:00 AM EST Office Visit [facility] MEDICINE [address] [place] [address] Tangela Garcia MD [address] [place] [address] documented as of this encounter Visit Diagnoses Not on filedocumented in this encounter Additional Health Concerns Assessment Noted Time PHQ-9 Depression Total Score: 0 07/26/19 25 9:16 AM EST documented as of this encounter Care Teams Lunchroom Aide Relationship Specialty Start Date End Date Tangela Garcia MD [address] [place] [address] PCP - General Family Medicine 06/14/18 documented as of this encounter
--- OUTSIDE RECORDS SUMMARY | 2025-03-08 19:25 | XMS_ITS | Encounter Summary ---
Author Organization [employer] Address [address] [facility] 7t [place] [address] Care Team Providers Care Digital Performance Analyst Name Role Phone Tangela Garcia MD Primary Care Provider [phone] Reason for Visit * Reason Onset Date Comments Med Refill 01/18/2023 Encounter Details Date Type Department Care Team ([facility] st Contact Info) Description 01/18/2023 Telephone [facility] MEDICINE 230 [place] [address] Tangela Garcia MD 230 [place] [address] Med Refill Social History Tobacco Use Types [...] * Telephone Encounter - Angie Aguero - 01/18/2023 8:45 AM EDT Tc from patient requesting a med refill for medication oxycodone 5 mg. Please send to [facility]/pharmacy #[id number] [place], [place] - [address] [place] [address] Garcia documented in this encounter Plan of Treatment Upcoming Encounters Date Type Department Care Team (Late st Contact Info) Description 03/12/2025 10:00 AM EDT Medication Management [address] [address] Peter Mcdaniel, TanyaD [address] [place] [address] 04/20/2025 9:30 AM EST Clinical Support [address] [address] Barbie Voss, RN [address] [place] [address] 05/03/2025 11:00 AM EST Office Visit [address] [address] Tangela Garcia MD [address] [place] [address] documented as of this encounter Visit Diagnoses Not on filedocumented in this encounter Care Teams Digital Performance Analyst Relationship Specialty Start Date End Date Tangela Garcia MD [address] [place] [address] PCP - General Family Medicine 06/14/18 documented as of this encounter
--- OUTSIDE RECORDS SUMMARY | 2025-03-08 19:25 | XMS_ITS | Encounter Summary ---
Author Organization [employer] Address [address] [facility] 7t [place] [address] Care Team Providers Care Paper Products Printer Name Role Phone Tangela Garcia MD Primary Care Provider [phone] Reason for Visit * Reason Comments Med Change Request Encounter Details Date Type Department Care Team ([facility] st Contact Info) Description 11/01/2024 Refill [facility] MEDICINE [address] [place] [address] Tangela Garcia MD [address] [place] [address] Social History Tobacco Use Types Packs/Day Years [...] Description 03/12/2025 10:00 AM EDT Medication Management [address] [address] Peter Mcdaniel, PharmD [address] [place] [address] 04/20/2025 9:30 AM EST Clinical Support [address] [address] Barbie Voss RN 505 [place] [address] 05/03/2025 11:00 AM EST Office Visit [address] [address] Tangela Garcia MD [address] [place] [address] documented as of this encounter Visit Diagnoses Not on filedocumented in this encounter Additional Health Concerns Assessment Noted Time PHQ-9 Depression Total Score: 0 07/26/19 25 9:16 AM EST documented as of this encounter Care Teams Paper Products Printer Relationship Specialty Start Date End Date Tangela Garcia MD [address] [place] [address] PCP - General Family Medicine 06/14/18 documented as of this encounter
--- OUTSIDE RECORDS SUMMARY | 2025-03-08 19:25 | XMS_ITS | Encounter Summary ---
Author Organization [employer] Address [address] 7[address] [place] [address] Care Team Providers Care Marketer Name Role Phone Tangela Garcia MD Primary Care Provider [phone] Reason for Visit * Reason Onset Date Comments Med Refill 03/30/2024 Encounter Details Date Type Department Care Team ([facility] st Contact Info) Description 03/30/2024 Telephone [facility] MEDICINE [address] [place] [address] Tangela Garcia MD [address] [place] [address] Med Refill Social History Tobacco Use Types [...] immediate release tablet To be sent to: [facility] - [place], [place] - [address] [place] [address] documented in this encounter Plan of Treatment Upcoming Encounters Date Type Department Care Team ([facility] st Contact Info) Description 03/12/2025 10:00 AM EDT Medication Management [address] [address] Peter Mcdaniel, PharmD [address] [place] [address] 04/20/2025 9:30 AM EST Clinical Support [address] [address] Barbie Voss RN 505 [place] [address] 05/03/2025 11:00 AM EST Office Visit [address] [address] Tangela Garcia MD [address] [place] [address] documented as of this encounter Visit Diagnoses Not on filedocumented in this encounter Additional Health Concerns Assessment Noted Time PHQ-9 Depression Total Score: 0 03/01/20 23 10:01 AM EDT documented as of this encounter Care Teams Marketer Relationship Specialty Start Date End Date Tangela Garcia MD [address] [place] [address] PCP - General Family Medicine 06/14/18 documented as of this encounter
--- OUTSIDE RECORDS SUMMARY | 2025-03-08 19:25 | XMS_ITS | Encounter Summary ---
Author Organization [employer] Address [address] 7t [place] [address] Care Team Providers Care Tnt Powder Worker Name Role Phone Tangela Garcia MD Primary Care Provider [phone] Reason for Visit * Reason Comments Med Refill Encounter Details Date Type Department Care Team (Late st Contact Info) Description 02/15/2025 Refill [facility] CH[facility] MED & PEDS [address] [place] [address] Tangela Garcia MD 230 [place] [address] Primary osteoarthritis of right knee; Chronic left shoulder pain Social History Tobacco Use Types Packs/Day Years [...] Description 03/12/2025 10:00 AM EDT Medication Management [address] [address] Peter Mcdaniel, PharmD [address] [place] [address] 04/20/2025 9:30 AM EST Clinical Support [address] [address] Barbie Voss, NAYELY [address] [place] [address] 05/03/2025 11:00 AM EST Office Visit [address] [address] Tangela Garcia MD [address] [place] [address] documented as of this encounter Visit Diagnoses Diagnosis Primary osteoarthritis of right knee Chronic left shoulder pain Pain in joint, shoulder region documented in this encounter Additional Health Concerns Assessment Noted Time PHQ-9 Depression Total Score: 0 07/26/19 25 9:16 AM EST documented as of this encounter Care Teams Tnt Powder Worker Relationship Specialty Start Date End Date Tangela Garcia MD 230 [place] [address] PCP - General Family Medicine 06/14/18 documented as of this encounter
--- OUTSIDE RECORDS SUMMARY | 2025-03-08 19:25 | XMS_ITS | Encounter Summary ---
Author Organization [employer] Address [address] [facility] 7t [place] [address] Care Team Providers Care Catalyst Impregnator Name Role Phone Tangela Garcia MD Primary Care Provider [phone] Encounter Details Date Type Department Care Team ([facility] Contact Info) Description 06/04/2022 Orders Only [facility] MEDICINE 230 [place] [address] Tangela Garcia MD 230 [place] [address] Anemia, unspecified type (Primary Dx); Transaminitis; Liver [...] Upcoming Encounters Date Type Department Care Team ([facility] Contact Info) Description 03/12/2025 10:00 AM EDT Medication Management [address] [address] Peter Mcdaniel, TanyaD 230 [place] [address] 04/20/2025 9:30 AM EST Clinical Support [address] [address] Barbie Voss, NAYELY 505 [place] [address] 05/03/2025 11:00 AM EST Office Visit [address] [address] Tangela Garcia MD 230 [place], [place] Scheduled Orders Name Type Priority Associated Diagnoses [...] liver documented in this encounter Care Teams Catalyst Impregnator Relationship Specialty Start Date End Date Tangela Garcia MD 230 [place] [address] PCP - General Family Medicine 06/14/18 documented as of this encounter
--- OUTSIDE RECORDS SUMMARY | 2025-03-08 19:25 | XMS_ITS | Encounter Summary ---
Author Organization [employer] Address [address] [facility] [address] 7t [place] [address] Care Team Providers Care Shopping Investigator Name Role Phone Tangela Garcia MD Primary Care Provider [phone] Reason for Visit * Reason Comments Med Refill Encounter Details Date Type Department Care Team ([facility] st Contact Info) Description 08/16/2023 Refill [facility] MEDICINE 230 [place] [address] Tangela Garcia MD 230 [place] [address] Vitamin deficiency Social History Tobacco Use Types [...] Description 03/12/2025 10:00 AM EDT Medication Management [address] [address] Peter Mcdaniel, PharmD [address] [place] [address] 04/20/2025 9:30 AM EST Clinical Support [address] [address] Barbie Voss, NAYELY 505 [place] [address] 05/03/2025 11:00 AM EST Office Visit [address] [address] Tangela Garcia MD [address] [place] [address] documented as of this encounter Visit Diagnoses Diagnosis Vitamin deficiency Unspecified vitamin deficiency documented in this encounter Additional Health Concerns Assessment Noted Time PHQ-9 Depression Total Score: 0 03/01/20 23 10:01 AM EDT documented as of this encounter Care Teams Shopping Investigator Relationship Specialty Start Date End Date Tangela Garcia MD [address] [place] [address] PCP - General Family Medicine 1/1/19 documented as of this encounter
--- OUTSIDE RECORDS SUMMARY | 2025-03-08 19:25 | XMS_ITS | Encounter Summary ---
Author Organization [employer] Address 75 [facility] 7t [place] [address] Care Team Providers Care Strip Stamp Straightener Name Role Phone Tangela Garcia MD Primary Care Provider Reason for Visit * Reason Comments Med Refill Encounter Details Date Type Department Care Team (Late Contact Info) Description 02/13/2023 Refill [facility] MEDICINE [address] [place] [address] Savannah Martini ANP 230 [place] [address] Social History Tobacco Use Types Packs/Day Years [...] Upcoming Encounters Date Type Department Care Team ([facility] Contact Info) Description 03/12/2025 10:00 AM EDT Medication Management [facility] MEDICINE [address] [place] [address] Peter Mcdaniel, PharmD 230 [place] [address] 04/20/2025 9:30 AM EST Clinical Support [address] [address] Barbie Voss, RN 505 [place] [address] 05/03/2025 11:00 AM EST Office Visit [address] [address] Tangela Garcia MD [address] [place] [address] documented as of this encounter Visit Diagnoses Not on filedocumented in this encounter Care Teams Strip Stamp Straightener Relationship Specialty Start Date End Date Tangela Garcia MD [address] [place] [address] PCP - General Family Medicine 06/14/18 documented as of this encounter
--- OUTSIDE RECORDS SUMMARY | 2025-03-08 19:25 | XMS_ITS | Encounter Summary ---
Author Organization [employer] Address [address] [facility] [address] 7t [place] [address] Care Team Providers Care Softwood Faller Name Role Phone Tangela Garcia MD Primary Care Provider [phone] Reason for Visit * Reason Comments Med Refill Encounter Details Date Type Department Care Team ([facility] st Contact Info) Description 09/06/2023 Refill [facility] MEDICINE 230 [place] [address] Tangela Garcia MD 230 [place] [address] Wheezing Social History Tobacco Use Types Packs/Day [...] 03/12/2025 10:00 AM EDT Medication Management [address] [address] Peter Mcdaniel, PharmD [address] [place] [address] 04/20/2025 9:30 AM EST Clinical Support [address] [address] Barbie Voss, NAYELY 505 [place] [address] 05/03/2025 11:00 AM EST Office Visit [address] [address] Tangela Garcia MD [address] [place] [address] documented as of this encounter Visit Diagnoses Diagnosis Wheezing documented in this encounter Additional Health Concerns Assessment Noted Time PHQ-9 Depression Total Score: 0 03/01/20 23 10:01 AM EDT documented as of this encounter Care Teams Softwood Faller Relationship Specialty Start Date End Date Tangela Garcia MD [address] [place] [address] PCP - General Family Medicine 06/14/18 documented as of this encounter
--- OUTSIDE RECORDS SUMMARY | 2025-03-08 19:25 | XMS_ITS | Encounter Summary ---
Author Organization [employer] Address 75 [facility] 7 [place] [address] Care Team Providers Care Enforcement Officer Name Role Phone Tangela Garcia MD Primary Care Provider [phone] Reason for Visit * Reason Comments Med Refill Encounter Details Date Type Department Care Team (Late Contact Info) Description 02/16/2023 Refill [facility] MEDICINE [address] [place] [address] Savannah Martini ANP 230 [place] [address] Social History Tobacco Use Types Packs/Day Years [...] Upcoming Encounters Date Type Department Care Team ([facility] Contact Info) Description 03/12/2025 10:00 AM EDT Medication Management [facility] MEDICINE [address] [place] [address] Peter Mcdaniel, PharmD 230 [place] [address] 04/20/2025 9:30 AM EST Clinical Support [address] [address] Barbie Voss, RN 505 [place] [address] 05/03/2025 11:00 AM EST Office Visit [address] [address] Tangela Garcia MD [address] [place] [address] documented as of this encounter Visit Diagnoses Not on filedocumented in this encounter Care Teams Enforcement Officer Relationship Specialty Start Date End Date Tangela Garcia MD [address] [place] [address] PCP - General Family Medicine 06/14/18 documented as of this encounter
--- OUTSIDE RECORDS SUMMARY | 2025-03-08 19:26 | XMS_ITS | Clinical Summary ---
Author Organization [facility] Address [address] [place] [address] Care Team Providers Care School Office Assistant Name Role Phone Unavailable Primary Care Provider [...]
--- OUTSIDE RECORDS SUMMARY | 2025-03-08 19:26 | XMS_ITS | Encounter Summary ---
Author Organization [employer] Address 75 [facility] 7t [place] [address] Care Team Providers Care Um Rn Name Role Phone Tangela Garcia MD Primary Care Provider [phone] Reason for Visit * Reason Comments Med Refill Encounter Details Date Type Department Care Team ([facility] Contact Info) Description 09/30/2022 Refill [facility] MEDICINE 230 [place] [address] Tangela Garcia MD 230 [place] [address] Primary osteoarthritis involving multiple joints Social History [...] Upcoming Encounters Date Type Department Care Team ([facility] Contact Info) Description 03/12/2025 10:00 AM EDT Medication Management [address] [address] Peter Mcdaniel, PharmD [address] [place] [address] 04/20/2025 9:30 AM EST Clinical Support [address] [address] Barbie Voss, RN 505 [place] [address] 05/03/2025 11:00 AM EST Office Visit [address] [address] Tangela Garcia MD [address] [place] [address] documented as of this encounter Visit Diagnoses Diagnosis Primary osteoarthritis involving multiple joints documented in this encounter Care Teams Um Rn Relationship Specialty Start Date End Date Tangela Garcia MD [address] [place] [address] PCP - General Family Medicine 06/14/18 documented as of this encounter
--- OUTSIDE RECORDS SUMMARY | 2025-03-08 19:26 | XMS_ITS | Encounter Summary ---
Author Organization [employer] Address 75 [facility] 7t [place] [address] Care Team Providers Care Strategic Planning Analyst Name Role Phone Tangela Garcia MD Primary Care Provider [phone] Reason for Visit * Reason Onset Date Comments Med Refill 09/21/2024 Encounter Details Date Type Department Care Team ([facility] st Contact Info) Description 09/21/2024 Telephone [facility] MEDICINE 230 [place] [address] Tangela Garcia MD 230 [place] [address] Med Refill Social History Tobacco Use Types [...] * Telephone Encounter - Blossom Ascencio - 09/21/2024 1:53 PM EDT TC from pt requesting medication refill. Medications needing refill : oxyCODONE (Roxicodone) 10 MG immediate release tablet To be sent to: [facility] documented in this encounter Plan of Treatment Upcoming Encounters Date Type Department Care Team (Late st Contact Info) Description 03/12/2025 10:00 AM EDT Medication Management [address] [address] Peter Mcdaniel, PharmD [address] [place] [address] 04/20/2025 9:30 AM EST Clinical Support [address] [address] Barbie Voss RN 505 [place] [address] 05/03/2025 11:00 AM EST Office Visit [address] [address] Tangela Garcia MD [address] [place] [address] documented as of this encounter Visit Diagnoses Not on filedocumented in this encounter Additional Health Concerns Assessment Noted Time PHQ-9 Depression Total Score: 0 07/26/19 25 9:16 AM EST documented as of this encounter Care Teams Strategic Planning Analyst Relationship Specialty Start Date End Date Tangela Garcia MD 230 [place] [address] PCP - General Family Medicine 06/14/18 documented as of this encounter
--- OUTSIDE RECORDS SUMMARY | 2025-03-08 19:26 | XMS_ITS | Encounter Summary ---
Author Organization [employer] Address [address] [facility] [address] 7t [place] [address] Care Team Providers Care State Game Protector Name Role Phone Tangela Garcia MD Primary Care Provider [phone] Reason for Visit * Reason Onset Date Comments Med Refill 10/13/2022 Encounter Details Date Type Department Care Team ([facility] st Contact Info) Description 10/13/2022 Telephone [facility] MEDICINE 230 [place] [address] Tangela Garcia MD 230 [place] [address] Med Refill Social History Tobacco Use Types [...] medication oxycodone 5 mg. Please send to [facility] on chart. PCP Dr. Garcia documented in this encounter Plan of Treatment Upcoming Encounters Date Type Department Care Team (Late st Contact Info) Description 03/12/2025 10:00 AM EDT Medication Management [address] [address] Peter Mcdaniel, TanyaD [address] [place] [address] 04/20/2025 9:30 AM EST Clinical Support [address] [address] Barbie Voss, RN 505 [place] [address] 05/03/2025 11:00 AM EST Office Visit [address] [address] Tangela Garcia MD [address] [place] [address] documented as of this encounter Visit Diagnoses Not on filedocumented in this encounter Care Teams State Game Protector Relationship Specialty Start Date End Date Tangela Garcia MD [address] [place] [address] PCP - General Family Medicine 06/14/18 documented as of this encounter
--- OUTSIDE RECORDS SUMMARY | 2025-03-08 19:26 | XMS_ITS | Encounter Summary ---
Author Organization [employer] Address 75 [facility] 7t [place] [address] Care Team Providers Care Boiler Welder Name Role Phone Tangela Garcia MD Primary Care Provider [phone] Reason for Visit * Reason Onset Date Comments Med Refill 08/21/2024 Encounter Details Date Type Department Care Team ([facility] st Contact Info) Description 08/21/[address] [facility] MEDICINE 230 [place] [address] Tangela Garcia MD 230 [place] [address] Med Refill Social History Tobacco Use Types [...] encounter Miscellaneous Notes * Telephone Encounter - Jessica Peres LPN - 08/21/2024 3:16 PM EDT Please review medication below. * Telephone Encounter - Blossom Ascencio - 08/21/2024 3:03 PM EDT TC from pt requesting medication refill. Medications needing refill : albuterol (Ventolin HFA) 108 (90 Base) MCG/ACT inhaler To be sent to: [facility] documented in this encounter Plan of Treatment Upcoming Encounters Date Type Department Care Team (Late st Contact Info) Description 03/12/2025 10:00 AM EDT Medication Management [facility] MEDICINE [address] [place] [address] Peter Mcdaniel, PharmD 230 [place] [address] 04/20/2025 9:30 AM EST Clinical Support [facility] MEDICINE 230 [place] [address] Barbie Voss, RN [address] [place] [address] 05/03/2025 11:00 AM EST Office Visit [facility] MEDICINE 230 [place] [address] Tangela Garcia MD 230 [place] [address] documented as of this encounter Visit Diagnoses Not on filedocumented in this encounter Additional Health Concerns Assessment Noted Time PHQ-9 Depression Total Score: 0 07/26/19 25 9:16 AM EST documented as of this encounter Care Teams Boiler Welder Relationship Specialty Start Date End Date Tangela Garcia MD [address] [place] [address] PCP - General Family Medicine 06/14/18 documented as of this encounter
--- OUTSIDE RECORDS SUMMARY | 2025-03-08 19:26 | XMS_ITS | Encounter Summary ---
Author Organization [employer] Address 75 [facility] 7t [place] [address] Care Team Providers Care Nuclear Powerplant Mechanic Name Role Phone Tangela Garcia MD Primary Care Provider [phone] Reason for Visit * Reason Onset Date Comments Triage 10/13/2022 Encounter Details Date Type Department Care Team ([facility] st Contact Info) Description 10/13/2022 Telephone [facility] MEDICINE 230 [place] [address] Tangela Garcia MD 230 [place] [address] Triage Social History Tobacco Use Types Packs/Day [...] pain. Pt is advised to come to [facility] today, Pt daughter declines [...] patient got a knee replacement. Please call [phone] documented in this encounter Plan of Treatment Upcoming Encounters Date Type Department Care Team (Late st Contact Info) Description 03/12/2025 10:00 AM EDT Medication Management [address] [address] Peter Mcdaniel, PharmD [address] [place] [address] 04/20/2025 9:30 AM EST Clinical Support [address] [address] Barbie Voss, RN 505 [place] [address] 05/03/2025 11:00 AM EST Office Visit [address] [address] Tangela Garcia MD [address] [place] [address] documented as of this encounter Visit Diagnoses Not on filedocumented in this encounter Care Teams Nuclear Powerplant Mechanic Relationship Specialty Start Date End Date Tangela Garcia MD [address] [place] [address] PCP - General Family Medicine 06/14/18 documented as of this encounter
--- OUTSIDE RECORDS SUMMARY | 2025-03-08 19:26 | XMS_ITS | Clinical Summary ---
Author Organization [employer] Address [address] [facility] [address] [place] [address] Care Team Providers Care Licensed Club Manager Name Role Phone Tangela Garcia MD Primary Care Provider [phone] Allergies Active Allergy Reactions Criticality Noted Date [...] or split. 30 tablet 3 023 Active Simethicone Ultra Strength 180 MG capsule Take 180 mg by mouth 4 times daily. 024 Active famotidine (Pepcid) 20 MG tablet Take 20 mg by mouth at bedtime. 024 Active sucralfate (Carafate) 1 g tablet Take 1 g by mouth at bedtime. Active loratadine (Claritin) 10 MG tablet Take 1 tablet (10 mg) by mouth in the morning. 90 tablet 3 024 Active simvastatin (Zocor) 40 MG tabletIndications :Dyslipidemia TAKE 1 TABLET BY MOUTH EVERY EVENING 30 tablet 3 Active butalbital-acetam inophen-caffeine 50-325-40 MG tablet TAKE 1 TABLET BY MOUTH EVERY DAY NEEDED FOR HEADACHE SEVERE, DO NOT EXCEED 5 TABLETS / MONTH 5 tablet Active cyanocobalamin (Vitamin B-12) 500 MCG tabletIndications :Vitamin deficiency TAKE 1 TABLET BY MOUTH EVERY MORNING 90 tablet 1 Active D3 Super Strength 50 MCG (2000 UT) capsuleIndication s:Vitamin deficiency TAKE 1 CAPSULE BY MOUTH EVERY MORNING 90 capsule 025 Active albuterol (2.5 MG/3ML) 0.083% nebulizer solutionIndicatio ns:Chronic obstructive pulmonary disease, unspecified (CMS/HCC) INHALE 1 AMPULE USING A NEBULIZER EVERY 4 HOURS NEEDED FOR SHORTNESS OF BREATH, AND FOR WHEEZING. NO MORE THAN 4 TIMES PER DAY. 90 mL 11 Active fluticasone (Flonase) 50 MCG/ACT nasal spray ADMINISTER 1-2 SPRAYS INTO EACH NOSTRIL ONCE PER DAY. SHAKE GENTLY. BEFORE FIRST USE, PRIME PUMP. AFTER USE, CLEAN TIP AND REPLACE CAP. 48 mL 025 2025 Active doxepin (SINEquan) 75 MG capsuleIndication s:Insomnia, unspecified type TAKE 1 CAPSULE BY MOUTH AT BEDTIME 30 capsule Active albuterol 108 (90 Base) MCG/ACT inhaler Inhale 2 puffs every 4 (four) hours if needed for wheezing or shortness of breath. Maximum 8 puffs per day 18 g 2025 Active olmesartan (Benicar) 20 MG tablet Take 1 tablet (20 mg) by mouth Once per day. 90 tablet 025 2025 Active Diclofenac Sodium 1 % gel Apply to affected area once or twice daily as needed 150 g Active acetaminophen (Tylenol Extra Strength) 500 MG tablet Take 1-2 tablets by mouth every 8 hours as needed for pain. Maximum daily dose 6 tabs per day. 100 tablet 3 Active lidocaine (Lidoderm) 5 % patchIndications: Chronic left shoulder pain Apply 1 patch topically Once per day. Remove & discard patch within 12 hours or as directed by . 30 patch 2 Active latanoprost (Xalatan) 0.005 % ophthalmic solution Active Fluticasone-Umecl idin-Vilant (Trelegy Ellipta) 100-62.5-25 MCG/ACT aerosol powder Inhale 1 puff Once per day. 60 each 11 Active oxyCODONE (Roxicodone) 10 MG immediate release tabletIndications :Primary osteoarthritis of right knee,Chronic left shoulder pain Take 1 tablet (10 mg) by mouth every 12 (twelve) hours if needed for severe pain. 56 tablet Active mirtazapine (Remeron) 30 MG tablet TAKE 1 TABLET BY MOUTH AT BEDTIME 30 tablet 3 Active melatonin 3 MG tablet TAKE 1 TABLET BY MOUTH AT BEDTIME NEEDED 30 tablet 3 Active melatonin 3 MG tablet TAKE 1 TABLET BY MOUTH AT BEDTIME NEEDED 30 tablet 3 025 2024 Discontinued mirtazapine (Remeron) 30 MG tablet TAKE 1 TABLET BY MOUTH AT BEDTIME 30 tablet 3 025 2024 Discontinued oxyCODONE (Roxicodone) 10 MG immediate release tabletIndications :Primary osteoarthritis of right knee,Chronic left shoulder pain Take 1 tablet (10 mg) by mouth every 12 (twelve) hours if needed for severe pain. 56 tablet 025 2024 Discontinued(R eorder (will not trigger notification to Pharmacy)) mupirocin (Bactroban) 2 % ointment Apply topically 3 times daily for 10 days. 22 g 2024 Active Problems Problem Noted Date Diagnosed Date Chronic, continuous use of opioids 07/30/2024 Assessment & Plan (01/29/2025 5:32 AM EDT): - pain in shoulders and knees - history of shoulder surgeries and knee replacement - continue lidocaine - continue judicious use of celecoxib - currently on oxycodone 10 mg bid - continue judicious use of THC/CBD Assessment & Plan (10/25/2024 8:44 AM EDT): - pain in shoulders and knees - history of shoulder surgeries and knee replacement - continue lidocaine - continue judicious use of celecoxib - currently on oxycodone 5 mg bid, increase its dose 10 mg bid - continue judicious use of THC/CBD Assessment & Plan (07/30/2024 12:57 PM EST): - pain in shoulders and knees - history of shoulder surgeries and knee replacement - continue lidocaine - continue judicious use of celecoxib - currently on oxycodone 5 mg bid, increase its dose 10 mg bid - continue judicious use of THC/CBD Chronic left shoulder pain 02/29/2024 Assessment & Plan (01/30/2025 5:27 PM EDT): - seen by orthopedist 04/13/24, received steroid injection to the left shoulder - continue judicious use of oxycodone, will increase oxycodone from 5 mg to 10 mg bid - Prescribed lidocaine (Lidoderm) 5 % patch Assessment & Plan (07/30/2024 12:54 PM EST): [...] shoulder XR Headache 11/02/2023 Assessment & Plan (02/02/2025 2:43 PM EDT): - chronic, multifactorial - continue doxepin (prescribed for insomnia, high-dose) - continue tylenol PRN - improve sleep hygiene - MRI done on 03/21/24, benign - Question of migraine, although symptoms are not classic - Judicious use of hhvtomveka-csvyftlhjtnoo-muyqdgfe 50-325-40 MG tablet for severe headache Assessment & Plan (10/29/2024 7:47 PM EDT): - chronic, multifactorial - continue tylenol PRN - improve sleep hygiene - MRI done on 03/21/24, benign - Question of migraine, although symptoms are not classic - Prescribed lenqfrzfry-dymmdwmyglygs-fepenwlt 50-325-40 MG tablet for severe headache 10/25/24 Assessment & Plan (07/30/2024 12:50 PM EST): [...] 11:13 AM EDT): Mild Patient declined CPAP Hypertension 09/30/2022 Assessment & Plan (02/02/2025 2:45 PM EDT): - Goal BP < 130 per ACC/AHA guideline (Treatment threshold >=130) - BP not at goal - Continue working on lifestyle modification - Increase Olmesartan to 20 mg daily - Continue checking BP at home - Optimize pain management Assessment & Plan (10/25/2024 9:42 AM EDT): - Goal blood pressed. Less than 130/80 - BP elevated at home. - Continue working on lifestyle modification - Continue Olmesartan 5 mg daily - Continue checking BP at home - Optimize pain management Assessment & Plan (07/30/2024 12:52 PM EST): [...] right TKR on 05/26/22 - [place] [facility] - Continue judicious use of celecoxib and oxycodone - Followed by Patient Access Representative, Last seen in Feb 2023. Planned for DRG Stimulation - Discussed about the possibility of 2nd opinion referral to another orthopedist Assessment & Plan (04/18/2024 1:37 PM EST): - s/p right TKR on 05/26/22 - followed by [facility], last seen on 12/14/22 - Continue judicious use of celecoxib and oxycodone - Followed by Patient Access Representative, Last seen in Feb 2023. Planned for DRG Stimulation - Discussed about the possibility of 2nd opinion referral to another orthopedist Assessment & Plan (07/02/2023 5:29 PM EST): - s/p right TKR on 05/26/22 - followed by [facility], last seen on 12/14/22 - Continue judicious use of celecoxib and oxycodone - Followed by Patient Access Representative, Last seen in Feb 2023. Planned for DRG Stimulation - Discussed about the possibility of 2nd opinion referral to another orthopedist Assessment & Plan (03/07/2023 10:02 AM EDT): - s/p right TKR on 05/26/22 - followed by [facility], last seen on 12/14/22 - Continue judicious use of celecoxib and oxycodone - Followed by Patient Access Representative, Last seen in Feb 2023 - Planned for DRG Stimulation - Discussed about the possibility of 2nd opinion referral to another orthopedist Assessment & Plan (11/24/2022 9:18 AM EDT): - s/p right TKR on 05/26/22 - followed by [facility], last seen on 09/03/22 and the [...] right TKR on 05/26/22 - followed by [facility], last seen on 09/03/22 and the plan was to continue Celebrex and oxycodone - pt has not been taking Celebrex. Will restart Celebrex with caution. Discussed its side effect. - agreed to continue oxycodone 5 mg bid for next 4 weeks. Encouraged to self- taper if possible. History of right knee joint replacement 10/01/19 Assessment & Plan (07/26/2024 1:55 PM EST): - Prescribed oxyCODONE 7.5 MG tablet GERD (gastroesophageal reflux disease) Assessment & Plan (07/02/2023 5:29 PM EST): - evaluated by [facility], last seen in Mar 2023 - continue pantoprazole 40 mg bid - continue sucralfate 10 mg at bedtime - famotidine was discontinued by GI - judicious use of BRAUN-2 Assessment & Plan (03/07/2023 10:49 AM EDT): - evaluated by [facility] - continue pantoprazole 40 mg bid - continue famotidine 40 mg prn for breakthrough - judicious use of BRAUN-2 Assessment & Plan (09/30/2022 5:06 PM EDT): - evaluated by [facility] - continue pantoprazole 40 mg bid [...] pain is better than right knee pain Asthma with COPD 06/25/2015 Assessment & Plan (02/02/2025 2:45 PM EDT): - followed by [facility] [place], Dr. Mayorga, last seen on 07/2024, Pt is being treated for Asthma, rather than COPD. - most recent exacerbation in October 2024. Rx prednisone - Tried SMART therapy with budesonide / formoterol (Symbicort) dose - However, patient requests albuterol HFA. - Consider fluticasone / umeclidinium / vilanterol (Trelegy) Assessment & Plan (10/29/2024 7:45 PM EDT): - followed by [facility] [place], Dr. Mayorga, last seen on 07/2024, Pt is being treated for Asthma not COPD. - most recent exacerbation in October 2024. Rx prednisone - On SMART therapy. Increase budesonide / formoterol (Symbicort) dose - Discontinue albuterol HFA and fluticasone/ salmeterol Assessment & Plan (07/30/2024 12:52 PM EST): - followed by [facility], Dr. Mayorga, last seen on 01/2024, Pt is being treated for Asthma not COPD. - most recent exacerbation in Jul 2024. Rx prednisone - Will start SMART therapy. Start budesonide / formoterol (Symbicort) or mometasone / formoterol (Dulera) - Discontinue albuterol HFA and fluticasone/ salmeterol Assessment & Plan (04/18/2024 1:31 PM EST): - followed by [facility] [place], Dr. Mayorga, last seen on 01/2024 - most recent exacerbation in May 2023, seen in [facility]. Rx prednisone and cefuroxime for Dx bronchitis. - continue current medications - maintenance medications: Airduo - rescue medications: Albuterol HFA and neb prn - follow up in 3-6 mo Assessment & Plan (11/02/2023 9:46 AM EDT): - followed by [facility] [place], Dr. Mayorga, last seen on 07/2023 - most recent exacerbation in May 2023, seen in [facility]. Rx prednisone and cefuroxime for Dx bronchitis. - continue current medications - maintenance medications: Airduo - rescue medications: Albuterol HFA and neb prn - follow up in 3-6 mo Assessment & Plan (07/02/2023 5:26 PM EST): - followed by [facility] [place], Dr. Mayorga, last seen on 02/23/23 - most recent exacerbation in May 2023, seen in [facility]. Rx prednisone and cefuroxime for Dx bronchitis. - continue current medications - maintenance medications: Fluticasone propionate and salmeterol 250/50 - rescue medications: Albuterol HFA and neb prn - follow up in 3-6 mo Assessment & Plan (03/01/2023 11:17 AM EDT): - followed by [facility], Dr. Mayorga, last seen on 02/23/23 - exacerbation on 09/30/22, wheezing throughout. No crackles or decreased BS. - prednisone 40 mg daily x 5 days - maintenance medications: Advair 250/50 - rescue medications: Albuterol HFA and neb prn - follow up in 3-6 mo Assessment & Plan (11/24/2022 9:13 AM EDT): - followed by [facility] [place], Dr. Mayorga, last seen on 07/15/22 [...] (09/30/2022 5:05 PM EDT): - followed by [facility], Dr. Mayorga, last seen on 07/15/22 [...] involving multiple joints 06/25/2015 Assessment & Plan (02/02/2025 2:42 PM EDT): - followed by [facility] [place] - s/p knee replacement - s/p shoulder surgery - continue judicious use of oxycodone 10 mg every 12 hours under CRM COORDINATOR program guideline - Assessment & Plan (10/25/2024 8:44 AM EDT): - followed by [facility] [place] - s/p knee replacement - s/p shoulder surgery - continue judicious use of oxycodone, increasing its dose Assessment & Plan (07/30/2024 12:53 PM EST): - followed by [facility] [place] - s/p knee replacement - s/p shoulder surgery - continue judicious use of oxycodone, increasing its dose Cannabis dependence 11/24/2012 Dyslipidemia 02/08/2012 Assessment & Plan (01/29/2025 5:31 AM EDT): - current medication simvastatin 40 mg at bedtime - last lipid profile: 08/10/24 - continue working on lifestyle modifications - annual lipid profile Assessment & Plan (10/25/2024 10:17 AM EDT): - current medication simvastatin 40 mg at bedtime - last lipid profile: 08/10/24 - continue working on lifestyle modifications - annual lipid profile Assessment & Plan (07/30/2024 12:55 PM EST): [...] 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 Insomnia 02/08/2012 Assessment & Plan (10/29/2024 7:46 PM EDT): - continue judicious use of doxepin, mirtazapine, and melatonin - we have tried to taper off doxepin or mirtazapine, but patient was hesitant to discontinue either one of these medications - continue improving sleep hygiene Assessment & Plan (11/02/2023 5:05 AM EDT): [...] Osteoarthritis of knee 02/08/2012 Assessment & Plan (01/29/2025 9:06 AM EDT): - s/p left chondroplasty, partial meniscectomy in 2012 - s/p left TKA on 09/12/13 - s/p right chondroplasty in 2014 for meniscus tear - s/p right TKA on 05/26/22 Assessment & Plan (10/25/2024 8:44 AM EDT): - s/p left chondroplasty, partial meniscectomy in 2012 - s/p left TKA on 09/12/13 - s/p right chondroplasty in 2014 for meniscus tear - s/p right TKA on 05/26/22 Assessment & Plan (07/26/2024 1:29 PM EST): [...] Problem Noted Date Diagnosed Date Resolved Date Effusion of right knee 11/23/202210/25 Assessment & Plan (03/07/2023 10:03 AM EDT): [...] orthopedist - upcoming appt with pain management Primary hypertension 09/30/2022 023 Encounters Date Type Department Care Team Description 03/01/2025 Telephone [facility] [address] [place] [address] Tangela Garcia MD Appointment Request 02/18/2025 Refill [facility] [address] [place] [address] Tangela Garcia MD 02/15/2025 Refill [facility] [address], [place] [phone] Tangela Garcia MD Primary osteoarthritis of right knee; Chronic left shoulder pain 02/14/2025 Refill [facility] [address] [place] [address] Tangela Garcia MD Primary osteoarthritis of right knee; Chronic left shoulder pain 02/05/2025 Telephone [facility] [address] [place] [phone] Tangela Garcia MD 01/29/2025 10:15 AM EDT Office Visit [facility] [address] [place] [address] Tangela Garcia MD Hypertension, unspecified type (Primary Dx); Dyslipidemia; Chronic, continuous use of opioids; Primary osteoarthritis of right knee; Nonintractable headache, unspecified chronicity pattern, unspecified headache type; Asthma with COPD ([facility]); Chronic left shoulder pain; Primary osteoarthritis involving multiple joints 01/29/2025 Travel 01/26/2025 Telephone [facility] [address] [place] [address] Tangela Garcia MD chart prep 01/26/2025 Refill [facility] [address] [place] [address] Tangela Garcia MD Insomnia, unspecified type 01/19/2025 Refill [facility] [address] [place] [address] Tangela Garcia MD 01/15/2025 10:00 AM EDT Telemedicine [facility] [address] [place] [address] Barbie Voss, investigative assistant left shoulder pain 01/15/2025 Refill [facility] [address] [place] [address] Barbie Voss, NAYELY Primary osteoarthritis of right knee; Chronic left shoulder pain 01/15/2025 Telephone [facility] [address] [place] [address] Barbie Voss, NAYELY 01/15/2025 Telephone [facility] [address] [place] [phone] Tangela Garcia MD Med Refill 01/15/2025 Travel 01/08/2025 Telephone [facility] [address] [place] [phone] Tangela Garcia MD Paperwork/Forms 01/02/2025 Refill [facility] [address] [place] [phone] Tangela Garcia MD Chronic obstructive pulmonary disease, unspecified ([facility]) 12/26/2024 Telephone [facility] [address] [place] [phone] Chelsey Felder [place] august recall 12/25/2024 Refill [facility] [address] [place] [address] Tangela Garcia MD Vitamin deficiency 12/12/2024 Telephone [facility] [address] [place] [address] Tangela Garcia MD 12/12/2024 Refill [facility] [address] [place], [place] [phone] Tangela Garcia MD Primary osteoarthritis of right knee; Chronic left shoulder pain from Last 3 Months Immunizations Immunization Administration Dates Next Due Hep B, adult [...] Sign Reading Time Taken Comments Blood Pressure 140/100 01/29/2025 10:40 AM EDT Pulse 65 01/29/2025 10:20 AM EDT Temperature 36.4 C (97.5 F) 01/29/2025 10:20 AM EDT Respiratory Rate 16 01/29/2025 10:20 AM EDT Oxygen Saturation 97% 01/29/2025 10:20 AM EDT Inhaled Oxygen Concentration - - Weight 78.1 kg (172 lb 3.2 oz) 01/29/2025 10:20 AM EDT Height 162.6 cm (5' 4 ) 01/29/2025 10:20 AM EDT Body Mass Index 29.56 01/29/2025 10:20 AM EDT Plan of Treatment Upcoming Encounters Date Type Department Care Team (Late st Contact Info) Description 03/12/2025 10:00 AM EDT Medication Management [facility] [address] [place] [phone] Peter Mcdaniel, TanyaD [address] [place] [address] 04/20/2025 9:30 AM EST Clinical Support [facility] [address] [place] [phone] Barbie Voss, RN [address] [place] [address] 05/03/2025 11:00 AM EST Office Visit [facility] [address] [place] [address] Tangela Garcia MD [address] [place] [address] Health Maintenance Due Date Last Done Comments RSV Patients and Patients Aged 60 years or older (1 - 1-dose 75+ series) 2018 COVID-19 Vaccine ( season) 2025 07/15/2021, 06/24/2021 Influenza Vaccine (#1) 2025 7, 06/25/2015, 06/12/2014, Additional history exists Alcohol/Substance Use Screening 07/26/2025 07/26/2024 Depression Screening 07/26/2025 07/26/2024, 07/26/19 25 Diabetes: Hemoglobin A1C 08/10/2025 08/10/2024, 04/15 SDOH Screening 10/25/2025 10/25/2024 Tobacco Screening 02/02/2026 02/02/2025 Lipid Panel 08/10/2029 08/10/2024, 06/14, 05/11/2022, Additional history exists DTaP/Tdap/Td Vaccines (4 - Td or Tdap) 10/29/2030 10/29/2020, 12/13/2010, 09/07/2007 Hepatitis B Vaccines Completed 01/30/2014, 09/13/2007, 02/21/2007 Pneumococcal Vaccine: 50+ Years Completed 11/08/2014, 01/30/2014, 03/28/2010, Additional history exists Zoster Vaccines Completed 04/13/2019, 01/13, 11/08/2014 HIB [...] patient's age to complete this topic Meningococcal B Vaccine Aged Out No l onger eligible based on patient's age to complete [...] Procedure Name Priority Date/Time Associated Diagnosis Comments HEMOGLOBIN A1C Routine 08/10/2024 8:04 AM EST Dyslipidemia Overweight Screening for diabetes mellitus LIPID PANEL WITH REFLEX TO DIRECT LDL Routine 08/10/2024 8:04 AM EST Dyslipidemia from Last 3 Months or Most Recently Relevant to Health Maintenance Results * (ABNORMAL) Lipid Panel with Reflex to Direct LDL (08/10/2024 8:04 AM EST) Triglycerides 173(H) <150 mg/dL [facility] Comment:Desirable Triglyceri de: less than 150 mg/dLBorderline High Triglyceride 150-199 mg/dLHigh Triglyceride: 200-499 mg/dLVery High Triglyceride: greater than or equal to 5OO mg/dL Cholesterol 202(H) <200 mg/dL [facility] Comment:Desirable Cholestero l: less than 200 mg/dLBorderline High Cholesterol: 200-239 mg/dLHigh Cholesterol: greater than 239 mg/dL LDL Cholesterol Calculated 125(H) <100 mg/dL [facility] Comment:Desirable LDL: less than 100 mg/dLNear Optimal/Above Optimal LDL: 110- 129 mg/dLBorderline High LDL: 130-159 mg/dLHigh LDL: 160-189 mg/dLVery High LDL: greater than or equal to 190 mg/dL HDL Cholesterol 43 >40 mg/dL [facility] Comment:Desirable HDL: great er than 40 mg/dL Note: This HDL assay may give artificially low results in patients with liver disease. Blood 08/10/2024 8:04 AM EST 08/10/2024 11:48 AM EST us Tangela Garcia MD LAB BLOOD ORDERABLES Final Resul t [facility] [address] [place] [address] [phone] * Hemoglobin A1c (08/10/2024 8:04 AM EST) Hemoglobin A1c 5.7 <6.0 % [facility] Comment:Hemoglobin A1C Refer ence Range Adults: 4.8 - 6.0 % Non diabetic: < 6.0 % Goal: < 7.0 %Additional Action Suggested: > 8.0 %Note: Hemoglobin A1c results are invalid for patients with abnormal amounts of HbF. Blood transfusions may impact the HbA1c concentration in the patient sample. Estimated Average Glucose 117 mg/dL [facility] Comment:eAG = Estimated ave rage glucose which is %A1C expressed asaverage glucose, using the formula of the L1A-NhhysqjDdggnji Glucose study (ADAG), Diabetes Care, Vol.31,#8,Jan. 2007 Blood Venous blood specimen / Unknown 08/10/2024 8:04 AM EST 08/10/2024 11:48 AM EST us Tangela Garcia MD LAB BLOOD ORDERABLES Final Resul t Performing Organization Address [facility] de Phone Number [facility] [address] [place] [phone] from Last 3 Months or Most Recently Relevant to Health Maintenance Insurance [place] [address] [place] [id number] [facility] Care Teams Licensed Club Manager Relationship Specialty Start Date End Date Tangela Garcia MD [address] [place] [id number] PCP - General Family Medicine 06/14/18
--- OUTSIDE RECORDS SUMMARY | 2025-03-08 19:26 | XMS_ITS | Encounter Summary ---
Author Organization [employer] Address [address] [facility] 7t [place] [address] Care Team Providers Care Auto Transport Driver Name Role Phone Tagnela Garcia MD Primary Care Provider [phone] Reason for Visit * Reason Onset Date Comments Med Refill 09/02/2022 Encounter Details Date Type Department Care Team ([facility] st Contact Info) Description 09/02/2022 Telephone [facility] MEDICINE [address] [place] [address] Tangela Garcia MD [address] [place] [address] Med Refill Social History Tobacco Use Types [...] give the okay. Please contact daughter at [phone] documented in this encounter Plan of Treatment Upcoming Encounters Date Type Department Care Team (Late st Contact Info) Description 03/12/2025 10:00 AM EDT Medication Management [address] [address] Peter Mcdaniel, PharmD [address] [place] [address] 04/20/2025 9:30 AM EST Clinical Support [address] [address] Barbie Voss, RN [address] [place] [address] 05/03/2025 11:00 AM EST Office Visit [address] [address] Tangela Garcia MD [address] [place] [address] documented as of this encounter Visit Diagnoses Not on filedocumented in this encounter Care Teams Auto Transport Driver Relationship Specialty Start Date End Date Tangela Garcia MD [address] [place] [address] PCP - General Family Medicine 06/14/18 documented as of this encounter
== END 2025-03-08 15:13 | disposition home or self-care (01) ==
LOC: HO.HAP 15:12
PROVIDERS: Visit Provider Family Medicine
DX: Z46.1 Encounter for fitting and adjustment of hearing aid (principal); H90.3 Sensorineural hearing loss, bilateral
CPT/HCPCS: V5267

== ENCOUNTER 2025-03-13 09:15 | Outpatient (AMB) | payer MEDICARE, MEDICAID, SELFPAY ==
--- NOTE | 2025-03-13 09:24 | A.OFFVIS_ITS ---
Vital Signs 03/13/25 09:29 Height 5 ft 9 in Weight 170 lb 10.205 oz BMI 25.2 BP 131/96 H Blood Pressure Location Rt brachial Position Sitting Pulse 74 Pulse Oximetry (%) 92 Intake Visit Reasons: GERD 6 mo f/u Intake Note: Jose Alfredo presents in office today in follow up of GERD. CC: Patient reports doing well and denies having any new GI concerns. Allergies ibuprofen (From Motrin) Allergy (Severe, Verified 02/01/25 13:39) Gastrointestinal Upset codeine Adverse Reaction (Mild, Verified 02/01/25 13:39) Abdominal Pain HPI HPI GERD 6 mo f/u: Details: Assessment & Plan (1) GERD (gastroesophageal reflux disease): Code(s): K21.9 - Gastro-esophageal reflux disease without esophagitis Category: Medical (2) Chronic idiopathic constipation: Code(s): K59.04 - Chronic idiopathic constipation Category: Medical Plan [place]ian #Dennise Live he continues on his sucralfate, pantoprazole, and simethicone. HIs only complaint now is I'm overweight now, I eat so much more!! His blood pressure was running higher recently but they have added medications to stabilize this. This likely is also related to his weight gain and this age. ROV 6 mos. Medications: Refilled simethicone 180 mg PO QID 120 caps 6RF R14.0 - Abdominal distension (gaseous) sucralfate (Carafate) 10 mL PO .qhs 200 mL 6RF R10.9 - Unspecified abdominal pain TODAYS VISIT [place]ian #DTR TRANSLATES PER PT REQUEST [facility] Medical History Knee effusion, right Tachycardia Cough SELINA (obstructive sleep apnea) Kidney stones Asthma Elevated cholesterol HTN (hypertension) Ambulates with cane Degenerative disc disease, thoracic High cholesterol Hypertension COPD (chronic obstructive pulmonary disease) Hemorrhoids GERD (gastroesophageal reflux disease) Surgical History Status post total right knee replacement History of repair of left rotator cuff History of cystoscopy History of renal stent H/O shoulder surgery S/P arthroscopic surgery of left knee History of total left knee replacement H/O colonoscopy Previous back surgery Social History Household Members: Family Are you a primary childcare provider to a significant other at home: No Do you presently have visiting nurse or other home services: Yes (none) Alcohol intake: never Patient Tobacco Use Status: Never used Tobacco Substance Use Type: Marijuana Current occupational status: unemployed Review of Systems Const Denies fatigue, Denies fever(s), Denies night sweats, Denies poor appetite and Denies weight loss ENT Reports Normal hearing present, Denies dental pain, Denies dysphagia, Denies hearing loss, Denies mouth pain, Denies odynophagia, Denies throat swelling, Denies tongue swelling and Reports other (Dentition adequate) Card Reports no additional complaints Resp Reports no additional complaints GI Details: Denies abdominal pain, Denies melena, Reports bloating, Denies hematochezia, Denies constipation, Denies GI cramping, Denies dysphagia, Denies excessive flatus, Denies early satiety, Reports heartburn, Denies diarrhea, Denies nausea, Denies odynophagia, Denies vomiting and Denies hematemesis Skin/Breast Denies pruritus, Denies lesions, Denies rash and Denies jaundice Neuro Reports Normal hearing present and Denies Abnormal speech present Endo Denies fatigue Aller/Immun Denies throat swelling and Denies tongue swelling Physical Exam Vital Signs: Last Vital Signs Pulse 74 03/13/25 09:29 BP 131/96 H 03/13/25 09:29 Pulse Ox 92 03/13/25 09:29 BMI result Body Mass Index 25.2 Const General: cooperative, no acute distress, well developed and well groomed Nutritional Appearance: well nourished and obese centrally obese Orientation/consciousness: oriented to person, oriented to place and oriented to time Limitations: language barrier HEENT Head: Yes normocephalic and Yes atraumatic Eyes General: appearance normal, both eyes and all related structures Pupils: Equal, round and reactive pupils present Neck Neck: Yes normal visual inspection and Yes no lymphadenopathy Thyroid: Thyroid normal Resp Effort & Inspection: normal respiratory effort and able to speak in complete sentences Auscultation: clear to auscultation bilaterally Cardio Rate: regular rate Rhythm: regular rhythm Heart sounds: Normal, physiologic split S2 sound present Peripheral pulses: radial pulses present and posterior tibial pulses present GI Inspection: No distended, No Abdominal panniculus present and Yes obesity Palpation (GI): Soft to palpation, nontender, no guarding, not rigid and No hepatosplenomegaly present Percussion: Yes normal to percussion Auscultation: normal bowel sounds Rectal Exam - Male: Yes deferred Skin General skin exam: no rashes or lesions noted, turgor normal, skin not dry, no jaundice, No spider nevi and no striae Rashes: no rashes Nails: normal Neuro General: oriented to person, oriented to place and oriented to time Cranial nerves: Yes Equal, round and reactive pupils present and Yes Normal hearing present Speech: No Abnormal speech present Extrem General: Yes normal to inspection, No clubbing, No cyanosis and No edema Psych Appearance: grossly normal and well kempt Mental Status: mental status grossly normal Speech and movement: Normal speech and movement present Affect: normal affect Attitude: cooperative Thought process: not confabulating and Impoverished thought process present Thought content: Normal thought content present Insight: Limited insight present (Psych) Judgement: Limited judgement present (Psych) Assessment & Plan Assessment & Plan (1) GERD (gastroesophageal reflux disease): Code(s): K21.9 - Gastro-esophageal reflux disease without esophagitis Category: Medical (2) Gastric pain: Code(s): R10.9 - Unspecified abdominal pain Category: Medical (3) Chronic idiopathic constipation: Code(s): K59.04 - Chronic idiopathic constipation Category: Medical (4) Abdominal bloating: Code(s): R14.0 - Abdominal distension (gaseous) Category: Medical Plan [place]ian # daughter translates per patient request He continues on his sucralfate, pantoprazole, and simethicone. When he has gas it tends to trap in the areas of the hepatic and the splenic flexure but he feels that this simethicone takes care of it well. Return office visit in 6 months Medications: Refilled pantoprazole 40 mg PO BID 60 tabs 6RF K21.9 - Gastro-esophageal reflux disease without esophagitis simethicone 180 mg PO QID 120 caps 6RF R14.0 - Abdominal distension (gaseous) sucralfate (Carafate) 10 mL PO .qhs 200 mL 6RF R10.9 - Unspecified abdominal pain Coding Level of Care Code Est Pt Level 3 (30537) Diagnoses GERD (gastroesophageal reflux disease) K21.9 Gastric pain R10.9 Chronic idiopathic constipation K59.04 Abdominal bloating R14.0
[2025-03-13 09:29] VITALS: BP 131/96; PULSE 74; O2SAT 92; BMI 25.2
--- OUTSIDE RECORDS SUMMARY | 2025-03-13 10:02 | XMS_ITS | Clinical Summary ---
Author Organization [facility] Address [address] [place] [address] Care Team Providers Care Supervisor Industrial Arts Education Name Role Phone Unavailable Primary Care Provider [...]
== END 2025-03-13 09:53 | disposition home or self-care (01) ==
PROVIDERS: PCP Family Medicine; Visit Provider Nurse Practitioner
DX: K21.9 Gastro-esophageal reflux disease without esophagitis (principal); R10.9 Unspecified abdominal pain; K59.04 Chronic idiopathic constipation; R14.0 Abdominal distension (gaseous)
CPT/HCPCS: 99213

== ENCOUNTER → 2025-03-13 09:15 | Outpatient (BNVA) | payer MEDICARE, MEDICAID, SELFPAY | PROVIDERS: PCP Family Medicine; Visit Provider Nurse Practitioner | DX: K21.9 Gastro-esophageal reflux disease without esophagitis (principal); K59.04 Chronic idiopathic constipation; R14.0 Abdominal distension (gaseous); R10.9 Unspecified abdominal pain | CPT/HCPCS: 99212 ==

== ENCOUNTER 2025-04-20 16:13 | Outpatient (REF) | payer MEDICARE, MEDICAID, SELFPAY ==
--- OUTSIDE RECORDS SUMMARY | 2025-04-20 09:30 | XMS_ITS | Encounter Summary ---
Author Organization [email or web address] Address [address] [facility] [address] [address] 7[address] [place] [address] Care Team Providers Care Instructional Materials Director Name Role Phone Tangela Garcia MD Primary Care Provider [phone] Peter Mcdaniel PharmD Unavailable [phone] Reason for Visit * Reason Comments HEALTH WORKER Encounter Details Date Type Department Care Team (Latest Contact Info) Description 04/20/2025 9:30 AM EST Clinical Support [facility] MEDICINE [address] [place] [address] Barbie Voss, NAYELY [address] [place], [place] [phone] Long-term current use of opiate analgesic (Primary Dx) Social History Tobacco Use Types Packs/Day Years [...] Progress Notes * Barbie Voss RN - 04/20/2025 9:30 AM EST SUBJECTIVE: Jose Alfredo Garsia is a 80 y.o. year old adult who presents for HEALTH WORKER Preferred language for medical information: Yakut Interpreted needed: No Jose Alfredo Garsia does report adherence to Oxycodone 10 mg, take 1 tablet every 12 hours PRN, last refilled 04/17/25. The patient last took Oxycodone on: 04/19/25 Medication is: 50% % effective at alleviating pain. OBJECTIVE: RETAIL WIRELESS SALES CONSULTANT checked: 04/20/2025 Pill count completed for Oxycodone , count today is 50 , anticipated count should be 49, this is asexpected. Vital Signs Pain Score: 7 Pain Loc: Knee (bilateral) Pain Education: Yes Additional pain site: bilateral shoulders Last PCP visit: 01/29/25 BPI completed on: 04/20/2025 , pain severity score: 5.5, activity interference score: 4.5 BPI completed on: 04/28/24 , pain severity score: 7, activity interference score: 9 Controlled substance agreement signed: Controlled Substance Agreement 04/20/2025 HEALTH WORKER Tier: 3 Current Medications[1] Smoking status: Denies ETOH use: Denies Illicit substances: Denies Marijuana use: Yes Lab Results Component Value Date POCTHC Positive (A) 04/20/2025 POCCOCAINEUR Positive (A) 04/20/2025 POCOPIATEUR Negative 04/20/2025 DOAUR Negative 04/20/2025 POCAMPHETAMI Negative 04/20/2025 POCBENZODIUR Negative 04/20/2025 POCBARBSCRN Negative 04/20/2025 POCMETHADOUR Negative 04/20/2025 POCBUPSCRN Negative 04/20/2025 POCTCAUR Positive (A) 04/20/2025 POCMDMAUR Negative 04/20/2025 POCOXYCODONE Positive (A) 04/20/2025 POCPHENCYCUR Negative 04/20/2025 PROPOXUR Negative 04/20/2025 FENTANYLURIN Negative 04/20/2025 RONEL+. Patient denies any cocaine use, will send it out to the lab for confirmation. PCP notified. ASSESSMENT: Encounter Diagnosis Name Primary? Long-term current use of opiate analgesic Yes PLAN: Information on pain group given: Previously discussed Information on acupuncture given: Previously discussed Narcan education provided: Previously discussed Narcan prescription: active Jose Alfredo Garsia will continue taking medication as prescribed and follow up at the next HEALTH WORKER visit or sooner if needed. Jose Alfredo Garsia has verbalized understanding of care plan. Future Appointments Date Time Provider Department Center 05/03/2025 11:00 AM Tangela Garcia MD MEDICINE [facility] 06/21/2025 11:30 AM Peter Mcdaniel PharmD MEDICINE [facility] 06/22/2025 11:00 AM Barbie Voss, RN MEDICINE [facility] Barbie Voss, RN [1] Current Outpatient Medications: acetaminophen (Tylenol Extra Strength) 500 MG tablet, Take 1-2 tablets by mouth every 8 hours as needed for pain. Maximum daily dose 6 tabs per day., Disp: 100 tablet, Rfl: 3 albuterol (2.5 MG/3ML) 0.083% nebulizer solution, INHALE 1 AMPULE USING A NEBULIZER EVERY 4 HOURS NEEDED FOR SHORTNESS OF BREATH, AND FOR WHEEZING. NO MORE THAN 4 TIMES PER DAY., Disp: 90 mL, Rfl:11 albuterol 108 (90 Base) MCG/ACT inhaler, Inhale 2 puffs every 4 (four) hours if needed for wheezingor shortness of breath. Maximum 8 puffs per day, Disp: 18 g, Rfl: 3 dljoyzpmvl-pwczuqunalawv-clizehno 50-325-40 MG tablet, TAKE 1 TABLET BY MOUTH EVERY DAY NEEDED FOR HEADACHE SEVERE, DO NOT EXCEED 5 TABLETS / MONTH, Disp: 5 tablet, Rfl: 0 cyanocobalamin (Vitamin B-12) 500 MCG tablet, TAKE 1 TABLET BY MOUTH EVERY MORNING, Disp: 90 tablet, Rfl: 1 D3 Super Strength 50 MCG (2000 UT) capsule, TAKE 1 CAPSULE BY MOUTH EVERY MORNING, Disp: 90 capsule, Rfl: 1 Diclofenac Sodium 1 % gel, Apply to affected area once or twice daily as needed, Disp: 150 g, Rfl: 3 doxepin (SINEquan) 75 MG capsule, TAKE 1 CAPSULE BY MOUTH AT BEDTIME, Disp: 30 capsule, Rfl: 1 famotidine (Pepcid) 20 MG tablet, Take 20 mg by mouth at bedtime., Disp: , Rfl: fluticasone (Flonase) 50 MCG/ACT nasal spray, Administer 1-2 sprays into each nostril Once per day.Shake gently. Before first use, prime pump. After use, clean tip and replace cap., Disp: 48 mL, Rfl: 0 Ecsaxbqczdc-Okrfuqyfr-Zrkghn (Trelegy Ellipta) 100-62.5-25 MCG/ACT aerosol powder , Inhale 1 puff Once per day., Disp: 60 each, Rfl: 11 latanoprost (Xalatan) 0.005 % ophthalmic solution, , Disp: , Rfl: lidocaine (Lidoderm) 5 % patch, Apply 1 patch topically Once per day. Remove & discard patch within 12 hours or as directed by MD., Disp: 30 patch, Rfl: 2 melatonin 3 MG tablet, TAKE 1 TABLET BY MOUTH AT BEDTIME NEEDED, Disp: 30 tablet, Rfl: 3 mirtazapine (Remeron) 30 MG tablet, TAKE 1 TABLET BY MOUTH AT BEDTIME, Disp: 30 tablet, Rfl: 3 naloxone (Narcan) 4 mg/0.1 mL nasal spray, Administer 1 spray (4 mg) into affected nostril(s) if needed for opioid reversal., Disp: 2 each, Rfl: 1 olmesartan (Benicar) 20 MG tablet, Take 1 tablet (20 mg) by mouth Once per day., Disp: 90 tablet, Rfl: 3 oxyCODONE (Roxicodone) 10 MG immediate release tablet, Take 1 tablet (10 mg) by mouth every 12 (twelve) hours if needed for severe pain., Disp: 56 tablet, Rfl: 0 pantoprazole (ProtoNix) 40 MG EC tablet, Take 1 tablet (40 mg) by mouth 2 times daily. Do not crush, chew, or split., Disp: 30 tablet, Rfl: 3 Simethicone Ultra Strength 180 MG capsule, Take 180 mg by mouth 4 times daily., Disp: , Rfl: simvastatin (Zocor) 40 MG tablet, TAKE 1 TABLET BY MOUTH EVERY EVENING, Disp: 30 tablet, Rfl: 3 sucralfate (Carafate) 1 GM/10ML suspension, Take 1 g by mouth at bedtime., Disp: , Rfl: documented in this encounter Plan of Treatment Upcoming Encounters Date Type Department Care Team (Late st Contact Info) Description 05/03/2025 11:00 AM EST Office Visit [address] [address] Tangela Garcia MD [address] [place] [address] 06/21/2025 11:30 AM EST Medication Management [address] [address] Peter Mcdaniel, PharmD [address] [place] [address] 06/22/2025 11:00 AM EST Clinical Support [address] [address] Barbie Voss RN [address] [place] [address] Scheduled Orders Name Type Priority Associated Diagnoses Orde r Schedule Drug Monitoring, Cocaine Metabolite, Quantitative, Urine Lab Routine Long-term current use of opiate analgesic Ordered: 04/20/2025 documented as of this encounter Procedures Procedure Name Priority Date/Time Associated Diagnosis Comments POCT DAREN-14 URINE DRUG SCREEN Routine 04/20/2025 9:34 AM EST Long-term current use of opiate analgesic documented in this encounter Results * (ABNORMAL) POCT DAREN-14 Urine Drug Screen (04/20/2025 9:34 AM EST) THC Positive(A) Negative Cocaine Screen, Urine Positive(A) Negative Opiate Screen, Urine Negative Negative Methamphetamine Screen Urine Negative Negative Amphetamine Screen, Urine Negative Negative Benzodiazepines Screen, Urine Negative Negative Barbiturate Screen, Urine Negative Negative Methadone Screen, Urine Negative Negative Buprenophine Screen, Urine Negative Negative TCA, Urine Positive(A) Negative MDMA Urine Negative Negative ng/mL Oxycodone Screen, Urine Positive(A) Negative Comment:Rx Phencyclidine (PCP), Urine Negative Negative Propoxyphene, Urine Negative Negative Fentanyl, Urine Negative Negative Urine Urine specimen obtained by clean catch procedure / Unknown 04/20/2025 9:34 AM EST Narrative Barbie Voss RN - 04/20/2025 9:34 AM EST .UTOX cup Lot#[id number] Exp. 03/20/26 Internal Pass Control Tangela Garcia MD POINT OF CARE TEST ENTER/EDIT OR DERABLES Final Result documented in this encounter Visit Diagnoses Diagnosis Long-term current use of opiate analgesic- Primary Encounter for long-term (current) use of other medications documented in this encounter Additional Health Concerns Assessment Noted Time PHQ-9 Depression Total Score: 0 07/26/19 25 9:16 AM EST documented as of this encounter Care Teams Instructional Materials Director Relationship Specialty Start Date End Date Tangela Garcia MD [address] [place] [address] PCP - General Family Medicine 06/14/18 Peter Mcdaniel, TanyaD [address] [place] [phone] Pharmacist Pharmacy 03/15/25 documented as of this encounter
--- OUTSIDE RECORDS SUMMARY | 2025-04-20 16:49 | XMS_ITS | Encounter Summary ---
Author Organization [employer] Address [address] [facility] [address] 7[address] [place] [address] Care Team Providers Care Tank Truck Engine Mechanic Name Role Phone Tangela Garcia MD Primary Care Provider [phone] Peter Mcdaniel PharmD Unavailable [phone] Encounter Details Date Type Department Care Team ([facility] st Contact Info) Description 04/27/2024 Telephone [facility] [address] [place] [address] Tangela Garcia MD [address] [place] [address] Social History Tobacco Use Types Packs/Day Years [...] Description 05/03/2025 11:00 AM EST Office Visit [facility] [address] [place] [address] Tangela Garcia MD [address] [place] [address] 06/21/2025 11:30 AM EST Medication Management [facility] [address] [place] [address] Peter Mcdaniel, TanyaD [address] [place] [phone] 06/22/2025 11:00 AM EST Clinical Support [address] [address] Barbie Voss RN [address] [place] [address] documented as of this encounter Visit Diagnoses Not on filedocumented in this encounter Additional Health Concerns Assessment Noted Time PHQ-9 Depression Total Score: 0 03/01/20 23 10:01 AM EDT documented as of this encounter Care Teams Tank Truck Engine Mechanic Relationship Specialty Start Date End Date Tangela Garcia MD [address] [place] [address] PCP - General Family Medicine 06/14/18 Peter Mcdaniel, PharmD [address] [place] [address] Pharmacist Pharmacy 03/15/25 documented as of this encounter
--- OUTSIDE RECORDS SUMMARY | 2025-04-20 16:49 | XMS_ITS | Encounter Summary ---
Author Organization [employer] Address [address] [facility] [address] [place] [address] Care Team Providers Care Novelties Sales Representative Name Role Phone Tangela Garcia MD Primary Care Provider [phone] Peter Mcdaniel PharmD Unavailable [phone] Reason for Visit * Reason Onset Date Comments Med Refill 04/16/2025 Encounter Details Date Type Department Care Team ([facility] st Contact Info) Description 04/16/2025 Telephone [facility] MEDICINE [address] [place], [place] [phone] Tangela Garcia MD [address] [place], [place] [phone] Med Refill Social History Tobacco Use Types [...] encounter Miscellaneous Notes * Telephone Encounter - Gabriel Cooper - 04/16/2025 9:13 AM EST TC from pt requesting medication refill. Medications needing refill : oxyCODONE (Roxicodone) 10 MG immediate release tablet To be sent to: [facility] - [employer], [place] - [address] [place] [address] documented in this encounter Plan of Treatment Upcoming Encounters Date Type Department Care Team ([facility] st Contact Info) Description 05/03/2025 11:00 AM EST Office Visit [facility] MEDICINE [address] [place] [address] Tangela Garcia MD [address] [place] [address] 06/21/2025 11:30 AM EST Medication Management [facility] MEDICINE [address] [place] [address] Peter Mcdaniel, PharmD [address] [place] [address] 06/22/2025 11:00 AM EST Clinical Support [facility] MEDICINE [address] [place] [address] Barbie Voss, RN [address] [place] [address] documented as of this encounter Visit Diagnoses Not on filedocumented in this encounter Additional Health Concerns Assessment Noted Time PHQ-9 Depression Total Score: 0 07/26/19 9:16 AM EST documented as of this encounter Care Teams Novelties Sales Representative Relationship Specialty Start Date End Date Tangela Garcia MD [address] [place] [address] PCP - General Family Medicine 06/14/18 Peter Mcdaniel, PharmD [address] [place] [phone] Pharmacist Pharmacy 03/15/25 documented as of this encounter
--- OUTSIDE RECORDS SUMMARY | 2025-04-20 16:49 | XMS_ITS | Encounter Summary ---
Author Organization [employer] Address [address] [facility] [address] [place] [address] Care Team Providers Care Cane Flume Chute Operator Name Role Phone Tangela Garcia MD Primary Care Provider [phone] Peter Mcdaniel PharmD Unavailable [phone] Reason for Visit * Reason Onset Date Comments Med Refill 08/21/2024 Encounter Details Date Type Department Care Team (Late st Contact Info) Description 08/21/[address] [facility] MEDICINE [address] [place], [place] [phone] Tangela Garcia MD [address] [place], [place] [phone] Med Refill Social History Tobacco Use Types [...] MCG/ACT inhaler To be sent to: [facility] documented in this encounter Plan of Treatment Upcoming Encounters Date Type Department Care Team (Late st Contact Info) Description 05/03/2025 11:00 AM EST Office Visit [facility] MEDICINE [address] [place] [phone] Tangela Garcia MD [address] [place], [place] [phone] 06/21/2025 11:30 AM EST Medication Management [address] [address] Peter Mcdaniel, PharmD [address] [place] [address] 06/22/2025 11:00 AM EST Clinical Support [address] [address] Barbie Voss, NAYELY [address] [place] [address] documented as of this encounter Visit Diagnoses Not on filedocumented in this encounter Additional Health Concerns Assessment Noted Time PHQ-9 Depression Total Score: 0 07/26/19 25 9:16 AM EST documented as of this encounter Care Teams Cane Flume Chute Operator Relationship Specialty Start Date End Date Tangela Garcia MD [address] [place] [phone] PCP - General Family Medicine 06/14/18 Peter Mcdaniel, PharmD [address] [place] [phone] Pharmacist Pharmacy 03/15/25 documented as of this encounter
--- OUTSIDE RECORDS SUMMARY | 2025-04-20 16:49 | XMS_ITS | Encounter Summary ---
Author Organization [employer] Address [address] 7[address] [place] [address] Care Team Providers Care Sawmill Production Worker Name Role Phone Tangela Garcia MD Primary Care Provider [phone] Peter Mcdaniel PharmD Unavailable [phone] Reason for Visit * Reason Comments Med Refill Encounter Details Date Type Department Care Team (Late st Contact Info) Description 12/13/2023 Refill [facility] [address] [place], [place] [phone] Tangela Garcia MD [address] [place] [address] Wheezing Social History Tobacco Use Types Packs/Day [...] Description 05/03/2025 11:00 AM EST Office Visit [address] [address] Tangela Garcia MD [address] [place] [address] 06/21/2025 11:30 AM EST Medication Management [address] [address] Peter Mcdaniel, TanyaD [address] [place] [address] 06/22/2025 11:00 AM EST Clinical Support [address] [address] Barbie Voss, NAYELY [address] [place] [address] documented as of this encounter Visit Diagnoses Diagnosis Wheezing documented in this encounter Additional Health Concerns Assessment Noted Time PHQ-9 Depression Total Score: 0 03/01/20 10:01 AM EDT documented as of this encounter Care Teams Sawmill Production Worker Relationship Specialty Start Date End Date Tangela Garcia MD [address] [place] [phone] PCP - General Family Medicine 06/14/18 Peter Mcdaniel, PharmD [address] [place] [phone] Pharmacist Pharmacy 03/15/25 documented as of this encounter
--- OUTSIDE RECORDS SUMMARY | 2025-04-20 16:49 | XMS_ITS | Encounter Summary ---
Author Organization [employer] Address [address] [facility] 7t [place] [address] Care Team Providers Care Biomedical Field Service Engineer Name Role Phone Tangela Garcia MD Primary Care Provider Peter Mcdaniel PharmD Unavailable Reason for Visit * Reason Comments Med Refill Encounter Details Date Type Department Care Team (Late st Contact Info) Description 02/13/2023 Refill [facility] [address] [place] [address] [phone] Savannah Martini ANP [address] [place], [place] [phone] Social History Tobacco Use Types Packs/Day Years [...] Department Care Team (Late Contact Info) Description 05/03/2025 11:00 AM EST Office Visit [facility] [address] [place] [address] [phone] Tangela Garcia MD [address] [place] [phone] 06/21/2025 11:30 AM EST Medication Management [address] [address] Peter Mcdaniel, Juan C [address] [place] [address] 06/22/2025 11:00 AM EST Clinical Support [address] [address] Barbie Voss, RN [address] [place], [place] [phone] documented as of this encounter Visit Diagnoses Not on filedocumented in this encounter Care Teams Biomedical Field Service Engineer Relationship Specialty Start Date End Date Tangela Garcia MD [address] [place] [phone] PCP - General Family Medicine 06/14/18 Peter Mcdaniel, PharmD [address] [place] [address] [phone] Pharmacist Pharmacy 03/15/25 documented as of this encounter
--- OUTSIDE RECORDS SUMMARY | 2025-04-20 16:49 | XMS_ITS | Encounter Summary ---
Author Organization [employer] Address [address] 7[address] [place] [address] Care Team Providers Care Fixed Route Bus Operator Name Role Phone Tangela Garcia MD Primary Care Provider [phone] Peter Mcdaniel PharmD Unavailable [phone] Reason for Visit * Reason Onset Date Comments Med Refill 04/16/2025 Encounter Details Date Type Department Care Team ([facility] st Contact Info) Description 04/16/2025 Refill [facility] [address] [place] [address] Barbie Voss, NAYELY [address] [place] [address] Primary osteoarthritis of right knee; Chronic left [...] Description 05/03/2025 11:00 AM EST Office Visit [address] [address] Tangela Garcia MD [address] [place] [address] 06/21/2025 11:30 AM EST Medication Management [address] [address] Peter Mcdaniel, PharmD [address] [place] [address] 06/22/2025 11:00 AM EST Clinical Support [address] [address] Barbie Voss, NAYELY [address] [place] [address] documented as of this encounter Visit Diagnoses Diagnosis Primary osteoarthritis of right knee Chronic left shoulder pain Pain in joint, shoulder region documented in this encounter Additional Health Concerns Assessment Noted Time PHQ-9 Depression Total Score: 0 07/26/19 25 9:16 AM EST documented as of this encounter Care Teams Fixed Route Bus Operator Relationship Specialty Start Date End Date Tangela Garcia MD [address] [place] [address] PCP - General Family Medicine 06/14/18 Peter Mcdainel, TanyaD [address] [place] [phone] Pharmacist Pharmacy 03/15/25 documented as of this encounter
--- OUTSIDE RECORDS SUMMARY | 2025-04-20 16:49 | XMS_ITS | Encounter Summary ---
Author Organization [employer] Address [address] [place] [address] Care Team Providers Care Business Services Clerk Name Role Phone Tangela Garcia MD Primary Care Provider [phone] Peter Mcdaniel PharmD Unavailable [phone] Reason for Visit * Reason Onset Date Comments Reschedule 07/30/2023 Encounter Details Date Type Department Care Team ([facility] st Contact Info) Description 07/30/2023 Telephone [facility]INE [address] [place], [place] [phone] Tangela Garcia MD [address] [place] [address] Reschedule Social History Tobacco Use Types Packs/Day [...] EST Tc from pt daughter requesting r/s [employer] [employer] televisit appt. documented in this encounter Plan of Treatment Upcoming Encounters Date Type Department Care Team (Late st Contact Info) Description 05/03/2025 11:00 AM EST Office Visit [facility] [address] [place] [address] Tangela Garcia MD [address] [place] [address] 06/21/2025 11:30 AM EST Medication Management [facility] [address] [place] [phone] Peter Mcdaniel, TanyaD [address] [place] [address] 06/22/2025 11:00 AM EST Clinical Support [address] [address] Barbie Voss RN [address] [place] [address] documented as of this encounter Visit Diagnoses Not on filedocumented in this encounter Additional Health Concerns Assessment Noted Time PHQ-9 Depression Total Score: 0 03/01/20 23 10:01 AM EDT documented as of this encounter Care Teams Business Services Clerk Relationship Specialty Start Date End Date Tangela Garcia MD [address] [place] [address] PCP - General Family Medicine 06/14/18 Peter Mcdaniel, PharmD [address] [place] [address] Pharmacist Pharmacy 03/15/25 documented as of this encounter
--- OUTSIDE RECORDS SUMMARY | 2025-04-20 16:49 | XMS_ITS | Encounter Summary ---
Author Organization [employer] Address [address] 7[address] [place] [address] Care Team Providers Care Color Artist Name Role Phone Tangela Garcia MD Primary Care Provider [phone] Peter Mcdaniel PharmD Unavailable [phone] Reason for Visit * Reason Comments Med Refill Encounter Details Date Type Department Care Team (Late st Contact Info) Description 02/15/2025 Refill [facility] [address] [place] [address] Tangela Garcia MD [address] [place] [address] Primary osteoarthritis of right knee; Chronic left [...] Description 05/03/2025 11:00 AM EST Office Visit [address] [address] Tangela Garcia MD [address] [place] [address] 06/21/2025 11:30 AM EST Medication Management [address] [address] Peter Mcdaniel, PharmD [address] [place] [address] 06/22/2025 11:00 AM EST Clinical Support [address] [address] Barbie Voss, NAYELY [address] [place] [address] documented as of this encounter Visit Diagnoses Diagnosis Primary osteoarthritis of right knee Chronic left shoulder pain Pain in joint, shoulder region documented in this encounter Additional Health Concerns Assessment Noted Time PHQ-9 Depression Total Score: 0 07/26/19 25 9:16 AM EST documented as of this encounter Care Teams Color Artist Relationship Specialty Start Date End Date Tangela Garcia MD [address] [place] [address] PCP - General Family Medicine 06/14/18 Peter Mcdaniel, TanyaD [address] [place] [address] Pharmacist Pharmacy 03/15/25 documented as of this encounter
--- OUTSIDE RECORDS SUMMARY | 2025-04-20 16:49 | XMS_ITS | Clinical Summary ---
Author Organization [employer] Address [address] [place] [address] Care Team Providers Care Travel Accommodations Rater Name Role Phone Tangela Garcia MD Primary Care Provider Peter Mcdaniel PharmD Unavailable [phone] Allergies Active Allergy Reactions Criticality Noted Date Comments Nsaids 09/12/2010 Other reaction(s): GI upset Medications pantoprazole (ProtoNix) 40 MG EC tablet Take 1 tablet (40 mg) by mouth 2 times daily. Do not crush, chew, or split. 30 tablet 3 023 Active Simethicone Ultra Strength 180 MG capsule Take 180 mg by mouth 4 times daily. 024 Active famotidine (Pepcid) 20 MG tablet Take 20 mg by mouth at bedtime. 024 Active butalbital-acetam inophen-caffeine 50-325-40 MG tablet TAKE 1 TABLET BY MOUTH EVERY DAY NEEDED FOR HEADACHE SEVERE, DO NOT EXCEED 5 TABLETS / MONTH 5 tablet 025 Active cyanocobalamin (Vitamin B-12) 500 MCG tabletIndications :Vitamin deficiency TAKE 1 TABLET BY MOUTH EVERY MORNING 90 tablet 1 025 Active D3 Super Strength 50 MCG (1999 UT) capsuleIndication s:Vitamin deficiency TAKE 1 CAPSULE BY MOUTH EVERY MORNING 90 capsule 1 025 Active albuterol (2.5 MG/3ML) 0.083% nebulizer solutionIndicatio ns:Chronic obstructive pulmonary disease, unspecified (HCC) INHALE 1 AMPULE USING A NEBULIZER EVERY 4 HOURS NEEDED FOR SHORTNESS OF BREATH, AND FOR WHEEZING. NO MORE THAN 4 TIMES PER DAY. 90 mL Active albuterol 108 (90 Base) MCG/ACT inhaler Inhale 2 puffs every 4 (four) hours if needed for wheezing or shortness of breath. Maximum 8 puffs per day 18 g 2025 Active olmesartan (Benicar) 20 MG tablet Take 1 tablet (20 mg) by mouth Once per day. 90 tablet 2025 Active Diclofenac Sodium 1 % gel Apply to affected area once or twice daily as needed 150 g Active acetaminophen (Tylenol Extra Strength) 500 MG tablet Take 1-2 tablets by mouth every 8 hours as needed for pain. Maximum daily dose 6 tabs per day. 100 tablet Active lidocaine (Lidoderm) 5 % patchIndications: Chronic left shoulder pain Apply 1 patch topically Once per day. Remove & discard patch within 12 hours or as directed by MD. 30 patch 2 Active latanoprost (Xalatan) 0.005 % ophthalmic solution Active Fluticasone-Umecl idin-Vilant (Trelegy Ellipta) 100-62.5-25 MCG/ACT aerosol powder Inhale 1 puff Once per day. 60 each Active mirtazapine (Remeron) 30 MG tablet TAKE 1 TABLET BY MOUTH AT BEDTIME 30 tablet 3 Active melatonin 3 MG tablet TAKE 1 TABLET BY MOUTH AT BEDTIME NEEDED 30 tablet 3 Active sucralfate (Carafate) 1 GM/10ML suspension Take 1 g by mouth at bedtime. Active doxepin (SINEquan) 75 MG capsuleIndication s:Insomnia, unspecified type TAKE 1 CAPSULE BY MOUTH AT BEDTIME 30 capsule 1 Active simvastatin (Zocor) 40 MG tabletIndications :Dyslipidemia TAKE 1 TABLET BY MOUTH EVERY EVENING 30 tablet 3 Active oxyCODONE (Roxicodone) 10 MG immediate release tabletIndications :Primary osteoarthritis of right knee,Chronic left shoulder pain Take 1 tablet (10 mg) by mouth every 12 (twelve) hours if needed for severe pain. 56 tablet Active fluticasone (Flonase) 50 MCG/ACT nasal spray Administer 1-2 sprays into each nostril Once per day. Shake gently. Before first use, prime pump. After use, clean tip and replace cap. 48 mL 025 2025 Active naloxone (Narcan) 4 mg/0.1 mL nasal spray Administer 1 spray (4 mg) into affected nostril(s) if needed for opioid reversal. 2 each 1 Active naloxone (Narcan) 4 mg/0.1 mL nasal spray Administer 1 spray (4 mg) into affected nostril(s) if needed for opioid reversal. 2 each 1 023 2024 Discontinued(R eorder (will not trigger notification to Pharmacy)) fluticasone (Flonase) 50 MCG/ACT nasal spray ADMINISTER 1-2 SPRAYS INTO EACH NOSTRIL ONCE PER DAY. SHAKE GENTLY. BEFORE FIRST USE, PRIME PUMP. AFTER USE, CLEAN TIP AND REPLACE CAP. 48 mL 025 2024 Discontinued(R eorder (will not trigger notification to Pharmacy)) oxyCODONE (Roxicodone) 10 MG immediate release tabletIndications :Primary osteoarthritis of right knee,Chronic left shoulder pain Take 1 tablet (10 mg) by mouth every 12 (twelve) hours if needed for severe pain. 56 tablet 025 2024 Discontinued(R eorder (will not trigger notification to Pharmacy)) Active Problems Problem Noted Date Diagnosed Date [...] are not classic - Judicious use of tdcilbmbzc-tjljznjyyigkt-krlpynof 50-325-40 MG tablet for severe headache Assessment & Plan (10/29/2024 7:47 PM EDT): - chronic, multifactorial - continue tylenol PRN - improve sleep hygiene - MRI done on 03/21/24, benign - Question of migraine, although symptoms are not classic - Prescribed hrongpbpye-jvakbhehcmnuw-iwvonweu 50-325-40 MG tablet for severe headache 10/25/24 [...] right TKR on 05/26/22 - followed by [facility] - Continue judicious use of celecoxib and oxycodone - Followed by [employer] Drier Machine Operator, Last seen in Feb 2023. Planned for DRG Stimulation - Discussed about the possibility of 2nd opinion referral to another orthopedist Assessment & Plan (04/18/2024 1:37 PM EST): - s/p right TKR on 05/26/22 - followed by [facility], last seen on 12/14/22 - Continue judicious use of celecoxib and oxycodone - Followed by [employer] D[employer] Machine Operator, Last seen in Feb 2023. Planned for DRG Stimulation - Discussed about the possibility of 2nd opinion referral to another orthopedist Assessment & Plan (07/02/2023 5:29 PM EST): - s/p right TKR on 05/26/22 - followed by [facility], last seen on 12/14/22 - Continue judicious use of celecoxib and oxycodone - Followed by [employer] D[employer] Operator, Last seen in Feb 2023. Planned for DRG Stimulation - Discussed about the possibility of 2nd opinion referral to another orthopedist Assessment & Plan (03/07/2023 10:02 AM EDT): - s/p right TKR on 05/26/22 - followed by [facility], last seen on 12/14/22 - Continue judicious use of celecoxib and oxycodone - Followed by [employer] Operator, Last seen in Feb 2023 - Planned for DRG Stimulation - Discussed about the possibility of 2nd opinion referral to another orthopedist Assessment & Plan (11/24/2022 9:18 AM EDT): - s/p right TKR on 05/26/22 - followed by [facility], last seen on 09/03/22 and the [...] right TKR on 05/26/22 - followed by [facility], last seen on 09/03/22 and the [...] (07/02/2023 5:29 PM EST): - evaluated by [facility], last seen in Mar 2023 - continue pantoprazole 40 mg bid - continue sucralfate 10 mg at bedtime - famotidine was discontinued by GI - judicious use of BRAUN-2 Assessment & Plan (03/07/2023 10:49 AM EDT): - evaluated by [facility] - continue pantoprazole 40 mg bid - continue famotidine 40 mg prn for breakthrough - judicious use of BRAUN-2 Assessment & Plan (09/30/2022 5:06 PM EDT): - evaluated by [facility] - continue pantoprazole 40 mg bid [...] than right knee pain Asthma with COPD ([facility]/HCC) 06/25/2015 Assessment & Plan (02/02/2025 2:45 PM EDT): - followed by [facility] pul[facility], Dr. Mayorga, last seen on 07/2024, Pt is being treated for Asthma, rather than COPD. - most recent exacerbation in October 2024. Rx prednisone - Tried SMART therapy with budesonide / formoterol (Symbicort) dose - However, patient requests albuterol HFA. - Consider fluticasone / umeclidinium / vilanterol (Trelegy) Assessment & Plan (10/29/2024 7:45 PM EDT): - followed by [facility] pul[facility], Dr. Mayorga, last seen on 07/2024, Pt is being treated for Asthma not COPD. - most recent exacerbation in October 2024. Rx prednisone - On SMART therapy. Increase budesonide / formoterol (Symbicort) dose - Discontinue albuterol HFA and fluticasone/ salmeterol Assessment & Plan (07/30/2024 12:52 PM EST): - followed by [facility], Dr. Mayorga, last seen on 01/2024, Pt is being treated for Asthma not COPD. - most recent exacerbation in Jul 2024. Rx prednisone - Will start SMART therapy. Start budesonide / formoterol (Symbicort) or mometasone / formoterol (Dulera) - Discontinue albuterol HFA and fluticasone/ salmeterol Assessment & Plan (04/18/2024 1:31 PM EST): - followed by [facility] pul[facility], Dr. Mayorga, last seen on 01/2024 - most recent exacerbation in May 2023, seen in [facility]. Rx prednisone and cefuroxime for Dx bronchitis. - continue current medications - maintenance medications: Airduo - rescue medications: Albuterol HFA and neb prn - follow up in 3-6 mo Assessment & Plan (11/02/2023 9:46 AM EDT): - followed by [facility], Dr. Mayorga, last seen on 07/2023 - most recent exacerbation in May 2023, seen in [facility]. Rx prednisone and cefuroxime for Dx bronchitis. - continue current medications - maintenance medications: Airduo - rescue medications: Albuterol HFA and neb prn - follow up in 3-6 mo Assessment & Plan (07/02/2023 5:26 PM EST): - followed by [facility], Dr. Mayorga, last seen on 02/23/23 - most recent exacerbation in May 2023, seen in [facility]. Rx prednisone and cefuroxime for Dx bronchitis. - continue current medications - maintenance medications: Fluticasone propionate and salmeterol 250/50 - rescue medications: Albuterol HFA and neb prn - follow up in 3-6 mo Assessment & Plan (03/01/2023 11:17 AM EDT): - followed by [facility] pul[facility], Dr. Mayorga, last seen on 02/23/23 - exacerbation on 09/30/22, wheezing throughout. No crackles or decreased BS. - prednisone 40 mg daily x 5 days - maintenance medications: Advair 250/50 - rescue medications: Albuterol HFA and neb prn - follow up in 3-6 mo Assessment & Plan (11/24/2022 9:13 AM EDT): - followed by [facility], Dr. Mayorga, last seen on 07/15/22 [...] (09/30/2022 5:05 PM EDT): - followed by [facility] pul[facility], Dr. Mayorga, last seen on 07/15/22 [...] (02/02/2025 2:42 PM EDT): - followed by [facility] orth[facility] - s/p knee replacement - s/p shoulder surgery - continue judicious use of oxycodone 10 mg every 12 hours under INSURANCE VERIFICATION REP program guideline - Assessment & Plan (10/25/2024 8:44 AM EDT): - followed by [facility] [place] - s/p knee replacement - s/p shoulder surgery - continue judicious use of oxycodone, increasing its dose Assessment & Plan (07/30/2024 12:53 PM EST): - followed by [facility] orth[facility] - s/p knee replacement - s/p [...] Encounters Date Type Department Care Team Description 04/20/2025 9:30 AM EST Clinical Support [facility] [address] [place] [address] Barbie Voss, NAYELY Long-term current use of opiate analgesic (Primary Dx) 04/20/2025 Refill [facility] [address] [place] [address] Barbie Voss, NAYELY 04/20/2025 Travel 04/19/2025 Travel 04/16/2025 Refill [facility] [address] [place] [address] Barbie Voss, RN Primary osteoarthritis of right knee; Chronic left shoulder pain 04/16/2025 Telephone [facility] [address] [place] [address] Tangela Garcia MD Med Refill 04/14/2025 Refill [facility] [address] [place] [address] Savannah Martini ANP 03/21/2025 Refill [facility] [address] [place] [address] Tangela Garcia MD Insomnia, unspecified type; Dyslipidemia 03/19/2025 Refill [facility] [address] [place] [address] Baribe Voss RN Primary osteoarthritis of right knee; Chronic left shoulder pain 03/19/2025 Telephone [facility] [address] [place] [address] Tangela Garcia MD Med Refill 03/19/2025 Telephone [facility] [address] [place] [address] Tangela Garcia MD Med Refill 03/19/2025 Refill [facility] [address] [place] [address] Tangela Garcia MD Primary osteoarthritis of right knee; Chronic left shoulder pain 03/12/2025 Travel 03/01/2025 Telephone [facility] [address] [place] [address] Tangela Garcia MD Appointment Request 02/18/2025 Refill [facility] [address] [place] [address] Tangela Garcia MD 02/15/2025 Refill [facility] [address] [place] [address] Tangela Garcia MD Primary osteoarthritis of right knee; Chronic left shoulder pain 02/14/2025 Refill [facility] [address] [place] [address] Tangela Garcia MD Primary osteoarthritis of right knee; Chronic left shoulder pain 02/05/2025 Telephone [facility] [address] [place] [address] Tangela Garcia MD 01/29/2025 10:15 AM EDT Office Visit [facility] [address] [place] [address] Tangela Garcia MD Hypertension, unspecified type (Primary Dx); Dyslipidemia; Chronic, continuous use of opioids; Primary osteoarthritis of right knee; Nonintractable headache, unspecified chronicity pattern, unspecified headache type; Asthma with COPD ([facility]); Chronic left shoulder pain; Primary osteoarthritis involving multiple joints 01/29/2025 Travel 01/26/2025 Telephone [facility] [address] [place] [address] Tangela Garcia MD chart prep 01/26/2025 Refill [facility] [address] [place] [phone] Tangela Garcia MD Insomnia, unspecified type 01/19/2025 Refill [facility] [address] [facility] [address] [place] [phone] Tangela Garcia MD from Last 3 Months Immunizations Immunization Administration Dates Next Due Hep B, adult 01/30/2014,09/13/2007,02/21/2007 Influenza injectable quadriv alent IIV4 with preservative 05/20/2017,06/25/2015 Influenza, High Dose Seasona l, Preservative Free 03/18/2013 Influenza, IIV3, injectable 06/12/2014, 0 Influenza, Split (incl. javier fied surface antigen) 05/24/2012 Pneumococcal Conjugate PCV 13 11/08/2014 Pneumococcal Polysaccharide PPSV23 01/30/2014,,09/07/2007 TD (adult), 2 Lf tetanus tox oid, [...] Description 05/03/2025 11:00 AM EST Office Visit [facility] [address] [place] [address] Tangela Garcia MD [address] [place] [address] 06/21/2025 11:30 AM EST Medication Management [address] [address] Peter Mcdaniel, PharmD [address] [place] [address] 06/22/2025 11:00 AM EST Clinical Support [address] [address] Barbie Voss, RN [address] [place] [address] Health Maintenance Due Date Last Done Comments [...] EST Long-term current use of opiate analgesic HEMOGLOBIN A1C Routine 08/10/2024 8:04 AM EST Dyslipidemia Overweight Screening for diabetes mellitus LIPID PANEL WITH REFLEX TO DIRECT LDL Routine 08/10/2024 8:04 AM EST Dyslipidemia from Last 3 Months or Most Recently Relevant to Health Maintenance Results * (ABNORMAL) POCT DAREN-14 Urine Drug [...] - 04/20/2025 9:34 AM EST .UTOX cup Lot#[id number] Exp. 03/20/26 Internal Pass Control us Tangela Garcia MD POINT OF CARE TEST ENTER/EDIT OR DERABLES Final Result * (ABNORMAL) Lipid Panel with Reflex to Direct LDL (08/10/2024 8:04 AM EST) Triglycerides 173(H) <150 mg/dL [facility] Comment:Desirable Triglyceri de: less than 150 mg/dLBorderline High Triglyceride 150-199 mg/dLHigh Triglyceride: 200-499 mg/dLVery High Triglyceride: greater than or equal to 5OO mg/dL Cholesterol 202(H) <200 mg/dL [facility] Comment:Desirable Cholestero l: less than 200 mg/dLBorderline High Cholesterol: 200-239 mg/dLHigh Cholesterol: greater than 239 mg/dL LDL Cholesterol Calculated 125(H) <100 mg/dL [facility] Comment:Desirable LDL: less than 100 mg/dLNear Optimal/Above Optimal LDL: 110- 129 mg/dLBorderline High LDL: 130-159 mg/dLHigh LDL: 160-189 mg/dLVery High LDL: greater than or equal to 190 mg/dL HDL Cholesterol 43 >40 mg/dL [facility] Comment:Desirable HDL: great er than 40 mg/dL Note: This HDL assay may give artificially low results in patients with liver disease. Blood 08/10/2024 8:04 AM EST 08/10/2024 11:48 AM EST us Tangela Garcia MD LAB BLOOD ORDERABLES Final Resul t [facility] [address] [place] [phone] * Hemoglobin A1c (08/10/2024 8:04 AM EST) Hemoglobin A1c 5.7 <6.0 % [facility] Comment:Hemoglobin A1C Refer ence Range Adults: 4.8 - 6.0 % Non diabetic: < 6.0 % Goal: < 7.0 %Additional Action Suggested: > 8.0 %Note: Hemoglobin A1c results are invalid for patients with abnormal amounts of HbF. Blood transfusions may impact the HbA1c concentration in the patient sample. Estimated Average Glucose 117 mg/dL [facility] Comment:eAG = Estimated ave rage glucose which is %A1C expressed asaverage glucose, using the formula of the A7V-ZdikzmhIyjxxvw Glucose study (ADAG), Diabetes Care, Vol.31,#8,2007 Blood Venous blood specimen / Unknown 08/10/2024 8:04 AM EST 08/10/2024 11:48 AM EST us Tangela Garcia MD LAB BLOOD ORDERABLES Final Resul t [facility] [address] [place] [address] [phone] from Last 3 Months or Most Recently Relevant to Health Maintenance Insurance MEDICARE [facility] [id number] [place] [id number] Care Teams Travel Accommodations Rater Relationship Specialty Start Date End Date Tangela Garcia MD [address] [place] [address] PCP - General Family Medicine 06/14/18 Peter Mcdaniel, PharmD [address] [place] [address] Pharmacist Pharmacy 03/15/25
--- OUTSIDE RECORDS SUMMARY | 2025-04-20 16:49 | XMS_ITS | Encounter Summary ---
Author Organization [employer] Address [address] [place] [address] Care Team Providers Care Ciso Name Role Phone Tangela Garcia MD Primary Care Provider [phone] Peter Mcdaniel PharmD Unavailable [phone] Reason for Visit * Reason Comments Med Refill Encounter Details Date Type Department Care Team (Late st Contact Info) Description 08/16/2023 Refill [facility] [address] [place], [place] [phone] Tangela Garcia MD [address] [place] [address] Vitamin deficiency Social History Tobacco Use Types Packs/Day Years Used Date Smoking Tobacco: Never Passive Smoke Exposure: Never Smokeless Tobacco: Never Alcohol Use Standard Drinks/Week Comments Never 0 (1 standard drink = 0.6 oz pur e alcohol) Depression Answer Date Recorded Patient Health Questionnaire-9 Score 0 03/01/2023 Housing Stability Answer Date Recorded What is your housing situation today? I have sunitha rudolph 03/31/[address] you li [...] Description 05/03/2025 11:00 AM EST Office Visit [address] [address] Tangela Garcia MD [address] [place] [phone] 06/21/2025 11:30 AM EST Medication Management [address] [address] Peter Mcdaniel, TanyaD [address] [place] [address] 06/22/2025 11:00 AM EST Clinical Support [address] [address] Barbie Voss, NAYELY [address] [place] [address] documented as of this encounter Visit Diagnoses Diagnosis Vitamin deficiency Unspecified vitamin deficiency documented in this encounter Additional Health Concerns Assessment Noted Time PHQ-9 Depression Total Score: 0 03/01/20 23 10:01 AM EDT documented as of this encounter Care Teams Ciso Relationship Specialty Start Date End Date Tangela Garcia MD [address] [place] [phone] PCP - General Family Medicine 06/14/18 Peter Mcdaniel, PharmD [address] [place] [phone] Pharmacist Pharmacy 03/15/25 documented as of this encounter
--- OUTSIDE RECORDS SUMMARY | 2025-04-20 16:49 | XMS_ITS | Encounter Summary ---
Author Organization [employer] Address [address] [address] [place] [address] Care Team Providers Care National Facilities Manager Name Role Phone Tangela Garcia MD Primary Care Provider [phone] Peter Mcdaniel PharmD Unavailable [phone] Reason for Visit * Reason Onset Date Comments Appointment Request 03/01/2025 Encounter Details Date Type Department Care Team ([facility] st Contact Info) Description 03/01/2025 Telephone [facility] [address] [place], [place] [phone] Tangela Garcia MD [address] [place], [place] [phone] Appointment Request Social History Tobacco Use Types [...] able to attend. Contact pt Daughter at [phone] documented in this encounter Plan of Treatment Upcoming Encounters Date Type Department Care Team (Late st Contact Info) Description 05/03/2025 11:00 AM EST Office Visit [facility] [address] [place] [address] Tangela Garcia MD [address] [place] [address] 06/21/2025 11:30 AM EST Medication Management [facility] [address] [place] [address] Peter Mcdaniel, PharmD [address] [place] [address] 06/22/2025 11:00 AM EST Clinical Support [facility] [address] [place] [address] Barbie Voss, RN [address] [place] [address] documented as of this encounter Visit Diagnoses Not on filedocumented in this encounter Additional Health Concerns Assessment Noted Time PHQ-9 Depression Total Score: 0 07/26/19 9:16 AM EST documented as of this encounter Care Teams National Facilities Manager Relationship Specialty Start Date End Date Tangela Garcia MD [address] [place] [phone] PCP - General Family Medicine 06/14/18 Peter Mcdaniel, PharmD [address] [place] [phone] Pharmacist Pharmacy 03/15/25 documented as of this encounter
--- OUTSIDE RECORDS SUMMARY | 2025-04-20 16:49 | XMS_ITS | Encounter Summary ---
Author Organization [employer] Address [address] [place] [address] Care Team Providers Care Dividing Machine Operator Helper Name Role Phone Tangela Garcia MD Primary Care Provider [phone] Peter Mcdaniel PharmD Unavailable [phone] Encounter Details Date Type Department Care Team (Latest Contact Info) Description 04/20/2025 Travel Social History Tobacco Use Types Packs/Day [...] Description 05/03/2025 11:00 AM EST Office Visit [address] [address] Tangela Garcia MD [address] [place] [address] 06/21/2025 11:30 AM EST Medication Management [address] [address] Peter Mcdaniel, PharmD [address] [place] [address] 06/22/2025 11:00 AM EST Clinical Support [address] [address] Barbie Voss, NAYELY [address] [place] [address] documented as of this encounter Visit Diagnoses Not on filedocumented in this encounter Additional Health Concerns Assessment Noted Time PHQ-9 Depression Total Score: 0 07/26/19 25 9:16 AM EST documented as of this encounter Care Teams Dividing Machine Operator Helper Relationship Specialty Start Date End Date Tangela Garcia MD [address] [place] [phone] PCP - General Family Medicine 06/14/18 Peter Mcdaniel, PharmD [address] [place] [address] Pharmacist Pharmacy 03/15/25 documented as of this encounter
--- OUTSIDE RECORDS SUMMARY | 2025-04-20 16:49 | XMS_ITS | Encounter Summary ---
Author Organization [employer] Address [address] [facility] [address] 7t [place] [address] Care Team Providers Care Fractionation Plant Supervisor Name Role Phone Tangela Garcia MD Primary Care Provider [phone] Peter Mcdaniel PharmD Unavailable [phone] Reason for Visit * Reason Comments Med Refill Encounter Details Date Type Department Care Team (Late st Contact Info) Description 09/06/2023 Refill [facility] 230 [place], [place] [phone] Tangela Garcia MD 230 [place] [address] Wheezing Social History Tobacco Use Types Packs/Day [...] Description 05/03/2025 11:00 AM EST Office Visit [address] [address] Tangela Garcia MD [address] [place] [address] 06/21/2025 11:30 AM EST Medication Management [address] [address] Peter Mcdaniel, TanyaD [address] [place] [address] 06/22/2025 11:00 AM EST Clinical Support [address] [address] Barbie Voss, NAYELY 505 [place] [address] documented as of this encounter Visit Diagnoses Diagnosis Wheezing documented in this encounter Additional Health Concerns Assessment Noted Time PHQ-9 Depression Total Score: 0 03/01/20 23 10:01 AM EDT documented as of this encounter Care Teams Fractionation Plant Supervisor Relationship Specialty Start Date End Date Tangela Garcia MD [address] [place] [address] PCP - General Family Medicine 06/14/18 Peter Mcdaniel, PharmD [address] [place] [address] Pharmacist Pharmacy 03/15/25 documented as of this encounter
--- OUTSIDE RECORDS SUMMARY | 2025-04-20 16:49 | XMS_ITS | Encounter Summary ---
Author Organization [employer] Address [address] [facility] [address] 7t [place] [address] Care Team Providers Care Special Programs Director Name Role Phone Tangela Garcia MD Primary Care Provider [phone] Peter Mcdaniel PharmD Unavailable [phone] Reason for Visit * Reason Onset Date Comments Med Refill 03/19/2025 Encounter Details Date Type Department Care Team (Late st Contact Info) Description 03/19/2025 Telephone [facility] 230 [place], [place] [phone] Tangela Garcia MD 230 [place], [place] [phone] Med Refill Social History Tobacco Use Types [...] * Telephone Encounter - Gabriel Cooper - 03/19/2025 3:20 PM EDT TC from pt requesting medication refill. Medications needing refill : oxyCODONE (Roxicodone) 10 MG immediate release tablet To be sent to: [facility] - [place], [place] - [address] [place] [address] documented in this encounter Plan of Treatment Upcoming Encounters Date Type Department Care Team (Late st Contact Info) Description 05/03/2025 11:00 AM EST Office Visit [facility] [address] [place] [address] Tangela Garcia MD 230 [place] [address] 06/21/2025 11:30 AM EST Medication Management [facility] [address] [place] [address] Peter Mcdaniel, PharmD [address] [place] [address] 06/22/2025 11:00 AM EST Clinical Support [facility] [address] [place] [address] Barbie Voss, RN 505 [place] [address] documented as of this encounter Visit Diagnoses Not on filedocumented in this encounter Additional Health Concerns Assessment Noted Time PHQ-9 Depression Total Score: 0 07/26/19 9:16 AM EST documented as of this encounter Care Teams Special Programs Director Relationship Specialty Start Date End Date Tangela Garcia MD [address] [place] [address] PCP - General Family Medicine 06/14/18 Peter Mcdaniel, TanyaD [address] [place] [address] Pharmacist Pharmacy 03/15/25 documented as of this encounter
--- OUTSIDE RECORDS SUMMARY | 2025-04-20 16:49 | XMS_ITS | Encounter Summary ---
Author Organization [employer] Address [address] [facility] [address] 7t [place] [address] Care Team Providers Care Manager Of Compliance Name Role Phone Tangela Garcia MD Primary Care Provider [phone] Peter Mcdaniel PharmD Unavailable [phone] Reason for Visit * Reason Comments Med Refill Encounter Details Date Type Department Care Team (Late st Contact Info) Description 03/19/2025 Refill [facility] 230 [place], [place] [phone] Tangela Garcia MD 230 [place] [address] Primary osteoarthritis of right knee; Chronic left [...] Description 05/03/2025 11:00 AM EST Office Visit [address] [address] Tangela Garcia MD [address] [place] [address] 06/21/2025 11:30 AM EST Medication Management [address] [address] Peter Mcdaniel, PharmD [address] [place] [address] 06/22/2025 11:00 AM EST Clinical Support [address] [address] Barbie Voss, NAYELY 505 [place] [address] documented as of this encounter Visit Diagnoses Diagnosis Primary osteoarthritis of right knee Chronic left shoulder pain Pain in joint, shoulder region documented in this encounter Additional Health Concerns Assessment Noted Time PHQ-9 Depression Total Score: 0 07/26/19 25 9:16 AM EST documented as of this encounter Care Teams Manager Of Compliance Relationship Specialty Start Date End Date Tangela Garcia MD 230 [place] [address] PCP - General Family Medicine 06/14/18 Peter Mcdaniel, TanyaD [address] [place] [address] Pharmacist Pharmacy 03/15/25 documented as of this encounter
--- OUTSIDE RECORDS SUMMARY | 2025-04-20 16:49 | XMS_ITS | Encounter Summary ---
Author Organization [employer] Address [address] [facility] [address] 7t [place] [address] Care Team Providers Care Muck Miner Blasting Name Role Phone Tangela Garcia MD Primary Care Provider [phone] Peter Mcdaniel PharmD Unavailable [phone] Encounter Details Date Type Department Care Team ([facility] st Contact Info) Description 06/04/2022 Orders Only [facility] 230 [place] [address] Tangela Garcia MD 230 [place] [address] Anemia, unspecified type (Primary Dx); Transaminitis; Liver [...] Description 05/03/2025 11:00 AM EST Office Visit [address] [address] Tangela Garcia MD [address] [place] [address] 06/21/2025 11:30 AM EST Medication Management [address] [address] Peter Mcdaniel, TanyaD [address] [place] [address] 06/22/2025 11:00 AM EST Clinical Support [address] [address] Barbie Voss, NAYELY 505 [place], [place] [phone] Scheduled Orders Name Type Priority Associated Diagnoses [...] liver documented in this encounter Care Teams Muck Miner Blasting Relationship Specialty Start Date End Date Tangela Garcia MD 230 [place] [address] PCP - General Family Medicine 06/14/18 Peter Mcdaniel, TanyaD [address] [place] [address] Pharmacist Pharmacy 03/15/25 documented as of this encounter
--- OUTSIDE RECORDS SUMMARY | 2025-04-20 16:49 | XMS_ITS | Encounter Summary ---
Author Organization [employer] Address [address] [facility] [address] 7t [place] [address] Care Team Providers Care Mixer And Scaler Name Role Phone Tangela Garcia MD Primary Care Provider [phone] Peter Mcdaniel PharmD Unavailable [phone] Encounter Details Date Type Department Care Team (Latest Contact Info) Description 04/19/2025 Travel Social History Tobacco Use Types Packs/Day [...] Description 05/03/2025 11:00 AM EST Office Visit [address] [address] Tangela Garcia MD [address] [place] [address] 06/21/2025 11:30 AM EST Medication Management [address] [address] Peter Mcdaniel, PharmD [address] [place] [address] 06/22/2025 11:00 AM EST Clinical Support [address] [address] Barbie Voss, NAYELY 505 [place] [address] documented as of this encounter Visit Diagnoses Not on filedocumented in this encounter Additional Health Concerns Assessment Noted Time PHQ-9 Depression Total Score: 0 07/26/19 25 9:16 AM EST documented as of this encounter Care Teams Mixer And Scaler Relationship Specialty Start Date End Date Tangela Garcia MD [address] [place] [address] PCP - General Family Medicine 06/14/18 Peter Mcdaniel, PharmD 230 [place] [address] Pharmacist Pharmacy 03/15/25 documented as of this encounter
--- OUTSIDE RECORDS SUMMARY | 2025-04-20 16:49 | XMS_ITS | Encounter Summary ---
Author Organization [employer] Address [address] [facility] [address] 7t [place] [address] Care Team Providers Care Store Deli Manager Name Role Phone Tangela Garcia MD Primary Care Provider [phone] Peter Mcdaniel PharmD Unavailable [phone] Reason for Visit * Reason Onset Date Comments Med Refill 04/20/2025 Encounter Details Date Type Department Care Team ([facility] Contact Info) Description 04/20/2025 Refill [facility] 505 [place] [address] Barbie Voss, NAYELY 505 [place] [address] Social History Tobacco Use Types Packs/Day Years [...] Telephone Encounter - Barbie Voss RN - 04/20/2025 9:40 AM EST RONEL+. Patient denies any cocaine use, will send it out to the lab for confirmation. F/u with you 05/03/25. Next information systems manager appointment 06/22/25. documented in this encounter Plan of Treatment Upcoming Encounters Date Type Department Care Team (Late st Contact Info) Description 05/03/2025 11:00 AM EST Office Visit [facility] [address] [place] [address] Tangela Garcia MD [address] [place] [address] 06/21/2025 11:30 AM EST Medication Management [facility] [address] [place] [address] Peter Mcdaniel, PharmD 230 [place] [address] 06/22/2025 11:00 AM EST Clinical Support [facility] [address] [place] [address] Barbie Voss, RN 505 [place] [address] documented as of this encounter Visit Diagnoses Not on filedocumented in this encounter Additional Health Concerns Assessment Noted Time PHQ-9 Depression Total Score: 0 07/26/19 9:16 AM EST documented as of this encounter Care Teams Store Deli Manager Relationship Specialty Start Date End Date Tangela Garcia MD [address] [place] [address] PCP - General Family Medicine 06/14/18 Peter Mcdaniel, PharmD [address] [place] [address] Pharmacist Pharmacy 03/15/25 documented as of this encounter
--- OUTSIDE RECORDS SUMMARY | 2025-04-20 16:49 | XMS_ITS | Encounter Summary ---
Author Organization [employer] Address 75 [facility] 7t [place] [address] Care Team Providers Care Fx Artist Name Role Phone Tangela Garcia MD Primary Care Provider Peter Mcdaniel PharmD Unavailable Reason for Visit * Reason Onset Date Comments Med Refill 01/18/2023 Encounter Details Date Type Department Care Team (Late st Contact Info) Description 01/18/2023 Telephone [facility] 230 [place], [place] [phone] Tangela Garcia MD 230 [place], [place] [phone] Med Refill Social History Tobacco Use Types [...] medication oxycodone 5 mg. Please send to [facility]/pharmacy #[id number] JOSE DANIEL [place] - [address] [facility] PCP [address]. Garcia documented in this encounter Plan of Treatment Upcoming Encounters Date Type Department Care Team (Late st Contact Info) Description 05/03/2025 11:00 AM EST Office Visit [address] [address] Tangela Garcia MD [address] [place] [address] 06/21/2025 11:30 AM EST Medication Management [address] [address] Peter Mcdaniel, Juan C [address] [place] [address] 06/22/2025 11:00 AM EST Clinical Support [address] [address] Barbie Voss, RN 505 [place] [address] documented as of this encounter Visit Diagnoses Not on filedocumented in this encounter Care Teams Fx Artist Relationship Specialty Start Date End Date Tangela Garcia MD [address] [place] [address] PCP - General Family Medicine 06/14/18 Peter Mcdaniel, PharmD [address] [place] [address] Pharmacist Pharmacy 03/15/25 documented as of this encounter
--- OUTSIDE RECORDS SUMMARY | 2025-04-20 16:49 | XMS_ITS | Encounter Summary ---
Author Organization [employer] Address 75 [facility] 7t [place] [address] Care Team Providers Care Cycling Instructor Name Role Phone Tangela Garcia MD Primary Care Provider Peter Mcdaniel PharmD Unavailable [phone] Reason for Visit * Reason Comments Med Refill Encounter Details Date Type Department Care Team (Late st Contact Info) Description 02/16/2023 Refill [facility] [address] [place] [address] [phone] Savannah Martini ANP 230 [place], [place] [phone] Social History Tobacco Use Types Packs/Day Years [...] Description 05/03/2025 11:00 AM EST Office Visit [facility] [address] [place] [address] [phone] Tangela Garcia MD [address] [place] [address] 06/21/2025 11:30 AM EST Medication Management [address] [address] Peter Mcdaniel, Juan C [address] [place] [address] 06/22/2025 11:00 AM EST Clinical Support [address] [address] Barbie Voss, RN 505 [place], [place] [phone] documented as of this encounter Visit Diagnoses Not on filedocumented in this encounter Care Teams Cycling Instructor Relationship Specialty Start Date End Date Tangela Garcia MD [address] [place] [address] PCP - General Family Medicine 06/14/18 Peter Mcdaniel, PharmD [address] [place] [address] [phone] Pharmacist Pharmacy 03/15/25 documented as of this encounter
--- OUTSIDE RECORDS SUMMARY | 2025-04-20 16:49 | XMS_ITS | Encounter Summary ---
Author Organization [employer] Address [address] [facility] [address] 7t [place] [address] Care Team Providers Care Bottle Filler Name Role Phone Tangela Garcia MD Primary Care Provider [phone] Peter Mcdaniel PharmD Unavailable [phone] Reason for Visit * Reason Comments Med Refill Encounter Details Date Type Department Care Team (Late st Contact Info) Description 04/14/[address] [facility] 230 [place], [place] [phone] Savannah Martini, ANP 230 [place], [place] [phone] Social History Tobacco Use Types Packs/Day Years [...] Description 05/03/2025 11:00 AM EST Office Visit [address] [address] Tangela Garcia MD [address] [place] [address] 06/21/2025 11:30 AM EST Medication Management [address] [address] Peter Mcdaniel, PharmD [address] [place] [address] 06/22/2025 11:00 AM EST Clinical Support [address] [address] Barbie Voss, NAYELY 505 [place] [address] documented as of this encounter Visit Diagnoses Not on filedocumented in this encounter Additional Health Concerns Assessment Noted Time PHQ-9 Depression Total Score: 0 07/26/19 9:16 AM EST documented as of this encounter Care Teams Bottle Filler Relationship Specialty Start Date End Date Tangela Garcia MD 230 [place] [address] PCP - General Family Medicine 06/14/18 Peter Mcdaniel, Juan C 230 [place] [address] Pharmacist Pharmacy 03/15/25 documented as of this encounter
--- OUTSIDE RECORDS SUMMARY | 2025-04-20 16:49 | XMS_ITS | Encounter Summary ---
Author Organization [employer] Address [address] [facility] [address] 7t [place] [address] Care Team Providers Care Medical Device Sales Consultant Name Role Phone Tangela Garcia MD Primary Care Provider [phone] Peter Mcdaniel PharmD Unavailable [phone] Reason for Visit * Reason Onset Date Comments Med Refill 03/30/2024 Encounter Details Date Type Department Care Team ([facility] st Contact Info) Description 03/30/2024 Telephone [facility] 230 [place], [place] [phone] Tangela Garcia MD 230 [place], [place] [phone] Med Refill Social History Tobacco Use Types [...] immediate release tablet To be sent to: [facility] - [place], [place] - [address] [place] [address] documented in this encounter Plan of Treatment Upcoming Encounters Date Type Department Care Team ([facility] st Contact Info) Description 05/03/2025 11:00 AM EST Office Visit [address] [address] Tangela Garcia MD [address] [place] [address] 06/21/2025 11:30 AM EST Medication Management [address] [address] Peter Mcdaniel, PharmD [address] [place] [address] 06/22/2025 11:00 AM EST Clinical Support [address] [address] Barbie Voss, RN 505 [place] [address] documented as of this encounter Visit Diagnoses Not on filedocumented in this encounter Additional Health Concerns Assessment Noted Time PHQ-9 Depression Total Score: 0 03/01/20 23 10:01 AM EDT documented as of this encounter Care Teams Medical Device Sales Consultant Relationship Specialty Start Date End Date Tangela Garcia MD [address] [place] [address] PCP - General Family Medicine 06/14/18 Peter Mcdaniel, TanyaD [address] [place] [address] Pharmacist Pharmacy 03/15/25 documented as of this encounter
--- OUTSIDE RECORDS SUMMARY | 2025-04-20 16:49 | XMS_ITS | Encounter Summary ---
Author Organization [employer] Address [address] [facility] [address] 7t [place] [address] Care Team Providers Care Electric Milkers Installer Name Role Phone Tangela Garcia MD Primary Care Provider [phone] Peter Mcdaniel PharmD Unavailable [phone] Reason for Visit * Reason Onset Date Comments Med Refill 04/27/2024 Encounter Details Date Type Department Care Team ([facility] st Contact Info) Description 04/27/2024 Telephone [facility] 230 [place], [place] [phone] Tangela Garcia MD 230 [place], [place] [phone] Med Refill Social History Tobacco Use Types Packs/Day Years Used Date Smoking Tobacco: Never Passive Smoke Exposure: Never Smokeless Tobacco: Never Alcohol Use Standard Drinks/Week Comments Never 0 (1 standard drink = 0.6 oz pur e alcohol) Depression Answer Date Recorded Patient Health Questionnaire-9 Score 0 03/01/2023 Housing Stability Answer Date Recorded What is your housing situation today? I have sunitha rudolph 10/26/[address] you li [...] immediate release tablet To be sent to: [facility] - [place], [place] - [address] [place] [address] documented in this encounter Plan of Treatment Upcoming Encounters Date Type Department Care Team ([facility] st Contact Info) Description 05/03/2025 11:00 AM EST Office Visit [facility] [address] [place] [address] Tangela Garcia MD [address] [place] [address] 06/21/2025 11:30 AM EST Medication Management [address] [address] Peter Mcdaniel, PharmD [address] [place] [address] 06/22/2025 11:00 AM EST Clinical Support [address] [address] Barbie Voss, RN 505 [place] [address] documented as of this encounter Visit Diagnoses Not on filedocumented in this encounter Additional Health Concerns Assessment Noted Time PHQ-9 Depression Total Score: 0 03/01/20 23 10:01 AM EDT documented as of this encounter Care Teams Electric Milkers Installer Relationship Specialty Start Date End Date Tangela Garcia MD [address] [place] [address] PCP - General Family Medicine 06/14/18 Peter Mcdaniel, TanyaD [address] [place] [address] Pharmacist Pharmacy 03/15/25 documented as of this encounter
--- OUTSIDE RECORDS SUMMARY | 2025-04-20 16:49 | XMS_ITS | Encounter Summary ---
Author Organization [employer] Address [address] [facility] [address] 7t [place] [address] Care Team Providers Care Skidder Lever Operator Name Role Phone Tangela Garcia MD Primary Care Provider [phone] Peter Mcdaniel PharmD Unavailable [phone] Reason for Visit * Reason Onset Date Comments Med Refill 03/19/2025 Encounter Details Date Type Department Care Team (Late st Contact Info) Description 03/19/2025 Telephone [facility] 230 [place], [place] [phone] Tangela Garcia MD 230 [place], [place] [phone] Med Refill Social History Tobacco Use Types [...] encounter Miscellaneous Notes * Telephone Encounter - Conrado Shah - 03/19/2025 2:58 PM EDT TC from pt requesting medication refill. Medications needing refill : oxyCODONE (Roxicodone) 10 MG immediate release tablet To be sent to: [facility] documented in this encounter Plan of Treatment Upcoming Encounters Date Type Department Care Team (Late st Contact Info) Description 05/03/2025 11:00 AM EST Office Visit [facility] [address] [place] [address] Tangela Garcia MD 230 [place] [address] 06/21/2025 11:30 AM EST Medication Management [facility] 230 [place] [address] Peter Mcdaniel, PharmD [address] [place] [address] 06/22/2025 11:00 AM EST Clinical Support [facility] [address] [place] [address] Barbie Voss, RN 505 [place] [address] documented as of this encounter Visit Diagnoses Not on filedocumented in this encounter Additional Health Concerns Assessment Noted Time PHQ-9 Depression Total Score: 0 07/26/19 25 9:16 AM EST documented as of this encounter Care Teams Skidder Lever Operator Relationship Specialty Start Date End Date Tangela Garcia MD [address] [place] [address] PCP - General Family Medicine 06/14/18 Peter Mcdaniel, TanyaD [address] [place] [address] Pharmacist Pharmacy 03/15/25 documented as of this encounter
--- OUTSIDE RECORDS SUMMARY | 2025-04-20 16:49 | XMS_ITS | Encounter Summary ---
Author Organization [employer] Address [address] [facility] [address] 7t [place] [address] Care Team Providers Care Teleradiologist Name Role Phone Tangela Garcia MD Primary Care Provider [phone] Peter Mcdaniel PharmD Unavailable [phone] Reason for Visit * Reason Comments Med Change Request Encounter Details Date Type Department Care Team (Late st Contact Info) Description 11/01/2024 Refill [facility] 230 [place], [place] [phone] Tangela Garcia MD 230 [place] [address] Social History Tobacco Use Types Packs/Day Years [...] Description 05/03/2025 11:00 AM EST Office Visit [address] [address] Tangela Garcia MD [address] [place] [address] 06/21/2025 11:30 AM EST Medication Management [address] [address] Peter Mcdaniel, TanyaD [address] [place] [address] 06/22/2025 11:00 AM EST Clinical Support [address] [address] Barbie Voss RN 505 [place] [address] documented as of this encounter Visit Diagnoses Not on filedocumented in this encounter Additional Health Concerns Assessment Noted Time PHQ-9 Depression Total Score: 0 07/26/19 25 9:16 AM EST documented as of this encounter Care Teams Teleradiologist Relationship Specialty Start Date End Date Tangela Garcia MD 230 [place] [address] PCP - General Family Medicine 06/14/18 Peter Mcdaniel, TanyaD 230 [place] [address] Pharmacist Pharmacy 03/15/25 documented as of this encounter
--- OUTSIDE RECORDS SUMMARY | 2025-04-20 16:50 | XMS_ITS | Encounter Summary ---
Author Organization [employer] Address [address] [facility] 7t [place] [address] Care Team Providers Care Medical Assistant Dermatology Name Role Phone Tangela Garcia MD Primary Care Provider Peter Mcdaniel PharmD Unavailable Reason for Visit * Reason Comments Med Refill Encounter Details Date Type Department Care Team (Late st Contact Info) Description 09/30/2022 Refill [facility] MEDICINE [address] [place], [place] [phone] Tangela Garcia MD [address] [place] [address] Primary osteoarthritis involving multiple joints Social History [...] Description 05/03/2025 11:00 AM EST Office Visit [address] [address] Tangela Garcia MD [address] [place] [address] 06/21/2025 11:30 AM EST Medication Management [address] [address] Peter Mcdaniel, Juan C [address] [place] [address] 06/22/2025 11:00 AM EST Clinical Support [address] [address] Barbie Voss, RN [address] [place], [place] [phone] documented as of this encounter Visit Diagnoses Diagnosis Primary osteoarthritis involving multiple joints documented in this encounter Care Teams Medical Assistant Dermatology Relationship Specialty Start Date End Date Tangela Garcia MD [address] [place] [address] PCP - General Family Medicine 06/14/18 Peter Mcdaniel, PharmD [address] [place] [address] Pharmacist Pharmacy 03/15/25 documented as of this encounter
--- OUTSIDE RECORDS SUMMARY | 2025-04-20 16:50 | XMS_ITS | Encounter Summary ---
Author Organization [employer] Address [address] [facility] [address] [place] [address] Care Team Providers Care Professional Nursing Tutor Name Role Phone Tangela Garcia MD Primary Care Provider Peter Mcdaniel PharmD Unavailable Reason for Visit * Reason Onset Date Comments Triage 10/13/2022 Encounter Details Date Type Department Care Team ([facility] st Contact Info) Description 10/13/2022 Telephone [facility] MEDICINE 230 [place], [place] [phone] Tangela Garcia MD 230 [place], [place] [phone] Triage Social History Tobacco Use Types Packs/Day [...] pain. Pt is advised to come to [facility] today, Pt daughter declines and requests to [...] patient got a knee replacement. Please call [phone] documented in this encounter Plan of Treatment Upcoming Encounters Date Type Department Care Team (Late st Contact Info) Description 05/03/2025 11:00 AM EST Office Visit [address] [address] Tangela Garcia MD [address] [place] [address] 06/21/2025 11:30 AM EST Medication Management [address] [address] Peter Mcdaniel, PharmD [address] [place] [address] 06/22/2025 11:00 AM EST Clinical Support [address] [address] Barbie Voss, RN 505 [place] [address] documented as of this encounter Visit Diagnoses Not on filedocumented in this encounter Care Teams Professional Nursing Tutor Relationship Specialty Start Date End Date Tangela Garcia MD [address] [place] [address] PCP - General Family Medicine 06/14/18 Peter Mcdaniel, PharmD [address] [place] [address] Pharmacist Pharmacy 03/15/25 documented as of this encounter
--- OUTSIDE RECORDS SUMMARY | 2025-04-20 16:50 | XMS_ITS | Encounter Summary ---
Author Organization [employer] Address [address] [facility] [address] 7[address] [place] [address] Care Team Providers Care Manager City Name Role Phone Tangela Garcia MD Primary Care Provider [phone] Peter Mcdaniel PharmD Unavailable [phone] Reason for Visit * Reason Onset Date Comments Med Refill 09/21/2024 Encounter Details Date Type Department Care Team (Late st Contact Info) Description 09/21/2024 Telephone [facility] MEDICINE 230 [place], [place] [phone] Tangela Garcia MD 230 [place], [place] [phone] Med Refill Social History Tobacco Use Types [...] immediate release tablet To be sent to: [facility] documented in this encounter Plan of Treatment Upcoming Encounters Date Type Department Care Team (Late st Contact Info) Description 05/03/2025 11:00 AM EST Office Visit [facility] MEDICINE [address] [place] [phone] Tangela Garcia MD [address] [place] [address] 06/21/2025 11:30 AM EST Medication Management [facility] MEDICINE [address] [place] [address] Peter Mcdaniel, PharmD [address] [place] [address] 06/22/2025 11:00 AM EST Clinical Support [facility] MEDICINE [address] [place] [address] Barbie Voss, RN 505 [place] [address] documented as of this encounter Visit Diagnoses Not on filedocumented in this encounter Additional Health Concerns Assessment Noted Time PHQ-9 Depression Total Score: 0 07/26/19 9:16 AM EST documented as of this encounter Care Teams Manager City Relationship Specialty Start Date End Date Tangela Garcia MD [address] [place] [address] PCP - General Family Medicine 06/14/18 Peter Mcdaniel, PharmD [address] [place] [address] Pharmacist Pharmacy 03/15/25 documented as of this encounter
--- OUTSIDE RECORDS SUMMARY | 2025-04-20 16:50 | XMS_ITS | Encounter Summary ---
Author Organization [employer] Address [address] [facility] 7t [place] [address] Care Team Providers Care Business Office Technology Instructor Name Role Phone Tangela Garcia MD Primary Care Provider Peter Mcdaniel PharmD Unavailable [phone] Reason for Visit * Reason Onset Date Comments Med Refill 09/02/2022 Encounter Details Date Type Department Care Team (Late st Contact Info) Description 09/02/2022 Telephone [facility] MEDICINE 230 [place], [place] [phone] Tangela Garcia MD 230 [place], [place] [phone] Med Refill Social History Tobacco Use Types [...] Miscellaneous Notes * Telephone Encounter - Chet Suhrero - 09/02/2022 11:04 AM EDT Tc from daughter requesting an early fill on medication for Oxycodone, daughter called pharmacy andpharmacy advise this pcp needs to contact pharmacy to give the okay. Please contact daughter at [phone] documented in this encounter Plan of Treatment Upcoming Encounters Date Type Department Care Team (Late st Contact Info) Description 05/03/2025 11:00 AM EST Office Visit [address] [address] Tangela Garcia MD [address] [place] [address] 06/21/2025 11:30 AM EST Medication Management [address] [address] Peter Mcdaniel, PharmD [address] [place] [address] 06/22/2025 11:00 AM EST Clinical Support [address] [address] Barbie Voss, RN [address] [place], [place] [phone] documented as of this encounter Visit Diagnoses Not on filedocumented in this encounter Care Teams Business Office Technology Instructor Relationship Specialty Start Date End Date Tangela Garcia MD [address] [place] [address] PCP - General Family Medicine 06/14/18 Peter Mcdaniel, PharmD [address] [place] [address] Pharmacist Pharmacy 03/15/25 documented as of this encounter
--- OUTSIDE RECORDS SUMMARY | 2025-04-20 16:50 | XMS_ITS | Encounter Summary ---
Author Organization [employer] Address [address] [facility] [address] [place] [address] Care Team Providers Care Christmas Tree Farm Worker Name Role Phone Tangela Garcia MD Primary Care Provider Peter Mcdaniel PharmD Unavailable Reason for Visit * Reason Onset Date Comments Med Refill 10/13/2022 Encounter Details Date Type Department Care Team ([facility] st Contact Info) Description 10/13/2022 Telephone [facility] MEDICINE 230 [place], [place] [phone] Tangela Garcia MD 230 [place], [place] [phone] Med Refill Social History Tobacco Use Types [...] medication oxycodone 5 mg. Please send to [facility] on chart. PCP Dr. Garcia documented in this encounter Plan of Treatment Upcoming Encounters Date Type Department Care Team (Late st Contact Info) Description 05/03/2025 11:00 AM EST Office Visit [address] [address] Tangela Garcia MD [address] [place] [address] 06/21/2025 11:30 AM EST Medication Management [address] [address] Peter Mcdaniel, Juan C [address] [place] [address] 06/22/2025 11:00 AM EST Clinical Support [address] [address] Barbie Voss, RN [address] [place] [address] documented as of this encounter Visit Diagnoses Not on filedocumented in this encounter Care Teams Christmas Tree Farm Worker Relationship Specialty Start Date End Date Tangela Garcia MD [address] [place] [address] PCP - General Family Medicine 06/14/18 Peter Mcdaniel, PharmD [address] [place] [phone] Pharmacist Pharmacy 03/15/25 documented as of this encounter
--- OUTSIDE RECORDS SUMMARY | 2025-04-20 16:50 | XMS_ITS | Clinical Summary ---
Author Organization [facility] Address [address] [place] [address] Care Team Providers Care Dental Services Director Name Role Phone Unavailable Primary Care Provider [...]
== END 2025-04-20 16:14 | disposition home or self-care (01) ==
LOC: HO.HHCLNP 16:13
PROVIDERS: Visit Provider Family Medicine
DX: Z51.81 Encounter for therapeutic drug level monitoring (principal); Z79.891 Long term (current) use of opiate analgesic
CPT/HCPCS: 36415; 80353

== ENCOUNTER 2025-05-03 11:26 | Outpatient (REF) | payer MEDICARE, MEDICAID, SELFPAY ==
--- OUTSIDE RECORDS SUMMARY | 2025-05-03 11:00 | XMS_ITS | Encounter Summary ---
Author Organization [employer] Address [address] [facility] [address] [place] [address] Care Team Providers Care Credit Officer Name Role Phone Tangela Garcia MD Primary Care Provider [phone] Peter Mcdaniel PharmD Unavailable [phone] Reason for Referral * Consultation (Routine) - Authorized Specialty Diagnoses / Procedures Referred By Contac t Referred To Contact Pharmacy Diagnoses Hypertension, unspecified type Tangela Garcia MD [address] [place] [phone] Phone: tel: fax: Referral ID Status Reason Start Date Expiration Date Visits Requested Visits Authorized [id number] Authorized Consult and Treat 05/03/2025 05/03/2026 6 6 Encounter Details Date Type Department Care Team (Latest Contact Info) Description 05/03/2025 11:00 AM EST Office Visit [facility] [address] [place] [phone] Tangela Garcia MD [address], [place] [phone] Hypertension, unspecified type (Primary Dx); Primary osteoarthritis involving multiple joints; Primary osteoarthritis of right knee; Chronic, continuous use of opioids; Asthma with COPD (CMS/HCC) (HCC); Dyslipidemia; Screening for diabetes mellitus; Gastroesophageal reflux disease, unspecified whether esophagitis present; Cannabis dependence (HCC); Chronic left shoulder pain; Insomnia, unspecified type; Restless legs; Facial myokymia; Nonintractable headache, unspecified chronicity pattern, unspecified headache type; Vitamin D deficiency; Metabolic dysfunction-associated steatotic liver disease (MASLD) Social History Tobacco Use Types Packs/Day Years [...] Sign Reading Time Taken Comments Blood Pressure 160/100 05/03/2025 10:56 AM EST Pulse 70 05/03/2025 10:56 AM EST Temperature 36 C (96.8 F) 05/03/2025 10:56 AM EST Respiratory Rate 22 05/03/2025 10:5 6 AM EST Oxygen Saturation 98% 05/03/2025 10: 56 AM EST Inhaled Oxygen Concentration - - Weight 77.9 kg (171 lb 12.8 oz) 025 10:56 AM EST Height 162.6 cm (5' 4 ) 05/03/2025 10:5 6 AM EST Body Mass Index 29.49 05/03/2025 10:56 AM EST documented in this encounter Progress Notes * Tangela Garcia MD - 05/03/2025 11:00 AM EST Angeline Garsia is a 80 y.o. adult who has Asthma/COPD, dyslipidemia, chronic pain due to osteoarthritisin multiple joints (shoulders s/p rotator cuff repair, knees s/p TKR), and hypertension, and patient presents for follow-up of her chronic conditions. Background: Problem List[1] Our last encounter was 01/29/2025. Increased oxycodone from 5 mg to 10 mg twice daily. Increased olmesartan to 20 mg daily for high blood pressure. There was some confusion about his current inhalers.He had both Symbicort and Wixela. Interval history: On 02/01/2025, he was seen by Dr. Mayorga, chief executive. Recommended to continue with Wixela and albuterol. On 03/12/2025, patient had CDTM visit. Switched to fluticasone / umeclidinium / vilanterol (Trelegy)and discontinued fluticasone propionate / salmeterol (Wixela) and budesonide / formoterol (Symbicort). On 03/13/2025, patient was [place] [facility]. Recommended to continue on sucralfate, pantoprazole, and simethicone. On 04/20/2025, patient had CONTRACT TECHNICIAN visit. Current medications 50% effective according to the patient. High pain severeity score and activity interference scores. Utox showed positive THC, cocaine, TCA, and oxycodone. GCMS confirmed cocaine metabolites. Today: Jose Alfredo Garsia, age 80 years - Bad cough for a couple of days - Denies fever - Breathing heavy - Arm and leg pain, described as severe, affecting sleep - Blood pressure noted to be a little high at home, possibly related to pain - Ears very itchy, some redness, not as bad as previously - Uses inhaler daily - Takes oxycodone 10 mg twice daily for pain, reports waking up at night due to pain and inability to sleep - Takes doxepin and melatonin for sleep - Urine drug screen detected cocaine; denies current use, reports obtaining marijuana from dispensary or buying it elsewhere, sometimes from people on the street - Reports not smoking marijuana Review of Systems Constitutional: Positive for activity change. Negative for appetite change and fever. Respiratory: Negative for shortness of breath. Cardiovascular: Negative for chest pain. Musculoskeletal: Positive for arthralgias, back pain and gait problem. Psychiatric/Behavioral: Positive for sleep disturbance. Objective Vitals: 05/03/25 1056 BP: (!) 160/100 Pulse: 70 Resp: 22 Temp: 96.8 ??F (36 ??C) TempSrc: Temporal SpO2: 98% Weight: 171 lb 12.8 oz (77.9 kg) Height: 5' 4 (1.626 m) Physical Exam Constitutional: General: Jose Alfredo is [...] is normal. No respiratory distress. Breath sounds: Normal breath sounds. No wheezing or rhonchi. Musculoskeletal: Comments: Decreased ROM of bilateral shoulders. Antalgic gait. Unsteady and slow. Using a cane. Skin: General: Skin is warm. Neurological: Mental Status: Jose Alfredo is alert. Mental status is at baseline. Psychiatric: Mood and Affect: Mood normal. Results: Recent Results (from the past 18 weeks) Drug Monitoring, Cocaine Metabolite, Quantitative, Urine Collection Time: 04/20/25 9:30 AM Result Value Ref Range Benzoylecgonine 635 Cocaine Comments SEE NOTE POCT DAREN-14 Urine Drug Screen Collection Time: 04/20/25 9:34 AM Result Value Ref Range THC Positive (A) Negative Cocaine Screen, Urine Positive (A) Negative Opiate Screen, Urine Negative Negative Methamphetamine Screen Urine Negative Negative Amphetamine Screen, Urine Negative Negative Benzodiazepines Screen, Urine Negative Negative Barbiturate Screen, Urine Negative Negative Methadone Screen, Urine Negative Negative Buprenophine Screen, Urine Negative Negative TCA, Urine Positive (A) Negative MDMA Urine Negative Negative ng/mL Oxycodone Screen, Urine Positive (A) Negative Phencyclidine (PCP), Urine Negative Negative Propoxyphene, Urine Negative Negative Fentanyl, Urine Negative Negative Lab Results Component Value Date NA 141 08/10/2024 K 4.3 08/10/2024 CL 108 08/10/2024 CO2 28 08/10/2024 BUN 11 08/10/2024 CREATININE 1.05 08/10/2024 CRCLCALCPH 46.2 06/16/2024 EGFR >60 08/10/2024 GLUCOSE 108 08/10/2024 TOTALBILIRUB 0.6 08/10/2024 AST 45 (H) 08/10/2024 ALT 58 (H) 08/10/2024 TOTPROTEIN 6.9 08/10/2024 ALB 3.9 08/10/2024 ALP 142 (H) 08/10/2024 Lab Results Component Value Date TRIG 173 (H) 08/10/2024 CHOL 202 (H) 08/10/2024 LDLCHOLCAL 125 (H) 08/10/2024 HDL 43 08/10/2024 Lab Results Component Value Date HGBA1C 5.7 08/10/2024 Lab Results Component Value Date WBC 9.0 06/16/2024 HGB 15.5 06/16/2024 HCT 45.5 06/16/2024 PLT 215 06/16/2024 MCV 95.0 06/16/2024 FIB-4 Calculation: 1.89 at 06/16/2024 3:50 PM Calculated from: SGOT/AST: 31 U/L at 06/16/2024 3:50 PM SGPT/ALT: 38 U/L at 06/16/2024 3:50 PM Platelets: 215 X10*3/uL at 06/16/2024 3:50 PM Age: 79 years Hypertension, unspecified type: - Elevated blood pressure, possibly exacerbated by pain. - Increased olmesartan dosage. Monitor blood pressure at home. Report if blood pressure remains elevated. Will check blood pressure again after pain management adjustment. Blood work ordered to be done 2-3 days prior to next appointment in 3 months. Primary osteoarthritis involving multiple joints: - Osteoarthritis causing significant pain in arms and legs, impacting sleep and daily activities. - Adjusted oxycodone regimen to 10 mg twice daily and additional 5 mg at bedtime for improved pain control and sleep. Encouraged engagement in daytime activities. Monitor pain and function. - Risks and side effects: Discussed risk of constipation and drowsiness with oxycodone. Advised caution to prevent falls, especially when waking at night. Chronic, continuous use of opioids: - Chronic opioid therapy for pain management. - Prescribed additional oxycodone 5 mg at bedtime. Advised not to increase oxycodone beyond currentregimen due to age-related risk. Pharmacy to dispense new regimen. Monitor for side effects and efficacy. - Risks and side effects: Discussed risk of constipation, drowsiness, and falls. Asthma with COPD ([facility]) ([facility]): - No current respiratory distress. Afebrile. Asthma and COPD stable. - Continue current inhaler regimen. Monitor for respiratory symptoms. Insomnia and polypharmacy: - Insomnia likely multifactorial, including pain and multiple sedative medications. - Decrease dose of mirtazapine. Consider reducing melatonin. Continue doxepin as needed. Monitor for improvement in sleep and reduction in fall risk. - Risks and side effects: Discussed risk of falls due to sedative medications. Substance use (cannabis and cocaine exposure): - Recent urinalysis positive for cocaine, likely due to contaminated cannabis. No ongoing cocaine use reported. - Advised to obtain cannabis only from licensed dispensaries. Warned about risks of contaminated substances, including potential for fentanyl and overdose. Patient agreed to follow recommendations. - Risks and side effects: Discussed risk of overdose and cardiovascular/respiratory complications from contaminated substances. Pruritus and erythema of ears: - Pruritus and mild erythema of ears, no evidence of infection. - Advised to avoid scratching ears. Assessment/Plan Problem List Items Addressed This Visit Cannabis dependence ([facility]) - discussed about safe and responsible marijuana use Relevant Medications mirtazapine (Remeron) 15 MG tablet Asthma with COPD ([facility]) ([facility]) - [place] [facility] [place], Dr. Mayorga, last seen on 01/2025, Pt is being treated for Asthma, rather than COPD. - most recent exacerbation in October 2024. 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 - questionable role of Botox Relevant Medications mirtazapine (Remeron) 15 MG tablet Insomnia - currently on doxepin, mirtazapine, and melatonin - discussed about polypharmacy - agreed to taper down mirtazapine and doxepin as tolerate - decrease mirtazapine to 15 mg at bedtime - continue doxepin 75 mg at bedtime for now - continue improving sleep hygiene Relevant Medications mirtazapine (Remeron) 15 MG tablet Osteoarthritis of knee - s/p left chondroplasty, partial meniscectomy in 2012 - s/p left TKA on 09/12/13 - s/p right chondroplasty in 2014 for meniscus tear - s/p right TKA on 05/26/22 Relevant Medications oxyCODONE (Roxicodone) 5 MG immediate release tablet Primary osteoarthritis involving multiple joints - followed [place] [facility] [place] - s/p knee replacement - s/p shoulder surgery - continue judicious use of oxycodone - currently on oxycodone 10 mg bid. Will add 5 mg for night time - Relevant Medications oxyCODONE (Roxicodone) 5 MG immediate release tablet Restless legs - previously tried ropoinirole and gabapentin, which were ineffective for pain or restless legs - oxycodone as 3rd line agent Relevant Medications mirtazapine (Remeron) 15 MG tablet Vitamin D deficiency Relevant Orders Vitamin D, 25-Hydroxy, Total, Immunoassay Hypertension - Primary - Goal BP < 130 per ACC/AHA guideline (Treatment threshold >=130) - BP not at goal - Continue working on lifestyle modification - Increase Olmesartan to 40 mg daily - Continue checking BP at home - Optimize pain management Relevant Medications olmesartan (Benicar) 20 MG tablet Other Relevant Orders Comprehensive Metabolic Panel Albumin, Random Urine W/Creatinine Referral to Pharmacy CDTM GERD (gastroesophageal reflux disease) - evaluated by [facility] [place], last seen in Feb 2025 - continue pantoprazole 40 mg bid - continue sucralfate 10 mg at bedtime - famotidine was discontinued by GI - no longer taking NSAID or COX2i Headache - chronic, multifactorial - continue doxepin (prescribed for insomnia, high-dose) - continue tylenol PRN - improve sleep hygiene - MRI done on 03/21/24, benign - Question of migraine, although symptoms are not classic - Judicious use of qgpwtwuhlc-sulvubinxehko-nlqitznt 50-325-40 MG tablet for severe headache Relevant Medications oxyCODONE (Roxicodone) 5 MG immediate release tablet mirtazapine (Remeron) 15 MG tablet Chronic left shoulder pain - seen by orthopedist 04/13/24, received steroid injection to the left shoulder - continue judicious use of oxycodone, currently oxycodone 10 mg bid, will add 5 mg for night time - Prescribed lidocaine (Lidoderm) 5 % patch Relevant Medications oxyCODONE (Roxicodone) 5 MG immediate release tablet Chronic, continuous use of opioids - pain in shoulders and knees - history of shoulder surgeries and knee replacement - attending CONTRACT TECHNICIAN visits as scheduled. Most recent visit on 04/20/2025. - currently on oxycodone 10 mg bid; will add oxycodone 5 mg for night time so that he can sleep better - continue judicious use of THC/CBD Relevant Medications mirtazapine (Remeron) 15 MG tablet Metabolic dysfunction-associated steatotic liver disease (MASLD) - Last liver test: Jul 2024 - Last US / elastography: Will check if it has been ordered - FIB4 index 1.89 - [place] [facility] [place] continue working on lifestyle modifications - continue surveillance study Other Visit Diagnoses Screening for diabetes mellitus Relevant Medications olmesartan (Benicar) 20 MG tablet Other Relevant Orders Hemoglobin A1c Allergies[2] Current Outpatient Medications Medication Instructions acetaminophen (Tylenol Extra Strength) 500 MG tablet Take 1-2 tablets by mouth every 8 hours as needed for pain. Maximum daily dose 6 tabs per day. albuterol (2.5 MG/3ML) 0.083% nebulizer solution INHALE 1 AMPULE USING A NEBULIZER EVERY 4 HOURS ASNEEDED FOR SHORTNESS OF BREATH, AND FOR WHEEZING. NO MORE THAN 4 TIMES PER DAY. albuterol 108 (90 Base) MCG/ACT inhaler 2 puffs, Inhalation, Every 4 hours PRN, Maximum 8 puffs perday kulfsvharg-gafkpidtecewk-cydbmtzp 50-325-40 MG tablet TAKE 1 TABLET BY MOUTH EVERY DAY NEEDED FOR HEADACHE SEVERE, DO NOT EXCEED 5 TABLETS / MONTH cyanocobalamin (VITAMIN B-12) 500 mcg, Oral, Every morning D3 Super Strength 50 mcg, Oral, Every morning Diclofenac Sodium 1 % gel Apply to affected area once or twice daily as needed doxepin (SINEQUAN) 75 mg, Oral, Nightly fluticasone (Flonase) 50 MCG/ACT nasal spray 1-2 sprays, Each Nostril, Daily, Shake gently. Before first use, prime pump. After use, clean tip and replace cap. Wxvwbsrpasz-Zsxlettaz-Ibtuvf (Trelegy Ellipta) 100-62.5-25 MCG/ACT aerosol powder 1 puff, Inhalation, Daily latanoprost (Xalatan) 0.005 % ophthalmic solution lidocaine (Lidoderm) 5 % patch 1 patch, Apply externally, Daily, Remove & discard patch within 12 hours or as directed by MD. melatonin 3 mg, Oral, Nightly PRN mirtazapine (REMERON) 15 mg, Oral, Nightly naloxone (NARCAN) 4 mg, Nasal, As needed olmesartan (BENICAR) 40 mg, Oral, Daily, Check BP prior to taking medications. Take only 1 tablet if SBP < 120. Do not take if SBP < 100. oxyCODONE (ROXICODONE) 10 mg, Oral, Every 12 hours PRN oxyCODONE (ROXICODONE) 5 mg, Oral, Nightly PRN pantoprazole (PROTONIX) 40 mg, Oral, 2 times daily, Do not crush, chew, or split. Simethicone Ultra Strength 180 mg, Oral, 4 times daily simvastatin (ZOCOR) 40 mg, Oral, Nightly sucralfate (CARAFATE) 1 g, Nightly Follow-up: 3 mo or sooner if any problem arises. BP check with our nurse in 1 mo. This note was drafted using Ambient (AI) technology. The patient/patient's guardian has been informed and has consented to the use of this technology: Yes [1] Patient Active Problem List Diagnosis Cannabis dependence (HCC) Asthma with COPD (CMS/HCC) (HCC) Dyslipidemia Elevated alkaline phosphatase level Facial myokymia History of left knee replacement Insomnia Osteoarthritis of knee Primary osteoarthritis involving multiple joints Restless legs Vitamin D deficiency Hypertension Chronic pain of right knee History of right knee joint replacement GERD (gastroesophageal reflux disease) Overweight SELINA (obstructive sleep apnea) History of repair of rotator cuff Headache Chronic left shoulder pain Chronic, continuous use of opioids Metabolic dysfunction-associated steatotic liver disease (MASLD) [2] Allergies Allergen Reactions Nsaids Other reaction(s): GI upset documented in this encounter Miscellaneous Notes * Assessment & Plan Note - Tangela Garcia MD - 05/03/2025 2:55 PM ESTAssociated Problem(s): Metabolic dysfunction-associated steatotic liver disease (MASLD) - Last liver test: Jul 2024 - Last US / elastography: Will check if it has been ordered - FIB4 index 1.89 - [place] [facility] [place] - continue working on lifestyle modifications - continue surveillance study * Assessment & Plan Note - Tangela Garcia MD - 05/03/2025 2:53 PM ESTAssociated Problem(s): Headache - chronic, multifactorial - continue doxepin (prescribed for insomnia, high-dose) - continue tylenol PRN - improve sleep hygiene - MRI done on 03/21/24, benign - Question of migraine, although symptoms are not classic - Judicious use of lsxztgzejp-mgvssqspxkeei-xyamvjwk 50-325-40 MG tablet for severe headache * Assessment & Plan Note - Tangela Garcia MD - 05/03/2025 2:52 PM ESTAssociated Problem(s): 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 - questionable role of Botox * Assessment & Plan Note - Tangela Garcia MD - 05/03/2025 2:51 PM ESTAssociated Problem(s): Restless legs - previously tried ropoinirole and gabapentin, which were ineffective for pain or restless legs - oxycodone as 3rd line agent * Assessment & Plan Note - Tangela Garcia MD - 05/03/2025 2:44 PM ESTAssociated Problem(s): Insomnia - currently on doxepin, mirtazapine, and melatonin - discussed about polypharmacy - agreed to taper down mirtazapine and doxepin as tolerate - decrease mirtazapine to 15 mg at bedtime - continue doxepin 75 mg at bedtime for now - continue improving sleep hygiene * Assessment & Plan Note - Tangela Garcia MD - 05/03/2025 2:40 PM ESTAssociated Problem(s): Asthma with COPD (CMS/HCC) (HCC) - [place] [facility] [place], Dr. Mayorga, last seen on 01/2025, Pt is being treated for Asthma, rather than COPD. - most recent exacerbation in October 2024. Rx prednisone - Tried SMART therapy with budesonide / formoterol (Symbicort) dose - Continue fluticasone / umeclidinium / vilanterol (Trelegy) - Treatment history: fluticasone propionate / salmeterol (Wixela) ; budesonide / formoterol (Symbicort) * Assessment & Plan Note - Tangela Garcia MD - 05/03/2025 2:39 PM ESTAssociated Problem(s): Chronic left shoulder pain - seen by orthopedist 04/13/24, received steroid injection to the left shoulder - continue judicious use of oxycodone, currently oxycodone 10 mg bid, will add 5 mg for night time - Prescribed lidocaine (Lidoderm) 5 % patch * Assessment & Plan Note - Tangela Garcia MD - 05/03/2025 2:38 PM ESTAssociated Problem(s): Osteoarthritis of knee - s/p left chondroplasty, partial meniscectomy in 2012 - s/p left TKA on 09/12/13 - s/p right chondroplasty in 2014 for meniscus tear - s/p right TKA on 05/26/22 * Assessment & Plan Note - Tangela Garcia MD - 05/03/2025 2:37 PM ESTAssociated Problem(s): Primary osteoarthritis involving multiple joints - followed [place] [facility] [place] - s/p knee replacement - s/p shoulder surgery - continue judicious use of oxycodone - currently on oxycodone 10 mg bid. Will add 5 mg for night time - * Assessment & Plan Note - Tangela Garcia MD - 05/03/2025 2:36 PM ESTAssociated Problem(s): Cannabis dependence (HCC) - discussed about safe and responsible marijuana use * Assessment & Plan Note - Tangela Garcia MD - 05/03/2025 2:35 PM ESTAssociated Problem(s): Chronic, continuous use of opioids - pain in shoulders and knees - history of shoulder surgeries and knee replacement - attending CONTRACT TECHNICIAN visits as scheduled. Most recent visit on 04/20/2025. - currently on oxycodone 10 mg bid; will add oxycodone 5 mg for night time so that he can sleep better - continue judicious use of THC/CBD * Assessment & Plan Note - Tangela Garcia MD - 05/03/2025 2:28 PM ESTAssociated Problem(s): GERD (gastroesophageal reflux disease) - evaluated by [facility] [place], last seen in Feb 2025 - continue pantoprazole 40 mg bid - continue sucralfate 10 mg at bedtime - famotidine was discontinued by GI - no longer taking NSAID or COX2i * Assessment & Plan Note - Tangela Garcia MD - 05/03/2025 2:25 PM ESTAssociated Problem(s): Dyslipidemia - current medication simvastatin 40 mg at bedtime - last lipid profile: 08/10/24 - continue working on lifestyle modifications - annual lipid profile * Assessment & Plan Note - Tangela Garcia MD - 05/03/2025 2:13 PM ESTAssociated Problem(s): Hypertension - Goal BP < 130 per ACC/AHA guideline (Treatment threshold >=130) - BP not at goal - Continue working on lifestyle modification - Increase Olmesartan to 40 mg daily - Continue checking BP at home - Optimize pain management documented in this encounter Plan of Treatment Upcoming Encounters Date Type Department Care Team (Late st Contact Info) Description 06/21/2025 11:30 AM EST Medication Management [address] [address] Peter Mcdaniel, PharmD [address] [place] [address] 06/22/2025 11:00 AM EST Clinical Support [facility] [address] [place] [phone] Barbie Voss RN [address] [place] [address] Scheduled Orders Name Type Priority Associated Diagnoses Orde r Schedule Hemoglobin A1c Lab Routine Screening for diabetes mellitus Expected: 05/03/2025 (Approximate), Expires: 05/03/2026 Comprehensive Metabolic Panel Lab Routine Hypertension, unspecified type Expected: 05/03/2025 (Approximate), Expires: 05/03/2026 Lipid Panel with Reflex to Direct LDL Lab Routine Dyslipidemia Expected: 05/03/2025 (Approximate), Expires: 05/03/2026 Albumin, Random Urine W/Creatinine Lab Routine Hypertension, unspecified type Expected: 05/03/2025 (Approximate), Expires: 05/03/2026 Vitamin D, 25-Hydroxy, Total, Immunoassay Lab Routine Vitamin D deficiency Expected: 05/03/2025 (Approximate), Expires: 05/03/2026 Scheduled Referrals Name Type Priority Associated Diagnoses Orde r Schedule Referral to Pharmacy CDTM Outpatient Referral Routine Hypertension, unspecified type Ordered: 05/03/2025 documented as of this encounter Visit Diagnoses Diagnosis Hypertension, unspecified type- Primary Primary osteoarthritis involving multiple joints Primary osteoarthritis of right knee Chronic, continuous use of opioids Asthma with COPD (CMS/HCC) (HCC) Dyslipidemia Other and unspecified hyperlipidemia Screening for diabetes mellitus Gastroesophageal reflux disease, unspecified whether esophagitis present Cannabis dependence ([facility]) Chronic left shoulder pain Pain in joint, shoulder region Insomnia, unspecified type Restless legs Restless legs syndrome (RLS) Facial myokymia Other facial nerve disorders Nonintractable headache, unspecified chronicity pattern, unspecified headache type Vitamin D deficiency Metabolic dysfunction-associated steatotic liver disease (MASLD) documented in this encounter Additional Health Concerns Assessment Noted Time PHQ-9 Depression Total Score: 0 07/26/19 25 9:16 AM EST documented as of this encounter Care Teams Credit Officer Relationship Specialty Start Date End Date Tangela Garcia MD [address] [place] [address] PCP - General Family Medicine 06/14/18 Peter Mcdaniel, TanyaD [address] [place] [address] Pharmacist Pharmacy 03/15/25 documented as of this encounter
--- OUTSIDE RECORDS SUMMARY | 2025-05-03 17:43 | XMS_ITS | Encounter Summary ---
Author Organization [employer] Address [address] [facility] [address] 7t [place] [address] Care Team Providers Care Wheel Alignment Mechanic Name Role Phone Tangela Garcia MD Primary Care Provider [phone] Peter Mcdaniel PharmD Unavailable [phone] Reason for Visit * Reason Comments Med Refill Encounter Details Date Type Department Care Team (Late st Contact Info) Description 09/06/2023 Refill [facility] [address] [place], [place] [phone] Tangela Garcia MD 230 [place] [address] Wheezing Social History Tobacco Use Types Packs/Day [...] Description 06/21/2025 11:30 AM EST Medication Management [address] [address] Peter Mcdaniel, PharmD [address] [place] [address] 06/22/2025 11:00 AM EST Clinical Support [address] [address] Barbie Voss, NAYELY [address] [place] [address] documented as of this encounter Visit Diagnoses Diagnosis Wheezing documented in this encounter Additional Health Concerns Assessment Noted Time PHQ-9 Depression Total Score: 0 03/01/20 23 10:01 AM EDT documented as of this encounter Care Teams Wheel Alignment Mechanic Relationship Specialty Start Date End Date Tangela Garcia MD [address] [place] [address] PCP - General Family Medicine 06/14/18 Peter Mcdaniel, PharmD [address] [place] [address] Pharmacist Pharmacy 03/15/25 documented as of this encounter
--- OUTSIDE RECORDS SUMMARY | 2025-05-03 17:43 | XMS_ITS | Encounter Summary ---
Author Organization [employer] Address [address] [facility] [address] 7t [place] [address] Care Team Providers Care Tool Crib Manager Name Role Phone Tangela Garcia MD Primary Care Provider [phone] Peter Mcdaniel PharmD Unavailable [phone] Reason for Visit * Reason Comments Med Refill Encounter Details Date Type Department Care Team (Late st Contact Info) Description 08/16/2023 Refill [facility] 230 [place], [place] [phone] Tangela Garcia MD 230 [place] [address] Vitamin deficiency Social History Tobacco Use Types [...] Description 06/21/2025 11:30 AM EST Medication Management [address] [address] Peter Mcdaniel, PharmD [address] [place] [address] 06/22/2025 11:00 AM EST Clinical Support [address] [address] Barbie Voss, NAYELY 505 [place] [address] documented as of this encounter Visit Diagnoses Diagnosis Vitamin deficiency Unspecified vitamin deficiency documented in this encounter Additional Health Concerns Assessment Noted Time PHQ-9 Depression Total Score: 0 03/01/20 23 10:01 AM EDT documented as of this encounter Care Teams Tool Crib Manager Relationship Specialty Start Date End Date Tangela Garcia MD [address] [place] [address] PCP - General Family Medicine 06/14/18 Peter Mcdaniel, PharmD [address] [place] [address] Pharmacist Pharmacy 03/15/25 documented as of this encounter
--- OUTSIDE RECORDS SUMMARY | 2025-05-03 17:43 | XMS_ITS | Encounter Summary ---
Author Organization [employer] Address [address] [facility] [address] 7t [place] [address] Care Team Providers Care Pastoral Assistant Name Role Phone Tangela Garcia MD Primary Care Provider [phone] Peter Mcdaniel PharmD Unavailable Encounter Details Date Type Department Care Team ([facility] st Contact Info) Description 06/04/2022 Orders Only [facility] 230 [place] [address] Tangela Garcia MD 230 [place] [address] Anemia, unspecified type (Primary Dx); Transaminitis; Liver [...] Description 06/21/2025 11:30 AM EST Medication Management [address] [address] Peter Mcdaniel, PharmD [address] [place] [address] 06/22/2025 11:00 AM EST Clinical Support [address] [address] Barbie Voss, NAYELY 505 [place] [address] Scheduled Orders Name Type Priority Associated Diagnoses [...] liver documented in this encounter Care Teams Pastoral Assistant Relationship Specialty Start Date End Date Tangela Garcia MD 230 [place] [address] PCP - General Family Medicine 06/14/18 Peter Mcdaniel, TanyaD [address] [place] [address] Pharmacist Pharmacy 03/15/25 documented as of this encounter
--- OUTSIDE RECORDS SUMMARY | 2025-05-03 17:43 | XMS_ITS | Encounter Summary ---
Author Organization [employer] Address [address] [facility] [address] 7t [place] [address] Care Team Providers Care Compensation Consulting Manager Name Role Phone Tangela Garcia MD Primary Care Provider [phone] Peter Mcdaniel PharmD Unavailable [phone] Reason for Visit * Reason Onset Date Comments Referral 05/03/2025 Encounter Details Date Type Department Care Team ([facility] st Contact Info) Description 05/03/2025 Telephone [facility] 230 [place], [place] [phone] Tangela Garcia MD 230 [place], [place] [phone] Referral Social History Tobacco Use Types Packs/Day Years [...] * Telephone Encounter - Conrado Shah - 05/03/2025 11:48 AM EST Tc from pt daughter stating pt lost a hearing aid , called facility and they advised they need a new referral . She is requesting a referral to [facility] speech and hearing Contact at [phone] (ukrainian) documented in this encounter Plan of Treatment Upcoming Encounters Date Type Department Care Team (Late st Contact Info) Description 06/21/2025 11:30 AM EST Medication Management [facility] [address] [place] [address] Peter Mcdaniel, PharmD [address] [place] [address] 06/22/2025 11:00 AM EST Clinical Support [facility] [address] [place] [address] Barbie Voss, RN 505 [place] [address] documented as of this encounter Visit Diagnoses Not on filedocumented in this encounter Additional Health Concerns Assessment Noted Time PHQ-9 Depression Total Score: 0 07/26/19 25 9:16 AM EST documented as of this encounter Care Teams Compensation Consulting Manager Relationship Specialty Start Date End Date Tangela Garcia MD [address] [place] [address] PCP - General Family Medicine 06/14/18 Peter Mcdaniel, TanyaD [address] [place] [address] Pharmacist Pharmacy 03/15/25 documented as of this encounter
--- OUTSIDE RECORDS SUMMARY | 2025-05-03 17:43 | XMS_ITS | Encounter Summary ---
Author Organization [employer] Address [address] [facility] [address] 7t [place] [address] Care Team Providers Care Geology Scientist Name Role Phone Tangela Garcia MD Primary Care Provider [phone] Peter Mcdaniel PharmD Unavailable [phone] Reason for Visit * Reason Comments Med Refill Encounter Details Date Type Department Care Team (Late st Contact Info) Description 12/13/2023 Refill [facility] 230 [place], [place] [phone] Tangela Garcia MD 230 [place] [address] Wheezing Social History Tobacco Use Types Packs/Day [...] Description 06/21/2025 11:30 AM EST Medication Management [address] [address] Peter Mcdaniel, PharmD [address] [place] [address] 06/22/2025 11:00 AM EST Clinical Support [address] [address] Barbie Voss, NAYELY 505 [place] [address] documented as of this encounter Visit Diagnoses Diagnosis Wheezing documented in this encounter Additional Health Concerns Assessment Noted Time PHQ-9 Depression Total Score: 0 03/01/20 23 10:01 AM EDT documented as of this encounter Care Teams Geology Scientist Relationship Specialty Start Date End Date Tangela Garcia MD [address] [place] [address] PCP - General Family Medicine 06/14/18 Peter Mcdaniel, PharmD [address] [place] [address] Pharmacist Pharmacy 03/15/25 documented as of this encounter
--- OUTSIDE RECORDS SUMMARY | 2025-05-03 17:43 | XMS_ITS | Encounter Summary ---
Author Organization [employer] Address [address] [facility] [address] 7t [place] [address] Care Team Providers Care Snowboard Instructor Name Role Phone Tangela Garcia MD Primary Care Provider [phone] Peter Mcdaniel PharmD Unavailable [phone] Encounter Details Date Type Department Care Team (Latest Contact Info) Description 05/03/2025 Travel Social History Tobacco Use Types Packs/Day [...] Description 06/21/2025 11:30 AM EST Medication Management [address] [address] Peter Mcdaniel, PharmD [address] [place] [address] 06/22/2025 11:00 AM EST Clinical Support [address] [address] Barbie Voss, RN [address] [place] [address] documented as of this encounter Visit Diagnoses Not on filedocumented in this encounter Additional Health Concerns Assessment Noted Time PHQ-9 Depression Total Score: 0 07/26/19 9:16 AM EST documented as of this encounter Care Teams Snowboard Instructor Relationship Specialty Start Date End Date Tangela Garcia MD [address] [place] [address] PCP - General Family Medicine 06/14/18 Peter Mcdaniel, PharmD [address] [place] [address] Pharmacist Pharmacy 03/15/25 documented as of this encounter
--- OUTSIDE RECORDS SUMMARY | 2025-05-03 17:43 | XMS_ITS | Encounter Summary ---
Author Organization [employer] Address [address] [facility] [address] 7t [place] [address] Care Team Providers Care Bakery Demonstrator Name Role Phone Tangela Garcia MD Primary Care Provider Peter Mcdaniel PharmD Unavailable [phone] Reason for Visit * Reason Onset Date Comments chart prep 05/02/2025 Encounter Details Date Type Department Care Team ([facility] st Contact Info) Description 05/02/2025 Telephone [facility] 230 [place], [place] [phone] Tangela Garcia MD 230 [place], [place] [phone] chart prep Social History Tobacco Use Types [...] encounter Miscellaneous Notes * Telephone Encounter - Edison Ang MA - 05/02/2025 10:34 AM EST Chart Prep Labs: done Images: done Referrals: complete Vaccines due: Covid, Flu, and RSV Screenings: not applicable Overdue care gaps: Not applicable documented in this encounter Plan of Treatment Upcoming Encounters Date Type Department Care Team (Late st Contact Info) Description 06/21/2025 11:30 AM EST Medication Management [facility] [address] [place] [address] Peter Mcdaniel, TanyaD [address] [place] [address] 06/22/2025 11:00 AM EST Clinical Support [facility] [address] [place] [address] Barbie Voss, NAYELY 505 [place] [address] documented as of this encounter Visit Diagnoses Not on filedocumented in this encounter Additional Health Concerns Assessment Noted Time PHQ-9 Depression Total Score: 0 07/26/19 25 9:16 AM EST documented as of this encounter Care Teams Bakery Demonstrator Relationship Specialty Start Date End Date Tangeal Garcia MD 230 [place] [address] PCP - General Family Medicine 06/14/18 Peter Mcdaniel, TanyaD [address] [place] [address] Pharmacist Pharmacy 03/15/25 documented as of this encounter
--- OUTSIDE RECORDS SUMMARY | 2025-05-03 17:43 | XMS_ITS | Encounter Summary ---
Author Organization [employer] Address [address] [facility] [address] 7t [place] [address] Care Team Providers Care Market Maker Name Role Phone Tangela Garcia MD Primary Care Provider [phone] Peter Mcdaniel PharmD Unavailable [phone] Encounter Details Date Type Department Care Team (Latest Contact Info) Description 05/02/2025 Travel Social History Tobacco Use Types Packs/Day [...] Description 06/21/2025 11:30 AM EST Medication Management [address] [address] Peter Mcdaniel, PharmD [address] [place] [address] 06/22/2025 11:00 AM EST Clinical Support [address] [address] Barbie Voss, RN 505 [place] [address] documented as of this encounter Visit Diagnoses Not on filedocumented in this encounter Additional Health Concerns Assessment Noted Time PHQ-9 Depression Total Score: 0 07/26/19 9:16 AM EST documented as of this encounter Care Teams Market Maker Relationship Specialty Start Date End Date Tangela Garcia MD [address] [place] [address] PCP - General Family Medicine 06/14/18 Peter Mcdaniel, PharmD [address] [place] [address] Pharmacist Pharmacy 03/15/25 documented as of this encounter
--- OUTSIDE RECORDS SUMMARY | 2025-05-03 17:43 | XMS_ITS | Encounter Summary ---
Author Organization [employer] Address [address] [facility] [address] 7t [place] [address] Care Team Providers Care Form Raiser Name Role Phone Tangela Garcia MD Primary Care Provider [phone] Peter Mcdaniel PharmD Unavailable [phone] Reason for Visit * Reason Onset Date Comments Med Refill 04/16/2025 Encounter Details Date Type Department Care Team ([facility] st Contact Info) Description 04/16/2025 Telephone [facility] 230 [place], [place] [phone] Tangela Garcia MD 230 [place], [place] [phone] Med Refill Social History Tobacco Use Types [...] immediate release tablet To be sent to: [facility] - [place], [place] - [address] [place] [address] documented in this encounter Plan of Treatment Upcoming Encounters Date Type Department Care Team ([facility] st Contact Info) Description 06/21/2025 11:30 AM EST Medication Management [facility] [address] [place] [address] Peter Mcdaniel, PharmD 230 [place] [address] 06/22/2025 11:00 AM EST Clinical Support [facility] [address] [place] [address] Barbie Voss RN 505 [place] [address] documented as of this encounter Visit Diagnoses Not on filedocumented in this encounter Additional Health Concerns Assessment Noted Time PHQ-9 Depression Total Score: 0 07/26/19 25 9:16 AM EST documented as of this encounter Care Teams Form Raiser Relationship Specialty Start Date End Date Tangela Garcia MD [address] [place] [address] PCP - General Family Medicine 06/14/18 Peter Mcdaniel, TanyaD [address] [place] [address] Pharmacist Pharmacy 03/15/25 documented as of this encounter
--- OUTSIDE RECORDS SUMMARY | 2025-05-03 17:44 | XMS_ITS | Encounter Summary ---
Author Organization [employer] Address [address] [facility] [address] 7t [place] [address] Care Team Providers Care Construction Cost Estimator Name Role Phone Tangela Garcia MD Primary Care Provider [phone] Peter Mcdaniel PharmD Unavailable [phone] Reason for Visit * Reason Comments Med Change Request Encounter Details Date Type Department Care Team (Late st Contact Info) Description 11/01/2024 Refill [facility] 230 [place], [place] [phone] Tangela Garcia MD 230 [place] [address] Social History Tobacco Use Types Packs/Day Years [...] Description 06/21/2025 11:30 AM EST Medication Management [address] [address] Peter Mcdaniel, PharmD [address] [place] [address] 06/22/2025 11:00 AM EST Clinical Support [address] [address] Barbie Voss, NAYELY 505 [place] [address] documented as of this encounter Visit Diagnoses Not on filedocumented in this encounter Additional Health Concerns Assessment Noted Time PHQ-9 Depression Total Score: 0 07/26/19 25 9:16 AM EST documented as of this encounter Care Teams Construction Cost Estimator Relationship Specialty Start Date End Date Tangela Garcia MD [address] [place] [address] PCP - General Family Medicine 06/14/18 Peter Mcdaniel, PharmD 230 [place] [address] Pharmacist Pharmacy 03/15/25 documented as of this encounter
--- OUTSIDE RECORDS SUMMARY | 2025-05-03 17:44 | XMS_ITS | Encounter Summary ---
Author Organization [employer] Address [address] [facility] [address] 7t [place] [address] Care Team Providers Care Employment Assistant Name Role Phone Tangela Garcia MD Primary Care Provider [phone] Peter Mcdaniel PharmD Unavailable [phone] Reason for Visit * Reason Onset Date Comments Med Refill 03/19/2025 Encounter Details Date Type Department Care Team (Late st Contact Info) Description 03/19/2025 Telephone [facility] 230 [place], [place] [phone] Tangela Garcia MD 230 [place], [place] [phone] Med Refill Social History Tobacco Use Types [...] immediate release tablet To be sent to: [facility] - [place], [place] - [address] [place] [address] documented in this encounter Plan of Treatment Upcoming Encounters Date Type Department Care Team (Late st Contact Info) Description 06/21/2025 11:30 AM EST Medication Management [facility] [address] [place] [address] Peter Mcdaniel, TanyaD 230 [place] [address] 06/22/2025 11:00 AM EST Clinical Support [facility] [address] [place] [address] Barbie Voss, RN 505 [place] [address] documented as of this encounter Visit Diagnoses Not on filedocumented in this encounter Additional Health Concerns Assessment Noted Time PHQ-9 Depression Total Score: 0 07/26/19 25 9:16 AM EST documented as of this encounter Care Teams Employment Assistant Relationship Specialty Start Date End Date Tangela Garcia MD [address] [place] [address] PCP - General Family Medicine 06/14/18 Peter Mcdaniel, PharmD [address] [place] [address] Pharmacist Pharmacy 03/15/25 documented as of this encounter
--- OUTSIDE RECORDS SUMMARY | 2025-05-03 17:44 | XMS_ITS | Encounter Summary ---
Author Organization [email or web address] Address [address] [facility] [address] 7t [place] [address] Care Team Providers Care Truck Shop Mechanic Name Role Phone Tangela Garcia MD Primary Care Provider [phone] Peter Mcdaniel PharmD Unavailable [phone] Reason for Visit * Reason Onset Date Comments Reschedule 07/30/2023 Encounter Details Date Type Department Care Team ([facility] st Contact Info) Description 07/30/2023 Telephone [facility] 230 [place], [place] [phone] Tangela Garcia MD 230 [place] [address] Reschedule Social History Tobacco Use Types Packs/Day [...] EST Tc from pt daughter requesting r/s WICK TENDER televisit appt. documented in this encounter Plan of Treatment Upcoming Encounters Date Type Department Care Team (Late st Contact Info) Description 06/21/2025 11:30 AM EST Medication Management [address] [address] Peter Mcdaniel, TanyaD [address] [place] [address] 06/22/2025 11:00 AM EST Clinical Support [facility] [address] [place] [address] Barbie Voss RN [address] [place] [address] documented as of this encounter Visit Diagnoses Not on filedocumented in this encounter Additional Health Concerns Assessment Noted Time PHQ-9 Depression Total Score: 0 03/01/20 23 10:01 AM EDT documented as of this encounter Care Teams Truck Shop Mechanic Relationship Specialty Start Date End Date Tangela Garcia MD [address] [place] [address] [place] [address] PCP - General Family Medicine 06/14/18 Peter Mcdaniel, PharmD [address] [place] [address] Pharmacist Pharmacy 03/15/25 documented as of this encounter
--- OUTSIDE RECORDS SUMMARY | 2025-05-03 17:44 | XMS_ITS | Encounter Summary ---
Author Organization [employer] Address [address] [facility] 7t [place] [address] Care Team Providers Care Dump Truck Operator Name Role Phone Tangela Garcia MD Primary Care Provider Peter Mcdaniel PharmD Unavailable Reason for Visit * Reason Onset Date Comments Med Refill 09/02/2022 Encounter Details Date Type Department Care Team (Late st Contact Info) Description 09/02/2022 Telephone [facility] 230 [place], [place] [phone] Tangela Garcia MD 230 [place], [place] [phone] Med Refill Social History Tobacco Use Types [...] give the okay. Please contact daughter at [phone] documented in this encounter Plan of Treatment Upcoming Encounters Date Type Department Care Team (Late st Contact Info) Description 06/21/2025 11:30 AM EST Medication Management [address] [address] Peter Mcdaniel, PharmD [address] [place] [address] 06/22/2025 11:00 AM EST Clinical Support [address] [address] Barbie Voss, RN 505 [place] [address] documented as of this encounter Visit Diagnoses Not on filedocumented in this encounter Care Teams Dump Truck Operator Relationship Specialty Start Date End Date Tangela Garcia MD [address] [place] [address] PCP - General Family Medicine 06/14/18 Peter Mcdaniel, PharmD [address] [place] [address] Pharmacist Pharmacy 03/15/25 documented as of this encounter
--- OUTSIDE RECORDS SUMMARY | 2025-05-03 17:44 | XMS_ITS | Encounter Summary ---
Author Organization [employer] Address [address] [facility] 7t [place] [address] Care Team Providers Care Percher Name Role Phone Tangela Garcia MD Primary Care Provider Peter Mcdaniel PharmD Unavailable Reason for Visit * Reason Onset Date Comments Med Refill 01/18/2023 Encounter Details Date Type Department Care Team (Late st Contact Info) Description 01/18/2023 Telephone [facility] 230 [place], [place] [phone] Tangela Garcia MD 230 [place], [place] [phone] Med Refill Social History Tobacco Use Types [...] medication oxycodone 5 mg. Please send to [id number] [address] [facility]. PCP Dr. Garcia documented in this encounter Plan of Treatment Upcoming Encounters Date Type Department Care Team (Late st Contact Info) Description 06/21/2025 11:30 AM EST Medication Management [address] [address] Peter Mcdaniel, PharmD [address] [place] [address] 06/22/2025 11:00 AM EST Clinical Support [address] [address] Barbie Voss, RN 505 [place] [address] documented as of this encounter Visit Diagnoses Not on filedocumented in this encounter Care Teams Percher Relationship Specialty Start Date End Date Tangela Garcia MD [address] [place] [address] PCP - General Family Medicine 06/14/18 Peter Mcdaniel, PharmD [address] [place] [address] Pharmacist Pharmacy 03/15/25 documented as of this encounter
--- OUTSIDE RECORDS SUMMARY | 2025-05-03 17:44 | XMS_ITS | Encounter Summary ---
Author Organization [employer] Address [address] 7t [place] [address] Care Team Providers Care Boiling House Oiler Name Role Phone Tangela Garcia MD Primary Care Provider [phone] Peter Mcdaniel PharmD Unavailable [phone] Reason for Visit * Reason Onset Date Comments Med Refill 09/21/2024 Encounter Details Date Type Department Care Team (Late st Contact Info) Description 09/21/2024 Telephone [facility] MEDICINE [address] [place], [place] [phone] Tangela Garcia MD [address] [place], [place] [phone] Med Refill Social History Tobacco Use Types [...] immediate release tablet To be sent to: [facility] documented in this encounter Plan of Treatment Upcoming Encounters Date Type Department Care Team (Late st Contact Info) Description 06/21/2025 11:30 AM EST Medication Management [facility] MEDICINE [address] [place] [phone] Peter Mcdaniel, PharmD 230 [place] [address] 06/22/2025 11:00 AM EST Clinical Support [facility] MED[facility]INE [address] [place] [address] Barbie Voss RN 505 [place] [address] documented as of this encounter Visit Diagnoses Not on filedocumented in this encounter Additional Health Concerns Assessment Noted Time PHQ-9 Depression Total Score: 0 07/26/19 25 9:16 AM EST documented as of this encounter Care Teams Boiling House Oiler Relationship Specialty Start Date End Date Tangela Garcia MD 230 [place] [address] PCP - General Family Medicine 06/14/18 Peter Mcdaniel, TanyaD 230 [place] [address] Pharmacist Pharmacy 03/15/25 documented as of this encounter
--- OUTSIDE RECORDS SUMMARY | 2025-05-03 17:44 | XMS_ITS | Encounter Summary ---
Author Organization [email or web address] Address [address] [facility] 7t [place] [address] Care Team Providers Care Shake Table Operator Name Role Phone Tangela Garcia MD Primary Care Provider [phone] Peter Mcdaniel PharmD Unavailable [phone] Reason for Visit * Reason Onset Date Comments Med Refill 08/21/2024 Encounter Details Date Type Department Care Team (Late st Contact Info) Description 08/21/2024 Telephone [facility] MEDICINE 230 [place], [place] [phone] Tangela Garcia MD 230 [place], [place] [phone] Med Refill Social History Tobacco Use Types [...] Base) MCG/ACT inhaler To be sent to: [facility] documented in this encounter Plan of Treatment Upcoming Encounters Date Type Department Care Team (Late st Contact Info) Description 06/21/2025 11:30 AM EST Medication Management [facility] MED[facility]INE [address] [place] [address] Peter Mcdaniel, PharmD [address] [place], [place] [phone] 06/22/2025 11:00 AM EST Clinical Support [facility] [address] [place] [address] Barbie Voss, RN 505 [place] [address] documented as of this encounter Visit Diagnoses Not on filedocumented in this encounter Additional Health Concerns Assessment Noted Time PHQ-9 Depression Total Score: 0 07/26/19 9:16 AM EST documented as of this encounter Care Teams Shake Table Operator Relationship Specialty Start Date End Date Tangela Garcia MD [address] [place] [address] PCP - General Family Medicine 06/14/18 Peter Mcdaniel, PharmD [address] [place] [address] Pharmacist Pharmacy 03/15/25 documented as of this encounter
--- OUTSIDE RECORDS SUMMARY | 2025-05-03 17:44 | XMS_ITS | Encounter Summary ---
Author Organization [employer] Address [address] [facility] 7t [place] [address] Care Team Providers Care Airline Lounge Receptionist Name Role Phone Tangela Garcia MD Primary Care Provider Peter Mcdaniel PharmD Unavailable Reason for Visit * Reason Comments Med Refill Encounter Details Date Type Department Care Team (Late Contact Info) Description 02/16/2023 Refill [facility] MEDICINE 230 [place], [place] [phone] Savannah Martini ANP 230 [place], [place] [phone] Social History Tobacco Use Types Packs/Day Years [...] Department Care Team (Late Contact Info) Description 06/21/2025 11:30 AM EST Medication Management [facility] MEDICINE 230 [place] [address] Peter Mcdaniel, PharmD [address] [place] [address] 06/22/2025 11:00 AM EST Clinical Support [facility] [address] [place] [address] Barbie Voss, RN 505 [place] [address] documented as of this encounter Visit Diagnoses Not on filedocumented in this encounter Care Teams Airline Lounge Receptionist Relationship Specialty Start Date End Date Tangela Garcia MD [address] [place] [address] PCP - General Family Medicine 06/14/18 Peter Mcdaniel, PharmD [address] [place] [address] Pharmacist Pharmacy 03/15/25 documented as of this encounter
--- OUTSIDE RECORDS SUMMARY | 2025-05-03 17:44 | XMS_ITS | Encounter Summary ---
Author Organization [employer] Address [address] [facility] 7t [place] [address] Care Team Providers Care Overlay Plastician Name Role Phone Tangeal Garcia MD Primary Care Provider Peter Mcdaniel PharmD Unavailable [phone] Reason for Visit * Reason Comments Med Refill Encounter Details Date Type Department Care Team (Late Contact Info) Description 02/13/2023 Refill [facility] MED[facility]INE 230 [place], [place] [phone] Savannah Martini ANP 230 [place], [place] [phone] Social History Tobacco Use Types Packs/Day Years [...] Description 06/21/2025 11:30 AM EST Medication Management [facility] MEDICINE 230 [place] [address] Peter Mcdaniel, PharmD [address] [place] [address] 06/22/2025 11:00 AM EST Clinical Support [facility] MEDICINE [address] [place] [address] Barbie Voss, RN 505 [place] [address] documented as of this encounter Visit Diagnoses Not on filedocumented in this encounter Care Teams Overlay Plastician Relationship Specialty Start Date End Date Tangela Garcia MD [address] [place] [address] PCP - General Family Medicine 06/14/18 Peter Mcdaniel, PharmD [address] [place] [phone] Pharmacist Pharmacy 03/15/25 documented as of this encounter
--- OUTSIDE RECORDS SUMMARY | 2025-05-03 17:44 | XMS_ITS | Encounter Summary ---
Author Organization [employer] Address [address] [facility] [address] [address] 7t [place] [address] Care Team Providers Care Drapery And Upholstery Estimator Name Role Phone Tangela Garcia MD Primary Care Provider [phone] Peter Mcdaniel PharmD Unavailable [phone] Reason for Visit * Reason Onset Date Comments Med Refill 03/19/2025 Encounter Details Date Type Department Care Team (Late st Contact Info) Description 03/19/2025 Telephone [facility] MEDICINE 230 [place], [place] [phone] Tangela Garcia MD 230 [place], [place] [phone] Med Refill Social History Tobacco Use Types [...] release tablet To be sent to: [facility] documented in this encounter Plan of Treatment Upcoming Encounters Date Type Department Care Team (Late st Contact Info) Description 06/21/2025 11:30 AM EST Medication Management [facility] MEDICINE [address] [place] [phone] Peter Mcdaniel, TanyaD 230 [place] [address] 06/22/2025 11:00 AM EST Clinical Support [facility] MEDICINE 230 [place] [address] Barbie Voss RN 505 [place] [address] documented as of this encounter Visit Diagnoses Not on filedocumented in this encounter Additional Health Concerns Assessment Noted Time PHQ-9 Depression Total Score: 0 07/26/19 25 9:16 AM EST documented as of this encounter Care Teams Drapery And Upholstery Estimator Relationship Specialty Start Date End Date Tangela Garcia MD [address] [place] [address] PCP - General Family Medicine 06/14/18 Peter Mcdaniel, TanyaD [address] [place] [phone] Pharmacist Pharmacy 03/15/25 documented as of this encounter
--- OUTSIDE RECORDS SUMMARY | 2025-05-03 17:44 | XMS_ITS | Encounter Summary ---
Author Organization [employer] Address [address] 7t [place] [address] Care Team Providers Care Senior Water/Wastewater Engineer Name Role Phone Tangela Garcia MD Primary Care Provider [phone] Peter Mcdaniel PharmD Unavailable [phone] Encounter Details Date Type Department Care Team ([facility] st Contact Info) Description 04/27/2024 Telephone [facility] [address] [place] [address] Tangela Garcia MD [address] [place] [address] Social History Tobacco Use Types Packs/Day Years [...] Description 06/21/2025 11:30 AM EST Medication Management [address] [address] Peter Mcdaniel, PharmD [address] [place] [address] 06/22/2025 11:00 AM EST Clinical Support [facility] MEDICINE [address] [place] [address] Barbie Voss RN 505 [place] [address] documented as of this encounter Visit Diagnoses Not on filedocumented in this encounter Additional Health Concerns Assessment Noted Time PHQ-9 Depression Total Score: 0 03/01/20 23 10:01 AM EDT documented as of this encounter Care Teams Senior Water/Wastewater Engineer Relationship Specialty Start Date End Date Tangela Garcia MD [address] [place] [address] [place] [address] PCP - General Family Medicine 06/14/18 Peter Mcdaniel, PharmD [address] [place] [address] Pharmacist Pharmacy 03/15/25 documented as of this encounter
--- OUTSIDE RECORDS SUMMARY | 2025-05-03 17:44 | XMS_ITS | Encounter Summary ---
Author Organization [employer] Address [address] 7[address] [place] [address] Care Team Providers Care Mica Layer Name Role Phone Tangela Garcia MD Primary Care Provider [phone] Peter Mcdaniel PharmD Unavailable [phone] Reason for Visit * Reason Comments Med Refill Encounter Details Date Type Department Care Team (Late st Contact Info) Description 02/15/2025 Refill [facility] [address] [place] [address] Tangela Garcia MD 230 [place] [address] Primary osteoarthritis of right knee; Chronic left [...] Description 06/21/2025 11:30 AM EST Medication Management [address] [address] Peter Mcdaniel, TanyaD [address] [place] [address] 06/22/2025 11:00 AM EST Clinical Support [address] [address] Barbie Voss, NAYELY 505 [place] [address] documented as of this encounter Visit Diagnoses Diagnosis Primary osteoarthritis of right knee Chronic left shoulder pain Pain in joint, shoulder region documented in this encounter Additional Health Concerns Assessment Noted Time PHQ-9 Depression Total Score: 0 07/26/19 25 9:16 AM EST documented as of this encounter Care Teams Mica Layer Relationship Specialty Start Date End Date Tangela Garcia MD [address] [place] [address] PCP - General Family Medicine 06/14/18 Peter Mcdaniel, PharmD 230 [place] [address] Pharmacist Pharmacy 03/15/25 documented as of this encounter
--- OUTSIDE RECORDS SUMMARY | 2025-05-03 17:44 | XMS_ITS | Encounter Summary ---
Author Organization [employer] Address [address] [facility] [address] [facility] [address] 7[address] [place] [address] Care Team Providers Care Paint Formulator Name Role Phone Tangela Garcia MD Primary Care Provider [phone] Peter Mcdaniel PharmD Unavailable [phone] Reason for Visit * Reason Onset Date Comments Med Refill 03/30/2024 Encounter Details Date Type Department Care Team ([facility] st Contact Info) Description 03/30/[address] [facility] MEDICINE 230 [place], [place] [phone] Tangela Garcia MD 230 [place], [place] [phone] Med Refill Social History Tobacco Use Types [...] immediate release tablet To be sent to: [facility] - [place], [place] - [address] [place] [address] documented in this encounter Plan of Treatment Upcoming Encounters Date Type Department Care Team ([facility] st Contact Info) Description 06/21/2025 11:30 AM EST Medication Management [facility] MEDICINE [address] [place] [address] Peter Mcdaniel, PharmD [address] [place] [address] 06/22/2025 11:00 AM EST Clinical Support [facility] MEDICINE [address] [place] [address] Barbie Voss, NAYELY 505 [place] [address] documented as of this encounter Visit Diagnoses Not on filedocumented in this encounter Additional Health Concerns Assessment Noted Time PHQ-9 Depression Total Score: 0 03/01/20 23 10:01 AM EDT documented as of this encounter Care Teams Paint Formulator Relationship Specialty Start Date End Date Tangela Garcia MD [address] [place] [address] PCP - General Family Medicine 06/14/18 Peter Mcdaniel, TanyaD [address] [place] [address] Pharmacist Pharmacy 03/15/25 documented as of this encounter
--- OUTSIDE RECORDS SUMMARY | 2025-05-03 17:44 | XMS_ITS | Clinical Summary ---
Author Organization [employer] Address [address] [facility] [address] [place] [address] Care Team Providers Care Life Sciences Teacher Name Role Phone Tangela Garcia MD Primary Care Provider Peter Mcdaniel PharmD Unavailable [phone] Allergies Active Allergy Reactions Criticality Noted Date Comments Nsaids 09/12/2010 Other reaction(s): GI upset Medications pantoprazole (ProtoNix) 40 MG EC tablet Take 1 tablet (40 mg) by mouth 2 times daily. Do not crush, chew, or split. 30 tablet 3 023 Active Simethicone Ultra Strength 180 MG capsule Take 180 mg by mouth 4 times daily. 024 Active butalbital-acetam inophen-caffeine 50-325-40 MG tablet [...] TIMES PER DAY. 90 mL 11 Active albuterol 108 (90 Base) MCG/ACT inhaler Inhale 2 puffs every 4 (four) hours if needed for wheezing or shortness of breath. Maximum 8 puffs per day 18 g 3 2025 Active Diclofenac Sodium 1 % gel [...] puff Once per day. 60 each Active melatonin 3 MG tablet TAKE 1 TABLET BY MOUTH AT BEDTIME NEEDED 30 tablet 3 5 8:26 AM EST Active sucralfate (Carafate) 1 GM/10ML suspension Take 1 g by mouth at bedtime. Active doxepin (SINEquan) 75 MG capsuleIndication s:Insomnia, unspecified type TAKE 1 CAPSULE BY MOUTH AT BEDTIME 30 capsule 1 5 8:26 AM EST Active simvastatin (Zocor) 40 MG tabletIndications :Dyslipidemia TAKE 1 TABLET BY MOUTH EVERY EVENING 30 tablet 3 5 8:26 AM EST Active oxyCODONE (Roxicodone) 10 MG immediate release [...] for opioid reversal. 2 each 1 Active oxyCODONE (Roxicodone) 5 MG immediate release tabletIndications :Primary osteoarthritis involving multiple joints,Primary osteoarthritis of right knee Take 1 tablet (5 mg) by mouth if needed at bedtime for severe pain. 11 tablet Active mirtazapine (Remeron) 15 MG tablet Take 1 tablet (15 mg) by mouth at bedtime. 90 tablet 3 Active olmesartan (Benicar) 20 MG tablet Take 2 tablets (40 mg) by mouth Once per day. Check BP prior to taking medications. Take only 1 tablet if SBP < 120. Do not take if SBP < 100. 180 tablet 3 025 2025 Active naloxone (Narcan) 4 mg/0.1 mL nasal spray Administer 1 spray (4 mg) into affected nostril(s) if needed for opioid reversal. 2 each 1 023 2024 Discontinued(R eorder (will not trigger notification to Pharmacy)) famotidine (Pepcid) 20 MG tablet Take 20 mg by mouth at bedtime. 024 2024 Discontinued(M ed list cleanup (will not trigger notification to Pharmacy)) fluticasone (Flonase) 50 MCG/ACT nasal spray ADMINISTER 1-2 SPRAYS INTO EACH NOSTRIL ONCE PER DAY. SHAKE GENTLY. BEFORE FIRST USE, PRIME PUMP. AFTER USE, CLEAN TIP AND REPLACE CAP. 48 mL 025 2024 Discontinued(R eorder (will not trigger notification to Pharmacy)) olmesartan (Benicar) 20 MG tablet Take 1 tablet (20 mg) by mouth Once per day. 90 tablet 3 5 8:26 AM EST 025 2024 Discontinued(R eorder (will not trigger notification to Pharmacy)) mirtazapine (Remeron) 30 MG tablet TAKE 1 TABLET BY MOUTH AT BEDTIME 30 tablet 3 8:26 AM EST 025 2024 Discontinued(R eorder (will not trigger notification to Pharmacy)) oxyCODONE (Roxicodone) 10 MG immediate release tabletIndications :Primary osteoarthritis of right knee,Chronic left shoulder pain Take 1 tablet (10 mg) by mouth every 12 (twelve) hours if needed for severe pain. 56 tablet 025 2024 Discontinued(R eorder (will not trigger notification to Pharmacy)) Active Problems Problem Noted Date Diagnosed Date Metabolic dysfunction-associ ated steatotic liver disease (MASLD) 05/03/2025 Assessment & Plan (05/03/2025 2:56 PM EST): - Last liver test: Jul 2024 - Last US / elastography: Will check if it has been ordered - FIB4 index 1.89 - [place] [facility] - continue working on lifestyle modifications - continue surveillance study Chronic, continuous use of opioids 07/30/2024 Assessment & Plan (05/03/2025 2:35 PM EST): - pain in shoulders and knees - history of shoulder surgeries and knee replacement - attending BUSINESS COMPUTERS TEACHER visits as scheduled. Most recent visit on 04/20/2025. - currently on oxycodone 10 mg bid; will add oxycodone 5 mg for night time so that he can sleep better - continue judicious use of THC/CBD Assessment & Plan (01/29/2025 5:32 AM EDT): [...] left shoulder pain 02/29/2024 Assessment & Plan (05/03/2025 2:39 PM EST): - seen by orthopedist 04/13/24, received steroid injection to the left shoulder - continue judicious use of oxycodone, currently oxycodone 10 mg bid, will add 5 mg for night time - Prescribed lidocaine (Lidoderm) 5 % patch Assessment & Plan (01/30/2025 5:27 PM EDT): [...] shoulder XR Headache 11/02/2023 Assessment & Plan (05/03/2025 2:53 PM EST): - chronic, multifactorial - continue doxepin (prescribed for insomnia, high-dose) - continue tylenol PRN - improve sleep hygiene - MRI done on 03/21/24, benign - Question of migraine, although symptoms are not classic - Judicious use of wbbplktxzd-mseykpbmftyxy-gziejlru 50-325-40 MG tablet for severe headache Assessment & Plan (02/02/2025 2:43 PM EDT): - chronic, multifactorial - continue doxepin (prescribed for insomnia, high-dose) - continue tylenol PRN - improve sleep hygiene - MRI done on 03/21/24, benign - Question of migraine, although symptoms are not classic - Judicious use of payniquwca-dksouozxejmlo-mctqdfpc 50-325-40 MG tablet for severe headache Assessment & Plan (10/29/2024 7:47 PM EDT): - chronic, multifactorial - continue tylenol PRN - improve sleep hygiene - MRI done on 03/21/24, benign - Question of migraine, although symptoms are not classic - Prescribed uuztktaohm-gzckwawtjelle-xsjbwhgw 50-325-40 MG tablet for severe headache 10/25/24 [...] declined CPAP Hypertension 09/30/2022 Assessment & Plan (05/03/2025 2:13 PM EST): - Goal BP < 130 per ACC/AHA guideline (Treatment threshold >=130) - BP not at goal - Continue working on lifestyle modification - Increase Olmesartan to 40 mg daily - Continue checking BP at home - Optimize pain management Assessment & Plan (02/02/2025 2:45 PM EDT): [...] right TKR on 05/26/22 - followed [place] [facility] [place] - Continue judicious use of celecoxib and oxycodone - Followed by Child Care Supervisor, Last seen in Feb 2023. Planned for DRG Stimulation - Discussed about the possibility of 2nd opinion referral to another orthopedist Assessment & Plan (04/18/2024 1:37 PM EST): - s/p right TKR on 05/26/22 - followed [place] [facility] [place], last seen on 12/14/22 - Continue judicious use of celecoxib and oxycodone - Followed by Child Care Supervisor, Last seen in Feb 2023. Planned for DRG Stimulation - Discussed about the possibility of 2nd opinion referral to another orthopedist Assessment & Plan (07/02/2023 5:29 PM EST): - s/p right TKR on 05/26/22 - followed by [facility], last seen on 12/14/22 - Continue judicious use of celecoxib and oxycodone - Followed by Child Care Supervisor, Last seen in Feb 2023. Planned for DRG Stimulation - Discussed about the possibility of 2nd opinion referral to another orthopedist Assessment & Plan (03/07/2023 10:02 AM EDT): - s/p right TKR on 05/26/22 - followed by [facility], last seen on 12/14/22 - Continue judicious use of celecoxib and oxycodone - Followed by Child Care Supervisor, Last seen in Feb 2023 - Planned for DRG Stimulation - Discussed about the possibility of 2nd opinion referral to another orthopedist Assessment & Plan (11/24/2022 9:18 AM EDT): - s/p right TKR on 05/26/22 - followed [place] [facility] [place], last seen on 09/03/22 and the [...] right TKR on 05/26/22 - followed by [facility], last seen on 09/03/22 and the [...] GERD (gastroesophageal reflux disease) Assessment & Plan (05/03/2025 2:57 PM EST): - evaluated by [facility], last seen in Feb 2025 - continue pantoprazole 40 mg bid - continue sucralfate 10 mg at bedtime - famotidine was discontinued by GI - no longer taking NSAID or COX2i Assessment & Plan (07/02/2023 5:29 PM EST): - evaluated by [facility], last seen in Mar 2023 - continue pantoprazole 40 mg bid - continue sucralfate 10 mg at bedtime - famotidine was discontinued by GI - judicious use of BRAUN-2 Assessment & Plan (03/07/2023 10:49 AM EDT): - evaluated by [facility] - continue pantoprazole 40 mg bid - continue famotidine 40 mg prn for breakthrough - judicious use of BRAUN-2 Assessment & Plan (09/30/2022 5:06 PM EDT): - evaluated by [facility] - continue pantoprazole 40 mg bid [...] than right knee pain Asthma with COPD (CMS/HCC) 06/25/2015 Assessment & Plan (05/03/2025 2:41 PM EST): - followed by [facility] pul[place], Dr. Mayorga, last seen on 01/2025, Pt is being treated for Asthma, rather than COPD. - most recent exacerbation in October 2024. Rx prednisone - Tried SMART therapy with budesonide / formoterol (Symbicort) dose - Continue fluticasone / umeclidinium / vilanterol (Trelegy) - Treatment history: fluticasone propionate / salmeterol (Wixela) ; budesonide / formoterol (Symbicort) Assessment & Plan (02/02/2025 2:45 PM EDT): - followed by [facility] [place], Dr. Mayorga, last seen on 07/2024, Pt is being treated for Asthma, rather than COPD. - most recent exacerbation in October 2024. Rx prednisone - Tried SMART therapy with budesonide / formoterol (Symbicort) dose - However, patient requests albuterol HFA. - Consider fluticasone / umeclidinium / vilanterol (Trelegy) Assessment & Plan (10/29/2024 7:45 PM EDT): - followed by [facility] [place], Dr. Mayorga, last seen on 07/2024, Pt is being treated for Asthma not COPD. - most recent exacerbation in October 2024. Rx prednisone - On SMART therapy. Increase budesonide / formoterol (Symbicort) dose - Discontinue albuterol HFA and fluticasone/ salmeterol Assessment & Plan (07/30/2024 12:52 PM EST): - followed [place] [facility] [place], last seen on 01/2024, Pt is being treated for Asthma not COPD. - most recent exacerbation in Jul 2024. Rx prednisone - Will start SMART therapy. Start budesonide / formoterol (Symbicort) or mometasone / formoterol (Dulera) - Discontinue albuterol HFA and fluticasone/ salmeterol Assessment & Plan (04/18/2024 1:31 PM EST): - followed [place] [facility] Mayorga, last seen on 01/2024 - most recent exacerbation in May 2023, seen in [facility] ED. Rx prednisone and cefuroxime for Dx bronchitis. - continue current medications - maintenance medications: Airduo - rescue medications: Albuterol HFA and neb prn - follow up in 3-6 mo Assessment & Plan (11/02/2023 9:46 AM EDT): - followed [place] [facility] [place], last seen on 07/2023 - most recent exacerbation in May 2023, seen in [facility]. Rx prednisone and cefuroxime for Dx bronchitis. - continue current medications - maintenance medications: Airduo - rescue medications: Albuterol HFA and neb prn - follow up in 3-6 mo Assessment & Plan (07/02/2023 5:26 PM EST): - followed by [facility] [place], Dr. Mayorga, last seen on 02/23/23 - most recent exacerbation in May 2023, seen in [facility]. Rx prednisone and cefuroxime for Dx bronchitis. - continue current medications - maintenance medications: Fluticasone propionate and salmeterol 250/50 - rescue medications: Albuterol HFA and neb prn - follow up in 3-6 mo Assessment & Plan (03/01/2023 11:17 AM EDT): - followed [place] [facility]. [place]a, last seen on 02/23/23 - exacerbation on 09/30/22, wheezing throughout. No crackles or decreased BS. - prednisone 40 mg daily x 5 days - maintenance medications: Advair 250/50 - rescue medications: Albuterol HFA and neb prn - follow up in 3-6 mo Assessment & Plan (11/24/2022 9:13 AM EDT): - followed [place] [facility] [place], last seen on 07/15/22 - [...] (09/30/2022 5:05 PM EDT): - followed by [facility] [place], Dr. Mayorga, last seen on 07/15/22 [...] involving multiple joints 06/25/2015 Assessment & Plan (05/03/2025 2:37 PM EST): - followed by [facility] [place] - s/p knee replacement - s/p shoulder surgery - continue judicious use of oxycodone - currently on oxycodone 10 mg bid. Will add 5 mg for night time - Assessment & Plan (02/02/2025 2:42 PM EDT): - followed by [facility] [place] - s/p knee replacement - s/p shoulder surgery - continue judicious use of oxycodone 10 mg every 12 hours under BUSINESS COMPUTERS TE[employer]ER program guideline - Assessment & Plan (10/25/2024 8:44 AM EDT): - followed by [facility] [place] - s/p knee replacement - s/p shoulder surgery - continue judicious use of oxycodone, increasing its dose Assessment & Plan (07/30/2024 12:53 PM EST): - followed by [facility] [place] - s/p knee replacement - s/p shoulder surgery - continue judicious use of oxycodone, increasing its dose Cannabis dependence 11/24/2012 Assessment & Plan (05/03/2025 2:36 PM EST): - discussed about safe and responsible marijuana use Dyslipidemia 02/08/2012 Assessment & Plan (05/03/2025 2:25 PM EST): - current medication simvastatin 40 mg at bedtime - last lipid profile: 08/10/24 - continue working on lifestyle modifications - annual lipid profile Assessment & Plan (01/29/2025 5:31 AM EDT): [...] for GERD and CIC 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 Assessment & Plan (05/03/2025 2:52 PM EST): - previously seen by neurologist - questionable role of Botox Insomnia 02/08/2012 Assessment & Plan (05/03/2025 2:44 PM EST): - currently on doxepin, mirtazapine, and melatonin - discussed about polypharmacy - agreed to taper down mirtazapine and doxepin as tolerate - decrease mirtazapine to 15 mg at bedtime - continue doxepin 75 mg at bedtime for now - continue improving sleep hygiene Assessment & Plan (10/29/2024 7:46 PM EDT): [...] Osteoarthritis of knee 02/08/2012 Assessment & Plan (05/03/2025 2:38 PM EST): - s/p left chondroplasty, partial meniscectomy in 2012 - s/p left TKA on 09/12/13 - s/p right chondroplasty in 2014 for meniscus tear - s/p right TKA on 05/26/22 Assessment & Plan (01/29/2025 9:06 AM EDT): [...] Vitamin D deficiency 02/08/2012 Restless legs 12/02/2011 Assessment & Plan (05/03/2025 2:51 PM EST): - previously tried ropoinirole and gabapentin, which were ineffective for pain or restless legs - oxycodone as 3rd line agent Resolved Problems Problem Noted Date Diagnosed Date [...] Encounters Date Type Department Care Team Description 05/03/2025 11:00 AM EST Office Visit [facility] [address] [place] [phone] Tangela Garcia MD Hypertension, unspecified type (Primary Dx); Primary osteoarthritis involving multiple joints; Primary osteoarthritis of right knee; Chronic, continuous use of opioids; Asthma with COPD ([facility]/HCC) ([facility]); Dyslipidemia; Screening for diabetes mellitus; Gastroesophageal reflux disease, unspecified whether esophagitis present; Cannabis dependence ([facility]); Chronic left shoulder pain; Insomnia, unspecified type; Restless legs; Facial myokymia; Nonintractable headache, unspecified chronicity pattern, unspecified headache type; Vitamin D deficiency; Metabolic dysfunction-associated steatotic liver disease (MASLD) 05/03/[address] [phone] Tangela Garcia MD Referral 05/03/2025 Travel 05/02/2025 Travel 05/02/[address] [phone] Tangela Garcia MD chart prep 04/24/2025 Telephone [facility] [address] [place] [address] Barbie Voss RN 04/20/2025 9:30 AM EST Clinical Support [address] [address] Barbie Voss RN Long-term current use of opiate analgesic (Primary Dx) 04/20/2025 Refill [facility] [address] [place] [address] Barbie Voss RN 04/20/2025 Travel 04/19/2025 Travel 04/16/2025 Refill [facility] [address] [place] [address] Barbie Voss, RN Primary osteoarthritis of right knee; Chronic left shoulder pain 04/16/2025 Telephone [facility] [address] [place] [address] Tangela Garcia MD Med Refill 04/14/2025 Refill [facility] [address] [place] [address] Savannah Martini ANP 03/21/2025 Refill [facility] [address] [place] [address] Tangela Garcia MD Insomnia, unspecified type; Dyslipidemia 03/19/2025 Refill [facility] [address] [place] [address] Barbie Voss, NAYELY Primary osteoarthritis of right knee; Chronic left shoulder pain 03/19/2025 Telephone [facility] [address] [place] [address] Tangela Garcia MD Med Refill 03/19/2025 Telephone [facility] [address] [place] [phone] Tangela Garcia MD Med Refill 03/19/2025 Refill [facility] [address] [place] [address] Tangela Garcia MD Primary osteoarthritis of right knee; Chronic left shoulder pain 03/12/2025 Travel 03/01/2025 Telephone [facility] [address] [place] [phone] Tangela Garcia MD Appointment Request 02/18/2025 Refill [facility] [address] [place] [address] Tangela Garcia MD 02/15/2025 Refill [facility] [address] [place] [address] Tangela Garcia MD Primary osteoarthritis of right knee; Chronic left shoulder pain 02/14/2025 Refill [facility] [address] [place] [address] Tangela Garcia MD Primary osteoarthritis of right knee; Chronic left shoulder pain 02/05/2025 Telephone [facility] [address] [place] [phone] Tangela Garcia MD from Last 3 Months [...] Mass Index 29.49 05/03/2025 10:56 AM EST Plan of Treatment Upcoming Encounters Date Type Department Care Team (Late st Contact Info) Description 06/21/2025 11:30 AM EST Medication Management [facility] [address] [place] [phone] Peter Mcdaniel, PharmD [address] [place] [phone] 06/22/2025 11:00 AM EST Clinical Support [facility] [address] [place] [phone] Barbie Voss, NAYELY [address] [place] [address] Health Maintenance Due Date Last Done Comments Hepatitis A Vaccines (1 of 2 - Risk 2-dose series) 1964 RSV Patients and Patients Aged 60 years or older (1 - 1-dose 75+ series) 2018 COVID-19 Vaccine (3 - season) 2025 07/15/2021, 06/24/2021 Influenza Vaccine (#1) 2025 7, 06/25/2015, 06/12/2014, Additional history exists Alcohol/Substance Use Screening 07/26/2025 07/26/2024 Depression Screening 07/26/2025 07/26/2024, 07/26/19 25 Diabetes: Hemoglobin A1C 08/10/2025 08/10/2024, 04/15 SDOH Screening 10/25/2025 10/25/2024 Tobacco Screening 05/03/2026 05/03/2025 Lipid Panel 08/10/2029 08/10/2024, 06/14, 05/11/2022, Additional [...] EST Long-term current use of opiate analgesic DRUG MONITOR, COCAINE METAB, QN, URINE Routine 04/20/2025 9:30 AM EST HEMOGLOBIN A1C Routine 08/10/2024 8:04 AM EST [...] Unknown 04/20/2025 9:34 AM EST Narrative Barbie Voss, NAYELY - 04/20/2025 9:34 AM EST .UTOX cup Lot#[id number] Exp. 03/20/26 Internal Pass Control Tangela Garcia MD POINT OF CARE TEST ENTER/EDIT OR DERABLES Final Result * Drug Monitoring, Cocaine Metabolite, Quantitative, Urine (04/20/2025 9:30 AM EST) Benzoylecgonine [address] [facility] Comment:CUTOFF 100 NG/ML Cocaine Comments SEE NOTE [facility] Comment:This drug testing is for medical treatment only. Analysiswas performed as non-forensic testing and these resultsshould be used only by healthcare providers to renderdiagnosis or treatment, or to monitor progress of medicalconditions.Cocaine Notes:Benzoylecgonine detected is consistent with the use of thedrug Cocaine.LDT Notes:Confirmation tests were developed and their analyticalperformance characteristics have been determined by [employer]. It has not been cleared or approved by the FDA.This assay has been validated pursuant to the CLIAregulations and is used for clinical purposes.Healthcare Providers needing Interpretation assistance,please contact us at [phone] ( ) M-F,8am to 10pm ESTPERFORMING SITE:[facility] [employer] [facility], [address] [place] [phone] Console Attendant: PATRICIA AZEVEDO MD, CLIA:[id number] 04/20/2025 9:30 AM EST 04/20/2025 4:14 PM EST us Tangela Garcia MD LAB URINE ORDERABLES Final Resul t [facility] [address] [place] [address] [phone] * (ABNORMAL) Lipid Panel with Reflex to Direct LDL (08/10/2024 8:04 AM EST) Triglycerides 173(H) <150 mg/dL [facility] Comment:Desirable Triglyceri de: less than 150 mg/dLBorderline High Triglyceride 150-199 mg/dLHigh Triglyceride: 200-499 mg/dLVery High Triglyceride: greater than or equal to 5OO mg/dL Cholesterol 202(H) <200 mg/dL [facility] Comment:Desirable Cholestero l: less than 200 mg/dLBorderline High Cholesterol: 200-239 mg/dLHigh Cholesterol: greater than 239 mg/dL LDL Cholesterol Calculated 125(H) <100 mg/dL [facility] Comment:Desirable LDL: less than 100 mg/dLNear Optimal/Above Optimal LDL: 110- 129 mg/dLBorderline High LDL: 130-159 mg/dLHigh LDL: 160-189 mg/dLVery High LDL: greater than or equal to 190 mg/dL HDL Cholesterol 43 >40 mg/dL [facility] Comment:Desirable HDL: great er than 40 mg/dL Note: This HDL assay may give artificially low results in patients with liver disease. Blood 08/10/2024 8:04 AM EST 08/10/2024 11:48 AM EST Tangela Garcia MD LAB BLOOD ORDERABLES Final Resul t Performing Organization Address City/[facility] Co de Phone Number [facility] [address] [place] [phone] * Hemoglobin A1c (08/10/2024 8:04 AM EST) Hemoglobin A1c 5.7 <6.0 % [facility] Comment:Hemoglobin A1C Refer ence Range Adults: 4.8 - 6.0 % Non diabetic: < 6.0 % Goal: < 7.0 %Additional Action Suggested: > 8.0 %Note: Hemoglobin A1c results are invalid for patients with abnormal amounts of HbF. Blood transfusions may impact the HbA1c concentration in the patient sample. Estimated Average Glucose 117 mg/dL [facility] Comment:eAG = Estimated ave rage glucose which is %A1C expressed asaverage glucose, using the formula of the I8U-[id number] Glucose study (ADAG), Diabetes Care, Vol.31,#8,Jan. 2007 Blood Venous blood specimen / Unknown 08/10/2024 8:04 AM EST 08/10/2024 11:48 AM EST us Tangela Garcia MD LAB BLOOD ORDERABLES Final Resul t Performing Organization Address City/[facility] Co de Phone Number [facility] [address] [place] [phone] from Last 3 Months or Most Recently Relevant to Health Maintenance Insurance [place] [phone] [facility] Care Teams Life Sciences Teacher Relationship Specialty Start Date End Date Tangela Garcia MD [address] [place] [address] PCP - General Family Medicine 06/14/18 Peter Mcdaniel, PharmD [address] [place] [address] Pharmacist Pharmacy 03/15/25
--- OUTSIDE RECORDS SUMMARY | 2025-05-03 17:44 | XMS_ITS | Encounter Summary ---
Author Organization [employer] Address [address] [facility] [address] [place] [address] Care Team Providers Care Drug Room Operator Name Role Phone Tangela Garcia MD Primary Care Provider [phone] Peter Mcdaniel PharmD Unavailable [phone] Reason for Visit * Reason Comments Med Refill Encounter Details Date Type Department Care Team (Late st Contact Info) Description 03/19/2025 Refill [facility] [address] [place], [place] [phone] Tangela Garcia MD 230 [place] [address] Primary osteoarthritis of right knee; Chronic left [...] Description 06/21/2025 11:30 AM EST Medication Management [address] [address] Peter Mcdaniel, TanyaD [address] [place] [address] 06/22/2025 11:00 AM EST Clinical Support [address] [address] Barbie Voss, NAYELY [address] [place] [address] documented as of this encounter Visit Diagnoses Diagnosis Primary osteoarthritis of right knee Chronic left shoulder pain Pain in joint, shoulder region documented in this encounter Additional Health Concerns Assessment Noted Time PHQ-9 Depression Total Score: 0 07/26/19 25 9:16 AM EST documented as of this encounter Care Teams Drug Room Operator Relationship Specialty Start Date End Date Tangela Garcia MD [address] [place] [address] PCP - General Family Medicine 06/14/18 Peter Mcdaniel, PharmD [address] [place] [address] [place] [address] Pharmacist Pharmacy 03/15/25 documented as of this encounter
--- OUTSIDE RECORDS SUMMARY | 2025-05-03 17:44 | XMS_ITS | Encounter Summary ---
Author Organization [employer] Address [address] [facility] [address] 7[address] [place] [address] Care Team Providers Care Hydrotel Operator Name Role Phone Tangela Garcia MD Primary Care Provider [phone] Peter Mcdaniel PharmD Unavailable [phone] Reason for Visit * Reason Onset Date Comments Med Refill 04/27/2024 Encounter Details Date Type Department Care Team ([facility] st Contact Info) Description 04/27/2024 Telephone [facility] 230 [place], [place] [phone] Tangela Garcia MD 230 [place], [place] [phone] Med Refill Social History Tobacco Use Types [...] immediate release tablet To be sent to: [facility] - [place], [place] - [address] [place] [address] documented in this encounter Plan of Treatment Upcoming Encounters Date Type Department Care Team ([facility] st Contact Info) Description 06/21/2025 11:30 AM EST Medication Management [facility] [address] [place] [address] Peter Mcdaniel, PharmD 230 [place] [address] 06/22/2025 11:00 AM EST Clinical Support [facility] [address] [place] [address] Barbie Voss, NAYELY 505 [place] [address] documented as of this encounter Visit Diagnoses Not on filedocumented in this encounter Additional Health Concerns Assessment Noted Time PHQ-9 Depression Total Score: 0 03/01/20 23 10:01 AM EDT documented as of this encounter Care Teams Hydrotel Operator Relationship Specialty Start Date End Date Tangela Garcia MD [address] [place] [address] PCP - General Family Medicine 06/14/18 Peter Mcdaniel, PharmD 230 [place] [address] Pharmacist Pharmacy 03/15/25 documented as of this encounter
--- OUTSIDE RECORDS SUMMARY | 2025-05-03 17:44 | XMS_ITS | Encounter Summary ---
Author Organization [employer] Address [address] [facility] [address] 7t [place] [address] Care Team Providers Care Hand Spinner Name Role Phone Tangela Garcia MD Primary Care Provider Peetr Mcdaniel PharmD Unavailable [phone] Reason for Visit * Reason Comments Med Refill Encounter Details Date Type Department Care Team (Late st Contact Info) Description 09/30/2022 Refill [facility] 230 [place], [place] [phone] Tangela Garcia MD 230 [place] [address] Primary osteoarthritis involving multiple joints Social History [...] Description 06/21/2025 11:30 AM EST Medication Management [address] [address] Peter Mcdaniel, PharmD [address] [place] [address] 06/22/2025 11:00 AM EST Clinical Support [address] [address] Barbie Voss, NAYELY 505 [place] [address] documented as of this encounter Visit Diagnoses Diagnosis Primary osteoarthritis involving multiple joints documented in this encounter Care Teams Hand Spinner Relationship Specialty Start Date End Date Tangela Garcia MD [address] [place] [address] PCP - General Family Medicine 06/14/18 Peter Mcdaniel, PharmD [address] [place] [address] Pharmacist Pharmacy 03/15/25 documented as of this encounter
--- OUTSIDE RECORDS SUMMARY | 2025-05-03 17:44 | XMS_ITS | Encounter Summary ---
Author Organization [employer] Address [address] [facility] [address] 7[address] [place] [address] Care Team Providers Care Golf Course Superintendent Name Role Phone Tangela Garcia MD Primary Care Provider [phone] Peter Mcdaniel PharmD Unavailable [phone] Reason for Visit * Reason Onset Date Comments Appointment Request 03/01/2025 Encounter Details Date Type Department Care Team ([facility] st Contact Info) Description 03/01/2025 Telephone [facility] 230 [place], [place] [phone] Tangela Garcia MD 230 [place], [place] [phone] Appointment Request Social History Tobacco Use Types [...] able to attend. Contact pt Daughter at [phone] documented in this encounter Plan of Treatment Upcoming Encounters Date Type Department Care Team (Late st Contact Info) Description 06/21/2025 11:30 AM EST Medication Management [facility] [address] [place] [address] Peter Mcdaniel, PharmD [address] [place] [address] 06/22/2025 11:00 AM EST Clinical Support [facility] 230 [place] [address] Barbie Voss RN [address] [place] [address] [place] [address] documented as of this encounter Visit Diagnoses Not on filedocumented in this encounter Additional Health Concerns Assessment Noted Time PHQ-9 Depression Total Score: 0 07/26/19 25 9:16 AM EST documented as of this encounter Care Teams Golf Course Superintendent Relationship Specialty Start Date End Date Tangela Garcia MD [address] [place] [address] PCP - General Family Medicine 06/14/18 Peter Mcdaniel, TanyaD [address] [place] [address] Pharmacist Pharmacy 03/15/25 documented as of this encounter
--- OUTSIDE RECORDS SUMMARY | 2025-05-03 17:44 | XMS_ITS | Encounter Summary ---
Author Organization [employer] Address [address] [facility] [address] 7[address] [place] [address] Care Team Providers Care Management Tech Name Role Phone Tangela Garcia MD Primary Care Provider [phone] Peter Mcdaniel PharmD Unavailable Reason for Visit * Reason Onset Date Comments Med Refill 10/13/2022 Encounter Details Date Type Department Care Team ([facility] st Contact Info) Description 10/13/2022 Telephone [facility] MED[facility]INE 230 [place], [place] [phone] Tangela Garcia MD 230 [place], [place] [phone] Med Refill Social History Tobacco Use Types [...] Miscellaneous Notes * Telephone Encounter - Angie Laci - 10/13/2022 10:50 AM EDT Tc from patient requesting a med refill on medication oxycodone 5 mg. Please send to [facility] on chart. PCP Dr. Garcia documented in this encounter Plan of Treatment Upcoming Encounters Date Type Department Care Team (Late st Contact Info) Description 06/21/2025 11:30 AM EST Medication Management [address] [address] Peter Mcdaniel, Juan C [address] [place] [address] 06/22/2025 11:00 AM EST Clinical Support [address] [address] Barbie Voss, NAYELY 505 [place] [address] documented as of this encounter Visit Diagnoses Not on filedocumented in this encounter Care Teams Management Tech Relationship Specialty Start Date End Date Tangela Garcia MD [address] [place] [address] PCP - General Family Medicine 06/14/18 Peter Mcdaniel, PharmD [address] [place] [address] Pharmacist Pharmacy 03/15/25 documented as of this encounter
--- OUTSIDE RECORDS SUMMARY | 2025-05-03 17:44 | XMS_ITS | Encounter Summary ---
Author Organization [email or web address] Address [address] [facility] [address] [place] [address] Care Team Providers Care Data Base Administrator Name Role Phone Tangela Garcia MD Primary Care Provider Peter Mcdaniel PharmD Unavailable Reason for Visit * Reason Onset Date Comments Triage 10/13/2022 Encounter Details Date Type Department Care Team ([facility] st Contact Info) Description 10/13/2022 Telephone [facility] 230 [place], [place] [phone] Tangela Garcia MD 230 [place], [place] [phone] Triage Social History Tobacco Use Types Packs/Day [...] pain. Pt is advised to come to [facility] today, Pt daughter declines and requests to [...] patient got a knee replacement. Please call [phone] documented in this encounter Plan of Treatment Upcoming Encounters Date Type Department Care Team (Late st Contact Info) Description 06/21/2025 11:30 AM EST Medication Management [address] [address] Peter Mcdaniel, PharmD [address] [place] [address] 06/22/2025 11:00 AM EST Clinical Support [address] [address] Barbie Voss, RN [address] [place] [address] documented as of this encounter Visit Diagnoses Not on filedocumented in this encounter Care Teams Data Base Administrator Relationship Specialty Start Date End Date Tangela Garcia MD [address] [place] [address] PCP - General Family Medicine 06/14/18 Peter Mcdaniel, PharmD [address] [place] [address] Pharmacist Pharmacy 03/15/25 documented as of this encounter
--- OUTSIDE RECORDS SUMMARY | 2025-05-03 17:44 | XMS_ITS | Clinical Summary ---
Author Organization [facility] Address [address] [place] [address] Care Team Providers Care Office 365 Consultant Name Role Phone Unavailable Primary Care Provider [...]
== END 2025-05-03 11:27 | disposition home or self-care (01) ==
LOC: HO.HAP 11:26
PROVIDERS: Visit Provider Family Medicine
DX: Z13.89 Encounter for screening for other disorder (principal)

== ENCOUNTER 2025-05-22 12:41 | Outpatient (REF) | payer MEDICARE, MEDICAID, SELFPAY | END 2025-05-22 12:42 | disposition home or self-care (01) | LOC: HO.HAP 12:41 | PROVIDERS: Visit Provider Family Medicine | DX: Z46.1 Encounter for fitting and adjustment of hearing aid (principal); H90.3 Sensorineural hearing loss, bilateral | CPT/HCPCS: 92593 ==